=== PATIENT | female | born 1940 | race Caucasian/White ===

== ENCOUNTER → 2017-01-22 | Day surgery (SDC) | payer OTHER ==
[2017-01-19 08:35] VITALS: BMI 23.0
[~2017-01-22] VITALS: Ht 157.5 cm; Wt 57.3 kg
[~2017-01-22] MED LIST: ACT15 PO; AMR2 PO; ASPCH81 PO; ASPI81TA28 PO; ATROPINE SULFATE 0.1 MG/ML 5ML SYR IV PRN; CALC1CAP24 PO; CEFU1TAB33 PO; DEXAMETHASONE SOD INJ 4 MG/ML VIAL ONE; ERGO1CAP35 PO; ERGO500037 PO; EpHEDrine SULFATE INJ 50 MG/ML AMP IV PRN; FENTANYL CITRATE INJ 50 MCG/1 ML 2 ML VIAL IV PRN; FENTANYL CITRATE INJ 50 MCG/1 ML 2 ML VIAL ONE; FLUMAZENIL 0.1 MG/1 ML 10 ML VIAL IV ONE; FLUT0.15 NAE; FSM70 PO; GLIM4TAB2 PO; HYDROmorphone INJ 1 MG/ML SYR IV PRN; INDOMETHACIN 50 MG SUPP PR ONE; LABETALOL HCL IV 5 MG/ML 20ML IV ONE; LABETALOL HCL IV 5 MG/ML 20ML IV PRN; LACTATED RINGER'S 1000ML 1,000 ML IV SCH; LIDOCAINE HCL 2% 2 ML VIAL (20MG/ML) ONE; LOSA1TAB PO; LOSARTAN; MECL1TAB42 PO; MEPERIDINE HCL 25 MG/ML CARP IV PRN; MIDAZOLAM HCL 1 MG/ML 2ML VIAL ONE; MULT-190 PO; ONDA4TAB46 PO; ONDANSETRON INJ 2 MG/ML 2 ML VIAL IV PRN; ONDANSETRON INJ 2 MG/ML 2 ML VIAL ONE; POLY335019 PO; PROPOFOL IV EMULSION 10 MG/ML 20 ML VIAL IV ONE; RIZA10TA18 PO; ROCURONIUM BROMIDE 10 MG/ML 5 ML VIAL ONE; SCOP1.5D2 TD; SIMV10TA2 PO; VNTHFA/IN INH
[2017-01-22 09:16] VITALS: BP 198/86; PULSE 69; TEMP 36.8; O2SAT 97; Ht 157.5 cm; Wt 57.3 kg
[2017-01-22 09:18] LABS: HEMATOCRIT 34.4 % (37-47); MEAN CELL VOLUME 93.7 fL (80-100); MEAN CORPUSCULAR HEMOGLOBIN 32.2 pg (25-34); MEAN PLATELET VOLUME 10.4 fL (7.4-10.4); PLATELET COUNT 181 K/uL (130-400); RED BLOOD COUNT 3.67 M/uL (4.2-5.4); WHITE BLOOD COUNT 5.95 K/uL (4.8-10.8)
[2017-01-22 09:23] LABS: MEAN CORPUSCULAR HGB CONC 34.3 g/dl (32-36)
[2017-01-22 09:43] LABS: BUN/CREATININE RATIO 16.7 (10-20); CALCIUM 9.4 mg/dl (8.5-10.1)
--- NOTE | 2017-01-22 09:45 | Endo History and Physical ---
History & Physical Date of Service: Jan 22, 2017. Chief Complaint: Abnormal imaging study. Referring Physician: Dr. Steward History of Present Illness 76 year old female referred for evalaution of a dilated CBD. Normal LFT, history of abdominal pain that has resolved. No dysphagia. Past Surgical History Hx Abdominal Surgery: Yes (CHOLECYSTECTOMY, HYSTERECTOMY, APPY) Hx Post-Op Nausea and Vomiting: No Hx Cancer Surgery: No Hx Thoracic Surgery: No Hx Orthopedic: No Hx Urinary Tract Surgery: No Social History Smoking Status: Never Smoker Hx Substance Use: No Hx Alcohol Use: No Allergies Coded Allergies: No Known Allergies (Verified , 01/22/17) Current Medications Reported Home Medications Medications Dose Route/Sig Max Daily Dose Days Date Category Dose Instructions Alendronate Sodium 70 Mg Tab 70 Mg PO WK 11/01/16 Reported Ocuvite Preservision (Multivitamins/Minerals) 1 Tab Tab 1 Tab PO QAM 11/01/16 Reported Vitamin D Cap (Ergocalciferol) 50,000 Interunit Cap 1 Tab PO MONTHLY 02/28/11 Reported Aspirin Tab-Chewable * (Aspirin) 81 Mg Chew 81 Mg PO QAM 02/27/11 Reported HOLD 01/19/17 Amaryl * (Glimepiride) 4 Mg Tab 4 Mg PO QAM 02/27/11 Reported Zocor (Simvastatin) 10 Mg Tab 10 Mg PO QAM 02/27/11 Reported Actos * (Pioglitazone HCl) 15 Mg Tab 15 Mg PO QAM 02/27/11 Reported Vital Signs Weight (Kilograms): 57.27 Height (Feet): 5 Height (Inches): 2 Date Time Temp Pulse Resp B/P Pulse Ox O2 Delivery O2 Flow Rate FiO2 01/22/17 09:16 36.8 69 18 198/86 97 Room Air Physical Exam General Appearance: no apparent distress Respiratory/Chest: Auscultation: breath sounds normal Cardiovascular: Heart Auscultation: RRR Abdomen: Inspection & Palpation: soft Assessment and Plan EGD/EUS for evaluation of a dilated CBD on prior imaging. If found to have CBD stones will plan for ERCP today as well. We have discussed the risks to include bleeding, infection, perforation, pain, pancreatitis and failed cannulation in event ERCP is performed.
--- NOTE | 2017-01-22 10:38 | Discharge Instructions ---
Endoscopy Patient Instructions Date / Procedure(s) Performed Jan 22, 2017. EGD, Other (Endoscopic ultrasound) Allergy Information Coded Allergies: No Known Allergies (Verified , 01/22/17) Discharge Date / Findings Jan 22, 2017. 7 mm common bile duct (normal for prior cholecystectomy) Mild gastritis Medication Instructions Reported Home Medications Medications Dose Route/Sig Max Daily Dose Days Date Category Dose Instructions Alendronate Sodium 70 Mg Tab 70 Mg PO WK 11/01/16 Reported Ocuvite Preservision (Multivitamins/Minerals) 1 Tab Tab 1 Tab PO QAM 11/01/16 Reported Vitamin D Cap (Ergocalciferol) 50,000 Interunit Cap 1 Tab PO MONTHLY 02/28/11 Reported Aspirin Tab-Chewable * (Aspirin) 81 Mg Chew 81 Mg PO QAM 02/27/11 Reported HOLD 01/19/17 Amaryl * (Glimepiride) 4 Mg Tab 4 Mg PO QAM 02/27/11 Reported Zocor (Simvastatin) 10 Mg Tab 10 Mg PO QAM 02/27/11 Reported Actos * (Pioglitazone HCl) 15 Mg Tab 15 Mg PO QAM 02/27/11 Reported Provider Instructions Activity Restrictions - No exercising or heavy lifting for 24 hours. - Do not drink alcohol the day of the procedure. - Do not drive a car or operate machinery until the day after the procedure. - Do not make any important decisions or sign important papers in 24 hours after the procedure. Following Day: - Return to full activity which may include returning to work/school. Diet Start your diet with liquids and light foods (jello, soup, juice, toast). Then eat your usual diet if not nauseated. Treatment For Common After Affects For mild abdominal pain, bloating, or excessive gas: - Rest - Eat lightly - Lie on right side Follow-Up Information Follow-up with Dr. Steward as needed Anesthesia Information What You Should Know You have had a procedure that required some medicine to reduce anxiety and discomfort. This treatment is called moderate sedation. After receiving the treatment, you may be sleepy, but you will be able to breathe on your own. The effects of the treatment may last for several hours. Follow these instructions along with Activity/Diet recommendations noted above: * Do NOT do anything where dizziness or clumsiness would be dangerous. * Rest quietly at home today, then you can be up and about tomorrow. * Have a responsible person stay with you the rest of today. * You may have had an I.V. today. If so, you may take the dressing off later today. Recommendations Call your doctor if: * Trouble breathing * Continuous vomiting for more than 24 hours * Temperature above 101 degrees * Severe abdominal pain or bloating * Pain not relieved by pain medicine ordered * There is increased drainage or redness from any incision * A large amount of rectal bleeding greater than 2-3 tablespoons. (If you had a polyp/s removed or have hemorrhoids, a small amount of blood - from the rectum is to be expected.) * You have any unanswered questions or concerns. IN THE EVENT OF A SERIOUS EMERGENCY, GO TO THE NEAREST EMERGENCY ROOM Your discharge instructions were prepared by provider Roosevelt Peralta. Patient Instructions Signature Page Machelle King Patient (or Guardian) Signature/Date: I have read and understand the instructions given to me by my caregivers. Caregiver/RN/Doctor Signature/Date: The above-named patient and/or guardian has received patient instructions on this date. + Original Patient Signature Page (only) stays with chart. Please make copy for patient.
--- NOTE | 2017-01-22 10:39 | [facility] Post Operative Brief Note ---
Immediate Operative Summary Operative Date Jan 22, 2017. Pre-Operative Diagnosis Dilated common bile duct Post-Operative Diagnosis Same Procedure(s) Performed Esophagogastroduodenoscopy with gastric biopsy,Upper Endoscopic Ultrasonography Surgeon Dr Roosevelt Peralta Inlayer Surgeon(s) None Estimated Blood Loss 0ml Findings Mild dilation of the CBD Mild gastritis (likely related to Aledronate Specimens All specimens handled by endo staff Anesthesia General Complication(s) None Disposition Recovery Room / PACU
--- NOTE | 2017-01-22 10:47 | GI REPORT ---
Procedure Date: 01/22/2017 10:15 AM Procedure: Upper EUS Indications: Common bile duct dilation (acquired) seen on CT scan, Epigastric abdominal pain Medicines: General Anesthesia Complications: No immediate complications. Estimated blood loss: Minimal. Estimated Blood Loss: Estimated blood loss was minimal. Procedure: Pre-Anesthesia Assessment: - Prior to the procedure, a History and Physical was performed, and patient medications, allergies and sensitivities were reviewed. The patient's tolerance of previous anesthesia was reviewed. - The risks and benefits of the procedure and the sedation options and risks were discussed with the patient. All questions were answered and informed consent was obtained. - Patient identification and proposed procedure were verified prior to the procedure by the physician, the nurse and the mill hand plate mill. The procedure was verified in the procedure room. - Pre-procedure physical examination revealed no contraindications to sedation. - ASA Grade Assessment: III - A patient with severe systemic disease. - After reviewing the risks and benefits, the patient was deemed in satisfactory condition to undergo the procedure. - The anesthesia plan was to use general anesthesia. - Immediately prior to administration of medications, the patient was re-assessed for adequacy to receive sedatives. - The heart rate, respiratory rate, oxygen saturations, blood pressure, adequacy of pulmonary ventilation, and response to care were monitored throughout the procedure. - The physical status of the patient was re-assessed after the procedure. After obtaining informed consent, the endoscope was passed under direct vision. Throughout the procedure, the patient's blood pressure, pulse, and oxygen saturations were monitored continuously. The Endosonoscope was introduced through the mouth, and advanced to the second part of duodenum. The upper EUS was accomplished without difficulty. The patient tolerated the procedure well. Findings: Endoscopic Finding : The examined esophagus was normal. Diffuse moderate inflammation characterized by erythema and granularity was found in the entire examined stomach. Biopsies were taken with a cold forceps for histology. Estimated blood loss was minimal. The Z-line was regular and was found 39 cm from the incisors. The examined duodenum was normal. Endosonographic Finding : There was no sign of significant endosonographic abnormality in the ampulla. No masses were identified. Evidence of a previous cholecystectomy was identified endosonographically. There was dilation in the common bile duct which measured up to 7.6 mm. There was abnormal echogenicity in the liver. This area was hyperechoic. Pancreatic parenchymal abnormalities were noted in the entire pancreas. These consisted of diffuse echogenicity, the PD was 1 mm in the body and 3 mm in the head. There was no sign of significant endosonographic abnormality in the left adrenal gland. No adrenal gland enlargement was identified. No lymphadenopathy seen. Impression: - Normal esophagus. - Diffuse gastritis, likley related to Bisphosphonate use. Biopsied. - Z-line regular, 39 cm from the incisors. - Normal examined duodenum. - There was no sign of significant pathology in the ampulla. - Evidence of a cholecystectomy. - There was dilation in the common bile duct which measured up to 7.6 mm. This is consistent with a prior cholecystectomy. - There was abnormal echogenicity in the liver. This was hyperechoic. Tissue has not been obtained. However, the endosonographic appearance is consistent with fatty infiltration. - No pancreatic mass or PD dilation seen.. - Endosonographic images of the left adrenal gland were unremarkable. Recommendation: - Discharge patient to home (ambulatory). - Advance diet as tolerated today. - Await path results. Roosevelt Peralta D.O. Roosevelt Peralta, 01/22/2017 10:47:36 AM This report has been signed electronically. Note Initiated On: 01/22/2017 10:15 AM I attest to the content of the Intraoperative Record and orders documented therein, exceptions below
[2017-01-22 11:35] VITALS: BP 183/65; PULSE 54; TEMP 36.5; O2SAT 96
--- NOTE | 2017-01-22 11:53 | Anesthesiology Progress Note ---
Anesthesia Post Op Note Date & Time Jan 22, 2017 at 11:53 Vital Signs Pain Intensity: 0 Vital Signs Past 12 Hours Date Time Temp Pulse Resp B/P Pulse Ox O2 Delivery O2 Flow Rate FiO2 01/22/17 11:35 36.5 54 16 183/65 96 Room Air 01/22/17 11:25 36.5 51 16 141/55 96 Room Air 01/22/17 11:15 55 16 152/61 96 Room Air 01/22/17 11:05 56 16 152/61 100 Mask 10 01/22/17 10:55 54 16 148/58 100 Mask 10 01/22/17 10:45 37 67 16 181/62 99 Mask 10 01/22/17 09:16 36.8 69 18 198/86 97 Room Air Notes Mental Status: alert / awake / arousable, participated in evaluation Pt Amnestic to Procedure: Yes Nausea / Vomiting: adequately controlled Pain: adequately controlled Airway Patency, RR, SpO2: stable & adequate BP & HR: stable & adequate Hydration State: stable & adequate Anesthetic Complications: no major complications apparent
[2017-01-22 12:05] VITALS: BP 155/66; PULSE 54; O2SAT 96
[2017-01-22 12:34] VITALS: BP 143/65; PULSE 55; TEMP 36.5; O2SAT 96
== END | disposition home or self-care (01) ==
LOC: C.ACU 08:48
PROVIDERS: ATTEND Internal Medicine Gastroenterology
DX: K83.8 Other specified diseases of biliary tract (principal); K29.70 Gastritis, unspecified, without bleeding; R93.5 Abnormal findings on diagnostic imaging of other abdominal regions, including retroperitoneum; Z90.49 Acquired absence of other specified parts of digestive tract; Z90.89 Acquired absence of other organs; Z90.710 Acquired absence of both cervix and uterus; Z79.82 Long term (current) use of aspirin; E78.00 Pure hypercholesterolemia, unspecified; Z86.73 Personal history of transient ischemic attack (TIA), and cerebral infarction without residual deficits; I10 Essential (primary) hypertension; E78.5 Hyperlipidemia, unspecified; E11.9 Type 2 diabetes mellitus without complications; N18.3 Chronic kidney disease, stage 3 (moderate)

== ENCOUNTER 2017-07-21 20:12 | Inpatient (IN) | payer OTHER ==
[~2017-07-21] VITALS: Ht 157.5 cm; Wt 59.3 kg
[~2017-07-21 20:12] MED LIST changes: -ASPI81TA28 PO; -ATROPINE SULFATE 0.1 MG/ML 5ML SYR IV PRN; -CALC1CAP24 PO; -CEFU1TAB33 PO; -DEXAMETHASONE SOD INJ 4 MG/ML VIAL ONE; -ERGO500037 PO; -EpHEDrine SULFATE INJ 50 MG/ML AMP IV PRN; -FENTANYL CITRATE INJ 50 MCG/1 ML 2 ML VIAL IV PRN; -FENTANYL CITRATE INJ 50 MCG/1 ML 2 ML VIAL ONE; -FLUMAZENIL 0.1 MG/1 ML 10 ML VIAL IV ONE; -FLUT0.15 NAE; -GLIM4TAB2 PO; -HYDROmorphone INJ 1 MG/ML SYR IV PRN; -INDOMETHACIN 50 MG SUPP PR ONE; -LABETALOL HCL IV 5 MG/ML 20ML IV ONE; -LABETALOL HCL IV 5 MG/ML 20ML IV PRN; -LACTATED RINGER'S 1000ML 1,000 ML IV SCH; -LIDOCAINE HCL 2% 2 ML VIAL (20MG/ML) ONE; -LOSA1TAB PO; -LOSARTAN; -MECL1TAB42 PO; -MEPERIDINE HCL 25 MG/ML CARP IV PRN; -MIDAZOLAM HCL 1 MG/ML 2ML VIAL ONE; -ONDA4TAB46 PO; -ONDANSETRON INJ 2 MG/ML 2 ML VIAL IV PRN; -ONDANSETRON INJ 2 MG/ML 2 ML VIAL ONE; -POLY335019 PO; -PROPOFOL IV EMULSION 10 MG/ML 20 ML VIAL IV ONE; -RIZA10TA18 PO; -ROCURONIUM BROMIDE 10 MG/ML 5 ML VIAL ONE; -SCOP1.5D2 TD; -VNTHFA/IN INH
[2017-07-21] MEDS ORDERED: SODIUM CHLORIDE 0.9% 1000ML 1,000 ML IV STA (20:22)
[2017-07-21] MEDS ORDERED: ONDANSETRON 8 MG/54 ML D5W IV STA (20:22)
[2017-07-21] MEDS ORDERED: MoRPHine SULFATE 4 MG/ML 1 ML CARP\\VIAL IV STA ×2 (20:22→23:33)
[2017-07-21 20:46] LABS: BASO % 0.3 %; BASO ABS # 0.03 K/uL (0-0.2); COMPLETE YES; EOS % 1.9 %; HEMATOCRIT 33.9 % (37-47); IG% 0.4 %; LYMPH ABS # 1.53 K/uL (1.2-3.4); MEAN CELL VOLUME 94.2 fL (80-100); MEAN CORPUSCULAR HEMOGLOBIN 32.2 pg (25-34); MEAN CORPUSCULAR HGB CONC 34.2 g/dl (32-36); MEAN PLATELET VOLUME 10.5 fL (7.4-10.4); MONO % 6.7 %; NEUT % 75.7 %; PLATELET COUNT 185 K/uL (130-400); WHITE BLOOD COUNT 10.17 K/uL (4.8-10.8)
[2017-07-21] MEDS ORDERED: GLIM4TAB2 PO (20:58)
[2017-07-21] MEDS ORDERED: ACT15 PO (20:58)
[2017-07-21] MEDS ORDERED: ERGO500037 PO (20:58)
[2017-07-21] MEDS ORDERED: ONDA4TAB46 PO (21:02)
[2017-07-21] MEDS ORDERED: CALC1CAP24 PO (21:02)
[2017-07-21] MEDS ORDERED: FLUT0.15 NAE (21:02)
[2017-07-21] MEDS ORDERED: SCOP1DIS14 TD (21:02)
[2017-07-21] MEDS ORDERED: LOSA1TAB PO (21:02)
[2017-07-21] MEDS ORDERED: VNTHFA/IN INH (21:02)
[2017-07-21] MEDS ORDERED: ASPI81TA28 PO (21:02)
[2017-07-21] MEDS ORDERED: MECL1TAB42 PO (21:02)
[2017-07-21] MEDS ORDERED: POLY335019 PO (21:02)
[2017-07-21] MEDS ORDERED: RIZA10TA18 PO (21:02)
[2017-07-21] MEDS ORDERED: LOSARTAN (21:02)
--- NOTE | 2017-07-21 21:03 | DIAGNOSTIC IMAGING REPORT ---
CT SCAN OF THE ABDOMEN AND PELVIS WITHOUT CONTRAST CLINICAL HISTORY: Vomiting. Upper and lower abdominal pain. History of cholecystectomy, appendectomy, and hysterectomy. COMPARISON STUDY: 11/02/2016 TECHNIQUE: CT scan of the abdomen and pelvis was performed from the lung bases to the proximal femurs. Images are reviewed in the axial, sagittal, and coronal planes. IV contrast was not administered for this examination. A dose lowering technique was utilized adhering to the principles of ALARA. CT DOSE: 293.82 mGy.cm FINDINGS: Lower chest: There are mild dependent atelectatic changes. Liver: There is persistent intra and extrahepatic biliary ductal dilatation. There is trace perihepatic fluid. Gallbladder: Surgically absent Spleen: Normal in size and attenuation. Pancreas: Unremarkable. Adrenal glands: Unremarkable. Kidneys: No renal, ureteral, or bladder calculi are visualized. Bowel: There are borderline dilated small bowel loops containing multiple air-fluid levels. There is formed fecal material within distal small bowel loops. There is mild mesenteric edema and minimal interloop fluid. A discrete transition zone is not visualized. The findings may therefore be secondary to an enteritis. Peritoneum: There is trace peritoneal fluid. There is minimal mesenteric edema. Vasculature: The abdominal aorta is normal in course and caliber. Adenopathy: None. Pelvic viscera: The uterus is surgically absent. Skeletal structures: No destructive osseous lesions are seen. IMPRESSION: 1. Study limited due to lack of intravenous and oral contrast 2. Borderline dilated small bowel loops containing multiple air-fluid levels. There is mild mesenteric edema and minimal interloop fluid. A discrete transition zone is not visualized. The findings may therefore be secondary to a nonspecific enteritis. Close clinical follow-up is recommended. If symptoms do not improve, repeat imaging might be considered with intravenous and oral contrast 3. Colonic diverticulosis. No evidence of acute peridiverticular inflammatory change 4. Small amount of perihepatic fluid 5. Persistent biliary ductal dilatation Electronically signed by: Austyn Peterson M.D. 07/21/2017 9:01 PM Dictated Date/Time: 07/21/2017 8:53 PM
[2017-07-21 21:07] LABS: ALT/SGPT 21 U/L (12-78); BLOOD UREA NITROGEN 18 mg/dl (7-18); BUN/CREATININE RATIO 16.5 (10-20); CALCIUM 9.1 mg/dl (8.5-10.1); CARBON DIOXIDE 24 mmol/L (21-32); CHLORIDE 109 mmol/L (98-107); GLUCOSE 178 mg/dl (70-99); POTASSIUM 4.3 mmol/L (3.5-5.1); SODIUM 141 mmol/L (136-145)
[2017-07-21 21:12] LABS: ALKALINE PHOSPHATASE 57 U/L (45-117); AST/SGOT 20 U/L (15-37)
[2017-07-21] MEDS ORDERED: MoRPHine SULFATE 2 MG/ML CARP ONE (21:30)
[2017-07-21 22:58] LABS: MAGNESIUM 2.5 mg/dl (1.8-2.4)
--- NOTE | 2017-07-21 23:10 | EMERGENCY ROOM VISIT NOTE ---
History Report prepared by Trey: Darlene Horta Under the Supervision of: Dr. Francois Zhang M.D. First contact with patient: 20:17 Chief Complaint: NAUSEA Stated Complaint: NAUSEA,VOMITNG,ABD PAIN History of Present Illness The patient is a 77 year old female who presents to the Emergency Room with complaints of intermittent abdominal pain starting noon today. The pain is in her upper abdomen and comes every 5 minutes. She rates her discomfort as a 10/ 10 in severity at worst. Currently, she does not have any pain. Just prior to leaving for the ED, she started having nausea and vomiting. The vomiting seemed to relieve her pain. She has had a cholecystectomy, appendectomy, and hysterectomy. She still has her ovaries. She has a history of gastroparesis. She denies any history of bowel blockage or pancreas problems. Pt denies LOC, headache, fevers, chills, diaphoresis, visual changes, neck pain, chest pain, breathing difficulties, back pain, melena, hematochezia, urinary symptoms, numbness, weakness, lymphadenopathy, rash, or other complaints. Source of History: patient Onset: 1200 today Position: abdomen (upper) Symptom Intensity: 10/10 at worst Quality: other (pain) Timing: intermittent Modifying Factors (Relieving): other (vomiting) Associated Symptoms: + nausea, + vomiting Review of Systems See HPI for pertinent positives and negatives. A total of ten systems were reviewed and were otherwise negative. Past Medical & Surgical Medical Problems: (1) Diabetes mellitus, type II (2) Dyslipidemia (3) Kidney disease, chronic, stage III (GFR 30-59 ml/min) Surgical Problems: (1) History of appendectomy (2) History of tonsillectomy and adenoidectomy (3) S/P cholecystectomy (4) S/P hysterectomy Family History Noncontributory secondary to age. Social History Smoking Status: Never Smoker Marital Status: Housing Status: lives with family Occupation Status: retired Current/Historical Medications Scheduled Aspirin (Aspirin Ec), 81 MG PO DAILY Calcium (Calcium), 250 MG PO DAILY Ergocalciferol (Vitamin D 94445 Unit), 50,000 UNIT PO MONTHLY Fluticasone Propionate (Nasal) (Flonase Allergy Relief), 2 SPRAYS DANIA DAILY Glimepiride (Glimepiride), 4 MG PO QAM Losartan Potassium (Cozaar), 25 MG PO DAILY Ocuvite Preservision (Ocuvite Preservision), 1 TAB PO QAM Pioglitazone (Actos), 15 MG PO QAM Simvastatin (Zocor), 10 MG PO QAM Scheduled PRN Albuterol Hfa (Ventolin Hfa), 2 PUFFS INH QID PRN for Shortness of Breath Meclizine Hcl (Meclizine Hcl), 1 TAB PO TID PRN for Dizziness or Vertigo Ondansetron Hcl (Zofran), 4 MG PO Q6H PRN for Nausea Polyethylene Glycol 3350 (Miralax), 17 GM PO DAILY PRN for Constipation Rizatriptan Benzoate (Maxalt), 10 MG PO DIRECTED PRN for Migraine Scopolamine (Transderm-Scop), 1.5 MG TD Q72H PRN for PRIOR TO "EVENTS". Allergies Coded Allergies: No Known Allergies (Verified , 07/21/17) Physical Exam Vital Signs Date Time Temp Pulse Resp B/P (MAP) Pulse Ox O2 Delivery O2 Flow Rate FiO2 07/21/17 23:01 160/58 07/21/17 22:36 53 19 95 07/21/17 22:31 120/52 07/21/17 22:17 56 15 97 07/21/17 22:01 131/51 07/21/17 21:47 61 20 96 07/21/17 21:31 122/53 07/21/17 21:17 59 19 95 07/21/17 21:12 57 21 98 07/21/17 21:01 123/76 07/21/17 20:44 58 07/21/17 20:14 36.7 84 20 106/69 97 Room Air Physical Exam GENERAL: Awake, alert, uncomfortable-appearing, in no distress HENT: Normocephalic, atraumatic. Oropharynx unremarkable. EYES: Normal conjunctiva. Sclera non-icteric. NECK: Supple. No nuchal rigidity. FROM. No JVD. RESPIRATORY: Clear to auscultation. CARDIAC: Regular rate, normal rhythm. Extremities warm and well perfused. Pulses equal. ABDOMEN: Soft, non-distended. Mild bilateral lower tenderness to palpation. No rebound or guarding. No masses. RECTAL: Deferred. MUSCULOSKELETAL: Chest examination reveals no tenderness. The back is symmetrical on inspection without obvious abnormality. There is no CVA tenderness to palpation. No joint edema. LOWER EXTREMITIES: Calves are equal size bilaterally and non-tender. No edema. No discoloration. NEURO: Normal sensorium. No sensory or motor deficits noted. SKIN: No rash or jaundice noted. Medical Decision & Procedures ER Provider Diagnostic Interpretation: Radiology results as stated below per my review and radiologist interpretation: CT SCAN OF THE ABDOMEN AND PELVIS WITHOUT CONTRAST CLINICAL HISTORY: Vomiting. Upper and lower abdominal pain. History of cholecystectomy, appendectomy, and hysterectomy. COMPARISON STUDY: 11/02/2016 TECHNIQUE: CT scan of the abdomen and pelvis was performed from the lung bases to the proximal femurs. Images are reviewed in the axial, sagittal, and coronal planes. IV contrast was not administered for this examination. A dose lowering technique was utilized adhering to the principles of ALARA. CT DOSE: 293.82 mGy.cm FINDINGS: Lower chest: There are mild dependent atelectatic changes. Liver: There is persistent intra and extrahepatic biliary ductal dilatation. There is trace perihepatic fluid. Gallbladder: Surgically absent Spleen: Normal in size and attenuation. Pancreas: Unremarkable. Adrenal glands: Unremarkable. Kidneys: No renal, ureteral, or bladder calculi are visualized. Bowel: There are borderline dilated small bowel loops containing multiple air-fluid levels. There is formed fecal material within distal small bowel loops. There is mild mesenteric edema and minimal interloop fluid. A discrete transition zone is not visualized. The findings may therefore be secondary to an enteritis. Peritoneum: There is trace peritoneal fluid. There is minimal mesenteric edema. Vasculature: The abdominal aorta is normal in course and caliber. Adenopathy: None. Pelvic viscera: The uterus is surgically absent. Skeletal structures: No destructive osseous lesions are seen. IMPRESSION: 1. Study limited due to lack of intravenous and oral contrast 2. Borderline dilated small bowel loops containing multiple air-fluid levels. There is mild mesenteric edema and minimal interloop fluid. A discrete transition zone is not visualized. The findings may therefore be secondary to a nonspecific enteritis. Close clinical follow-up is recommended. If symptoms do not improve, repeat imaging might be considered with intravenous and oral contrast 3. Colonic diverticulosis. No evidence of acute peridiverticular inflammatory change 4. Small amount of perihepatic fluid 5. Persistent biliary ductal dilatation Electronically signed by: Austyn Peterson M.D. 07/21/2017 9:01 PM Dictated Date/Time: 07/21/2017 8:53 PM Laboratory Results 07/21/17 20:30 Red Blood Count 3.60, Mean Corpuscular Volume 94.2, Mean Corpuscular Hemoglobin 32.2, Mean Corpuscular Hemoglobin Concent 34.2, Mean Platelet Volume 10.5, Neutrophils (%) (Auto) 75.7, Lymphocytes (%) (Auto) 15.0, Monocytes (%) (Auto) 6.7, Eosinophils (%) (Auto) 1.9, Basophils (%) (Auto) 0.3, Neutrophils # (Auto) 7.70, Lymphocytes # (Auto) 1.53, Monocytes # (Auto) 0.68, Eosinophils # (Auto) 0.19, Basophils # (Auto) 0.03 07/21/17 20:30 Test 07/21/17 20:30 White Blood Count 10.17 K/uL (4.8-10.8) Red Blood Count 3.60 M/uL (4.2-5.4) Hemoglobin 11.6 g/dL (12.0-16.0) Hematocrit 33.9 % (37-47) Mean Corpuscular Volume 94.2 fL (80-100) Mean Corpuscular Hemoglobin 32.2 pg (25-34) Mean Corpuscular Hemoglobin Concent 34.2 g/dl (32-36) Platelet Count 185 K/uL (130-400) Mean Platelet Volume 10.5 fL (7.4-10.4) Neutrophils (%) (Auto) 75.7 % Lymphocytes (%) (Auto) 15.0 % Monocytes (%) (Auto) 6.7 % Eosinophils (%) (Auto) 1.9 % Basophils (%) (Auto) 0.3 % Neutrophils # (Auto) 7.70 K/uL (1.4-6.5) Lymphocytes # (Auto) 1.53 K/uL (1.2-3.4) Monocytes # (Auto) 0.68 K/uL (0.11-0.59) Eosinophils # (Auto) 0.19 K/uL (0-0.5) Basophils # (Auto) 0.03 K/uL (0-0.2) RDW Standard Deviation 44.1 fL (36.4-46.3) RDW Coefficient of Variation 12.7 % (11.5-14.5) Immature Granulocyte % (Auto) 0.4 % Immature Granulocyte # (Auto) 0.04 K/uL (0.00-0.02) Anion Gap 8.0 mmol/L (3-11) Est Creatinine Clear Calc Drug Dose 35.0 ml/min Estimated GFR () 56.9 Estimated GFR (Non- 49.1 BUN/Creatinine Ratio 16.5 (10-20) Calcium Level 9.1 mg/dl (8.5-10.1) Magnesium Level 2.5 mg/dl (1.8-2.4) Total Bilirubin 0.6 mg/dl (0.2-1) Direct Bilirubin 0.2 mg/dl (0-0.2) Aspartate Amino Transf (AST/SGOT) 20 U/L (15-37) Alanine Aminotransferase (ALT/SGPT) 21 U/L (12-78) Alkaline Phosphatase 57 U/L (45-117) Troponin I < 0.015 ng/ml (0-0.045) Total Protein 7.1 gm/dl (6.4-8.2) Albumin 3.6 gm/dl (3.4-5.0) Lipase 188 U/L (73-393) Thyroid Stimulating Hormone (TSH) 1.100 uIu/ml (0.300-4.500) Laboratory results reviewed by me Medications Administered Medications (Trade) Dose Ordered Sig/Rachel Route Start Time Stop Time Status Last Admin Dose Admin Sodium Chloride 1,000 ml @ 125 mls/hr Q8H STAT IV 07/21/17 20:22 07/22/17 04:21 07/21/17 20:57 125 MLS/HR Ondansetron HCl (Zofran 8mg Iv) 8 mg NOW STAT IV 07/21/17 20:22 07/21/17 20:23 DC 07/21/17 20:57 8 MG Morphine Sulfate (MoRPHine SULFATE INJ) 2 mg STK-MED ONCE .ROUTE 07/21/17 21:30 07/21/17 21:31 DC 07/21/17 21:32 2 MG ECG Indication: abdominal pain Rate (beats per minute): 61 Rhythm: normal sinus Findings: no acute ischemic change, no ectopy ED Course 2019: The patient was evaluated in room B2. A complete history and physical exam was performed. 2021: Zofran Inj 8 mg IV, NSS 1000 ml @ 125 mls/hr IV. 2118: Upon reexamination, the patient was doing well. I discussed the test results and treatment plan with her. The patient will be evaluated for further management. 2129: Morphine Sulfate 2 mg IV. 2130: I discussed the patient's case [facility] The patient will be evaluated for further treatment and disposition. 2214: I reevaluated the patient. She is feeling much better after medications. She rates her discomfort as a 3/10 in severity. Medical Decision Triage Nursing notes reviewed. The patient's presentation and history were concerning for abdominal pain. Etiologies such as obstruction, diverticulitis, inflammatory bowel disease, renal colic, PUD, biliary pathology, pancreatitis, mesenteric ischemia, aortic pathology, infections, genitourinary, UTI, perforated viscus, as well as others were entertained. The patient was evaluated. She was doing relatively well sources pain but was nauseated. She was given Zofran and hydrated. The patient was sent to CT for imaging. Blood work was obtained. Her CBC, chemistry panel, LFTs and lipase were unremarkable. Urinalysis pending. CT scan of the abdomen and pelvis reveals multiple air-fluid levels. There is some ascites noted as well. Given the severe level of pain and then vomiting this is concerning for a partial small bowel obstruction. She had increasing pain on reassessment and was given a small dose of morphine. The patient had improvement of her symptoms. Radiology questions a possible enteritis. The patient has not had any diarrhea. She had intense pain and with her numerous surgeries a PSBO is a concern. A consultation was made with internal medicine. The patient was evaluated in the Emergency Room for further management. Medication Reconcilliation Current Medication List: was personally reviewed by me Blood Pressure Screening Patient's blood pressure: Normal blood pressure Blood pressure disposition: Did not require urgent referral Consults Time Called: 2124 Consulting Phys[facility] Returned Call: 2130 Discussed the patient's case. The patient will be evaluated for further treatment and disposition. Impression Primary Impression: Partial small bowel obstruction Additional Impressions: Upper abdominal pain Vomiting Scribe Attestation The scribe's documentation has been prepared under my direction and personally reviewed by me in its entirety. I confirm that the note above accurately reflects all work, treatment, procedures, and medical decision making performed by me. Departure Information Dispostion Being Evaluated By Hospitalist Referrals Ediwge Pierre M.D. (PCP) Patient Instructions My [facility] Problem Qualifiers
[2017-07-22] MEDS ORDERED: GLUCOSE 10 TABS/TUBE PO PRN (00:45)
[2017-07-22] MEDS ORDERED: HYDROmorphone INJ 0.5 MG/0.5 ML SYR IV PRN (00:45)
[2017-07-22] MEDS ORDERED: DEXTROSE 50% 50 ML SYR IV PRN (00:45)
[2017-07-22] MEDS ORDERED: GLUCAGON FOR INJ 1 MG VIAL SQ PRN (00:45)
[2017-07-22] MEDS ORDERED: PROMETHAZINE HCL INJ 12.5 MG in SODIUM CHLORIDE 0.9% 50ML 50 ML IV PRN (00:45)
[2017-07-22] MEDS ORDERED: POLYETHYLENE (MIRALAX) 17 GM PACK PO PRN (00:45)
[2017-07-22] MEDS ORDERED: GLUCOSE 40% GEL 15 GM TUBE PO PRN (00:45)
[2017-07-22] MEDS ORDERED: ACETAMINOPHEN 325 MG TAB PO PRN (00:45)
[2017-07-22] MEDS ORDERED: KETOROLAC TROMETHAMINE 15 MG/ML VIAL IV. PRN (00:45)
[2017-07-22 00:52] VITALS: BP 133/70; PULSE 56; TEMP 36.9; Ht 157.5 cm; Wt 59.3 kg
[2017-07-22 00:53] VITALS: O2SAT 97
[2017-07-22 01:10] LABS: URINE APPEARANCE CLOUDY (CLEAR); URINE BILIRUBIN NEG (NEG); URINE COLOR YELLOW; URINE NITRITE NEG (NEG); URINE SPECIFIC GRAVITY 1.019 (1.000-1.030); UROBILINOGEN NEG (NEG); ZZUR CULT IF INDIC CLEAN CATCH NO
[2017-07-22 01:14] LABS: MANUAL MICROSCOPIC REQUIRED? NO; REVIEW REQ? NO
[2017-07-22] MEDS: SODIUM CHLORIDE 0.45% 1000ML 1,000 ML IV SCH ×2 (02:01→17:42)
[2017-07-22] MEDS ORDERED: INSULIN ASPART 100 UNITS/ML 3 ML PEN SC ONE (02:15)
[2017-07-22 06:00] LABS: ESTIMATED AVERAGE GLUCOSE 128 mg/dl; HA1C FLAG Normal (Normal)
[2017-07-22] MEDS: INSULIN ASPART 100 UNITS/ML 3 ML PEN SC SCH ×4 (06:00→20:06)
--- NOTE | 2017-07-22 06:31 | HISTORY & PHYSICAL EXAMINATION ---
DATE OF ADMISSION: 07/21/2017 PRIMARY CARE DOCTOR: Edwige Pierre MD CHIEF COMPLAINT: Abdominal pain. HISTORY OF PRESENT ILLNESS: History obtained from patient and records. Medical history significant for hypertension, hyperlipidemia, DM2, on oral meds; history of TIA, bowel obstruction status post surgery. Chronic anemia (baseline hemoglobin 11) One day history of upper abdominal pain, distention, vomiting, achy. Good bowel movement. No fever, no chills. MEDICAL HISTORY: As above. SURGICAL HISTORY: Adhesiolysis in the past, cholecystectomy, hysterectomy, tonsillectomy, appendectomy. HOME MEDICATIONS: Include simvastatin, losartan, Zofran, vitamin D, albuterol, meclizine, scopolamine p.r.n., Ocuvite, calcium, fluticasone, MiraLax, aspirin. Actos, glimepiride ALLERGIES: No known drug allergies. FAMILY HISTORY: Hypertension. PERSONAL AND SOCIAL HISTORY: Nonsmoker, no chronic intake of alcohol. Retired motion picture set worker. Lives with granddaughter. REVIEW OF SYSTEMS: As per HPI, all other ROS negative. PHYSICAL EXAMINATION: VITAL SIGNS: Blood pressure was noted to be 120/76, heart rate 58, RR 12, temperature 36.7, sats 98 on room air. GENERAL: Noted to be comfortable, in no respiratory distress. Looks younger for stated age. SKIN: Pallor. HEENT: Pale palpebral conjunctivae. Dry mucosa. NECK: No JVD. Supple. HEART: Bradycardic. ABDOMEN: Some distention, no overt tenderness. EXTREMITIES: No edema. No tenderness NEUROLOGIC: No gross focality. LABORATORY DATA: Hemoglobin was 11.6, hematocrit 30.9, white cells 10.17, platelets 195. Sodium 137, potassium 4.3, chloride 109, CO2 24, crea 1, glucose 178. Hemoglobin A1c from February [address] of the abdomen and pelvis showed small bowel loops containing multiple air fluid levels, mild mesenteric edema, minimal intraloop fluid, discrete transition was not visualized, possible enteritis, colonic diverticulosis. ASSESSMENT: 1. Abdominal pain recurrent small bowel obstruction vs ileus/enteritis. 2. Hypertension, stable. 3. DM2, well controlled as of recent A1c. 4. Chronic anemia, hemoglobin at baseline. PLAN: GMF bowel rest, IVF, analgesia, antiemetics, NG tube decompression if with further emesis Surgery consult RE poss bowel obstruction. ISS BG goal 140-180 , patient due for hemoglobin A1c recheck. DVT prophylaxis. Lovenox subcutaneous Full code. MTDD
[2017-07-22 06:55] VITALS: BP 96/53; PULSE 60; TEMP 36.6; O2SAT 98
[2017-07-22] MEDS: LOSARTAN POTASSIUM 25 MG TAB PO SCH (08:00)
[2017-07-22 08:15] LABS: BASO % 0.3 %; BASO ABS # 0.02 K/uL (0-0.2); COMPLETE YES; EOS % 2.1 %; HEMATOCRIT 30.2 % (37-47); IG% 0.3 %; LYMPH % 25.9 %; LYMPH ABS # 1.93 K/uL (1.2-3.4); MEAN CELL VOLUME 94.7 fL (80-100); MEAN CORPUSCULAR HEMOGLOBIN 32.3 pg (25-34); MEAN CORPUSCULAR HGB CONC 34.1 g/dl (32-36); MEAN PLATELET VOLUME 10.4 fL (7.4-10.4); MONO % 7.7 %; NEUT % 63.7 %; PLATELET COUNT 167 K/uL (130-400); RED BLOOD COUNT 3.19 M/uL (4.2-5.4); WHITE BLOOD COUNT 7.45 K/uL (4.8-10.8)
[2017-07-22] MEDS: ASPIRIN 81 MG ECTAB PO SCH (08:18)
[2017-07-22] MEDS: SIMVASTATIN 10 MG TAB PO SCH (08:18)
[2017-07-22] MEDS: CEROVITE ADV FORMULA TAB PO SCH (08:18)
[2017-07-22] MEDS: FLUTICASONE PROPIONATE NA SPR 16 GM BTL NAE SCH (08:18)
[2017-07-22 08:27] LABS: PROTHROMBIN TIME (PATIENT) 10.3 SECONDS (9.0-12.0)
[2017-07-22 08:48] LABS: BUN/CREATININE RATIO 18.8 (10-20); CALCIUM 8.6 mg/dl (8.5-10.1); CREATININE 0.98 mg/dl (0.60-1.20); POTASSIUM 4.2 mmol/L (3.5-5.1)
[2017-07-22] MEDS: ENOXAPARIN 30 MG/0.3 ML SYR SQ SCH (09:29)
--- NOTE | 2017-07-22 13:18 | Medical Consult ---
Consultation Date of Consultation: Jul 22, 2017. Attending Physician: Myles Millan MD History of Present Illness 77 year old female admitted with abdominal pain, concern for small bowel obstruction. Multiple prior abdominal surgeries, including ex-lap with enterolysis for SBO in past. Started having cramping, banding upper abdominal pain that came in waves yesterday afternoon. +nausea and emesis, denies flatus or bm. CT non specific, possible enteritis or psbo, study limited due to no iv or oral contrast. [place] to her like prior episodes of gastroparesis in past. Pain has resolved, no nausea, still denies flatus or bm. Past Medical/Surgical History Past medical history: DM, CKD stage III, HLP Past Surgical History: open cholecystectomy open appendectomy hysterectomy ex-lap with CHRISTINE for SBO Family History noncontributory Social History Smoking Status: Never Smoker Marital Status: Housing Status: lives with family Occupation Status: retired Allergies Coded Allergies: No Known Allergies (Verified , 07/21/17) Home Medications Active Reported Transderm-Scop (Scopolamine) 1 Mg/3 Days Dis 1.5 Mg TD Q72H PRN Aspirin Ec (Aspirin) 81 Mg Tab 81 Mg PO DAILY Miralax (Polyethylene Glycol 3350) 1 Pow Pow 17 Gm PO DAILY PRN Flonase Allergy Relief (Fluticasone Propionate (Nasal)) 50 Mcg/Act Spr 2 Sprays DANIA DAILY Calcium 250 Mg Cap 250 Mg PO DAILY Meclizine Hcl 25 Mg Tab 1 Tab PO TID PRN 10 Days Ventolin Hfa (Albuterol) 200 Puffs/35748 Mcg Aers 2 Puffs INH QID PRN Zofran (Ondansetron HCl) 4 Mg Tab 4 Mg PO Q6H PRN Cozaar (Losartan Potassium) 25 Mg Tab 25 Mg PO DAILY Maxalt (Rizatriptan Benzoate) 10 Mg Tab 10 Mg PO DIRECTED PRN Vitamin D 85707 Unit (Ergocalciferol) 50,000 Unit Cap 50,000 Unit PO MONTHLY Glimepiride 4 Mg Tab 4 Mg PO QAM 90 Days Actos (Pioglitazone) 15 Mg Tab 15 Mg PO QAM Ocuvite Preservision (Multivitamins/Minerals) 1 Tab Tab 1 Tab PO QAM Zocor (Simvastatin) 10 Mg Tab 10 Mg PO QAM Current Inpatient Medications Current Inpatient Medications Medications (Trade) Dose Ordered Sig/Rachel Route Start Time Stop Time Status Last Admin Dose Admin Enoxaparin Sodium (Lovenox Inj) 30 mg DAILY SQ 07/22/17 09:00 08/21/17 08:59 07/22/17 09:29 30 MG Acetaminophen (Tylenol Tab) 650 mg Q4H PRN PO 07/22/17 00:45 08/21/17 00:44 Insulin Aspart (novoLOG ASPART) SLIDING SCALE If C... Q6 SC 07/22/17 06:00 08/21/17 05:59 Glucose (Glucose 40% Gel) 15-30 GRAMS 15 GRAMS... UD PRN PO 07/22/17 00:45 08/21/17 00:44 Glucose (Glucose Chew Tab) 4-8 Tablets 4 Tabl... UD PRN PO 07/22/17 00:45 08/21/17 00:44 Dextrose (Dextrose 50% 50ML Syringe) 25-50ML OF 50% DW IV FOR... UD PRN IV 07/22/17 00:45 08/21/17 00:44 Glucagon (Glucagon Inj) 1 mg UD PRN SQ 07/22/17 00:45 08/21/17 00:44 Ketorolac Tromethamine (Toradol Inj) 15 mg Q6H PRN IV. 07/22/17 00:45 07/27/17 00:44 Promethazine HCl 12.5 mg/Sodium Chloride 50.5 ml @ 204 mls/hr Q6H PRN IV 07/22/17 00:45 08/21/17 00:44 Hydromorphone HCl (Dilaudid Inj) 0.5 mg Q3H PRN IV 07/22/17 00:45 08/05/17 00:44 Sodium Chloride 1,000 ml @ 60 mls/hr [id number] IV 07/22/17 00:45 08/21/17 00:44 07/22/17 02:01 60 MLS/HR Aspirin (Ecotrin Tab) 81 mg DAILY PO 07/22/17 08:00 08/21/17 07:59 07/22/17 08:18 81 MG Fluticasone Propionate (Flonase Nasal [place]) 2 sprays DAILY DANIA 07/22/17 08:00 08/21/17 07:59 07/22/17 08:18 2 SPRAYS Losartan Potassium (coZAAR TAB) 25 mg DAILY PO 07/22/17 08:00 08/21/17 07:59 Multivitamins/ Minerals (Multivitamin W/ Minerals Tab) 1 tab QAM PO 07/22/17 08:00 08/21/17 07:59 07/22/17 08:18 1 TAB Simvastatin (Zocor Tab) 10 mg QAM PO 07/22/17 08:00 08/21/17 07:59 07/22/17 08:18 10 MG Polyethylene (Miralax Powder Packet) 17 gm DAILY PRN PO 07/22/17 00:45 08/21/17 00:44 Review of Systems Constitutional: No fever, No chills, No sweats, No weight loss, No weakness, No fatigue, No problem reported Eyes: No worsening of vision, No eye pain, No redness, No discharge, No diplopia, No problem reported ENT: No hearing loss, No unusual epistaxis, No nasal symptoms, No sore throat, No tinnitus, No dental problems, No trouble swallowing, No problem reported Respiratory: No cough, No sputum, No wheezing, No shortness of breath, No dyspnea on exertion, No dyspnea at rest, No hemoptysis, No problem reported Cardiovascular: No chest pain, No orthopnea, No PND, No edema, No claudication , No palpitations, No problem reported Abdomen: + pain, + nausea, + vomiting Musculoskeletal: No joint pain, No muscle pain, No swelling, No calf pain, No problem reported Neurologic: No memory loss, No paralysis, No weakness, No numbness/tingling, No vertigo, No balance problems, No problem reported Psychiatric: No depression symptoms, No anhedonism, No anxiety, No insomnia, No substance abuse, No problem reported Endocrine: No fatigue, No excessive thirst, No excessive urination, No problem reported Hematologic / Lymphatic: No abnormal bleeding/bruising, No clotting problems, No swollen lymph nodes, No night sweats, No problem reported Integumentary: No rash, No itch, No new/changing skin lesions, No color change , No bleeding, No problem reported Allergic / Immunologic: No environmental allergies, No seasonal allergies, No pet sensitivities, No food allergies, No hives, No frequent infections, No poor healing, No prolonged convalescence, No problem reported Physical Exam Date Time Temp Pulse Resp B/P (MAP) Pulse Ox O2 Delivery O2 Flow Rate FiO2 07/22/17 08:00 Room Air 07/22/17 06:55 36.6 60 18 96/53 (67) 98 Room Air 07/22/17 00:53 97 Room Air 07/22/17 00:52 36.9 56 16 133/70 07/22/17 00:00 60 18 134/63 94 Room Air 07/21/17 23:30 62 16 137/57 97 Room Air 07/21/17 23:01 160/58 07/21/17 22:36 53 19 95 07/21/17 22:31 120/52 07/21/17 22:17 56 15 97 07/21/17 22:01 131/51 07/21/17 21:47 61 20 96 07/21/17 21:31 122/53 07/21/17 21:17 59 19 95 07/21/17 21:12 57 21 98 07/21/17 21:01 123/76 07/21/17 20:44 58 07/21/17 20:14 36.7 84 20 106/69 97 Room Air General Appearance: WD/WN, no apparent distress Head: normocephalic, atraumatic Eyes: normal inspection, PERRL, EOMI ENT: normal ENT inspection, TMs normal Neck: supple, no adenopathy, no JVD Respiratory/Chest: chest non-tender, lungs clear, normal breath sounds Cardiovascular: regular rate, rhythm, no edema, normal peripheral pulses Abdomen/GI: non tender, soft, + pertinent finding (multiple incisional scars, no hernia palpable. 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, no motor/sensory deficits, alert, normal mood/affect, oriented x 3 Skin: normal color, warm/dry, no rash Lymphatic: no adenopathy Laboratory Results Last 24 Hours Test 07/21/17 20:30 07/22/17 00:50 07/22/17 02:20 07/22/17 06:04 White Blood Count 10.17 K/uL Red Blood Count 3.60 M/uL Hemoglobin 11.6 g/dL Hematocrit 33.9 % Mean Corpuscular Volume 94.2 fL Mean Corpuscular Hemoglobin 32.2 pg Mean Corpuscular Hemoglobin Concent 34.2 g/dl Platelet Count 185 K/uL Mean Platelet Volume 10.5 fL Neutrophils (%) (Auto) 75.7 % Lymphocytes (%) (Auto) 15.0 % Monocytes (%) (Auto) 6.7 % Eosinophils (%) (Auto) 1.9 % Basophils (%) (Auto) 0.3 % Neutrophils # (Auto) 7.70 K/uL Lymphocytes # (Auto) 1.53 K/uL Monocytes # (Auto) 0.68 K/uL Eosinophils # (Auto) 0.19 K/uL Basophils # (Auto) 0.03 K/uL RDW Standard Deviation 44.1 fL RDW Coefficient of Variation 12.7 % Immature Granulocyte % (Auto) 0.4 % Immature Granulocyte # (Auto) 0.04 K/uL Sodium Level 141 mmol/L Potassium Level 4.3 mmol/L Chloride Level 109 mmol/L Carbon Dioxide Level 24 mmol/L Anion Gap 8.0 mmol/L Blood Urea Nitrogen 18 mg/dl Creatinine 1.10 mg/dl Est Creatinine Clear Calc Drug Dose 35.0 ml/min Estimated GFR () 56.9 Estimated GFR (Non- 49.1 BUN/Creatinine Ratio 16.5 Random Glucose 178 mg/dl Estimated Average Glucose 128 mg/dl Hemoglobin A1c 6.1 % Calcium Level 9.1 mg/dl Magnesium Level 2.5 mg/dl Total Bilirubin 0.6 mg/dl Direct Bilirubin 0.2 mg/dl Aspartate Amino Transf (AST/SGOT) 20 U/L Alanine Aminotransferase (ALT/SGPT) 21 U/L Alkaline Phosphatase 57 U/L Troponin I < 0.015 ng/ml Total Protein 7.1 gm/dl Albumin 3.6 gm/dl Lipase 188 U/L Thyroid Stimulating Hormone (TSH) 1.100 uIu/ml Urine Color YELLOW Urine Appearance CLOUDY Urine pH 5.0 Urine Specific [place] 1.019 Urine Protein NEG Urine Glucose (UA) NEG Urine Ketones TRACE Urine Occult Blood NEG Urine Nitrite NEG Urine Bilirubin NEG Urine Urobilinogen NEG Urine Leukocyte Esterase MODERATE Urine WBC (Auto) 5-10 /hpf Urine RBC (Auto) 0-4 /hpf Urine Hyaline Casts (Auto) 1-5 /lpf Urine Epithelial Cells (Auto) 10-20 /lpf Urine Bacteria (Auto) NEG Bedside Glucose 163 mg/dl 168 mg/dl Test 07/22/17 07:53 07/22/17 11:59 White Blood Count 7.45 K/uL Red Blood Count 3.19 M/uL Hemoglobin 10.3 g/dL Hematocrit 30.2 % Mean Corpuscular Volume 94.7 fL Mean Corpuscular Hemoglobin 32.3 pg Mean Corpuscular Hemoglobin Concent 34.1 g/dl Platelet Count 167 K/uL Mean Platelet Volume 10.4 fL Neutrophils (%) (Auto) 63.7 % Lymphocytes (%) (Auto) 25.9 % Monocytes (%) (Auto) 7.7 % Eosinophils (%) (Auto) 2.1 % Basophils (%) (Auto) 0.3 % Neutrophils # (Auto) 4.75 K/uL Lymphocytes # (Auto) 1.93 K/uL Monocytes # (Auto) 0.57 K/uL Eosinophils # (Auto) 0.16 K/uL Basophils # (Auto) 0.02 K/uL RDW Standard Deviation 44.4 fL RDW Coefficient of Variation 12.8 % Immature Granulocyte % (Auto) 0.3 % Immature Granulocyte # (Auto) 0.02 K/uL Prothrombin Time 10.3 SECONDS Prothromb Time International Ratio 1.0 Activated Partial Thromboplast Time 25.6 SECONDS Partial Thromboplastin Ratio 1.0 Sodium Level 142 mmol/L Potassium Level 4.2 mmol/L Chloride Level 110 mmol/L Carbon Dioxide Level 28 mmol/L Anion Gap 4.0 mmol/L Blood Urea Nitrogen 18 mg/dl Creatinine 0.98 mg/dl Est Creatinine Clear Calc Drug Dose 39.2 ml/min Estimated GFR () 65.4 Estimated GFR (Non- 56.4 BUN/Creatinine Ratio 18.8 Random Glucose 122 mg/dl Calcium Level 8.6 mg/dl Bedside Glucose 91 mg/dl CT SCAN OF THE ABDOMEN AND PELVIS WITHOUT CONTRAST CLINICAL HISTORY: Vomiting. Upper and lower abdominal pain. History of cholecystectomy, appendectomy, and hysterectomy. COMPARISON STUDY: 11/02/2016 TECHNIQUE: CT scan of the abdomen and pelvis was performed from the lung bases to the proximal femurs. Images are reviewed in the axial, sagittal, and coronal planes. IV contrast was not administered for this examination. A dose lowering technique was utilized adhering to the principles of ALARA. CT DOSE: 293.82 mGy.cm FINDINGS: Lower chest: There are mild dependent atelectatic changes. Liver: There is persistent intra and extrahepatic biliary ductal dilatation. There is trace perihepatic fluid. Gallbladder: Surgically absent Spleen: Normal in size and attenuation. Pancreas: Unremarkable. Adrenal glands: Unremarkable. Kidneys: No renal, ureteral, or bladder calculi are visualized. Bowel: There are borderline dilated small bowel loops containing multiple air-fluid levels. There is formed fecal material within distal small bowel loops. There is mild mesenteric edema and minimal interloop fluid. A discrete transition zone is not visualized. The findings may therefore be secondary to an enteritis. Peritoneum: There is trace peritoneal fluid. There is minimal mesenteric edema. Vasculature: The abdominal aorta is normal in course and caliber. Adenopathy: None. Pelvic viscera: The uterus is surgically absent. Skeletal structures: No destructive osseous lesions are seen. IMPRESSION: 1. Study limited due to lack of intravenous and oral contrast 2. Borderline dilated small bowel loops containing multiple air-fluid levels. There is mild mesenteric edema and minimal interloop fluid. A discrete transition zone is not visualized. The findings may therefore be secondary to a nonspecific enteritis. Close clinical follow-up is recommended. If symptoms do not improve, repeat imaging might be considered with intravenous and oral contrast 3. Colonic diverticulosis. No evidence of acute peridiverticular inflammatory change 4. Small amount of perihepatic fluid 5. Persistent biliary ductal dilatation Electronically signed by: Austyn Peterson M.D. 07/21/2017 9:01 PM Assessment & Plan 77 year old with multiple abdominal surgeries admitted with possible partial small bowel obstruction. Overall improved, still no flatus. She would like to go home, however we should advance diet slowly. Plan: clear liquids await return of flatus if no improvement, then recommend oral contrasted CT or small bowel follow through study surgery will follow Vanessa Coello,
[2017-07-22 14:44] VITALS: BP 109/63; PULSE 69; TEMP 36.7; O2SAT 96
--- NOTE | 2017-07-22 17:42 | Progress Note ---
Internal Med Progress Note Date of Service: Jul 22, 2017. Provider Documentation: SUBJECTIVE: resting comfortably abdominal pain and nausea improved passed flatus afebrile no sob tolerated clears OBJECTIVE: Vital Signs-as noted below Exam: General-alert and oriented. Not in distress ENT-normal hearing Neck-no neck masses Lungs-cta b/l no wheezing or crackles Heart-s1 and s2 heard regular rhythm, no murmurs Abdomen-soft bowel sounds sluggish non tender no distension Extremities no edema present no erythema Neuro-alert and oriented moves extremities Lab data as noted below. ASSESSMENT & PLAN: 1. Abdominal pain recurrent small bowel obstruction vs ileus/enteritis. hx of abdominal sx passing flatus tolerating clears improving surgery on board. will monitor. 2. Hypertension, stable on losartan. will monitor. 3. DM2, well controlled as of recent A1c. iss. will monitor 4. Chronic anemia, hemoglobin at baseline. DVT PROPHYLAXIS Lovenox DISPOSITION to be determined Vital Signs: Date Time Temp Pulse Resp B/P (MAP) Pulse Ox O2 Delivery O2 Flow Rate FiO2 07/22/17 15:55 Room Air 07/22/17 14:44 36.7 69 18 109/63 (78) 96 Room Air 07/22/17 08:00 Room Air 07/22/17 06:55 36.6 60 18 96/53 (67) 98 Room Air 07/22/17 00:53 97 Room Air 07/22/17 00:52 36.9 56 16 133/70 07/22/17 00:00 60 18 134/63 94 Room Air 07/21/17 23:30 62 16 137/57 97 Room Air 07/21/17 23:01 160/58 07/21/17 22:36 53 19 95 07/21/17 22:31 120/52 07/21/17 22:17 56 15 97 07/21/17 22:01 131/51 07/21/17 21:47 61 20 96 07/21/17 21:31 122/53 07/21/17 21:17 59 19 95 07/21/17 21:12 57 21 98 07/21/17 21:01 123/76 07/21/17 20:44 58 07/21/17 20:14 36.7 84 20 106/69 97 Room Air Lab Results: Results Past 24 Hours Test 07/21/17 20:30 07/22/17 00:50 07/22/17 02:20 07/22/17 06:04 Range/Units White Blood Count 10.17 4.8-10.8 K/uL Red Blood Count 3.60 4.2-5.4 M/uL Hemoglobin 11.6 12.0-16.0 g/dL Hematocrit 33.9 37-47 % Mean Corpuscular Volume 94.2 80-100 fL Mean Corpuscular Hemoglobin 32.2 25-34 pg Mean Corpuscular Hemoglobin Concent 34.2 32-36 g/dl Platelet Count 185 130-400 K/uL Mean Platelet Volume 10.5 7.4-10.4 fL Neutrophils (%) (Auto) 75.7 % Lymphocytes (%) (Auto) 15.0 % Monocytes (%) (Auto) 6.7 % Eosinophils (%) (Auto) 1.9 % Basophils (%) (Auto) 0.3 % Neutrophils # (Auto) 7.70 1.4-6.5 K/uL Lymphocytes # (Auto) 1.53 1.2-3.4 K/uL Monocytes # (Auto) 0.68 0.11-0.59 K/uL Eosinophils # (Auto) 0.19 0-0.5 K/uL Basophils # (Auto) 0.03 0-0.2 K/uL RDW Standard Deviation 44.1 36.4-46.3 fL RDW Coefficient of Variation 12.7 11.5-14.5 % Immature Granulocyte % (Auto) 0.4 % Immature Granulocyte # (Auto) 0.04 0.00-0.02 K/uL Sodium Level 141 136-145 mmol/L Potassium Level 4.3 3.5-5.1 mmol/L Chloride Level 109 98-107 mmol/L Carbon Dioxide Level 24 21-32 mmol/L Anion Gap 8.0 3-11 mmol/L Blood Urea Nitrogen 18 7-18 mg/dl Creatinine 1.10 0.60-1.20 mg/dl Est Creatinine Clear Calc Drug Dose 35.0 ml/min Estimated GFR () 56.9 Estimated GFR (Non- 49.1 BUN/Creatinine Ratio 16.5 10-20 Random Glucose 178 70-99 mg/dl Estimated Average Glucose 128 mg/dl Hemoglobin A1c 6.1 4.5-5.6 % Calcium Level 9.1 8.5-10.1 mg/dl Magnesium Level 2.5 1.8-2.4 mg/dl Total Bilirubin 0.6 0.2-1 mg/dl Direct Bilirubin 0.2 0-0.2 mg/dl Aspartate Amino Transf (AST/SGOT) 20 15-37 U/L Alanine Aminotransferase (ALT/SGPT) 21 12-78 U/L Alkaline Phosphatase 57 45-117 U/L Troponin I < 0.015 0-0.045 ng/ml Total Protein 7.1 6.4-8.2 gm/dl Albumin 3.6 3.4-5.0 gm/dl Lipase 188 73-393 U/L Thyroid Stimulating Hormone (TSH) 1.100 0.300-4.500 uIu/ml Urine Color YELLOW Urine Appearance CLOUDY CLEAR Urine pH 5.0 4.5-7.5 Urine Specific [place] 1.019 1.000-1.030 Urine Protein NEG NEG Urine Glucose (UA) NEG NEG Urine Ketones TRACE NEG Urine Occult Blood NEG NEG Urine Nitrite NEG NEG Urine Bilirubin NEG NEG Urine Urobilinogen NEG NEG Urine Leukocyte Esterase MODERATE NEG Urine WBC (Auto) 5-10 0-5 /hpf Urine RBC (Auto) 0-4 0-4 /hpf Urine Hyaline Casts (Auto) 1-5 0-5 /lpf Urine Epithelial Cells (Auto) 10-20 0-5 /lpf Urine Bacteria (Auto) NEG NEG Bedside Glucose 163 168 70-90 mg/dl Test 07/22/17 07:53 07/22/17 11:59 Range/Units White Blood Count 7.45 4.8-10.8 K/uL Red Blood Count 3.19 4.2-5.4 M/uL Hemoglobin 10.3 12.0-16.0 g/dL Hematocrit 30.2 37-47 % Mean Corpuscular Volume 94.7 80-100 fL Mean Corpuscular Hemoglobin 32.3 25-34 pg Mean Corpuscular Hemoglobin Concent 34.1 32-36 g/dl Platelet Count 167 130-400 K/uL Mean Platelet Volume 10.4 7.4-10.4 fL Neutrophils (%) (Auto) 63.7 % Lymphocytes (%) (Auto) 25.9 % Monocytes (%) (Auto) 7.7 % Eosinophils (%) (Auto) 2.1 % Basophils (%) (Auto) 0.3 % Neutrophils # (Auto) 4.75 1.4-6.5 K/uL Lymphocytes # (Auto) 1.93 1.2-3.4 K/uL Monocytes # (Auto) 0.57 0.11-0.59 K/uL Eosinophils # (Auto) 0.16 0-0.5 K/uL Basophils # (Auto) 0.02 0-0.2 K/uL RDW Standard Deviation 44.4 36.4-46.3 fL RDW Coefficient of Variation 12.8 11.5-14.5 % Immature Granulocyte % (Auto) 0.3 % Immature Granulocyte # (Auto) 0.02 0.00-0.02 K/uL Prothrombin Time 10.3 9.0-12.0 SECONDS Prothromb Time International Ratio 1.0 0.9-1.1 Activated Partial Thromboplast Time 25.6 21.0-31.0 SECONDS Partial Thromboplastin Ratio 1.0 Sodium Level 142 136-145 mmol/L Potassium Level 4.2 3.5-5.1 mmol/L Chloride Level 110 98-107 mmol/L Carbon Dioxide Level 28 21-32 mmol/L Anion Gap 4.0 3-11 mmol/L Blood Urea Nitrogen 18 7-18 mg/dl Creatinine 0.98 0.60-1.20 mg/dl Est Creatinine Clear Calc Drug Dose 39.2 ml/min Estimated GFR () 65.4 Estimated GFR (Non- 56.4 BUN/Creatinine Ratio 18.8 10-20 Random Glucose 122 70-99 mg/dl Calcium Level 8.6 8.5-10.1 mg/dl Bedside Glucose 91 70-90 mg/dl
[2017-07-22] MEDS ORDERED: NURSING VERBAL MED ORDER ONE (18:30)
[2017-07-23 00:03] VITALS: BP 115/65; PULSE 56; TEMP 36.6; O2SAT 97
[2017-07-23] MEDS: INSULIN ASPART 100 UNITS/ML 3 ML PEN SC SCH ×2 (06:30→11:00)
[2017-07-23 07:13] VITALS: BP 120/45; PULSE 58; TEMP 36.6; O2SAT 98
--- NOTE | 2017-07-23 07:34 | Surgery Progress Note ---
Surgery Progress Note Date of Service Jul 23, 2017. Subjective + feeling well, + bowel movement, + diet (clears), No complaints (denies pain), No nausea Objective Vital Signs: Date Time Temp Pulse Resp B/P (MAP) Pulse Ox O2 Delivery O2 Flow Rate FiO2 07/23/17 07:13 36.6 58 16 120/45 (70) 98 Room Air 07/23/17 00:03 36.6 56 18 115/65 (82) 97 Room Air 07/23/17 00:00 Room Air 07/22/17 20:00 Room Air 07/22/17 15:55 Room Air 07/22/17 14:44 36.7 69 18 109/63 (78) 96 Room Air 07/22/17 08:00 Room Air Abdomen: non tender, non distended, soft Laboratory Results: Results Past 24 Hours Test 07/22/17 07:53 07/22/17 11:59 07/22/17 16:36 07/22/17 19:56 Range/Units White Blood Count 7.45 4.8-10.8 K/uL Red Blood Count 3.19 4.2-5.4 M/uL Hemoglobin 10.3 12.0-16.0 g/dL Hematocrit 30.2 37-47 % Mean Corpuscular Volume 94.7 80-100 fL Mean Corpuscular Hemoglobin 32.3 25-34 pg Mean Corpuscular Hemoglobin Concent 34.1 32-36 g/dl Platelet Count 167 130-400 K/uL Mean Platelet Volume 10.4 7.4-10.4 fL Neutrophils (%) (Auto) 63.7 % Lymphocytes (%) (Auto) 25.9 % Monocytes (%) (Auto) 7.7 % Eosinophils (%) (Auto) 2.1 % Basophils (%) (Auto) 0.3 % Neutrophils # (Auto) 4.75 1.4-6.5 K/uL Lymphocytes # (Auto) 1.93 1.2-3.4 K/uL Monocytes # (Auto) 0.57 0.11-0.59 K/uL Eosinophils # (Auto) 0.16 0-0.5 K/uL Basophils # (Auto) 0.02 0-0.2 K/uL RDW Standard Deviation 44.4 36.4-46.3 fL RDW Coefficient of Variation 12.8 11.5-14.5 % Immature Granulocyte % (Auto) 0.3 % Immature Granulocyte # (Auto) 0.02 0.00-0.02 K/uL Prothrombin Time 10.3 9.0-12.0 SECONDS Prothromb Time International Ratio 1.0 0.9-1.1 Activated Partial Thromboplast Time 25.6 21.0-31.0 SECONDS Partial Thromboplastin Ratio 1.0 Sodium Level 142 136-145 mmol/L Potassium Level 4.2 3.5-5.1 mmol/L Chloride Level 110 98-107 mmol/L Carbon Dioxide Level 28 21-32 mmol/L Anion Gap 4.0 3-11 mmol/L Blood Urea Nitrogen 18 7-18 mg/dl Creatinine 0.98 0.60-1.20 mg/dl Est Creatinine Clear Calc Drug Dose 39.2 ml/min Estimated GFR () 65.4 Estimated GFR (Non- 56.4 BUN/Creatinine Ratio 18.8 10-20 Random Glucose 122 70-99 mg/dl Calcium Level 8.6 8.5-10.1 mg/dl Bedside Glucose 91 163 200 70-90 mg/dl Test 07/23/17 07:24 Range/Units Assessment & Plan PSBO vs enteritis improved wants to try regular food, anxious for discharge ordered soft breakfast, d/c per primary Patient seen and examined, agree with above. PSBO vs. enteritis seems to be improving, tolerated breakfast but small amount of discomfort, +small formed bm and flatus. Advance diet as tolerated, may d/c later today or tomorrow. Hoang. Derick Coello, DO
[2017-07-23] MEDS: CEROVITE ADV FORMULA TAB PO SCH (07:57)
[2017-07-23] MEDS: SIMVASTATIN 10 MG TAB PO SCH (07:57)
[2017-07-23] MEDS: FLUTICASONE PROPIONATE NA SPR 16 GM BTL NAE SCH (07:57)
[2017-07-23] MEDS: ASPIRIN 81 MG ECTAB PO SCH (07:57)
[2017-07-23] MEDS: LOSARTAN POTASSIUM 25 MG TAB PO SCH (07:57)
[2017-07-23] MEDS: ENOXAPARIN 30 MG/0.3 ML SYR SQ SCH (07:58)
[2017-07-23 08:00] VITALS: O2SAT 98
[2017-07-23 08:06] LABS: BASO % 0.9 %; BASO ABS # 0.04 K/uL (0-0.2); COMPLETE YES; EOS % 3.7 %; HEMATOCRIT 31.4 % (37-47); IG% 0.2 %; LYMPH % 35.2 %; LYMPH ABS # 1.63 K/uL (1.2-3.4); MEAN CELL VOLUME 94.9 fL (80-100); MEAN CORPUSCULAR HGB CONC 33.8 g/dl (32-36); MEAN PLATELET VOLUME 10.4 fL (7.4-10.4); MONO % 8.2 %; NEUT % 51.8 %; PLATELET COUNT 164 K/uL (130-400); RED BLOOD COUNT 3.31 M/uL (4.2-5.4); WHITE BLOOD COUNT 4.63 K/uL (4.8-10.8)
[2017-07-23 08:15] LABS: BUN/CREATININE RATIO 13.3 (10-20); CALCIUM 8.3 mg/dl (8.5-10.1); CREATININE 0.81 mg/dl (0.60-1.20); MAGNESIUM 2.4 mg/dl (1.8-2.4); POTASSIUM 4.3 mmol/L (3.5-5.1)
[2017-07-23] MEDS: SODIUM CHLORIDE 0.45% 1000ML 1,000 ML IV SCH (10:19)
[2017-07-23] MEDS ORDERED: CEFU1TAB33 PO (13:53)
--- NOTE | 2017-07-23 13:55 | Discharge Instructions ---
Discharge Instructions Date of Service Jul 23, 2017. Admission Reason for Admission: Partial Small Bowel Obstruction Discharge Discharge Diagnosis / Problem: partial sbo, uti? Discharge Goals Goal(s): Decrease discomfort, Improve function Activity Recommendations Activity Limitations: resume your previous activity . Instructions / Follow-Up Instructions / Follow-Up FOLLOWUP WITH FAMILY DOCTOR Edwige Vásquez ON Jul AT 12:45PM Current Hospital Diet Patient's current hospital diet: Regular Diet, Diabetes Type 2 Diet Discharge Diet Recommended Diet: Regular Diet, Diabetes Type 2 Diet, Low Fiber Diet (LOW FIBER DIET FOR COUPLE OF DAYS) Pending Studies Studies pending at discharge: no Laboratory Results Hemoglobin A1c Test 07/21/17 20:30 Range/Units Estimated Average Glucose 128 mg/dl Hemoglobin A1c 6.1 H 4.5-5.6 % Medical Emergencies . Who to Call and When: Medical Emergencies: If at any time you feel your situation is an emergency, please call 911 immediately. . Non-Emergent Contact Non-Emergency issues call your: Primary Care Provider . . "Provider Documentation" section prepared by Myles Millan. . VTE Core Measure Inpt VTE Proph given/why not?: Enoxaparin (Lovenox)SQ
[2017-07-23 14:17] VITALS: BP 120/45; PULSE 58; TEMP 36.6; O2SAT 98
--- NOTE | 2017-07-23 14:43 | Progress Note ---
Internal Med Progress Note Date of Service: Jul 23, 2017. Provider Documentation: SUBJECTIVE: sitting on the chair comfortably tolerated low fiber diet had small bowel movement no nausea or abdominal pain ambulating ok' want to go home OBJECTIVE: Vital Signs-as noted below Exam: General-alert and oriented. Not in distress ENT-normal hearing Neck-no neck masses Lungs-cta b/l no wheezing or crackles Heart-s1 and s2 heard regular rhythm, no murmurs Abdomen-soft bowel sounds present non tender no distension Extremities no edema present no erythema Neuro-alert and oriented moves extremities Lab data as noted below. ASSESSMENT & PLAN: 1. Abdominal pain recurrent small bowel obstruction vs ileus/enteritis. hx of abdominal sx passing flatus tolerating soft diet had a small bowel movement surgery on board. asymptomatic d/c home 2. Hypertension, stable on losartan. will monitor. 3. DM2, well controlled as of recent A1c. iss. will monitor. d/c on home meds 4. Chronic anemia, hemoglobin at baseline. discharge home Vital Signs: Date Time Temp Pulse Resp B/P (MAP) Pulse Ox O2 Delivery O2 Flow Rate FiO2 07/23/17 14:17 36.6 58 16 98 Room Air 07/23/17 08:00 98 Room Air 07/23/17 07:13 36.6 58 16 120/45 (70) 98 Room Air 07/23/17 00:03 36.6 56 18 115/65 (82) 97 Room Air 07/23/17 00:00 Room Air 07/22/17 20:00 Room Air 07/22/17 15:55 Room Air 07/22/17 14:44 36.7 69 18 109/63 (78) 96 Room Air Lab Results: Results Past 24 Hours Test 07/22/17 16:36 07/22/17 19:56 07/23/17 07:37 07/23/17 07:49 Range/Units Bedside Glucose 163 200 86 70-90 mg/dl White Blood Count 4.63 4.8-10.8 K/uL Red Blood Count 3.31 4.2-5.4 M/uL Hemoglobin 10.6 12.0-16.0 g/dL Hematocrit 31.4 37-47 % Mean Corpuscular Volume 94.9 80-100 fL Mean Corpuscular Hemoglobin 32.0 25-34 pg Mean Corpuscular Hemoglobin Concent 33.8 32-36 g/dl Platelet Count 164 130-400 K/uL Mean Platelet Volume 10.4 7.4-10.4 fL Neutrophils (%) (Auto) 51.8 % Lymphocytes (%) (Auto) 35.2 % Monocytes (%) (Auto) 8.2 % Eosinophils (%) (Auto) 3.7 % Basophils (%) (Auto) 0.9 % Neutrophils # (Auto) 2.40 1.4-6.5 K/uL Lymphocytes # (Auto) 1.63 1.2-3.4 K/uL Monocytes # (Auto) 0.38 0.11-0.59 K/uL Eosinophils # (Auto) 0.17 0-0.5 K/uL Basophils # (Auto) 0.04 0-0.2 K/uL RDW Standard Deviation 44.7 36.4-46.3 fL RDW Coefficient of Variation 12.9 11.5-14.5 % Immature Granulocyte % (Auto) 0.2 % Immature Granulocyte # (Auto) 0.01 0.00-0.02 K/uL Sodium Level 144 136-145 mmol/L Potassium Level 4.3 3.5-5.1 mmol/L Chloride Level 111 98-107 mmol/L Carbon Dioxide Level 29 21-32 mmol/L Anion Gap 4.0 3-11 mmol/L Blood Urea Nitrogen 11 7-18 mg/dl Creatinine 0.81 0.60-1.20 mg/dl Est Creatinine Clear Calc Drug Dose 47.5 ml/min Estimated GFR () 82.3 Estimated GFR (Non- 71.0 BUN/Creatinine Ratio 13.3 10-20 Random Glucose 89 70-99 mg/dl Calcium Level 8.3 8.5-10.1 mg/dl Magnesium Level 2.4 1.8-2.4 mg/dl Test 07/23/17 11:23 Range/Units Bedside Glucose 112 70-90 mg/dl
--- NOTE | 2017-07-23 15:12 | Discharge Summary ---
Discharge Summary Date of Service Jul 23, 2017. Discharge Summary Admission Date: Jul 21, 2017 at 23:46 Discharge Date: Jul 23, 2017 Discharge Disposition: Home Principal Diagnosis: PSBO UTI? Secondary Diagnoses/Problems: hypertension, hyperlipidemia, DM2, on oral meds; history of TIA, bowel obstruction status post surgery. Chronic anemia (baseline hemoglobin 11) Procedures: CT ABD/PELVIS: 1. Study limited due to lack of intravenous and oral contrast 2. Borderline dilated small bowel loops containing multiple air-fluid levels. There is mild mesenteric edema and minimal interloop fluid. A discrete transition zone is not visualized. The findings may therefore be secondary to a nonspecific enteritis. Close clinical follow-up is recommended. If symptoms do not improve, repeat imaging might be considered with intravenous and oral contrast 3. Colonic diverticulosis. No evidence of acute peridiverticular inflammatory change 4. Small amount of perihepatic fluid 5. Persistent biliary ductal dilatation Consultations: GENERAL SURGERY Medication Reconciliation New Medications: Cefuroxime Axetil (Cefuroxime Axetil) 250 Mg Tab 250 MG PO BID for 5 Days, #10 Continued Medications: Albuterol Hfa (Ventolin Hfa) 200 Puffs/95289 Mcg Aers 2 PUFFS INH QID PRN for Shortness of Breath, #1 INHALER Aspirin (Aspirin Ec) 81 Mg Tab 81 MG PO DAILY Calcium (Calcium) 250 Mg Cap 250 MG PO DAILY Ergocalciferol (Vitamin D 89056 Unit) 50,000 Unit Cap 09003 UNIT PO MONTHLY, CAP Fluticasone Propionate (Nasal) (Flonase Allergy Relief) 50 Mcg/Act Spr 2 SPRAYS DANIA DAILY Glimepiride (Glimepiride) 4 Mg Tab 4 MG PO QAM for 90 Days, #90 TAB 3 Refills Losartan Potassium (Cozaar) 25 Mg Tab 25 MG PO DAILY, TAB Meclizine Hcl (Meclizine Hcl) 25 Mg Tab 1 TAB PO TID PRN for Dizziness or Vertigo for 10 Days, #30 TAB Ocuvite Preservision (Ocuvite Preservision) 1 Tab Tab 1 TAB PO QAM, TAB Ondansetron Hcl (Zofran) 4 Mg Tab 4 MG PO Q6H PRN for Nausea, TAB Pioglitazone (Actos) 15 Mg Tab 15 MG PO QAM Polyethylene Glycol 3350 (Miralax) 1 Pow Pow 17 GM PO DAILY PRN for Constipation, #527 GM Rizatriptan Benzoate (Maxalt) 10 Mg Tab 10 MG PO DIRECTED PRN for Migraine, TAB Scopolamine (Transderm-Scop) 1 Mg/3 Days Dis 1.5 MG TD Q72H PRN for PRIOR TO "EVENTS"., PATCH Simvastatin (Zocor) 10 Mg Tab 10 MG PO QAM, 0 Refills Admission Information HPI (per Admitting provider): History obtained from patient and records. Medical history significant for hypertension, hyperlipidemia, DM2, on oral meds; history of TIA, bowel obstruction status post surgery. Chronic anemia (baseline hemoglobin 11) One day history of upper abdominal pain, distention, vomiting, achy. Good bowel movement. No fever, no chills Physical Exam (per Admitting): VITAL SIGNS: Blood pressure was noted to be 120/76, heart rate 58, RR 12, temperature 36.7, sats 98 on room air. GENERAL: Noted to be comfortable, in no respiratory distress. Looks younger for stated age. SKIN: Pallor. HEENT: Pale palpebral conjunctivae. Dry mucosa. NECK: No JVD. Supple. HEART: Bradycardic. ABDOMEN: Some distention, no overt tenderness. EXTREMITIES: No edema. No tenderness NEUROLOGIC: No gross focality. Hospital Course 1. Abdominal pain recurrent small bowel obstruction vs ileus/enteritis. hx of abdominal sx passing flatus tolerating soft diet had a small bowel movement surgery on board. asymptomatic d/c home 2. Hypertension, stable on losartan. will monitor. 3. DM2, well controlled as of recent A1c. iss. will monitor. d/c on home meds 4. Chronic anemia, hemoglobin at baseline. discharge home Total time spent on discharge = 35MINUTES This includes examination of the patient, discharge planning, medication reconciliation, and communication with other providers. Discharge Instructions Discharge Instructions Date of Service Jul 23, 2017. Admission Reason for Admission: Partial Small Bowel Obstruction Discharge Discharge Diagnosis / Problem: partial sbo, uti? Discharge Goals Goal(s): Decrease discomfort, Improve function Activity Recommendations Activity Limitations: resume your previous activity . Instructions / Follow-Up Instructions / Follow-Up FOLLOWUP WITH FAMILY DOCTOR Edwige Vásquez ON Jul AT 12:45PM Current Hospital Diet Patient's current hospital diet: Regular Diet, Diabetes Type 2 Diet Discharge Diet Recommended Diet: Regular Diet, Diabetes Type 2 Diet, Low Fiber Diet (LOW FIBER DIET FOR COUPLE OF DAYS) Pending Studies Studies pending at discharge: no Laboratory Results Hemoglobin A1c Test 07/21/17 20:30 Range/Units Estimated Average Glucose 128 mg/dl Hemoglobin A1c 6.1 H 4.5-5.6 % Medical Emergencies . Who to Call and When: Medical Emergencies: If at any time you feel your situation is an emergency, please call 911 immediately. . Non-Emergent Contact Non-Emergency issues call your: Primary Care Provider . . "Provider Documentation" section prepared by Myles Millan. . VTE Core Measure Inpt VTE Proph given/why not?: Enoxaparin (Lovenox)SQ
== END 2017-07-23 14:57 | disposition home or self-care (01) | DRG 390 ==
LOC: C.EDB 20:12 → C.MS4W 23:46 → CANRESERV 07-22 00:12 → ENRESERV 07-22 00:12
PROVIDERS: ADMIT Internal Medicine; ATTEND Internal Medicine
DX: K56.60 Unspecified intestinal obstruction (principal); E11.9 Type 2 diabetes mellitus without complications; E78.5 Hyperlipidemia, unspecified; N18.3 Chronic kidney disease, stage 3 (moderate); D64.9 Anemia, unspecified; Z86.73 Personal history of transient ischemic attack (TIA), and cerebral infarction without residual deficits

== ENCOUNTER 2022-08-02 11:36 | Observation (INO) ==
[2022-08-02 12:17] LABS: Basophils # (auto) 0.03 K/uL (0-0.2); Basophils % (auto) 0.4 %; Eosinophils # (auto) 0.16 K/uL (0-0.50); Eosinophils % (auto) 2.1 %; Hematocrit (blood only) 32.4 % (34.1-44.9); Hemoglobin 10.8 g/dl (12.0-16.0); Immature Granulocytes # (auto) 0.01 K/uL (0.00-0.02); Immature Granulocytes % (auto) 0.1 %; Lymphocytes # (auto) 2.32 K/uL (1.2-3.4); Lymphocytes % (auto) 30.6 %; Mean Corpuscular Hemoglobin 31.9 pg (25.0-34.0); Mean Corpuscular Hgb Conc 33.3 g/dL (32.0-36.0); Mean Corpuscular Volume 95.6 fL (80.0-100.0); Monocytes # (auto) 0.73 K/uL (0.24-0.82); Monocytes % (auto) 9.6 %; Neutrophils # (auto) 4.34 K/uL (1.4-6.5); Neutrophils % (auto) 57.2 %; Platelet Count 225 K/uL (130-400); RDW Standard Deviation 45.5 fL (36.4-46.3); Red Blood Count 3.39 M/uL (3.93-5.22); White Blood Count 7.59 K/ul (4.8-10.8)
[2022-08-02 12:28] LABS: Prothrombin Time 10.3 Seconds (9.0-12.0)
[2022-08-02 12:41] LABS: Albumin Globulin Ratio 1.2 (0.9-2); Albumin Level 4.5 gm/dl (3.4-5.0); Bilirubin,Total 0.8 mg/dl (0.2-1.0); Calcium 9.7 mg/dl (8.5-10.1); Creatinine Clr Calc Pharmacy 28.3 ml/min; Est GFR (African American) 42.1 ml/min; Est GFR (Non-African American) 36.3 ml/min; Globulin 3.9 gm/dl (2.5-4.0); Potassium 4.3 mmol/L (3.5-5.1); Total Protein 8.4 gm/dl (6.0-8.3)
[2022-08-02 12:44] LABS: Troponin I High Sensitivity 7.3 pg/ml (0-14)
--- NOTE | 2022-08-02 14:58 | XRay Report ---
XR chest 1V portable HISTORY: 82 years-old Female Chest Pain . Acute chest pain COMPARISON: Chest radiograph 11/01/2016 TECHNIQUE: Portable AP view of the chest FINDINGS: Cardiomediastinal and hilar silhouettes are within normal limits. There is no pneumothorax, pleural e ffusion, airspace consolidation or overt pulmonary edema. Bones of the chest appear grossly intact. IMPRESSION: No acute process. ACT 112: Negative or not required by law. The above report was generated using voice recognition software. It may contain grammatical, syntax o r spelling errors. Electronically signed by: Yoav Gonzales M.D. 08/02/2022 2:56 PM
--- NOTE | 2022-08-02 15:09 | Emergency Department Note ---
Impression & Plan Chest pain, Anemia, Diabetes mellitus, type II ED Provider Note NAME: LEXIE STREETER AGE: 82 SEX: F : 1940 ARRIVES VIA: Walk-In INFORMANT: Patient ED PROVIDER(S): Helio Sosa DO CHIEF COMPLAINT: chest pain HPI: Patient is an 82-year-old female who presents the ER for chest pain. Patient has a past medical history of CKD, CVA, diabetes, and hyperlipidemia that presents the ER for severe chest pressure/pain which started last night around 9 and lasted for an hour and 10 minutes. It was resolved with her 's nitro. Went up to bilateral shoulders. No headache or change in vision. No belly pain, nausea, vomiting, or diarrhea. No dysuria, urgency, or frequency. She normally walks about a mile a day and does not get any symptoms. No other exacerbating or remitting factors. ROS: See above HPI for pertinent positives & negatives. A total of 10 systems reviewed and were otherwise negative. PAST MEDICAL HISTORY:See Below PAST SURGICAL HISTORY:See Below FAMILY HISTORY:See Below SOCIAL HISTORY:See Below HOME MEDICATIONS:See Below ALLERGIES:See Below VITALS:See Below PHYSICAL EXAMINATION: GENERAL: Sitting up in bed, alert, well appearing, well nourished, no distress, non-toxic EYE EXAM: normal conjunctiva. OROPHARYNX: mucous membranes are moist NECK: supple, no nuchal rigidity, no adenopathy, non-tender LUNGS: Clear to auscultation. Normal chest wall mechanics HEART: no murmurs, S1 normal and S2 normal ABDOMEN: abdomen soft, non-tender, normo-active bowel sounds, no masses, no rebound or guarding. UPPER EXTREMITIES: upper extremities are grossly normal. Radial pulses are equal bilateral LOWER EXTREMITIES: No pitting edema. NEURO EXAM: Normal sensorium, cranial nerves II-XII grossly intact, normal speech, no gross weakness of arms, no gross weakness of legs. MEDICAL DECISION MAKING: Patient is an 82-year-old female who presents the ER with above-stated complaint. IV was established blood work was obtained. Labs show no significant leukocytosis. Mild anemia 10.8 consistent with previous. INR unremarkable. D-dimer was negative. BMP with creatinine 1.37. Glucose slightly elevated consistent with her diabetes. Bilirubin LFTs and troponin was unremarkable. COVID was negative. Chest x-ray was unremarkable. EKG was nondiagnostic. She was given aspirin. She was updated bedside. Discussed with the [employer] engineer in order to perform a stress test. They were unable to. Due to her risk factors discussed with hospitalist for observation. Triage Nursing notes reviewed. Limited review of prior medical records performed Vital Signs: reviewed and remarkable for no significant abnormalities Differential diagnosis: Cardiac ischemia, aortic dissection, pulmonary embolism, pneumothorax, pneumonia, pericarditis, myocarditis, esophageal rupture, GERD, cholecystitis, pancreatitis, musculoskeletal, as well as other pathologies. ER treatment provided: See below Diagnostics interpreted by me: ECG: Sinus rhythm rate 62 Normal axis No PVCs QTC 416 Cardiac Monitoring: An order was placed for continuous cardiac monitoring. The monitor shows a rate of 70 with sinus rhythm. Laboratory studies: As stated above and show below. Imaging studies: Portable AP upright 1 view the chest unremarkable Consultation(s): Discussed with Daniel Rivera for possible stress test and was unable to today. Discussed with hospitalist for further evaluation Procedures: none Critical Care: None Past Med/Surg History Medical History (Updated 08/02/22 @ 20:30 by Helio Sosa DO) Chronic anemia Diabetes mellitus, type II Dyslipidemia Hypertension Migraine Osteoporosis Surgical History (Updated 08/02/22 @ 16:22 by Teresa Payne PA-C) History of appendectomy History of tonsillectomy and adenoidectomy S/P cholecystectomy S/P hysterectomy Family History (Updated 08/02/22 @ 16:23 by Teresa Payne PA-C) Other Cancer Diabetes Social History (Updated 08/02/22 @ 17:11 by Teresa Payne PA-C) Smoking Status: Never smoker Hx Alcohol Use: Yes Hx Substance Use: No Preferred Language: Latvian Communication Ability: Effective Sustainability Consultant Required: No Beliefs That Will Affect Care: None Current Living Situation: Spouse Feels Safe at Home: Yes Assistive Devices: None Allergies Allergies Allergy/AdvReac Type Severity Reaction Status Date / Time No Known Allergies Allergy Verified 08/02/22 16:01 Home Meds Home Medications Medication Instructions Recorded Confirmed albuterol sulfate 90 mcg/actuation 2 puff inhalation QID 08/02/22 08/02/22 aerosol inhaler (ProAir HFA) amlodipine 10 mg tablet 10 mg PO DAILY 08/02/22 08/02/22 aspirin 81 mg chewable tablet 81 mg PO DAILY 08/02/22 08/02/22 (Aspirin Childrens) atorvastatin 20 mg tablet 20 mg PO QAM 08/02/22 08/02/22 benzonatate 200 mg capsule 200 mg PO TID PRN Cough 08/02/22 08/02/22 dulaglutide 0.75 mg/0.5 mL 0.75 mg subcut WK 08/02/22 08/02/22 subcutaneous pen injector (Trulicity) ergocalciferol (vitamin D2) 1,250 50,000 unit PO .EVERY OTHER WEEK 08/02/22 08/02/22 mcg (50,000 unit) capsule losartan 50 mg tablet 50 mg PO BID 08/02/22 08/02/22 meclizine 25 mg tablet 25 mg PO TID PRN Dizziness 08/02/22 08/02/22 ondansetron HCl 4 mg tablet 4 mg PO Q6 PRN Nausea 08/02/22 08/02/22 pioglitazone 15 mg tablet 15 mg PO QAM 08/02/22 08/02/22 rizatriptan 10 mg disintegrating 10 mg PO UD PRN Migraine Headache 08/02/22 08/02/22 tablet Results & Data (ED) Vital Signs Vital Signs - 24 hr 08/02/22 11:42 08/02/22 14:57 08/02/22 15:02 Temperature 36.6 C Temperature Source Oral Pulse Rate 71 69 Pulse Rate [Finger] Pulse Rate from SpO2 Sensor 69 Respiratory Rate 16 20 Blood Pressure 153/86 H Blood Pressure [Left Arm] Blood Pressure Mean 108 Blood Pressure Mean [Left Arm] Pulse Oximetry 98 97 99 Oxygen Delivery Method Room Air Room Air Oxygen Flow Rate 0 Sepsis Recent Fever Within 48 Hours No Sepsis New/Unexplained Change in Mental Status No Sepsis Action Taken by Nursing No Action Required 08/02/22 15:30 08/02/22 15:32 08/02/22 15:32 Temperature Temperature Source Pulse Rate 72 66 Pulse Rate [Finger] Pulse Rate from SpO2 Sensor 72 69 Respiratory Rate 19 15 Blood Pressure 153/103 H Blood Pressure [Left Arm] Blood Pressure Mean 119 Blood Pressure Mean [Left Arm] Pulse Oximetry 98 98 Oxygen Delivery Method Oxygen Flow Rate Sepsis Recent Fever Within 48 Hours Sepsis New/Unexplained Change in Mental Status Sepsis Action Taken by Nursing 08/02/22 16:00 08/02/22 16:00 08/02/22 17:25 Temperature Temperature Source Pulse Rate 65 Pulse Rate [Finger] 70 Pulse Rate from SpO2 Sensor 65 Respiratory Rate 16 24 Blood Pressure 146/58 H Blood Pressure [Left Arm] 134/57 L Blood Pressure Mean 87 Blood Pressure Mean [Left Arm] 82 Pulse Oximetry 99 100 Oxygen Delivery Method Room Air Oxygen Flow Rate Sepsis Recent Fever Within 48 Hours Sepsis New/Unexplained Change in Mental Status Sepsis Action Taken by Nursing Laboratory Data Result diagrams: 08/02/22 11:52 08/02/22 11:52 Lab Results 08/02/22 08/02/22 08/02/22 Range/Units 11:52 11:52 11:52 WBC 7.59 (4.8-10.8) K/ul RBC 3.39 L (3.93-5.22) M/uL Hgb 10.8 L (12.0-16.0) g/dl Hct 32.4 L (34.1-44.9) % MCV 95.6 (80.0-100.0) fL MCH 31.9 (25.0-34.0) pg MCHC 33.3 (32.0-36.0) g/dL RDW Std Deviation 45.5 (36.4-46.3) fL RDW Coeff of Victoriano 13.0 (11.5-14.5) % Plt Count 225 (130-400) K/uL MPV 11.0 (9.4-12.3) fL Immature Gran % (Auto) 0.1 % Neut % (Auto) 57.2 % Lymph % (Auto) 30.6 % Stevens % (Auto) 9.6 % Eos % (Auto) 2.1 % Baso % (Auto) 0.4 % Neut # (Auto) 4.34 (1.4-6.5) K/uL Lymph # (Auto) 2.32 (1.2-3.4) K/uL Stevens # (Auto) 0.73 (0.24-0.82) K/uL Eos # (Auto) 0.16 (0-0.50) K/uL Baso # (Auto) 0.03 (0-0.2) K/uL Immature Gran # (Auto) 0.01 (0.00-0.02) K/uL PT 10.3 (9.0-12.0) Seconds INR 1.0 (0.9-1.1) APTT 27.0 (21.0-31.0) Seconds PTT Ratio 1.0 D-Dimer (0-500) ug/L FEU Sodium 139 (136-145) mmol/L Potassium 4.3 (3.5-5.1) mmol/L Chloride 106 (98-107) mmol/L Carbon Dioxide 25 (21-32) mmol/L Anion Gap 8 (3-11) BUN 37 H (6-23) mg/dl Creatinine 1.37 H (0.6-1.2) mg/dl Est Cr Clr Drug Dosing 28.3 ml/min Est GFR ( Amer) 42.1 ml/min Est GFR (Non-Af Amer) 36.3 ml/min BUN/Creatinine Ratio 27.0 H (10-20) Glucose 82 (70-99(Fasting)) mg/dl POC Glucose (70-99) mg/dl Calcium 9.7 (8.5-10.1) mg/dl Total Bilirubin 0.8 (0.2-1.0) mg/dl AST 24 (13-39) U/L ALT 19 (7-52) U/L Alkaline Phosphatase 59 (34-104) U/L Troponin I High Sens 7.3 (0-14) pg/ml Total Protein 8.4 H (6.0-8.3) gm/dl Albumin 4.5 (3.4-5.0) gm/dl Globulin 3.9 (2.5-4.0) gm/dl Albumin/Globulin Ratio 1.2 (0.9-2) SARS-CoV-2, RNA, NAAT (NEGATIVE) 08/02/22 08/02/22 08/02/22 Range/Units 11:52 15:55 17:58 WBC (4.8-10.8) K/ul RBC (3.93-5.22) M/uL Hgb (12.0-16.0) g/dl Hct (34.1-44.9) % MCV (80.0-100.0) fL MCH (25.0-34.0) pg MCHC (32.0-36.0) g/dL RDW Std Deviation (36.4-46.3) fL RDW Coeff of Victoriano (11.5-14.5) % Plt Count (130-400) K/uL MPV (9.4-12.3) fL Immature Gran % (Auto) % Neut % (Auto) % Lymph % (Auto) % Stevens % (Auto) % Eos % (Auto) % Baso % (Auto) % Neut # (Auto) (1.4-6.5) K/uL Lymph # (Auto) (1.2-3.4) K/uL Stevens # (Auto) (0.24-0.82) K/uL Eos # (Auto) (0-0.50) K/uL Baso # (Auto) (0-0.2) K/uL Immature Gran # (Auto) (0.00-0.02) K/uL PT (9.0-12.0) Seconds INR (0.9-1.1) APTT (21.0-31.0) Seconds PTT Ratio D-Dimer 450 (0-500) ug/L FEU Sodium (136-145) mmol/L Potassium (3.5-5.1) mmol/L Chloride (98-107) mmol/L Carbon Dioxide (21-32) mmol/L Anion Gap (3-11) BUN (6-23) mg/dl Creatinine (0.6-1.2) mg/dl Est Cr Clr Drug Dosing ml/min Est GFR ( Amer) ml/min Est GFR (Non-Af Amer) ml/min BUN/Creatinine Ratio (10-20) Glucose (70-99(Fasting)) mg/dl POC Glucose 105 H (70-99) mg/dl Calcium (8.5-10.1) mg/dl Total Bilirubin (0.2-1.0) mg/dl AST (13-39) U/L ALT (7-52) U/L Alkaline Phosphatase (34-104) U/L Troponin I High Sens (0-14) pg/ml Total Protein (6.0-8.3) gm/dl Albumin (3.4-5.0) gm/dl Globulin (2.5-4.0) gm/dl Albumin/Globulin Ratio (0.9-2) SARS-CoV-2, RNA, NAAT NEGATIVE (NEGATIVE) Administered Medications Discontinued Medications Aspirin (Aspirin 81 Mg Chew) 324 mg PO NOW STA Stop: 08/02/22 16:54 Last Admin: 08/02/22 17:24 Dose: 324 mg Documented By: JONATHAN Imaging Data Radiologist's Impression: Chest X-Ray 08/02/22 11:45 XR chest 1V portable HISTORY: 82 years-old Female Chest Pain . Acute chest pain COMPARISON: Chest radiograph 11/01/2016 TECHNIQUE: Portable AP view of the chest FINDINGS: Cardiomediastinal and hilar silhouettes are within normal limits. There is no pneumothorax, pleural effusion, airspace consolidation or overt pulmonary edema. Bones of the chest appear grossly intact. IMPRESSION: No acute process. ACT 112: Negative or not required by law. The above report was generated using voice recognition software. It may contain grammatical, syntax or spelling errors. Electronically signed by: Yoav Gonzales M.D. 08/02/2022 2:56 PM Discharge Plan Visit Data Chief Complaint: Chest Pain Stated Complaint: CHEST PAIN ED Provider: Helio Sosa Discharge Problem: Chest pain, Anemia, Diabetes mellitus, type II Patient Disposition: Admitted As Inpatient Discharge Instructions Interventions: ED Discharge Assessment Last Done: 08/02/22 17:36
[2022-08-02 15:39] LABS: D Dimer 450 ug/L FEU (0-500)
--- NOTE | 2022-08-02 16:22 | History & Physical Report ---
Date of Service August 02, 2022 Assessment & Plan (1) Chest pain: Plan: Patient is 82 y/o F with PMH HTN, dyslipidemia, DM II, chronic anemia, CKD III presented to ER with c/o chest pain/pressure occurred last evening relieved after taking her husbands SL nitro Today in ER vitals stable. Initial troponin negative. EKG without acute ST changes R/O ACS. Risk factors: HTN, hyperlipidemia, DM Repeat EKG in am Will trend troponin Echo Lipid panel continue statin Given 324mg aspirin. Continue daily 81mg aspirin Nitro prn CP and repeat EKG for CP Cardiology consult (2) Diabetes mellitus, type II: Plan: A1c: 7.1 on 04/17/22 Hold home medications Novolog sliding scale per protocol (3) Hypertension: Plan: Continue amlodipine, losartan (4) Dyslipidemia: Plan: Continue atorvastatin (5) Chronic anemia: Plan: Hgb: 10.8. 10.8 is baseline Monitor H&H (6) Kidney disease, chronic, stage III (GFR 30-59 ml/min): Plan: Cr: 1.37. Baseline 1.2-1.3 Monitor renal functions, avoid nephrotoxic agents when possible DVT Prophylaxis Heparin SQ Full Code as per discussion with pt Follows with Dr Joyce for routine care Pt was seen and care coordinated with Dr Bolivar. See addendum History of Present Illness Chief Complaint: CP Primary Care Provider: Nikia Joyce, Patient is 82 y/o F with PMH HTN, dyslipidemia, DM II, chronic anemia, CKD III presented to ER with c/o chest pain x 1 day. Patient states [place] and sitting at a machine when she had onset of mid chest pressure that she reports was very severe. She went back to hotel room to lie down without relief. She took one of her husbands SL nitro with relief. She reports no further chest pain. Denies any associated SOB, diaphoresis, palpitations, dizziness, nausea or vomiting. Went to PCP office today and was referred to ER. Denies fever/chills, diaphoresis, N/V/D/C, TAVAREZ, dizziness, syncope, vision changes, neck pain, orthopnea, cough, sore throat, choking, otalgia, rhinorrhea, abdominal pain, paresthesias, weakness, extremity weakness, extremity edema, rashes, urinary symptoms. Allergies Allergy/AdvReac Type Severity Reaction Status Date / Time No Known Allergies Allergy Verified 08/02/22 16:01 Home Medications Medication Instructions Recorded Confirmed Type albuterol sulfate 90 mcg/actuation 2 puff inhalation QID 08/02/22 08/02/22 History aerosol inhaler (ProAir HFA) amlodipine 10 mg tablet 10 mg PO DAILY 08/02/22 08/02/22 History aspirin 81 mg chewable tablet 81 mg PO DAILY 08/02/22 08/02/22 History (Aspirin Childrens) atorvastatin 20 mg tablet 20 mg PO QAM 08/02/22 08/02/22 History benzonatate 200 mg capsule 200 mg PO TID PRN Cough 08/02/22 08/02/22 History dulaglutide 0.75 mg/0.5 mL 0.75 mg subcut WK 08/02/22 08/02/22 [facility] ergocalciferol (vitamin D2) 1,250 50,000 unit PO .EVERY OTHER WEEK 08/02/22 08/02/22 History mcg (50,000 unit) capsule losartan 50 mg tablet 50 mg PO BID 08/02/22 08/02/22 History meclizine 25 mg tablet 25 mg PO TID PRN Dizziness 08/02/22 08/02/22 History ondansetron HCl 4 mg tablet 4 mg PO Q6 PRN Nausea 08/02/22 08/02/22 History pioglitazone 15 mg tablet 15 mg PO QAM 08/02/22 08/02/22 History rizatriptan 10 mg disintegrating 10 mg PO UD PRN Migraine Headache 08/02/22 08/02/22 History tablet Past Med/Surg History Medical History (Updated 08/02/22 @ 20:30 by Helio Sosa DO) Chronic anemia Diabetes mellitus, type II Dyslipidemia Hypertension Migraine Osteoporosis Surgical History (Updated 08/02/22 @ 16:22 by Teresa Payne PA-C) History of appendectomy History of tonsillectomy and adenoidectomy S/P cholecystectomy S/P hysterectomy Family History (Updated 08/02/22 @ 16:23 by Teresa Payne PA-C) Other Cancer Diabetes Social History (Updated 08/02/22 @ 17:11 by Teresa Payne PA-C) Smoking Status: Never smoker Hx Alcohol Use: Yes Hx Substance Use: No Preferred Language: Italian Communication Ability: Effective Dialysis Equipment Technician Required: No Beliefs That Will Affect Care: None Current Living Situation: Spouse Feels Safe at Home: Yes Assistive Devices: None Review of Systems Review of Systems: All systems reviewed & are unremarkable except as noted in HPI & below Physical Exam Physical Exam: General: no distress, WDWN Head: normocephalic, atraumatic Eyes: conjunctiva non-injected, anicteric ENT: normal inspection external ears, nose, mucous membranes moist Neck: supple, trachea midline, non-tender Lungs: clear, no respiratory distress, no wheezing/rhonchi/rales CV: RRR, no murmur, no pretibial edema, no chest wall tenderness to palpation Abd: normal BS, soft, non-tender Ext: no cyanosis, no calf tenderness Neuro: A&O x 3, no focal deficits noted, normal affect Skin: warm, dry Results & Data Results & Data ([facility]) Vital Signs (Past 12 Hours) Vital Signs Temp Pulse Resp BP Pulse Ox O2 Del Method O2 Flow Rate 08/02/22 16:00 65 16 99 08/02/22 16:00 146/58 H 08/02/22 15:32 66 15 98 08/02/22 15:32 153/103 H 08/02/22 15:30 72 19 98 08/02/22 15:02 69 20 99 08/02/22 14:57 97 Room Air 0 08/02/22 11:42 36.6 C 71 16 153/86 H 98 Room Air Laboratory Results Short CBC 08/02/22 Range/Units 11:52 WBC 7.59 (4.8-10.8) K/ul Hgb 10.8 L (12.0-16.0) g/dl Hct 32.4 L (34.1-44.9) % Plt Count 225 (130-400) K/uL BMP 08/02/22 11:52 Sodium 139 Potassium 4.3 Chloride 106 Carbon Dioxide 25 BUN 37 H Creatinine 1.37 H Glucose 82 Calcium 9.7 Liver Function 08/02/22 Range/Units 11:52 Total Bilirubin 0.8 (0.2-1.0) mg/dl AST 24 (13-39) U/L ALT 19 (7-52) U/L Alkaline Phosphatase 59 (34-104) U/L Albumin 4.5 (3.4-5.0) gm/dl Diagnostic Findings Chest X-Ray 08/02/22 11:45 XR chest 1V portable HISTORY: 82 years-old Female Chest Pain . Acute chest pain COMPARISON: Chest radiograph 11/01/2016 TECHNIQUE: Portable AP view of the chest FINDINGS: Cardiomediastinal and hilar silhouettes are within normal limits. There is no pneumothorax, pleural effusion, airspace consolidation or overt pulmonary edema. Bones of the chest appear grossly intact. IMPRESSION: No acute process. ACT 112: Negative or not required by law. The above report was generated using voice recognition software. It may contain grammatical, syntax or spelling errors. Electronically signed by: Yoav Gonzales M.D. 08/02/2022 2:56 PM ECG Rate (beats per minute): 62 Rhythm: sinus rhythm Additional Comments: no ST elevation Code Status & VTE Plan VTE Prophylaxis Plan VTE Prophylaxis will be ordered: Yes Supervising Physician Co-Signing Physician Notes Pt seen and examined by me, care coordinated w/ Hakan Payne PA-C, pls refer to her note above for further detail. Pt is an 82 y/o F with HTN, dyslipidemia, DM II, chronic anemia, CKD III who presents due to chest pain. Patient reports that her pain felt like severe pressure, started about 9 PM last night. After she took her 's nitro pain completely resolved. They then drove home from [facility], about 2 hours away. She slept at home, without any issues and today she went to get checked with her healthcare provider. She was advised to present to ER for further evaluation. Denies any associated shortness of breath, diaphoresis, palpitations, dizziness, nausea or vomiting. Currently she is sitting up in bed, in no acute distress, she is alert oriented answering questions appropriately. Heart sounds regular, lung sounds clear to auscultation. Overall she reports feeling comfortable. Initial troponin negative. We will obtain echocardiogram, and discuss further with cardiology, as patient may need stress test. MD Katt
[2022-08-02] MEDS ORDERED: ASPIRIN 81 MG CHEW PO STA (16:53)
[2022-08-02] MEDS ORDERED: CARBOHYDRATES FOR HYPOGLYCEMIA PO PRN (18:00)
[2022-08-02] MEDS ORDERED: DEXTROSE 50% 50 ML SYRINGE IV PRN (18:00)
[2022-08-02] MEDS ORDERED: GLUCOSE 40% GEL 15 GM TUBE PO PRN (18:00)
[2022-08-02] MEDS ORDERED: POLYETHYLENE (MIRALAX) 17 GM PACK PO PRN (18:00)
[2022-08-02] MEDS ORDERED: ONDANSETRON INJ 2 MG/ML 2 ML VIAL IV PRN (18:00)
[2022-08-02] MEDS ORDERED: NITROGLYCERIN SL 0.4 MG/TAB TAB SL PRN (18:00)
[2022-08-02] MEDS ORDERED: ACETAMINOPHEN 325 MG TAB PO PRN (18:00)
[2022-08-02] MEDS ORDERED: GLUCOSE 10 TAB/TUBE PO PRN (18:00)
[2022-08-02] MEDS ORDERED: GLUCAGON FOR INJ 1 MG VIAL SQ PRN (18:00)
[2022-08-02] MEDS: HEPARIN SOD 5,000 UNIT/0.5 ML VIAL SQ SCH (23:17)
[2022-08-02] MEDS: LOSARTAN POTASSIUM 50 MG TAB PO SCH (23:17)
[2022-08-02] MEDS: INSULIN ASPART PER UNIT SC SCH (23:19)
[2022-08-03 05:56] LABS: Hematocrit (blood only) 28.8 % (34.1-44.9); Hemoglobin 9.7 g/dl (12.0-16.0); Mean Corpuscular Hgb Conc 33.7 g/dL (32.0-36.0); Mean Platelet Volume 11.5 fL (9.4-12.3); Platelet Count 193 K/uL (130-400); RDW Coefficient of Variation 12.9 % (11.5-14.5); RDW Standard Deviation 44.6 fL (36.4-46.3); Red Blood Count 3.03 M/uL (3.93-5.22); White Blood Count 6.49 K/ul (4.8-10.8)
--- NOTE | 2022-08-03 06:02 | Electrocardiogram Report ---
Test Reason : Blood Pressure : / mmHG Vent. Rate : 062 BPM Atrial Rate : 062 BPM P-R Int : 138 ms QRS Dur : 074 ms QT Int : 410 ms P-R-T Axes : 054 025 047 degrees QTc Int : 416 ms Normal sinus rhythm Cannot rule out Anterior infarct , age undetermined Abnormal ECG When compared with ECG of 21-JUL-2017 20:32, No significant change was found Confirmed by Yoandy Wise ([id number]) on 08/03/2022 6:02:08 AM Referred By: Confirmed By:Yoandy Wise
[2022-08-03 06:24] LABS: Troponin I High Sensitivity 7.9 pg/ml (0-14)
[2022-08-03 06:25] LABS: Calcium 8.8 mg/dl (8.5-10.1); Chol HDL Ratio 2.7 (0-5); Creatinine Clr Calc Pharmacy 29.4 ml/min; Est GFR (African American) 44.1 ml/min; Potassium 4.3 mmol/L (3.5-5.1)
[2022-08-03 06:53] LABS: Estimated Average Glucose 151 mg/dl; Hemoglobin A1C 6.9 % (4.5-5.6)
[2022-08-03] MEDS: LOSARTAN POTASSIUM 50 MG TAB PO SCH (08:04)
[2022-08-03] MEDS: HEPARIN SOD 5,000 UNIT/0.5 ML VIAL SQ SCH (08:04)
[2022-08-03] MEDS: INSULIN ASPART PER UNIT SC SCH ×2 (08:13→12:48)
[2022-08-03] MEDS ORDERED: ASPIRIN 81 MG CHEW PO SCH (09:00)
[2022-08-03] MEDS ORDERED: ATORVASTATIN 20 MG TAB PO SCH (09:00)
[2022-08-03] MEDS ORDERED: amLODIPine BESYLATE 5 MG TAB PO SCH (09:00)
--- NOTE | 2022-08-03 10:08 | Cardiology Consultation ---
Date of Consultation August 03, 2022 Assessment & Plan (1) Chest pain: (2) Hypertension: Plan Patient is an 82-year-old female with multiple cardiovascular risk factors who developed substernal and precordial chest discomfort lasting greater than 1 hour day prior to admission. Symptoms were relieved by sublingual nitroglycerin. Evaluation since admission includes normal EKGs x2, negative troponin and normal LV systolic function on echocardiogram. Patient referred for evaluation of chest pain and cardiac risk factors for stress echocardiography Stress echocardiogram: Patient exercised for 6 minutes and 30 seconds on a standard [place] protocol, estimate met level 7.5 METS without cardiac symptoms. There was an accelerated heart rate response with patient achieving target heart rate at less than 1 minute on exertion but continue to exercise for an additional 5-1/2 minutes and achieved greater than 100% age-predicted maximal heart rate with hypertensive blood pressure response Stress EKG response was normal, there were no arrhythmias other than rare ventricular ectopy Normal resting and stress echocardiogram were present Impression: Precordial chest pain without evidence of myocardial ischemia or inducible angina by enzyme EKG and stress echocardiogram There was an accelerated heart rate and blood pressure response to exercise. Would recommend adding low-dose beta-dionne to her regimen with metoprolol succinate 12.5 mg daily continue other antihypertensives Patient does carry history of gastroparesis and gastroes ophageal reflux that may have been exacerbated by recent addition of Trulicity. She should however report any recurrence of symptoms or complaints promptly History of Present Illness Reason for Consultation: Precordial chest pain Requesting Physician: Dr. Bolivar Attending Physician: Tyrese Alfredo MD History of Present Illness Patient is an 82-year-old female with cardiovascular risk factors of hypertension, diabetes mellitus, dyslipidemia possible cerebrovascular disease who evening prior to admission developed substernal chest discomfort initially beginning as a low-grade discomfort while sitting at a casino machine. Patient returned to her room where symptoms acutely worsened described as a heavy severe substernal discomfort radiating to her back. Symptoms were associated with mild breathlessness no diaphoresis no tachypalpitations. Symptoms lasted approximate 1 hour before being resolved with the use of one of her 's sublingual nitroglycerin. Patient had been in [facility] and returned home following morning and sought PCP and subsequent ER evaluation. She has had no further recurrence of symptoms. No prior history of chest pain. No history of angina, myocardial infarction or congestive heart failure. Physically active usually walks daily for exercise with good tolerance. No fevers chills or unexplained infections. No bleeding difficulties. Appetite and weight are generally stable. Patient was recently begun on Trulicity for diabetes Allergies Allergy/AdvReac Type Severity Reaction Status Date / Time No Known Allergies Allergy Verified 08/02/22 16:01 Home Medications Medication Instructions Recorded Confirmed Type albuterol sulfate 90 mcg/actuation 2 puff inhalation QID 08/02/22 08/02/22 History aerosol inhaler (ProAir HFA) amlodipine 10 mg tablet 10 mg PO DAILY 08/02/22 08/02/22 History aspirin 81 mg chewable tablet 81 mg PO DAILY 08/02/22 08/02/22 History (Aspirin Childrens) atorvastatin 20 mg tablet 20 mg PO QAM 08/02/22 08/02/22 History benzonatate 200 mg capsule 200 mg PO TID PRN Cough 08/02/22 08/02/22 History dulaglutide 0.75 mg/0.5 mL 0.75 mg subcut WK 08/02/22 08/02/22 History subcutaneous pen injector (Trulicity) ergocalciferol (vitamin D2) 1,250 50,000 unit PO .EVERY OTHER WEEK 08/02/22 08/02/22 History mcg (50,000 unit) capsule losartan 50 mg tablet 50 mg PO BID 08/02/22 08/02/22 History meclizine 25 mg tablet 25 mg PO TID PRN Dizziness 08/02/22 08/02/22 History ondansetron HCl 4 mg tablet 4 mg PO Q6 PRN Nausea 08/02/22 08/02/22 History pioglitazone 15 mg tablet 15 mg PO QAM 08/02/22 08/02/22 History rizatriptan 10 mg disintegrating 10 mg PO UD PRN Migraine Headache 08/02/22 08/02/22 History tablet Patient History Medical History (Updated 08/02/22 @ 20:30 by Helio Sosa DO) Chronic anemia Diabetes mellitus, type II Dyslipidemia Hypertension Migraine Osteoporosis Surgical History (Updated 08/02/22 @ 16:22 by Teresa Payne PA-C) History of appendectomy History of tonsillectomy and adenoidectomy S/P cholecystectomy S/P hysterectomy Family History (Updated 08/02/22 @ 16:23 by Teresa Payne PA-C) Other Cancer Diabetes Social History (Updated 08/02/22 @ 17:11 by Teresa Payne PA-C) Smoking Status: Never smoker Hx Alcohol Use: Yes Hx Substance Use: No Preferred Language: Lithuanian Communication Ability: Effective Clinical Operations Manager Required: No Beliefs That Will Affect Care: None Current Living Situation: Spouse Feels Safe at Home: Yes Assistive Devices: None Review of Systems Review of Systems: All systems reviewed & are unremarkable except as noted in HPI & below Physical Exam Constitutional: WD/WN, vitals as above Eyes: PERRL, conjunctivae normal, anicteric sclerae ENMT: external ear and nose normal, oropharynx normal Neck: trachea midline, no thyromegaly Respiratory: normal respiratory effort, lungs clear to auscultation Cardiovascular: Rate/Rhythm: regular rate and regular rhythm Heart Sounds: normal S1 and normal S2; no gallop and no murmur Palpation: normal PMI Vessels: normal carotid upstroke and radial pulses present; no JVD and no carotid bruit Extremities: no edema Gastrointestinal (Abdomen): normal bowel sounds, soft, nontender, no hepatosplenomegaly Musculoskeletal: no cyanosis or clubbing, extremities motor strength 5/5 Skin: no rashes, warm and dry Neurologic: PERRL, EOMI, accommodation nl, no face palsy, no dysarthria Psychiatric: A+Ox3, euthymic affect Results & Data ([facility]) Vital Signs (Past 12 Hours) Vital Signs Temp Pulse Pulse Resp BP Pulse Ox O2 Del Method 08/03/22 09:13 55 L 08/03/22 07:50 36.8 C 19 L 19 164/66 H 97 Room Air 08/03/22 04:02 36.8 C 58 L 17 110/62 96 Room Air 08/02/22 22:37 62 08/02/22 23:11 36.8 C 62 17 100/57 L 96 Room Air Laboratory Results Laboratory Results - last 24 hr 08/02/22 08/02/22 08/02/22 11:52 11:52 11:52 WBC 7.59 RBC 3.39 L Hgb 10.8 L Hct 32.4 L MCV 95.6 MCH 31.9 MCHC 33.3 RDW Std Deviation 45.5 RDW Coeff of Victoriano 13.0 Plt Count 225 MPV 11.0 Immature Gran % (Auto) 0.1 Neut % (Auto) 57.2 Lymph % (Auto) 30.6 [place] % (Auto) 9.6 Eos % (Auto) 2.1 Baso % (Auto) 0.4 Neut # (Auto) 4.34 Lymph # (Auto) 2.32 [place] # (Auto) 0.73 Eos # (Auto) 0.16 Baso # (Auto) 0.03 Immature Gran # (Auto) 0.01 PT 10.3 INR 1.0 APTT 27.0 PTT Ratio 1.0 D-Dimer Sodium 139 Potassium 4.3 Chloride 106 Carbon Dioxide 25 Anion Gap 8 BUN 37 H Creatinine 1.37 H Est Cr Clr Drug Dosing 28.3 Est GFR ( Amer) 42.1 Est GFR (Non-Af Amer) 36.3 BUN/Creatinine Ratio 27.0 H Glucose 82 POC Glucose Estimat Average Glucose Hemoglobin A1c Calcium 9.7 Total Bilirubin 0.8 AST 24 ALT 19 Alkaline Phosphatase 59 Troponin I High Sens 7.3 Total Protein 8.4 H Albumin 4.5 Globulin 3.9 Albumin/Globulin Ratio 1.2 Triglycerides Cholesterol LDL Cholesterol, Calc VLDL Cholesterol, Calc HDL Cholesterol Cholesterol/HDL Ratio SARS-CoV-2, RNA, NAAT 08/02/22 08/02/22 08/02/22 11:52 15:55 17:58 WBC RBC Hgb Hct MCV MCH MCHC RDW Std Deviation RDW Coeff of Victoriano Plt Count MPV Immature Gran % (Auto) Neut % (Auto) Lymph % (Auto) [place] % (Auto) Eos % (Auto) Baso % (Auto) Neut # (Auto) Lymph # (Auto) [place] # (Auto) Eos # (Auto) Baso # (Auto) Immature Gran # (Auto) PT INR APTT PTT Ratio D-Dimer 450 Sodium Potassium Chloride Carbon Dioxide Anion Gap BUN Creatinine Est Cr Clr Drug Dosing Est GFR ( Amer) Est GFR (Non-Af Amer) BUN/Creatinine Ratio Glucose POC Glucose 105 H Estimat Average Glucose Hemoglobin A1c Calcium Total Bilirubin AST ALT Alkaline Phosphatase Troponin I High Sens Total Protein Albumin Globulin Albumin/Globulin Ratio Triglycerides Cholesterol LDL Cholesterol, Calc VLDL Cholesterol, Calc HDL Cholesterol Cholesterol/HDL Ratio SARS-CoV-2, RNA, NAAT NEGATIVE 08/02/22 08/02/22 08/02/22 18:22 19:57 23:29 WBC RBC Hgb Hct MCV MCH MCHC RDW Std Deviation RDW Coeff of Victoriano Plt Count MPV Immature Gran % (Auto) Neut % (Auto) Lymph % (Auto) [place] % (Auto) Eos % (Auto) Baso % (Auto) Neut # (Auto) Lymph # (Auto) [place] # (Auto) Eos # (Auto) Baso # (Auto) Immature Gran # (Auto) PT INR APTT PTT Ratio D-Dimer Sodium Potassium Chloride Carbon Dioxide Anion Gap BUN Creatinine Est Cr Clr Drug Dosing Est GFR ( Amer) Est GFR (Non-Af Amer) BUN/Creatinine Ratio Glucose POC Glucose 162 H Estimat Average Glucose Hemoglobin A1c Calcium Total Bilirubin AST ALT Alkaline Phosphatase Troponin I High Sens 8.5 9.2 Total Protein Albumin Globulin Albumin/Globulin Ratio Triglycerides Cholesterol LDL Cholesterol, Calc VLDL Cholesterol, Calc HDL Cholesterol Cholesterol/HDL Ratio SARS-CoV-2, RNA, NAAT 08/03/22 08/03/22 08/03/22 05:23 05:23 05:23 WBC 6.49 RBC 3.03 L Hgb 9.7 L Hct 28.8 L MCV 95.0 MCH 32.0 MCHC 33.7 RDW Std Deviation 44.6 RDW Coeff of Victoriano 12.9 Plt Count 193 MPV 11.5 Immature Gran % (Auto) Neut % (Auto) Lymph % (Auto) [place] % (Auto) Eos % (Auto) Baso % (Auto) Neut # (Auto) Lymph # (Auto) [place] # (Auto) Eos # (Auto) Baso # (Auto) Immature Gran # (Auto) PT INR APTT PTT Ratio D-Dimer Sodium 139 Potassium 4.3 Chloride 106 Carbon Dioxide 27 Anion Gap 6 BUN 33 H Creatinine 1.32 H Est Cr Clr Drug Dosing 29.4 Est GFR ( Amer) 44.1 Est GFR (Non-Af Amer) 38.0 BUN/Creatinine Ratio 25.0 H Glucose 88 POC Glucose Estimat Average Glucose 151 Hemoglobin A1c 6.9 H Calcium 8.8 Total Bilirubin AST ALT Alkaline Phosphatase Troponin I High Sens 7.9 Total Protein Albumin Globulin Albumin/Globulin Ratio Triglycerides 94 Cholesterol 162 LDL Cholesterol, Calc 84 VLDL Cholesterol, Calc 19 HDL Cholesterol 59 Cholesterol/HDL Ratio 2.7 SARS-CoV-2, RNA, NAAT 08/03/22 08:10 WBC RBC Hgb Hct MCV MCH MCHC RDW Std Deviation RDW Coeff of Victoriano Plt Count MPV Immature Gran % (Auto) Neut % (Auto) Lymph % (Auto) [place] % (Auto) Eos % (Auto) Baso % (Auto) Neut # (Auto) Lymph # (Auto) [place] # (Auto) Eos # (Auto) Baso # (Auto) Immature Gran # (Auto) PT INR APTT PTT Ratio D-Dimer Sodium Potassium Chloride Carbon Dioxide Anion Gap BUN Creatinine Est Cr Clr Drug Dosing Est GFR ( Amer) Est GFR (Non-Af Amer) BUN/Creatinine Ratio Glucose POC Glucose 110 H Estimat Average Glucose Hemoglobin A1c Calcium Total Bilirubin AST ALT Alkaline Phosphatase Troponin I High Sens Total Protein Albumin Globulin Albumin/Globulin Ratio Triglycerides Cholesterol LDL Cholesterol, Calc VLDL Cholesterol, Calc HDL Cholesterol Cholesterol/HDL Ratio SARS-CoV-2, RNA, NAAT
--- NOTE | 2022-08-03 11:59 | Discharge Summary ---
Date of Service August 03, 2022 Admission HPI Per Admitting Provider Patient is 82 y/o F with PMH HTN, dyslipidemia, DM II, chronic anemia, CKD III presented to ER with c/o chest pain x 1 day. Patient states [place] and sitting at a machine when she had onset of mid chest pressure that she reports was very severe. She went back to hotel room to lie down without relief. She took one of her husbands SL nitro with relief. She reports no further chest pain. Denies any associated SOB, diaphoresis, palpitations, dizziness, nausea or vomiting. Went to PCP office today and was referred to ER. Denies fever/chills, diaphoresis, N/V/D/C, TAVAREZ, dizziness, syn cope, vision changes, neck pain, orthopnea, cough, sore throat, choking, otalgia, rhinorrhea, abdominal pain, paresthesias, weakness, extremity weakness, extremity edema, rashes, urinary symptoms. Admission Exam Per Admitting Provider General: no distress, WDWN Head: normocephalic, atraumatic Eyes: conjunctiva non-injected, anicteric ENT: normal inspection external ears, nose, mucous membranes moist Neck: supple, trachea midline, non-tender Lungs: clear, no respiratory distress, no wheezing/rhonchi/rales CV: RRR, no murmur, no pretibial edema, no chest wall tenderness to palpation Abd: normal BS, soft, non-tender Ext: no cyanosis, no calf tenderness Neuro: A&O x 3, no focal deficits noted, normal affect Skin: warm, dry Principal Diagnosis Chest pain, ACS ruled out Discharge Exam Constitutional: WD/WN, vitals as above, NAD, sitting up in bed, pleasant, conversing easily Respiratory: normal respiratory effort, lungs clear to auscultation, no wheeze, rales, rhonchi. Normal insp/exp effort, no accessory muscle use Cardiovascular: RRR, no murmur, no edema Vessels: no JVD or carotid bruit Chest: normal inspection of chest Abdomen: normal bowel sounds, soft, nontender, no hepatosplenomegaly Musculoskeletal: no cyanosis or clubbing, extremities motor strength 5/5 Skin: no rashes, warm and dry normal turgor Neurologic: PERRL, EOMI, accommodation nl, no face palsy, no dysarthria CN's II- XI intact bilaterally and moves all extremities Psychiatric: A+Ox3, euthymic affect Lymphatic: no cervical or axillary lymphadenopathy : deferred Discharge Data Allergies Allergy/AdvReac Type Severity Reaction Status Date / Time No Known Allergies Allergy Verified 08/02/22 16:01 Consultations 08/02/22 15:53 ED Decision to Admit Stat 08/03/22 08:00 Consult Cardiology Routine Hospital Course (1) Chest pain: (2) Diabetes mellitus, type II: (3) Hypertension: (4) Dyslipidemia: (5) Chronic anemia: (6) Kidney disease, chronic, stage III (GFR 30-59 ml/min): Plan Patient is 82-year-old female with past medical history of HTN, dyslipidemia, DM II, chronic anemia, CKD III presented to ER with c/o chest pain x 1 day. Patient had episode of chest pain lasting about 40 minutes a day prior to the presentation which was relieved with nitroglycerin. The chest pain was substernal and radiated across her chest; no diaphoresis, nausea or shortness of breath associated with chest pain. On presentation to the ED, patient was hemodynamically stable and saturating well in room air. EKG showed normal sinus rhythm with no significant ST or T wave changes. High-sensitivity troponin was negative x4. Patient underwent echo which showed normal LV systolic function with ejection fraction of 60 to 65%. Cardiology was consulted for comanagement. Patient underwent a stress echocardiogram. She had a accelerated heart rate response and achieved greater than 100% age-predicted maximal heart rate with hypertensive blood pressure response. Stress EKG was normal with no arrhythmia other than rare ventricular ectopy. Patient was recommended to be started on metoprolol 12.5 mg once a day due to the accelerated heart rate and blood pressure response to exercise. Prescription were sent to her pharmacy. She was instructed to follow-up with her PCP. Total Time Total Time Spent Total Time Spent (In Minutes): 35 Total Time Includes: Examination of the Patient, Discharge Planning, Medication Reconciliation, Communication With Other Providers and Other Discharge Plan Discharge Items Patient Disposition: Home - Self-Care Reason For Visit: CP Discharge Diagnosis: Chest pain, ACS ruled out Activity: Resume your previous activity Non-emergency contact: Primary Care Provider Call non-emergency contact if: you have any medication questions and your symptoms worsen Follow-up/Referrals: Nikia Joyce DO [Primary Care Provider] - (Date & Time 08/08/2022 10:00 AM Provider Nikia Joyce DO Department Family Practice [address], [place] ) Diet: Regular Addtl Attending Provider Instructions: You were admitted to the hospital for work-up for the chest pain. Echocardiogram showed ejection fraction of 60 to 65% which is within normal range. You also underwent stress echocardiogram with no inducible angina. You are prescribed metoprolol 25 mg tablet. Please take half tablet (12.5 mg) once daily. Please continue to take all your other medication as before. Please follow-up with your primary care doctor. Pending Studies at Discharge: No Stand-Alone Forms: [facility] Medications and DC Order Prescriptions: New metoprolol succinate 25 mg tablet extended release 24 hr 12.5 mg PO DAILY Qty: 30 0RF Continued losartan 50 mg tablet 50 mg PO BID pioglitazone 15 mg tablet 15 mg PO QAM atorvastatin 20 mg tablet 20 mg PO QAM benzonatate 200 mg capsule 200 mg PO TID PRN (Reason: Cough) Rx Instructions: morning,noon,evening meclizine 25 mg tablet 25 mg PO TID PRN (Reason: Dizziness) Rx Instructions: may give morning,noon and evening as needed rizatriptan 10 mg tablet,disintegrating 10 mg PO UD PRN (Reason: Migraine Headache) Rx Instructions: place on tongue as needed for migraine, may repeat in 2 hours if needed ergocalciferol (vitamin D2) 1,250 mcg (50,000 unit) capsule 50,000 unit PO .EVERY OTHER WEEK albuterol sulfate [ProAir HFA] 90 mcg/actuation HFA aerosol inhaler 2 puff INHALATION QID Trulicity 0.75 mg/0.5 mL pen injector 0.75 mg SUBCUT WK ondansetron HCl 4 mg tablet 4 mg PO Q6 PRN (Reason: Nausea) amlodipine 10 mg Tablet 10 mg PO DAILY aspirin [Aspirin Childrens] 81 mg Tablet,Chewable 81 mg PO DAILY Rx Instructions: take with food Discharge Orders: Discharge Order (Routine); Ordered 08/03/22 Ordered By: Tyrese Carr/Other Patient Handouts: Symptoms of a Heart Attack, Managing Type 2 Diabetes, ED Pain, Acute, Uncertain Cause Admission Data Admit Date/Time: 08/02/22 17:58 Attending Provider: Tyrese Alfredo Admit Provider: Tk Bolivar Primary Care Provider: Nikia Joyce Other Providers: kT Bolivar ; Daniel Rivera Other Interventions: Discharge Summary Assessment (RN) Last Done: 08/03/22 12:22
--- NOTE | 2022-08-03 21:24 | Electrocardiogram Report ---
Test Reason : Blood Pressure : / mmHG Vent. Rate : 060 BPM Atrial Rate : 060 BPM P-R Int : 144 ms QRS Dur : 076 ms QT Int : 438 ms P-R-T Axes : 047 026 042 degrees QTc Int : 438 ms Normal sinus rhythm Normal ECG When compared with ECG of 02-AUG-2022 11:46, No significant change was found Confirmed by Yoandy Wise ([id number]) on 08/03/2022 9:24:36 PM Referred By: Nikia Joyce Confirmed By:Yoandy Wise
== END 2022-08-03 13:30 | disposition home or self-care (01) ==
LOC: 2N 11:36 → ED 11:36 → 2N 17:36 → SUATTDRO 17:58 → 2N 23:41

== ENCOUNTER 2023-10-30 19:42 | Inpatient (IN) ==
--- NOTE | 2023-10-30 19:45 | Emergency Department Note ---
Impression & Plan Atypical chest pain ED Provider Note NAME: LEXIE STREETER AGE: 83 SEX: F : 1940 ARRIVES VIA: Ambulance INFORMANT: Patient, ED PROVIDER(S): Parker Gonzáles MD CHIEF COMPLAINT: Chest pain MEDICAL DECISION MAKING: Patient presented due to concern for chest pain. IV was established and blood work was obtained. EKG without obvious STEMI. Patient's blood work shows a white count of 14 with a normal H&H and platelet count. The patient denies any infectious symptoms. The patient's kidney function is unremarkable. Initial troponin negative. Given the patient's chest pain risk factors did offer the patient admission. The patient is comfortable with the plan of care. I did speak with the on-call hospitalist service Dr. Millan and the patient was admitted to the medicine service Discussion w/ other healthcare providers: None Prior /Outside records reviewed: I reviewed his stress echocardiogram from August 03, 2022. Patient had a negative stress test for inducible ischemia at that time. Stress EKG response was normal. No stress-induced segmental wall motion abnormalities at that time. Differential diagnosis: Cardiac ischemia, aortic dissection, pulmonary embolism, pneumothorax, pneumonia, pericarditis, myocarditis, GERD, cholecystitis, pancreatitis, musculoskeletal, as well as other pathologies were considered. Diagnostics, as interpreted by me: ECG: Normal sinus rhythm, rate of 77, normal intervals, normal axis no ST elevations. Cardiac monitoring: An order was placed for continuous cardiac monitoring. The monitor shows a rate of 85 with sinus rhythm. Patient was placed on pulse oximetry Medical decision rules: Heart score Imaging studies: I informally interpreted the patient's chest x-ray which does not show obvious pneumonia with formal report to follow. HPI: Patient presents due to concern for chest pain. Patient states that she has bouts of this word occurs in her mid chest moves toward her back. Patient states that last about 2030 minutes and then dissipates. Patient denies any falls or trauma. Patient states that she started to feel unwell around noon time and did have some nausea and 1 episode of emesis. Patient states that she believes she had a has had 6 episodes of this chest discomfort today. Patient does have a family member with whom she has had some close contact with that has been ill recently. Patient's patient denies any leg swelling or calf pain. No history of DVT or PE and does not take any blood thinning medications. Patient did not take anything for symptoms today. The patient has had similar episodes like this in the past. The patient did have a stress test completed by Dr. Rivera she reports about a year prior and did not show any significant findings at that time. PAST MEDICAL HISTORY: See Below PAST SURGICAL HISTORY: See Below SOCIAL HISTORY: See Below HOME MEDICATIONS: See Below ALLERGIES: See Below VITALS: See Below PHYSICAL EXAMINATION: GENERAL: NAD, non-toxic. EYE EXAM: Normal conjunctiva. PERRL, no anisocoria and EOM's grossly intact w/o pain. OROPHARYNX: Moist mucus membranes, grossly normal dentition. NECK: Supple, no nuchal rigidity, no adenopathy, non-tender. No signs of meningismus. FROM of the neck with good chin to chest and neck extension. No stridor. LUNGS: Clear to auscultation. Normal chest wall mechanics. HEART: NSR, no MRG. ABDOMEN: Abdomen soft, non-tender, no masses, no rebound or guarding. BACK: No CVA TTP. SKIN: No rashes and no bruising. UPPER EXTREMITIES: Upper extremities are grossly normal. LOWER EXTREMITIES: Grossly normal, no edema. Negative Homans' sign bilaterally NEURO EXAM: A&O x3, cranial nerves II-XII grossly intact, normal speech, moves all 4 extremities. Past Med/Surg History Medical History Chest pain Migraine Chronic anemia Osteoporosis Hypertension Dyslipidemia Diabetes mellitus, type II Surgical History History of tonsillectomy and adenoidectomy History of appendectomy S/P cholecystectomy S/P hysterectomy Family History Other Cancer Diabetes Social History Smoking Status: Never smoker Hx Alcohol Use: No Hx Substance Use: No Preferred Language: Citizen Of [place] Communication Ability: Effective Stoker Installer Required: No Beliefs That Will Affect Care: None Current Living Situation: Alone Feels Safe at Home: Yes Assistive Devices: None Allergies Allergies Allergy/AdvReac Type Severity Reaction Status Date / Time No Known Allergies Allergy Verified 08/02/22 16:01 Home Meds Home Medications Medication Instructions Recorded Confirmed albuterol sulfate 90 mcg/actuation 2 puff inhalation QID 08/02/22 10/30/23 aerosol inhaler (ProAir HFA) amlodipine 10 mg tablet 10 mg PO DAILY 08/02/22 10/30/23 aspirin 81 mg chewable tablet 81 mg PO DAILY 08/02/22 10/30/23 (Aspirin Childrens) atorvastatin 20 mg tablet 20 mg PO QAM 08/02/22 10/30/23 ergocalciferol (vitamin D2) 1,250 50,000 unit PO .EVERY OTHER WEEK 08/02/22 10/30/23 mcg (50,000 unit) capsule losartan 50 mg tablet 50 mg PO BID 08/02/22 10/30/23 pioglitazone 15 mg tablet 15 mg PO QAM 08/02/22 10/30/23 empagliflozin 25 mg tablet 25 mg PO DAILY 10/30/23 10/30/23 (Jardiance) glipizide 2.5 mg tablet, extended See Rx Instructions .Route .COMPLEX 10/30/23 10/30/23 release 24 hr (Glucotrol XL) Previous Rx's Medication Instructions Recorded metoprolol succinate 25 mg 12.5 mg (1/2 x 25 mg) PO DAILY #30 08/03/22 tablet,extended release 24 hr tabs nitroglycerin 0.4 mg sublingual 0.4 mg sublingual DAILY PRN chest 11/02/23 tablet (Nitrostat) pain #30 tabs pantoprazole 40 mg tablet,delayed 40 mg PO QAM #30 tabs 11/02/23 release Results & Data (ED) Vital Signs Vital Signs - 24 hr 10/30/23 19:51 10/30/23 20:02 Temperature 36.9 C Temperature Source Oral Pulse Rate 76 76 Respiratory Rate 19 Respiratory Effort / Characteristics Non-Labored Respiratory Depth Normal Blood Pressure 145/60 H Blood Pressure Mean 88 Pulse Oximetry 97 Oxygen Delivery Method Room Air Sepsis Recent Fever Within 48 Hours No Sepsis New/Unexplained Change in Mental Status N/A Sepsis Action Taken by Nursing No Action Required Home Medications Current Medication List: was personally reviewed by me Laboratory Data Attestation: I reviewed the patient's lab results. 11/02/23 06:08 11/02/23 06:08 Lab Results 10/30/23 10/31/23 10/31/23 Range/Units 20:00 04:40 06:07 WBC 14.99 H 10.56 (4.8-10.8) K/ul RBC 3.97 L 3.52 L (4.20-5.40) M/uL Hgb 12.5 10.9 L (12.0-16.0) g/dl Hct 37.3 33.1 L (37.0-47.0) % MCV 94.0 94.0 (80.0-100.0) fL MCH 31.5 31.0 (25.0-34.0) pg MCHC 33.5 32.9 (32.0-36.0) g/dL RDW Std Deviation 42.4 42.5 (36.4-46.3) fL RDW Coeff of Victoriano 12.2 12.4 (11.5-14.5) % Plt Count 204 192 (130-400) K/uL MPV 12.1 11.3 (9.4-12.4) fL Immature Gran % (Auto) 0.6 0.4 % Neut % (Auto) 92.0 84.0 % Lymph % (Auto) 3.9 7.7 % [place] % (Auto) 3.1 7.5 % Eos % (Auto) 0.1 0.1 % Baso % (Auto) 0.3 0.3 % Neut # (Auto) 13.79 H 8.88 H (1.40-6.50) K/uL Lymph # (Auto) 0.58 L 0.81 L (1.20-3.40) K/uL [place] # (Auto) 0.46 0.79 H (0.11-0.59) K/uL Eos # (Auto) 0.02 0.01 (0.00-0.50) K/uL Baso # (Auto) 0.05 0.03 (0.00-0.20) K/uL Immature Gran # (Auto) 0.09 0.04 (0.01-0.20) K/uL Polychromasia 1+ PT (9.0-12.0) Seconds INR (0.9-1.1) APTT (21-31) Seconds PTT Ratio Heparin Anti-Xa, Unfract (0.3-0.7) IU/ml Sodium 138 139 (136-145) mmol/L Potassium 4.9 4.4 (3.5-5.1) mmol/L Chloride 106 108 H (98-107) mmol/L Carbon Dioxide 22 20 L (21-32) mmol/L Anion Gap 10 11 (3-11) BUN 32 H 34 H (6-23) mg/dl Creatinine 1.05 1.13 (0.6-1.2) mg/dl Est Cr Clr Drug Dosing 34.5 32.1 ml/min Est GFR ( Amer) 57.7 52.8 ml/min Est GFR (Non-Af Amer) 49.8 45.5 ml/min BUN/Creatinine Ratio 30.5 H 30.1 H (10-20) Glucose 201 H 154 H (70-99(Fasting)) mg/dl POC Glucose 158 H (70-99) mg/dl Estimat Average Glucose 171 mg/dl Hemoglobin A1c 7.6 H (4.5-5.6) % Calcium 9.3 8.6 (8.6-10.3) mg/dl Magnesium 2.1 (1.7-2.4) mg/dl Total Bilirubin 1.2 H (0.2-1.0) mg/dl AST 33 (13-39) U/L ALT 26 (7-52) U/L Alkaline Phosphatase 75 (34-104) U/L Troponin I High Sens 5.4 8.3 (0-14) pg/ml Total Protein 8.0 (6.0-8.3) gm/dl Albumin 4.3 (3.4-5.0) gm/dl Globulin 3.7 (2.5-4.0) gm/dl Albumin/Globulin Ratio 1.2 (0.9-2) Triglycerides (0-150) mg/dl Cholesterol (0-200) mg/dl LDL Cholesterol, Calc mg/dl VLDL Cholesterol, Calc (0-30) mg/dl HDL Cholesterol mg/dl Cholesterol/HDL Ratio (0-5) Lipase 33 (11-82) U/L Stl C. cayetanensis PCR Stool Rotavirus A PCR Stl Adenov F 40/41 PCR Stool Astrovirus (PCR) Stool Campylobacter PCR Stl C. diff Tox B Gene (Neg) Stool Cryptosporidium PCR Stl E.coli Shiga Tox PCR Stool E coli O157 PCR Stl Enterotoxigenic E PCR Stool EPEC (PCR) Stool EAEC (PCR) Stl E. histolytica PCR Stool Giardia Lamblia PCR Stool Salmonella PCR Stool Sapovirus (PCR) Stl P. shigelloides PCR Stl Shigella/EIEC PCR St Y.enterocolitica PCR Stool Vibrio (PCR) Stl Vibrio cholerae PCR Stl Norovirus GI/GII PCR 10/31/23 10/31/23 10/31/23 Range/Units 11:29 13:05 16:33 WBC 9.08 (4.8-10.8) K/ul RBC 3.52 L (4.20-5.40) M/uL Hgb 10.9 L (12.0-16.0) g/dl Hct 33.2 L (37.0-47.0) % MCV 94.3 (80.0-100.0) fL MCH 31.0 (25.0-34.0) pg MCHC 32.8 (32.0-36.0) g/dL RDW Std Deviation 43.7 (36.4-46.3) fL RDW Coeff of Victoriano 12.6 (11.5-14.5) % Plt Count 189 (130-400) K/uL MPV 11.6 (9.4-12.4) fL Immature Gran % (Auto) 0.4 % Neut % (Auto) 76.8 % Lymph % (Auto) 10.7 % [place] % (Auto) 10.6 % Eos % (Auto) 0.9 % Baso % (Auto) 0.6 % Neut # (Auto) 6.98 H (1.40-6.50) K/uL Lymph # (Auto) 0.97 L (1.20-3.40) K/uL [place] # (Auto) 0.96 H (0.11-0.59) K/uL Eos # (Auto) 0.08 (0.00-0.50) K/uL Baso # (Auto) 0.05 (0.00-0.20) K/uL Immature Gran # (Auto) 0.04 (0.01-0.20) K/uL Polychromasia PT 10.8 (9.0-12.0) Seconds INR 1.0 (0.9-1.1) APTT 28 (21-31) Seconds PTT Ratio 1.0 Heparin Anti-Xa, Unfract (0.3-0.7) IU/ml Sodium (136-145) mmol/L Potassium (3.5-5.1) mmol/L Chloride (98-107) mmol/L Carbon Dioxide (21-32) mmol/L Anion Gap (3-11) BUN (6-23) mg/dl Creatinine (0.6-1.2) mg/dl Est Cr Clr Drug Dosing ml/min Est GFR ( Amer) ml/min Est GFR (Non-Af Amer) ml/min BUN/Creatinine Ratio (10-20) Glucose (70-99(Fasting)) mg/dl POC Glucose 110 H (70-99) mg/dl Estimat Average Glucose mg/dl Hemoglobin A1c (4.5-5.6) % Calcium (8.6-10.3) mg/dl Magnesium (1.7-2.4) mg/dl Total Bilirubin (0.2-1.0) mg/dl AST (13-39) U/L ALT (7-52) U/L Alkaline Phosphatase (34-104) U/L Troponin I High Sens 14.9 H D 15.3 H (0-14) pg/ml Total Protein (6.0-8.3) gm/dl Albumin (3.4-5.0) gm/dl Globulin (2.5-4.0) gm/dl Albumin/Globulin Ratio (0.9-2) Triglycerides (0-150) mg/dl Cholesterol (0-200) mg/dl LDL Cholesterol, Calc mg/dl VLDL Cholesterol, Calc (0-30) mg/dl HDL Cholesterol mg/dl Cholesterol/HDL Ratio (0-5) Lipase (11-82) U/L Stl C. cayetanensis PCR Stool Rotavirus A PCR Stl Adenov F 40/41 PCR Stool Astrovirus (PCR) Stool Campylobacter PCR Stl C. diff Tox B Gene (Neg) Stool Cryptosporidium PCR Stl E.coli Shiga Tox PCR Stool E coli O157 PCR Stl Enterotoxigenic E PCR Stool EPEC (PCR) Stool EAEC (PCR) Stl E. histolytica PCR Stool Giardia Lamblia PCR Stool Salmonella PCR Stool Sapovirus (PCR) Stl P. shigelloides PCR Stl Shigella/EIEC PCR St Y.enterocolitica PCR Stool Vibrio (PCR) Stl Vibrio cholerae PCR Stl Norovirus GI/GII PCR 10/31/23 10/31/23 10/31/23 Range/Units 17:56 23:42 Unknown WBC (4.8-10.8) K/ul RBC (4.20-5.40) M/uL Hgb (12.0-16.0) g/dl Hct (37.0-47.0) % MCV (80.0-100.0) fL MCH (25.0-34.0) pg MCHC (32.0-36.0) g/dL RDW Std Deviation (36.4-46.3) fL RDW Coeff of Victoriano (11.5-14.5) % Plt Count (130-400) K/uL MPV (9.4-12.4) fL Immature Gran % (Auto) % Neut % (Auto) % Lymph % (Auto) % [place] % (Auto) % Eos % (Auto) % Baso % (Auto) % Neut # (Auto) (1.40-6.50) K/uL Lymph # (Auto) (1.20-3.40) K/uL [place] # (Auto) (0.11-0.59) K/uL Eos # (Auto) (0.00-0.50) K/uL Baso # (Auto) (0.00-0.20) K/uL Immature Gran # (Auto) (0.01-0.20) K/uL Polychromasia PT (9.0-12.0) Seconds INR (0.9-1.1) APTT (21-31) Seconds PTT Ratio Heparin Anti-Xa, Unfract 0.89 H* (0.3-0.7) IU/ml Sodium (136-145) mmol/L Potassium (3.5-5.1) mmol/L Chloride (98-107) mmol/L Carbon Dioxide (21-32) mmol/L Anion Gap (3-11) BUN (6-23) mg/dl Creatinine (0.6-1.2) mg/dl Est Cr Clr Drug Dosing ml/min Est GFR ( Amer) ml/min Est GFR (Non-Af Amer) ml/min BUN/Creatinine Ratio (10-20) Glucose (70-99(Fasting)) mg/dl POC Glucose 127 H (70-99) mg/dl Estimat Average Glucose mg/dl Hemoglobin A1c (4.5-5.6) % Calcium (8.6-10.3) mg/dl Magnesium (1.7-2.4) mg/dl Total Bilirubin (0.2-1.0) mg/dl AST (13-39) U/L ALT (7-52) U/L Alkaline Phosphatase (34-104) U/L Troponin I High Sens (0-14) pg/ml Total Protein (6.0-8.3) gm/dl Albumin (3.4-5.0) gm/dl Globulin (2.5-4.0) gm/dl Albumin/Globulin Ratio (0.9-2) Triglycerides (0-150) mg/dl Cholesterol (0-200) mg/dl LDL Cholesterol, Calc mg/dl VLDL Cholesterol, Calc (0-30) mg/dl HDL Cholesterol mg/dl Cholesterol/HDL Ratio (0-5) Lipase (11-82) U/L Stl C. cayetanensis PCR Cancelled Stool Rotavirus A PCR Cancelled Stl Adenov F 40/41 PCR Cancelled Stool Astrovirus (PCR) Cancelled Stool Campylobacter PCR Cancelled Stl C. diff Tox B Gene Negative Cdiff Gene (Neg) Stool Cryptosporidium PCR Cancelled Stl E.coli Shiga Tox PCR Cancelled Stool E coli O157 PCR Cancelled Stl Enterotoxigenic E PCR Cancelled Stool EPEC (PCR) Cancelled Stool EAEC (PCR) Cancelled Stl E. histolytica PCR Cancelled Stool Giardia Lamblia PCR Cancelled Stool Salmonella PCR Cancelled Stool Sapovirus (PCR) Cancelled Stl P. shigelloides PCR Cancelled Stl Shigella/EIEC PCR Cancelled St Y.enterocolitica PCR Cancelled Stool Vibrio (PCR) Cancelled Stl Vibrio cholerae PCR Cancelled Stl Norovirus GI/GII PCR Cancelled 11/01/23 11/01/23 11/01/23 Range/Units 00:13 04:19 06:10 WBC 6.95 (4.8-10.8) K/ul RBC 3.24 L (4.20-5.40) M/uL Hgb 10.2 L (12.0-16.0) g/dl Hct 30.3 L (37.0-47.0) % MCV 93.5 (80.0-100.0) fL MCH 31.5 (25.0-34.0) pg MCHC 33.7 (32.0-36.0) g/dL RDW Std Deviation 43.8 (36.4-46.3) fL RDW Coeff of Victoriano 12.7 (11.5-14.5) % Plt Count 176 (130-400) K/uL MPV 12.4 (9.4-12.4) fL Immature Gran % (Auto) 0.3 % Neut % (Auto) 62.3 % Lymph % (Auto) 22.7 % [place] % (Auto) 12.7 % Eos % (Auto) 1.6 % Baso % (Auto) 0.4 % Neut # (Auto) 4.33 (1.40-6.50) K/uL Lymph # (Auto) 1.58 (1.20-3.40) K/uL [place] # (Auto) 0.88 H (0.11-0.59) K/uL Eos # (Auto) 0.11 (0.00-0.50) K/uL Baso # (Auto) 0.03 (0.00-0.20) K/uL Immature Gran # (Auto) 0.02 (0.01-0.20) K/uL Polychromasia PT (9.0-12.0) Seconds INR (0.9-1.1) APTT (21-31) Seconds PTT Ratio Heparin Anti-Xa, Unfract 0.74 H* (0.3-0.7) IU/ml Sodium 139 (136-145) mmol/L Potassium 3.7 (3.5-5.1) mmol/L Chloride 108 H (98-107) mmol/L Carbon Dioxide 23 (21-32) mmol/L Anion Gap 8 (3-11) BUN 32 H (6-23) mg/dl Creatinine 1.00 (0.6-1.2) mg/dl Est Cr Clr Drug Dosing 36.3 ml/min Est GFR ( Amer) 61.2 ml/min Est GFR (Non-Af Amer) 52.8 ml/min BUN/Creatinine Ratio 32.0 H (10-20) Glucose 91 (70-99(Fasting)) mg/dl POC Glucose 135 H 100 H (70-99) mg/dl Estimat Average Glucose mg/dl Hemoglobin A1c (4.5-5.6) % Calcium 7.9 L (8.6-10.3) mg/dl Magnesium 2.5 H (1.7-2.4) mg/dl Total Bilirubin (0.2-1.0) mg/dl AST (13-39) U/L ALT (7-52) U/L Alkaline Phosphatase (34-104) U/L Troponin I High Sens 17.4 H (0-14) pg/ml Total Protein (6.0-8.3) gm/dl Albumin (3.4-5.0) gm/dl Globulin (2.5-4.0) gm/dl Albumin/Globulin Ratio (0.9-2) Triglycerides 76 (0-150) mg/dl Cholesterol 98 (0-200) mg/dl LDL Cholesterol, Calc 31 mg/dl VLDL Cholesterol, Calc 15 (0-30) mg/dl HDL Cholesterol 52 mg/dl Cholesterol/HDL Ratio 1.9 (0-5) Lipase (11-82) U/L Stl C. cayetanensis PCR Stool Rotavirus A PCR Stl Adenov F PCR Stool Astrovirus (PCR) Stool Campylobacter PCR Stl C. diff Tox B Gene (Neg) Stool Cryptosporidium PCR Stl E.coli Shiga Tox PCR Stool E coli O157 PCR Stl Enterotoxigenic E PCR Stool EPEC (PCR) Stool EAEC (PCR) Stl E. histolytica PCR Stool Giardia Lamblia PCR Stool Salmonella PCR Stool Sapovirus (PCR) Stl P. shigelloides PCR Stl Shigella/EIEC PCR St Y.enterocolitica PCR Stool Vibrio (PCR) Stl Vibrio cholerae PCR Stl Norovirus GI/GII PCR 11/01/23 11/01/23 Range/Units 12:09 12:15 WBC (4.8-10.8) K/ul RBC (4.20-5.40) M/uL Hgb (12.0-16.0) g/dl Hct (37.0-47.0) % MCV (80.0-100.0) fL MCH (25.0-34.0) pg MCHC (32.0-36.0) g/dL RDW Std Deviation (36.4-46.3) fL RDW Coeff of Victoriano (11.5-14.5) % Plt Count (130-400) K/uL MPV (9.4-12.4) fL Immature Gran % (Auto) % Neut % (Auto) % Lymph % (Auto) % [place] % (Auto) % Eos % (Auto) % Baso % (Auto) % Neut # (Auto) (1.40-6.50) K/uL Lymph # (Auto) (1.20-3.40) K/uL [place] # (Auto) (0.11-0.59) K/uL Eos # (Auto) (0.00-0.50) K/uL Baso # (Auto) (0.00-0.20) K/uL Immature Gran # (Auto) (0.01-0.20) K/uL Polychromasia PT (9.0-12.0) Seconds INR (0.9-1.1) APTT (21-31) Seconds PTT Ratio Heparin Anti-Xa, Unfract 0.89 H* (0.3-0.7) IU/ml Sodium (136-145) mmol/L Potassium (3.5-5.1) mmol/L Chloride (98-107) mmol/L Carbon Dioxide (21-32) mmol/L Anion Gap (3-11) BUN (6-23) mg/dl Creatinine (0.6-1.2) mg/dl Est Cr Clr Drug Dosing ml/min Est GFR ( Amer) ml/min Est GFR (Non-Af Amer) ml/min BUN/Creatinine Ratio (10-20) Glucose (70-99(Fasting)) mg/dl POC Glucose 110 H (70-99) mg/dl Estimat Average Glucose mg/dl Hemoglobin A1c (4.5-5.6) % Calcium (8.6-10.3) mg/dl Magnesium (1.7-2.4) mg/dl Total Bilirubin (0.2-1.0) mg/dl AST (13-39) U/L ALT (7-52) U/L Alkaline Phosphatase (34-104) U/L Troponin I High Sens (0-14) pg/ml Total Protein (6.0-8.3) gm/dl Albumin (3.4-5.0) gm/dl Globulin (2.5-4.0) gm/dl Albumin/Globulin Ratio (0.9-2) Triglycerides (0-150) mg/dl Cholesterol (0-200) mg/dl LDL Cholesterol, Calc mg/dl VLDL Cholesterol, Calc (0-30) mg/dl HDL Cholesterol mg/dl Cholesterol/HDL Ratio (0-5) Lipase (11-82) U/L Stl C. cayetanensis PCR Stool Rotavirus A PCR Stl Adenov F 40/41 PCR Stool Astrovirus (PCR) Stool Campylobacter PCR Stl C. diff Tox B Gene (Neg) Stool Cryptosporidium PCR Stl E.coli Shiga Tox PCR Stool E coli O157 PCR Stl Enterotoxigenic E PCR Stool EPEC (PCR) Stool EAEC (PCR) Stl E. histolytica PCR Stool Giardia Lamblia PCR Stool Salmonella PCR Stool Sapovirus (PCR) Stl P. shigelloides PCR Stl Shigella/EIEC PCR St Y.enterocolitica PCR Stool Vibrio (PCR) Stl Vibrio cholerae PCR Stl Norovirus GI/GII PCR Administered Medications Discontinued Medications Albuterol (Albuterol Hfa 8 Gm Inhaler) 2 puffs INH QIDR [facility] Stop: 11/30/23 06:59 Last Admin: 10/31/23 06:12 Dose: Not Given Documented By: EDA Amlodipine Besylate (Amlodipine Besylate 5 Mg Tab) 10 mg PO DAILY [facility] Stop: 11/30/23 08:59 Last Admin: 11/02/23 09:52 Dose: 10 mg Documented By: Admin: 11/01/23 08:44 Dose: 10 mg Documented By: Admin: 10/31/23 08:40 Dose: 10 mg Documented By: ANGELIQUE Aspirin (Aspirin 81 Mg Chew) 81 mg PO DAILY [facility] Stop: 11/30/23 08:59 Last Admin: 11/02/23 09:54 Dose: 81 mg Documented By: Admin: 11/01/23 08:44 Dose: 81 mg Documented By: Admin: 10/31/23 08:40 Dose: 81 mg Documented By: ANGELIQUE Atorvastatin Calcium (Atorvastatin 20 Mg Tab) 20 mg PO QAM [facility] Stop: 11/30/23 08:59 Last Admin: 11/02/23 09:53 Dose: 20 mg Documented By: Admin: 11/01/23 08:45 Dose: 20 mg Documented By: Admin: 10/31/23 08:40 Dose: 20 mg Documented By: ANGELIQUE Fentanyl Citrate (Fentanyl Citrate Pf 100 Mcg/2 Ml Vial) Confirm Administered Dose 100 mcg .ROUTE .STK-MED ONE Stop: 11/01/23 15:29 Last Admin: 11/01/23 16:18 Dose: Not Given Documented By: FEMI Heparin Sodium (Porcine) (Heparin (Porcine) 1000 Unit/Ml 10 Ml (Adapted Physical Education Specialist Use Only)) Confirm Administered Dose 10,000 units .ROUTE .STK-MED ONE Stop: 11/01/23 15:29 Last Admin: 11/01/23 16:18 Dose: 5,000 units Documented By: FEMI Heparin Sodium (Porcine) (Heparin Sod 5,000 Unit/0.5 Ml Vial) 5,000 units SQ Q12 [place] Stop: 12/01/23 20:59 Last Admin: 11/02/23 08:39 Dose: 5,000 units Documented By: Admin: 11/01/23 20:10 Dose: 5,000 units Documented By: ANNA Heparin Sodium/Dextrose (Heparin Iv Adult Wt-Based Standard *No* Initial Bolus Protocol) 1 each IV ONE STA; Protocol Stop: 10/31/23 16:09 Last Admin: 10/31/23 16:59 Dose: Not Given Documented By: ANGELIQUE Heparin Sodium/Dextrose (Heparin 14842 Unit/500 Ml D5w) Confirm Administered Dose 25,000 units IV .STK-MED ONE Stop: 10/31/23 16:55 Last Admin: 10/31/23 16:59 Dose: Not Given Documented By: ANGELIQUE Heparin Sodium/Sodium Chloride (Heparin In Nss Infusion 1000 Unit/500 Ml (2 U/Ml) Bag) Confirm Administered Dose 3,000 units IV .STK-MED ONE Stop: 11/01/23 15:29 Last Admin: 11/01/23 16:18 Dose: 3,000 units Documented By: MALLIKA Sodium Chloride (Nss) 1,000 mls @ 75 mls/hr IV .[id number] [place] Stop: 10/31/23 14:55 Last Infusion: 10/31/23 16:35 Dose: Infused Documented By: Admin: 10/31/23 02:36 Dose: 75 mls/hr Documented By: EDA Heparin Sodium/Dextrose (Heparin Sodium/Dextrose) 25,000 units in 500 mls @ 0 mls/hr IV .Q0M [place]; Protocol Stop: 11/30/23 16:29 Last Titration: 11/01/23 18:02 Dose: Infused Documented By: DTT Co-signed By: ANGEL Titration: 11/01/23 12:44 Dose: 0 units/hr, 0 mls/hr Documented By: FLACO Co-signed By: DARLENE Titration: 11/01/23 06:58 Dose: 800 units/hr, 16 mls/hr Documented By: FLACO Co-signed By: ANNA(2) Titration: 11/01/23 06:08 Dose: 800 units/hr, 16 mls/hr Documented By: ANNA(2) Co-signed By: RACHAEL Titration: 11/01/23 01:29 Dose: 850 units/hr, 17 mls/hr Documented By: KANE Co-signed By: AERL Titration: 11/01/23 00:31 Dose: 0 units/hr, 0 mls/hr Documented By: KANE Co-signed By: editing internship: 10/31/23 16:57 Dose: 950 units/hr, 19 mls/hr Documented By: ANGELIQUE Co-signed By: YAA Insulin Aspart (Insulin Aspart Per Unit Charge) 0 units SC Q6H [place] Stop: 11/30/23 05:59 Last Admin: 11/01/23 12:56 Dose: Not Given Documented By: Admin: 11/01/23 06:11 Dose: Not Given Documented By: ANNA(2) Admin: 11/01/23 00:32 Dose: Not Given Documented By: KANE Co-signed By: editing internship: 10/31/23 18:01 Dose: Not Given Documented By: Admin: 10/31/23 13:12 Dose: Not Given Documented By: Admin: 10/31/23 06:11 Dose: 1 units Documented By: EDA Co-signed By: RODRIGUEZ Insulin Aspart (Insulin Aspart Per Unit Charge) 0 units SC ACHS [place] Stop: 11/30/23 05:59 Last Admin: 11/02/23 13:10 Dose: Not Given Documented By: Admin: 11/02/23 08:08 Dose: Not Given Documented By: Admin: 11/01/23 20:09 Dose: 2 units Documented By: ANNA Co-signed By: ROSALES Admin: 11/01/23 17:56 Dose: Not Given Documented By: AZAM Iodixanol (Iodixanol (Visipaque) 320 Mg/Ml 100ml) Confirm Administered Dose 1 ml IV .STK-MED ONE Stop: 11/01/23 16:01 Last Admin: 11/01/23 16:19 Dose: 1 ml Documented By: MALLIKA Ioversol (Optiray 320 125ml) 125 ml IV ONCE ONE Stop: 10/31/23 01:36 Last Admin: 10/31/23 01:35 Dose: 118 ml Documented By: YARI Loperamide HCl (Loperamide Hcl 2 Mg Cap) 2 mg PO Q6H PRN PRN Reason: Diarrhea Stop: 11/30/23 09:28 Last Admin: 10/31/23 13:12 Dose: 2 mg Documented By: ANGELIQUE Losartan Potassium (Losartan Potassium 50 Mg Tab) 50 mg PO BID [facility] Stop: 11/30/23 08:59 Last Admin: 11/02/23 09:53 Dose: 50 mg Documented By: Admin: 11/01/23 20:09 Dose: 50 mg Documented By: Admin: 11/01/23 08:44 Dose: 50 mg Documented By: Admin: 10/31/23 22:25 Dose: 50 mg Documented By: Admin: 10/31/23 08:40 Dose: 50 mg Documented By: ANGELIQUE Metoprolol Succinate (Metoprolol Succ 25mg Ext Rel Tab) 12.5 mg PO DAILY [facility] Stop: 11/30/23 08:59 Last Admin: 11/02/23 09:51 Dose: 12.5 mg Documented By: Admin: 11/01/23 08:45 Dose: 12.5 mg Documented By: Admin: 10/31/23 08:40 Dose: 12.5 mg Documented By: ANGELIQUE Midazolam HCl (Midazolam Hcl 1 Mg/Ml 2ml Vial) Confirm Administered Dose 2 mg .ROUTE .STK-MED ONE Stop: 11/01/23 15:29 Last Admin: 11/01/23 16:18 Dose: 1 mg Documented By: FEMI Nicardipine HCl (Nicardipine Hcl Inj 2.5 Mg/Ml 10 Ml Amp) Confirm Administered Dose 25 mg .ROUTE .STK-MED ONE Stop: 11/01/23 15:29 Last Admin: 11/01/23 16:18 Dose: 25 mg Documented By: MALLIKA Nitroglycerin (Nitroglycerin Sl 0.4 Mg/Tab Tab) 0.4 mg SL Q5M PRN PRN Reason: Chest Pain Stop: 11/30/23 01:35 Last Admin: 10/31/23 16:06 Dose: 0.4 mg Documented By: Admin: 10/31/23 15:09 Dose: 0.4 mg Documented By: ANGELIQUE Nitroglycerin (Nitroglycerin 2% Ointment 30gm Tube) 0.5 inch EXT Q6H [facility] Stop: 11/30/23 16:14 Last Admin: 11/01/23 17:55 Dose: Not Given Documented By: Admin: 11/01/23 12:53 Dose: 0.5 inch Documented By: Admin: 11/01/23 04:19 Dose: 0.5 inch Documented By: Admin: 10/31/23 22:12 Dose: 0.5 inch Documented By: Admin: 10/31/23 16:33 Dose: 0.5 inch Documented By: ANGELIQUE Nitroglycerin/Dextrose (Nitroglycerin/D5w 100mcg/Ml 20ml Syr) Confirm Administered Dose 2,000 mcg .ROUTE .STK-MED ONE Stop: 11/01/23 15:29 Last Admin: 11/01/23 17:55 Dose: Not Given Documented By: AZAM Pantoprazole Sodium (Pantoprazole 40 Mg Tab) 40 mg PO QAM [facility] Stop: 11/04/23 10:14 Last Admin: 11/02/23 09:52 Dose: 40 mg Documented By: Admin: 11/01/23 08:44 Dose: 40 mg Documented By: Admin: 10/31/23 11:38 Dose: 40 mg Documented By: ANGELIQUE Discharge Plan Visit Data Chief Complaint: Chest Pain ED Provider: Parker Gonzáles Discharge Problem: Atypical chest pain Patient Disposition: Admitted As Inpatient Discharge Instructions Interventions: ED Discharge Assessment Last Done: 11/01/23 04:47
--- OUTSIDE RECORDS SUMMARY | 2023-10-30 19:47 | External Medical Summary | Summary of Care ---
Author Name Unknown Organization [facility] Address [address] [place] [address] Phone [phone] Care Team Providers Care Drum Builder Name Role Phone Nikia Joyce DO Primary Care Provider Reason for Referral * Precert (Within 10 days (routine)) - Authorized Specialty Diagnoses / Procedures Referred By Contac t Referred To Contact Cardiac Studies Diagnoses Other chest pain Procedures ECHO, STRESS (EXERCISE) W/ PHYSICIAN Nikia Joyce DO [address] [place] [address] Referral ID Status Reason Start Date Expiration Date V isits Requested Visits Authorized [id number] Authorized Precert 09/24/2023 999 999 Reason for Visit * Reason Comments Follow Up Encounter Details Date Type Department Care Team (Late st Contact Info) Description 09/24/2023 8:40 AM EST Office Visit Family Practice [address] [facility], [place] [address] [place] [address] Nikia Joyce DO [address] [place] [address] Other chest pain*; Type 2 diabetes mellitus with hemoglobin A1c goal of less than 8.0% (HCC); Dyslipidemia, goal LDL below 100 Allergies No known active allergiesdocumented as of this encounter (statuses as of 09/24/2023) Medications Medication Sig Dispensed Refills Start Date End Date Status ASPIRIN 81 MG PO CHEW One pill by mouth once a day with food 100 5 08/11/2009 Active ProAir HFA 108 (90 Base) MCG/ACT Inhalation Aerosol Solution Inhale by mouth 2 Puffs 4 times a day . May substitute proventil or ventolin based on formulary 18 g 3 05/30/2022 Active Vitamin C 500 MG Oral Tablet (Ascorbic Acid) Take 1 Tablet by mouth in the morning. 0 08/08/2022 Active amLODIPine Besylate 10 MG Oral Tablet (Norvasc)Indication s:HTN, goal below 140/90 Take 1 Tablet by mouth in the morning. 90 Tablet 3 11/08/2022 Active Empagliflozin 25 MG Oral Tablet (Jardiance) Take 1 Tablet by mouth in the morning. 90 Tablet 3 11/30/2022 Active FreeStyle Lite Test In Vitro Strip (Glucose Blood)Indications:T ype 2 diabetes mellitus with hemoglobin A1c goal of less than 8.0% (HCC) Check blood sugar once daily. E11.9 100 Strip 3 12/14/2022 Active Vitamin D (Ergocalciferol) 1.25 MG (95111 UT) Oral Capsule (Drisdol)Indication s:Vitamin D deficiency 1 tab every other week 24 Capsule 0 01/22/2023 Active Losartan Potassium 50 MG Oral Tablet (Cozaar)Indications :Type 2 diabetes mellitus with hemoglobin A1c goal of less than 8.0% (HCC),HTN, goal below 140/90 Take 1 Tablet by mouth in the morning and 1 Tablet before bedtime. 180 Tablet 3 01/22/2023 Active Ondansetron HCl 4 MG Oral Tablet Take 1 Tablet by mouth every 6 hours as needed for Nausea. 90 Tablet 0 03/08/2023 Active glipiZIDE ER 2.5 MG Oral Tablet Extended Release 24 Hour (Glucotrol XL) Take 1 Tablet by mouth 2 times a day. Before lunch and before dinner 180 Tablet 0 05/28/2023 Active Atorvastatin Calcium 20 MG Oral Tablet (Lipitor)Indication s:Dyslipidemia, goal LDL below 100 Take 1 Tablet by mouth in the morning. 90 Tablet 1 07/31/2023 Active Metoprolol Succinate ER 25 MG Oral Tablet Extended Release 24 Hour (toPROL XL)Indications:HTN, goal below 140/90 Take 0.5 Tablets by mouth in the morning. 45 Tablet 3 09/19/2023 Active documented as of this encounter (statuses as of 09/24/2023) Active Problems Problem Noted Date Diagnosed Date Grieving 05/14/2023 Type 2 diabetes mellitus wit h stage 3b chronic kidney disease, without long-term current use of insulin 10/24/2022 Diabetes mellitus 08/08/2022 Chronic kidney disease, stage 3b 04/19/2021 Overview: Per CKD protocol Type 2 diabetes mellitus wit h hemoglobin A1c goal of less than 8.0% 03/15/2021 Overview: Per CKD protocol Tinnitus of both ears 05/24/2020 Sensorineural hearing loss (SNHL) of both ears 0 05/24/2020 Diabetic peripheral neuropathy 05/19/2020 Diabetic gastroparesis 05/19/2020 Intractable migraine with aura without status mi grainosus 01/30/2019 Senile osteoporosis 05/14/2018 DYSLIPIDEMIA, GOAL LDL BELOW 100 10/25/2009 Overview: Per Lipid Taxonomy. ADVANCE DIRECTIVE INFORMATION 04/10/2006 Overview: Yes-advised to bring copy in to be scanned into EMR Diabetic polyneuropathy 11/12/2003 Incontinence of feces 08/06/2003 Overview: ICD-10 update of inactive term Dyspnea and respiratory abnormality 2000 Overview: ICD-10 update of inactive term Gastroparesis documented as of this encounter (statuses as of 09/24/2023) Resolved Problems Problem Noted Date Diagnosed Date Resolved Date DM type 2 causing renal disease 01/30/2019 01/30/2019 Diabetes mellitus with stage 3 chronic kidney disease 01/30/2019 03/17/2021 Overview: Per CKD protocol HTN, goal below 140/90 06/22/201406/22 Other seborrheic keratosis 04/03/2013 0 07/27/2017 HTN, goal below 130/80 12/02/200906/22 Overview: Per HTN Taxonomy. Type 2 diabetes mellitus wit h hemoglobin A1c goal of less than 7.0% 09/02/2009 04/06/2010 Overview: Per Diabetes Taxonomy. ICD-10 update of inactive term Kidney disease, chronic, sta ge III (GFR 30-59 ml/min) 11/28/2007 02/12/2019 Overview: Based on GFR of 59.1 on 11/27/07. Encounter for long-term (cur rent) use of medications 01/16/2005 03/19/2007 Overview: ICD-10 update of inactive term DIARRHEA 01/05/2003 03/19/2007 Menopause 01/14/2002 03/19/2007 HTN, goal below 140/90 01/14/200212/02 Overview: Per HTN Taxonomy. HYPERLIPIDEMIA NEC-NOS 06/11/200010/25 Overview: Per Lipid Taxonomy. Type 2 diabetes mellitus wit h hemoglobin A1c goal of less than 7.0% 06/11/2000 09/02/2009 Overview: Per Diabetes Taxonomy. ICD-10 update of inactive term Allergic rhinitis 2000 09/19/2006 ACUTE LARYNGITIS- resolved 2000 1 11/19/2005 documented as of this encounter (statuses as of 09/24/2023) Immunizations Name Administration Dates Next Due COVID-19 mRNA, LNP-s, No Pre serve, 2-Dose Series (Moderna) 08/15/2021,01/01/2021,11/29/2020 COVID-19, MRNA-LNP, 23-24, P F, 30 MCG/0.3 mL, 12 YRS AND ABOVE, IM (PFIZER-Comirnaty) 08/22/2023 Covid-19, Mrna, Lnp-s, Pf, B ivalent, 30 Mcg, IM, 12 yrs and above (Pfizer) 09/05/2022 Pneumococcal Conjugate Vacc, 13 Valent (Prevnar) 01/18/2015 Pneumococcal Polysaccharide PPV23 (Pneumovax) 12/03/2007 SEASONAL INFLUENZA, PF, 6 M & Above, IM , (FLULAVAL or FLUZONE) 07/08/2020,08/01/2018,07/27/2017 Season Influenza, Quad, PF, Adjuvanted, 65+ Yrs, IM (FLUAD) 07/08/2020 Seasonal Influenza, Quadriva lent Hd (Fluzone Hd) 07/30/2023,07/27/2022 Seasonal Influenza, Quadriva lent, No Preserve, IM 08/09/2015 Seasonal Influenza, Split, I IV3, With Preserve, Inj 07/28/2014,07/17/2013,07/16/2012,08/14,08/08/2010,08/11/2009,08/03/2008 ,09/04/2007,08/28/2006 Seasonal Influenza, Trivalen t, Adjuvanted, 65+ yrs 07/11/2021,08/22/2019 TDAP (age 10 and older)(Boostrix) 02/20/2017 TDAP (age 11 and older)(Adacel) 04/10/2006 Varicella Zoster Vaccine (Adult) 08/09/2015 Zoster Vaccine Recombinant (Shingrix) 04/21/2020 ,12/23/2019 documented as of this encounter Social History Tobacco Use Types Packs/Day Years Used Date Smoking Tobacco: Never Passive Smoke Exposure: Never Smokeless Tobacco: Never Tobacco Cessation:Counseling Given: Yes Alcohol Use Standard Drinks/Week Comments No 0 (1 standard drink = 0.6 oz pur e alcohol) PHQ-2 Answer Date Recorded PHQ Adult Total Score 0 08/17/2023 Hunger Vital Sign Answer Date Recorded Within the past 12 months, y ou worried that your food would run out before you got the money to buy more. Never true 08/17/20 23 Within the past 12 months, t he food you bought just didn't last and you didn't have money to get more. Never true 08/17/2023 Sex and Gender Information Value Date Recorded Sex Assigned at Female 01/22/2023 8:09 AM EDT Gender Identity Female 01/22/2023 8:09 AM EDT Sexual Orientation Straight 01/22/2023 8: 09 AM EDT Job Start Date Occupation Industry Not on file Not on file Not on file documented as of this encounter Last Filed Vital Signs Vital Sign Reading Time Taken Comments Blood Pressure 112/58 09/24/2023 8:50 AM EST Pulse 64 09/24/2023 8:50 AM EST Temperature 35.3 C (95.5 F) 09/24/2023 8:50 AM ES T Respiratory Rate 14 09/24/2023 8:50 AM EST Oxygen Saturation 97% 09/24/2023 8:50 AM EST Inhaled Oxygen Concentration - - Weight 55.2 kg (121 lb 9.6 oz) 09/24/2023 8:50 A M EST Height 156.8 cm (5' 1.73") 09/24/2023 8:50 AM ES T Body Mass Index 22.44 09/24/2023 8:50 AM EST documented in this encounter Progress Notes * Edwige Alberto RN - 09/24/2023 9:31 AM EST ekg done as per 's order * Soco Nuñez LPN - 09/24/2023 8:53 AM EST Patient here for follow up exam. No new concerns voiced. * Nikia Joyce DO - 09/24/2023 8:53 AM EST SUBJECTIVE: Chief Complaint Patient presents with Follow Up HPI: Machelle King is a 83 year old female who presents today for regular return. Pt notes that sheis doing well. Pt states that she had an episode of chest pain at [place]. She notes that it woke her up. It lasted 1.5 hours. She did not seek care. This was just over 2 weeks ago. She notes no shortness of breath or dizziness. She notes that it was pretty uncomfortable. It wasn't into her shoulders too much. She had an episode a year ago in which she did not seek care. The pain radiated to her back. No other symptoms consistent with reflux. She has not had any episodes at home. She had previous episode over a year ago that was relieved by her 's nitro. Nothing until this episode. PHM: Patient Active Problem List Diagnosis Code Dyspnea and respiratory abnormality R06.00, R06.89 Incontinence of feces R15.9 Diabetic polyneuropathy ([facility]) E11.42 ADVANCE DIRECTIVE INFORMATION Gastroparesis K31.84 DYSLIPIDEMIA, GOAL LDL BELOW 100 E78.5 Senile osteoporosis M81.0 Intractable migraine with aura without status migrainosus G43.119 Diabetic peripheral neuropathy ([facility]) E11.42 Diabetic gastroparesis E11.43, K31.84 Tinnitus of both ears H93.13 Sensorineural hearing loss (SNHL) of both ears H90.3 Type 2 diabetes mellitus with hemoglobin A1c goal of less than 8.0% ([facility]) E11.9 Chronic kidney disease, stage 3b ([facility]) N18.32 Diabetes mellitus ([facility]) E11.9 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 chronic kidney disease, without long-term current use of insulin ([facility]) E11.22, N18.32 Grieving F43.21 Current Outpatient Medications Medication Sig Dispense Refill ASPIRIN 81 MG PO CHEW One pill by mouth once a day with food 100 5 Vitamin C 500 MG Oral Tablet (Ascorbic Acid) Take 1 Tablet by mouth in the morning. amLODIPine Besylate 10 MG Oral Tablet (Norvasc) Take 1 Tablet by mouth in the morning. 90 Tablet 3 Empagliflozin 25 MG Oral Tablet (Jardiance) Take 1 Tablet by mouth in the morning. 90 Tablet 3 Vitamin D (Ergocalciferol) 1.25 MG (36921 UT) Oral Capsule (Drisdol) 1 tab every other week 24 Capsule 0 Losartan Potassium 50 MG Oral Tablet (Cozaar) Take 1 Tablet by mouth in the morning and 1 Tablet before bedtime. 180 Tablet 3 glipiZIDE ER 2.5 MG Oral Tablet Extended Release 24 Hour (Glucotrol XL) Take 1 Tablet by mouth 2 times a day. Before lunch and before dinner 180 Tablet 0 Atorvastatin Calcium 20 MG Oral Tablet (Lipitor) Take 1 Tablet by mouth in the morning. 90 Tablet 1 Metoprolol Succinate ER 25 MG Oral Tablet Extended Release 24 Hour (toPROL XL) Take 0.5 Tablets by mouth in the morning. 45 Tablet 3 ProAir HFA 108 (90 Base) MCG/ACT Inhalation Aerosol Solution Inhale by mouth 2 Puffs 4 times a day . May substitute proventil or ventolin based on formulary 18 g 3 FreeStyle Lite Test In Vitro Strip (Glucose Blood) Check blood sugar once daily. E11.9 100 Strip 3 Ondansetron HCl 4 MG Oral Tablet Take 1 Tablet by mouth every 6 hours as needed for Nausea. 90 Tablet 0 No current facility-administered medications for this visit. Past Medical History: Diagnosis Date CHRONIC SOB 2000 Depression Diabetic polyneuropathy (HCC) 11/12/2003 DM type 2 causing renal disease (HCC) Dyslipidemia, goal LDL below 100 10/25/2009 Per Lipid Taxonomy. Dyslipidemia, goal to be determined Gastroparesis Headache(784.0) HTN, goal below 130/80 12/02/2009 Per HTN Taxonomy. Incontinence of feces 08/06/2003 KIDNEY DZ,CHRONIC (GFR>30-59) STAGE III 11/28/2007 Based on GFR of 59.1 on 11/27/07. Macular degeneration (senile) of retina, unspecified Migraine with aura, intractable 01/30/2019 Other seborrheic keratosis 04/03/2013 Polyneuropathy in diabetes(357.2) Red blood cell abnormality Senile nuclear sclerosis Vitamin D deficiency Past Surgical History: Procedure Laterality Date OTHER (INFORMATION) ACT 112 SIGNED, Dr. Nuñez (09-05-2021) OTHER (INFORMATION) 03/26/2023 ACT 112 SIGNED, Dr. Nuñez REMOVAL OF APPENDIX age 14 Appendectomy REMOVE CATARACT, INSERT LENS PROSTH Bilateral Dr. Cavazos REMOVE GALLBLADDER Cholecystectomy, Open REMOVE TONSILS & ADENOIDS, UNDER 12 Tonsillectomy/Adenoids,<12 Y/O TOTAL ABD HYSTERECTOMY W/WO REMOVAL OF TUBE(S) ROBBY w/ Bilateral Salpingo-Oophorectomy US ENDOSCOPIC 01/22/2017 normal bx, CBD dilation/[facility] Review of patient's allergies indicates: No Known Allergies Family History Problem Relation Age of Onset Cancer Mother Diabetes Mother Diabetes Daughter Diabetes Grandfather (Maternal) Diabetes Grandmother (Maternal) Diabetes Grandfather (Paternal) Diabetes Grandmother (Paternal) Hypertension None Heart Disorder None Stroke None Thyroid Disorder None Eye Problems Father AMD and Blindness Eye Problems Grandmother (Paternal) blindness from Diabetes Eye Problems Grandfather (Maternal) blindness from Diabetes Family Status Relation Status Mo (Not Specified) Olu (Not Specified) MGFA (Not Specified) MGMA (Not Specified) PGFA (Not Specified) PGMA (Not Specified) NONE (Not Specified) NONE (Not Specified) NONE (Not Specified) NONE (Not Specified) Fa (Not Specified) Social History Tobacco Use Smoking status: Never Passive exposure: Never Smokeless tobacco: Never Substance Use Topics Alcohol use: No Vaping/E-Cigarette Use Vaping/E-Cigarette Use Never User Vaping/E-Cigarette Substances Nicotine No Other No Flavoring No THC No Cannabidiol (CBD) No Vaping/E-Cigarette Devices Disposable No Pre-filled or Refillable Cartridge No Refillable Tank No Pre-filled Pod No REVIEW OF SYSTEMS: Review of Systems Constitutional: Negative for chills, fatigue, fever and unexpected weight change. Respiratory: Negative for cough, chest tightness, shortness of breath and wheezing. Cardiovascular: Positive for chest pain. Negative for palpitations and leg swelling. Gastrointestinal: Negative for abdominal pain, constipation, diarrhea, nausea and vomiting. Musculoskeletal: Negative for arthralgias, gait problem and joint swelling. Skin: Negative for color change, pallor and rash. OBJECTIVE: BP 112/58 (BP Site: Left Arm, BP Cuff Size: Regular) | Pulse 64 | Temp 35.3 C (95.5 F) (Tympanic) | Resp 14 | Ht 1.568 m (5' 1.73") | Wt 55.2 kg (121 lb 9.6 oz) | SpO2 97% | BMI 22.44 kg/m | BSA 1.55 m PHYSICAL EXAM: Physical Exam Constitutional: General: She is not in acute distress. Appearance: She is well-developed. Cardiovascular: Rate and Rhythm: Normal rate and regular rhythm. Heart sounds: Normal heart sounds. No murmur heard. No friction rub. No gallop. Pulmonary: Effort: Pulmonary effort is normal. No respiratory distress. Breath sounds: Normal breath sounds. No wheezing or rales. Abdominal: General: Bowel sounds are normal. There is no distension. Palpations: Abdomen is soft. Tenderness: There is no abdominal tenderness. There is no guarding. Musculoskeletal: General: No tenderness or deformity. Normal range of motion. Skin: General: Skin is warm and dry. Coloration: Skin is not pale. Findings: No erythema or rash. Neurological: Mental Status: She is alert and oriented to person, place, and time. ASSESSMENT/PLAN: (R07.89) Other chest pain (primary encounter diagnosis) Plan: EKG, ECHO, STRESS (EXERCISE) W/ PHYSICIAN EKG with no acute issue. She will complete stress test. Consider cardiology f/u pending. Advised EDwith another episode. (E11.9) Type 2 diabetes mellitus with hemoglobin A1c goal of less than 8.0% (HCC) Plan: HEMOGLOBIN A1C, COMPREHENSIVE METABOLIC PANEL Pt will complete lab studies. Remain on current regimen. 1 episode of yeast infection so will monitor with Jardiance. (E78.5) Dyslipidemia, goal LDL below 100 Plan: LIPID PANEL WITH DIRECT LDL IF TG IS HIGH Pt will complete lipid panel. Follow-up: 3 months Total time today including reviewing chart before the visit, pertinent labs, imaging reports, face to face time, and documentation time was 46 minutes. Nikia Joyce DO documented in this encounter Plan of Treatment Upcoming Encounters Date Type Department Care Team (Late st Contact Info) Description 10/30/2023 11:00 AM EST Nurse Only Ancillary [address] [facility] [address] [place] [address] College, Nurse Annual Wellness Visit [address] [place] [address] 11/20/2023 8:00 AM EST Office Visit Family Practice 65 [facility] [address] [place] [id number] Nikia Joyce DO [address] [place] [address] 12/12/2023 8:30 AM EST Imaging Cardiac Studies, [facility] [address] [facility] [place] [address] 01/16/2024 10:30 AM EDT Office Visit Rheumatology [facility] [address] [place] [address] L[place] CRNP [address] [facility] [place] [address] 03/04/2024 8:00 AM EDT Office Visit Nephrology, [facility] [place] [place] [address] Oma Hernandez MD [address] [place] [address] Scheduled Orders Name Type Priority Associated Diagnoses Orde r Schedule EKG EKG Routine Other chest pain Expected: 09/24/2023 (Approximate), Expires: 10/24/2024 HEMOGLOBIN A1C Lab Routine Type 2 diabetes mellitus with hemoglobin A1c goal of less than 8.0% (HCC) Expected: 09/24/2023 (Approximate), Expires: 09/23/2024 COMPREHENSIVE METABOLIC PANEL Lab Routine Type 2 diabetes mellitus with hemoglobin A1c goal of less than 8.0% (HCC) Expected: 09/24/2023 (Approximate), Expires: 09/23/2024 LIPID PANEL WITH DIRECT LDL IF TG IS HIGH Lab Routine Dyslipidemia, goal LDL below 100 Expected: 09/24/2023, Expires: 09/24/2024 ECHO, STRESS (EXERCISE) W/ PHYSICIAN Echocardiology Routine Other chest pain Expected: 09/24/2023, Expires: 10/24/2024 Health Maintenance Due Date Last Done Comments Hepatitis B (1 of 3 - Risk 3-dose series) 2002 FOBT ANNUALLY,AGES 18-90 07/04/2023 022, 12/05/2019, 08/19/2018, Additional history exists GFR 10/24/2023 04/24/2023, 10/05, 04/17/2022, Additional history exists HbA1c 10/24/2023 04/24/2023, 10/05, 04/17/2022, Additional history exists Diabetic Eye Exam 03/15/2024 03/15/2023, , 11/16/2022, Additional history exists CKD HGB USE SMARTSET 42643 04/24/202404/24, 10/18/2022, 04/17/2022, Additional history exists CKD PHOS USE SMARTSET 14192 04/24/202404/06, 04/17/2022, 10/10/2021, Additional history exists Diabetic Foot Exam 04/24/2024 04/24/2023, 0 07/04/2022, 05/13/2021, Additional history exists DXA Scan 06/28/2024 06/28/2022, 05/06, 05/14/2018, Additional history exists Albumin/Creatinine Ratio 08/17/2024 023, 10/18/2022, 04/17/2022, Additional history exists Depression Screening 09/24/2024 09/24/2023 DTaP,Tdap,and Td Vaccines (3 - Td or Tdap) 02/20/2027 02/20/2017, 04/10/2006 Pneumococcal Vaccine: 65+ Years Completed 01/18/2015, 12/03/2007, 01/14/2002 Zoster Vaccines Completed 04/21/2020, 12/06, 08/09/2015 VITAMIN D LEVEL ONCE IN A LIFETIME-USE SMARTSET# [id number] Completed 10/18/2022, 04/17/2022, 10/10/2021, Additional history exists Influenza Vaccine (FLU shot) Completed , 07/27/2022, 07/11/2021, Additional history exists COVID-19 Vaccine Completed 08/22/2023, 11/2021, 08/15/2021, Additional history exists GARDASIL-HPV IMMUNIZATION SERIES Aged Out No longer eligible based on patient's age to complete this topic MENINGOCOCCAL (MENACTRA/MENVEO) Aged Out No longer eligible based on patient's age to complete this topic documented as of this encounter Medical Devices Not on filedocumented as of this encounter Visit Diagnoses Diagnosis Other chest pain- Primary Type 2 diabetes mellitus with hemoglobin A1c goal of less than 8.0% (HCC) Dyslipidemia, goal LDL below 100 Other and unspecified hyperlipidemia documented in this encounter Care Teams Drum Builder Relationship Specialty Start Date End Date Nikia Joyce DO [address] [place] [address] PCP - General Family Medicine 07/04/22 documented as of this encounter
--- OUTSIDE RECORDS SUMMARY | 2023-10-30 19:47 | External Medical Summary | Summary of Care ---
Author Name Unknown Organization [facility] Address [address] [place] [address] Phone [phone] Care Team Providers Care Stained Glass Glazier Name Role Phone MeganNikia allison Primary Care Provider [phone] Encounter Details Date Type Department Care Team Description 08/22/2023 Immunization Ancillary [address] [place] [address] [employer], Covid19 Vaccine [address] [place] [address] Arrived Allergies No known active allergiesdocumented as of this encounter (statuses as of 08/22/2023) Medications Medication Sig Dispensed Refills Start Date [...] mouth in the morning. 0 08/08/2022 Active Metoprolol Succinate ER 25 MG Oral Tablet Extended Release 24 Hour (toPROL XL)Indications:HTN, goal below 140/90 Take 0.5 Tablets (12.5 mg) by mouth in the morning. 45 Tablet 3 09/13/2022 Active amLODIPine Besylate 10 MG Oral Tablet [...] hemoglobin A1c goal of less than 8.0% ([facility]) Check blood sugar once daily. E11.9 100 Strip 3 12/14/2022 Active Vitamin D (Ergocalciferol) 1.25 MG ([address] [place]) Oral Capsule (Drisdol)Indication s:Vitamin D deficiency 1 tab every other week 24 Capsule 0 01/22/2023 Active Losartan Potassium 50 MG Oral Tablet (Cozaar)Indications :Type 2 diabetes mellitus with hemoglobin A1c goal of less than 8.0% ([facility]),HTN, goal below 140/90 Take 1 Tablet by [...] the morning. 90 Tablet 1 07/31/2023 Active documented as of this encounter (statuses as of 08/22/2023) Active Problems Problem Noted Date Grieving 05/14/2023 Type 2 diabetes mellitus wit h stage 3b chronic kidney disease, without long-term current use of insulin 10/24/2022 Diabetes mellitus 08/08/2022 Chronic kidney disease, stage 3b 021 Overview: Per CKD protocol Type 2 diabetes mellitus with hemoglobin A1c goal of less than 8.0% 03/15/2021 Overview: Per CKD protocol Tinnitus of both ears 05/24/2020 Sensorineural hearing loss (SNHL) of bot h ears 05/24/2020 Diabetic peripheral neuropathy 0 Diabetic gastroparesis 05/19/2020 Intractable migraine with aura without s tatus migrainosus 01/30/2019 Senile osteoporosis 05/14/2018 DYSLIPIDEMIA, GOAL LDL BELOW 100 009 Overview: Per Lipid Taxonomy. ADVANCE DIRECTIVE INFORMATION 04/10/2006 Overview: Yes-advised to bring copy in to be scanned into EMR Diabetic polyneuropathy 11/12/2003 Incontinence of feces 08/06/2003 Overview: ICD-10 update of inactive term Dyspnea and respiratory abnormality 02/03 Overview: ICD-10 update of inactive term Gastroparesis documented as of this encounter (statuses as of 08/22/2023) Resolved Problems Problem Noted Date Resolved Date DM type 2 causing renal disease 01/30/2019 01/30/2019 Diabetes mellitus with stage 3 chronic kidney di sease 01/30/2019 03/17/2021 Overview: Per CKD protocol HTN, goal below 140/90 06/22/2014 4 Other seborrheic keratosis 04/03/201307/27 HTN, goal below 130/80 12/02/2009 4 Overview: Per HTN Taxonomy. Type 2 diabetes mellitus wit h hemoglobin A1c goal of less than 7.0% 09/02/2009 04/06/2010 Overview: Per Diabetes Taxonomy. ICD-10 update of inactive term Kidney disease, chronic, stage III (GFR 30-59 ml /min) 11/28/2007 02/12/2019 Overview: Based on GFR of 59.1 on 11/27/07. Encounter for long-term (current) use of medicat ions 01/16/2005 03/19/2007 Overview: ICD-10 update of inactive term DIARRHEA 01/05/2003 03/19/2007 Menopause 01/14/2002 03/19/2007 HTN, goal below 140/90 01/14/2002 01/28/201 0 Overview: Per HTN Taxonomy. HYPERLIPIDEMIA NEC-NOS 06/11/2000 9 Overview: Per Lipid Taxonomy. Type 2 diabetes mellitus wit h hemoglobin A1c goal of less than 7.0% 06/11/2000 09/02/2009 Overview: Per Diabetes Taxonomy. ICD-10 update of inactive term Allergic rhinitis 2000 09/19/2006 ACUTE LARYNGITIS- resolved 02/22/200009/19 documented as of this encounter (statuses as of 08/22/2023) Immunizations Name Administration Dates Next Due COVID-19 mRNA, LNP-s, No Pre serve, 2-Dose Series (Moderna) 08/15/2021,01/01/2021,11/29/2020 COVID-19, MRNA-LNP, 23-24, P F, 30 MCG/0.3 mL, 12 YRS AND ABOVE, IM [facility] 08/22/2023 Covid-19, Mrna, Lnp-s, Pf, B ivalent, [...] Passive Smoke Exposure: Never Smokeless Tobacco: Never Alcohol Use Standard Drinks/Week Comments No 0 (1 standard drink = 0.6 oz pur e alcohol) Food Insecurity Answer Date Recorded Within the past 12 months, y ou worried that your food would run out before you got money to buy more. Never true 08/17/2023 Within the past 12 months, t he food you bought just didn't last and you didn't have money to get more. Never true 08/17/2023 Sex Assigned at Date Recorded Female 01/22/2023 8:09 AM E DT Job Start Date Occupation Industry Not on file Not on file Not on file documented as of this encounter Plan of Treatment Upcoming Encounters Date Type Specialty Care Team Description 09/24/2023 Office Visit Family Medicine Nikia Joyce, DO [address] [place] [address] 10/30/2023 Nurse Only [facility], Nurse Annual Wellness Visit [address] [place] [address] 01/16/2024 Office Visit Rheumatology Lore [place] CRNP [address] [place] [address] 03/04/2024 Office Visit Nephrology Oma Hernandez MD [address] [facility], [place] [address] Health Maintenance Due Date Last Done Comments FOBT ANNUALLY,AGES 18-90 07/04/2023 022, 12/05/2019, 08/19/2018, Additional history exists COVID-19 Vaccine ( season) 2023 08/22/2023, 09/05/2022, 08/15/2021, Additional history exists GFR 10/24/2023 04/24/2023, 10/05, 04/17/2022, Additional history exists HbA1c 10/24/2023 04/24/2023, 10/05, 04/17/2022, Additional history exists DIABETES-EYE EXAM 03/15/2024 03/15/2023, , 09/05/2021, Additional history exists CKD HGB USE SMARTSET 94993 04/24/202404/24, 10/18/2022, 04/17/2022, Additional history exists CKD PHOS USE SMARTSET 20643 04/24/202404/06, 04/17/2022, 10/10/2021, Additional history exists Diabetic Foot Exam 04/24/2024 04/24/2023, 0 07/04/2022, 05/13/2021, Additional history exists DXA Scan 06/28/2024 06/28/2022, 05/06, 05/14/2018, Additional history exists Albumin/Creatinine Ratio 08/17/2024 023, 10/18/2022, 04/17/2022, Additional history exists Depression Screening 08/17/2024 08/17/2023 DTaP,Tdap,and Td Vaccines (3 - Td or Tdap) 02/20/2027 02/20/2017, 04/10/2006 Pneumococcal Vaccine: 65+ Years Completed 01/18/2015, 12/03/2007, 01/14/2002 Zoster Vaccines Completed 04/21/2020, 12/06, 08/09/2015 VITAMIN D LEVEL ONCE IN A LIFETIME-USE SMARTSET# [id number] Completed 10/18/2022, 04/17/2022, 10/10/2021, Additional history exists Influenza Vaccine (FLU shot) Completed , 07/27/2022, 07/11/2021, Additional history exists GARDASIL-HPV IMMUNIZATION SERIES Aged Out No longer eligible based on patient's age to complete this topic Hepatitis B Aged Out No longer eligi ble based on patient's age to complete this topic MENINGOCOCCAL (MENACTRA/MENVEO) Aged Out No longer eligible based on patient's age to complete this topic documented as of this encounter Medical Devices Not on filedocumented as of this encounter Care Teams Stained Glass Glazier Relationship Specialty Start Date End Date Nikia Joyce, [address] [place] [address] PCP - General Family Medicine 07/04/22 documented as of this encounter
--- OUTSIDE RECORDS SUMMARY | 2023-10-30 19:47 | External Medical Summary | Summary of Care ---
Author Name Unknown Organization [facility] Address [address] [place] [address] Phone [phone] Care Team Providers Care Marketing Analytics Lead Name Role Phone Nikia Joyce DO Primary Care Provider [phone] Reason for Referral * Ancillary Services (Within 10 days (routine)) - Authorized Specialty Diagnoses / Procedures Referred By Robinson martinez Referred To Contact Audiology Diagnoses Hearing loss, bilateral Nikia Joyce DO [address] [place] [address] Referral ID Status Reason Start Date Expiration Date Visits Requested Visits Authorized [id number] Authorized Ancillary Services Required 3 999 999 Question Answer Referral Priority Within 10 days (routine) Where should this appointment be scheduled? [facility] Reason for Referral: Hearing Loss Is this sudden hearing loss? No Reason for Visit * Reason Comments Adult Annual Wellness Visit, Subsequent Visit Encounter Details Date Type Department Care Team (Late st Contact Info) Description 10/25/2023 11:00 AM EST Nurse Only Ancillary 65 [facility] [address] [place] [address] College, Nurse Annual Wellness Visit [address] [address] Adult Annual Wellness Visit, Subsequent Visit Allergies No known active allergiesdocumented as of this encounter (statuses as of 10/25/2023) Medications Medication Sig Dispensed Refills Start Date [...] 12/14/2022 Active Vitamin D (Ergocalciferol) 1.25 MG (17686 UT) Oral Capsule (Drisdol)Indication s:Vitamin D deficiency [...] as of this encounter (statuses as of 10/25/2023) Active Problems Problem Noted Date Diagnosed Date [...] as of this encounter (statuses as of 10/25/2023) Resolved Problems Problem Noted Date Diagnosed Date [...] as of this encounter (statuses as of 10/25/2023) Immunizations Name Administration Dates Next Due COVID-19 mRNA, LNP-s, No Pre serve, 2-Dose Series (Moderna) 08/15/2021,01/01/2021,11/29/2020 COVID-19, MRNA-LNP, 23-24, P F, 30 MCG/0.3 mL, 12 YRS AND ABOVE, IM (PFIZER-Comirnaty) 08/22/2023 Covid-19, Mrna, Lnp-s, Pf, B ivalent, 30 Mcg, IM, 12 yrs and above (Pfizer) 09/05/2022 Pneumococcal Conjugate Vacc, 13 Valent (Prevnar) 01/18/2015 Pneumococcal Polysaccharide PPV23 (Pneumovax) 12/03/2007 Season Influenza, Quad, PF, Adjuvanted, 65+ Yrs, IM (FLUAD) 07/08/2020 Seasonal Influenza, PF, 6 M & above, IM , (FluLaval or Fluzone) 07/08/2020,08/01/2018,07/27/2017 Seasonal Influenza, Quadriva lent Hd (Fluzone Hd) [...] drink = 0.6 oz pur e alcohol) on rare occasion PHQ-2 Answer Date Recorded PHQ Adult Total Score 1 09/24/2023 Hunger Vital Sign Answer Date Recorded Within the past 12 months, y ou worried that your food would run out before you got the money to buy more. Never true 09/24/20 23 Within the past 12 months, t he food you bought just didn't last and you didn't have money to get more. Never true 09/24/2023 Sex and Gender Information Value Date Recorded Sex Assigned at Female 01/22/2023 8:09 AM EDT Gender Identity Female 01/22/2023 8:09 AM EDT Sexual Orientation Straight 01/22/2023 8: 09 AM EDT Job Start Date Occupation Industry Not on file Not on file Not on file documented as of this encounter Last Filed Vital Signs Vital Sign Reading Time Taken Comments Blood Pressure 116/68 10/25/2023 11:36 AM EST Pulse 73 10/25/2023 11:36 AM EST Temperature 35.6 C (96 F) 10/25/2023 11: 36 AM EST Respiratory Rate - - Oxygen Saturation 98% 10/25/2023 11: 36 AM EST Inhaled Oxygen Concentration - - Weight 56.2 kg (123 lb 14.4 oz) 023 11:36 AM EST Height 156.2 cm (5' 1.5") 10/25/2023 11 :36 AM EST Body Mass Index 23.03 10/25/2023 11:36 AM EST documented in this encounter Progress Notes * Edwige Alberto RN - 10/25/2023 11:38 AM EST AD8 Dementia Screening Interview Person answering questions: patient Remember, "Yes, a change" indicates that there has been a change in the last several years caused by cognitive (thinking and memory) problems 1. Problems with judgement (eg: problems making decisions, bad financial decisions, problems with thinking). No (0) 2. Less interest in hobbies/activities. No (0) 3. Repeats the same things over and over (questions, stories, or statements). No (0) 4. Trouble learning how to use a tool, appliance, or gadget (eg: VCR, computer, microwave, remote control). No (0) 5. Forgets correct month or year. No (0) 6. Trouble handling complicated financial affairs (eg: balancing checkbook, income taxes, paying bills). No (0) 7. Trouble remembering appointments. No (0) 8. Daily problems with thinking and/or memory. No (0) TOTAL AD8: 0 - AD8 Dementia Screening Score The final score is a sum of the number items marked "Yes, A Change". 0 - 1: Normal cognition; 2 or greater: Cognitive impairments is likely to be present - further testing required Adult Annual Wellness Visit: Machelle King is a 83 year old female who presents for an Adult Annual Wellness Visit. Depression Screening: Did the patient complete the screening questionnaire for Depression? Yes Is the patient's total score for Depression 15 or greater? No, no further intervention needed, unless requested by patient. Did the patient answer positively to the suicide question? No, no further intervention needed, unless requested by patient. In general, compared to other people your age, what would you say that your health is? Very Good Ht Readings from Last 1 Encounters: 10/25/23 1.562 m (5' 1.5") Wt Readings from Last 1 Encounters: 10/25/23 56.2 kg (123 lb 14.4 oz) Body Mass Index: BMI Less than 30 Body mass index is 23.03 kg/m. BP Readings from Last 1 Encounters: 10/25/23 116/68 Medical/Surgical/Family History Reviewed: Yes Past Medical History: Diagnosis Date CHRONIC SOB [...] Salpingo-Oophorectomy US ENDOSCOPIC 01/22/2017 normal bx, CBD dilation/[facility] Family History Problem Relation Age of Onset Cancer Mother Diabetes Mother Eye Problems Father AMD and Blindness Diabetes Grandmother (Maternal) Diabetes Grandfather (Maternal) Eye Problems Grandfather (Maternal) blindness from Diabetes Diabetes Grandmother (Paternal) Eye Problems Grandmother (Paternal) blindness from Diabetes Diabetes Grandfather (Paternal) Diabetes Daughter Diabetes Daughter Hypertension None Heart Disorder None Stroke None Thyroid Disorder None Has patient ever had cancer? No Social History Tobacco Use Smoking status: Never Passive exposure: Never Smokeless tobacco: Never Substance Use Topics Alcohol use: No Comment: on rare occasion Vaping/E-Cigarette Use Vaping/E-Cigarette Use Never User Vaping/E-Cigarette Substances Nicotine No Other No Flavoring No THC No Cannabidiol (CBD) No Vaping/E-Cigarette Devices Disposable No Pre-filled or Refillable Cartridge No Refillable Tank No Pre-filled Pod No Tobacco/Alcohol screening completed today? Yes Hospital Care: Admissions (within the last year): Not Applicable ER within 30 days: No Does the patient have an Advance Directives/Living Will? Yes Last Physical Exam: Last physical exam: 09/24/2023 Does patient see primary provider regularly? Yes Does patient see other providers? Yes, Specialist Patient Care Team updated? Yes Review of patient's allergies indicates: No Known Allergies Immunization History Administered Date(s) Administered COVID-19 mRNA, LNP-s, No Preserve, 2-Dose Series (Moderna) 11/29/2020, 01/01/2021, 08/15/2021 COVID-19, MRNA-LNP, 23-24, PF, 30 MCG/0.3 mL, 12 YRS AND ABOVE, IM (Justworks- Comirnat) 08/22/2023 Covid-19, Mrna, Lnp-s, Pf, Bivalent, 30 Mcg, IM, 12 yrs and above (Pfizer) 09/05/2022 Pneumococcal Conjugate Vacc, 13 Valent (Prevnar) 01/18/2015 Pneumococcal Polysaccharide PPV23 (Pneumovax) 01/14/2002, 12/03/2007 Season Influenza, Quad, PF, Adjuvanted, 65+ Yrs, IM (FLUAD) 07/08/2020 Seasonal Influenza Virus Vaccine, Unspecified Formulation 08/24/1998 Seasonal Influenza, PF, 6 M & above, IM , (FluLaval or Fluzone) 07/27/2017, 08/01/2018, 07/08/2020 Seasonal Influenza, Quadrivalent Hd (Fluzone Hd) 07/27/2022, 07/30/2023 Seasonal Influenza, Quadrivalent, No Preserve, IM 08/09/2015 Seasonal Influenza, Split, IIV3, With Preserve, Inj 08/18/1999, 09/07/2000, 08/19/2002, 09/01/2003,09/08/2005, 08/28/2006, 09/04/2007, 08/03/2008, 08/11/2009, 08/08/2010, 08/14/2011, 07/16/2012, 07/17/2013, 07/28/2014 Seasonal Influenza, Trivalent, Adjuvanted, 65+ yrs 08/22/2019, 07/11/2021 TDAP (age 10 and older)(Boostrix) 02/20/2017 TDAP (age 11 and older)(Adacel) 04/10/2006 Varicella Zoster Vaccine (Adult) 08/09/2015 Zoster Vaccine Recombinant (Shingrix) 12/23/2019, 04/21/2020 Current Outpatient Medications Medication Sig Dispense Refill [...] Tablet 3 Vitamin D (Ergocalciferol) 1.25 MG (62095 UT) Oral Capsule (Drisdol) 1 tab every [...] No current facility-administered medications for this visit. Patient Active Problem List Diagnosis Code Dyspnea and respiratory abnormality R06.00, R06.89 Incontinence of feces R15.9 Diabetic polyneuropathy ([facility]) E11.42 ADVANCE DIRECTIVE INFORMATION Gastroparesis K31.84 DYSLIPIDEMIA, GOAL LDL BELOW 100 E78.5 Senile osteoporosis M81.0 Intractable migraine with aura without status migrainosus G43.119 Diabetic peripheral neuropathy ([facility]) E11.42 Diabetic gastroparesis E11.43, K31.84 Tinnitus of both ears H93.13 Sensorineural hearing loss (SNHL) of both ears H90.3 Type 2 diabetes mellitus with hemoglobin A1c goal of less than 8.0% ([facility]) E11.9 Chronic kidney disease, stage 3b ([facility]) N18.32 Diabetes mellitus ([facility]) E11.9 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 chronic kidney disease, without long-term current use of insulin ([facility]) E11.22, N18.32 Grieving F43.21 Medication Compliance: Patient is able to obtain all of her medications? Yes Patient takes medications as prescribed? Yes Patient manages own medications: Yes Patient uses a pill box? Yes, refill(s) completed by self Dental Exam: Yes: Every 6 Months Eye Screening: Yes: Every 6 months Are you having trouble with hearing? Yes has noticed a little decreased hearing Do you use an assistive device to help your hearing? No Exercise Screening: only the exercise associated with activities at work Nutrition Assessment: Eats a balanced diet and Eats three meals a day Pain Screening: Are you having any pain? No Sleep Screening Tool 'STOP': Do you snore? No Do you feel fatigued during the day? No Do you wake up feeling like you haven't slept? No Have you been told you stop breathing at night? No Do you gasp for air or choke while sleeping? No Have you been told you have Sleep Apnea? No Do you have high blood pressure or are on medication(s) to control high blood pressure? No SCORE: If you check YES to two or more questions, make a referral for Obstructive Sleep Apnea Patient and Caregiver Support System: Patient lives alone Means of Transportation: Drives. Not a concern. Doesn't do a lot of night driving Patient lives in One Story apartment Community Resources: Not Applicable Functional Status and ADL Skills: Has patient ever had an amputation? No Functional Assessment: 100- Normal, no complaints, no evidence of disease Ambulation: Patient ambulates without assistive device. Independent Dressing: Gets clothes and dresses without any assistance: Independent Able to move freely in chair or bed including turning over: Independent Repositioning (bed or chair): Not applicable Transfers: Independent Toileting: Goes to bathroom, uses toilet, arranges clothes and returns without any assistance: Independent Toileting: continent of bladder and continent of bowel Feeding: Self Bathing: Self; walk in shower, grab bars, seat in shower, textured floor in shower, steps out onto a mat Requires none assistance with ADLs. Instrumental ADL's: Shopping: Independent Housekeeping: Independent Handling Finances: Independent DME Vendor Name: Not Applicable Fall Risk Assessment: Can the patient demonstrate that she can stand from a sitting position? Yes Has the patient had a fall within the last 6 months? Yes Does the patient have a problem with her gait or balance? No Does the patient take 4 or more prescription medicines? Yes Does the patient use sedatives or narcotics? No Fall Risk Factors Present: History of falls within the past 6 months Yes Cause of fall: tripped over ethe ramp on a moving truck Uses more than 4 medications Older than age 70 Ecr-Dw-ahx-Go Test: Time began at 11:00. Patient stood from sitting position and walked approximately 10 feet, returnedand sat down. Total time for xoz-uf-gpk-go test was 10.30 seconds. Rts-Ys-iza-Go Test completed? Yes Gender Specific Preventative Plan: Health Maintenance Topic Date Due Hepatitis B (1 of 3 - Risk 3-dose series) Never done FOBT ANNUALLY,AGES 18-90 07/04/2023 HbA1c 10/24/2023 GFR 10/24/2023 Diabetic Eye Exam 03/15/2024 Diabetic Foot Exam 04/24/2024 CKD HGB USE SMARTSET 98720 04/24/2024 CKD PHOS USE SMARTSET 65060 04/24/2024 DXA Scan 06/28/2024 Albumin/Creatinine Ratio 08/17/2024 Depression Screening 09/24/2024 DTaP,Tdap,and Td Vaccines (3 - Td or Tdap) 02/20/2027 VITAMIN D LEVEL ONCE IN A LIFETIME-USE SMARTSET# [id number] Completed Influenza Vaccine (FLU shot) Completed Zoster Vaccines Completed Pneumococcal Vaccine: 65+ Years Completed COVID-19 Vaccine Completed MENINGOCOCCAL (MENACTRA/MENVEO) Aged Out GARDASIL-HPV IMMUNIZATION SERIES Aged Out Follow Up/ Referrals/Handouts: No further action needed Routine general medical examination at a health care facility (Primary) Hearing loss, bilateral Sensorineural hearing loss (SNHL) of both ears Tinnitus of both ears - AUDIOLOGY REFERRAL OP-placed today Chronic kidney disease, stage 3b (HCC) Continue to monitor and with current medication Diabetes mellitus (HCC) Diabetic peripheral neuropathy (HCC) Diabetic polyneuropathy associated with type 2 diabetes mellitus (HCC) Type 2 diabetes mellitus with hemoglobin A1c goal of less than 8.0% (HCC) 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 chronic kidney disease, without long-term current use of insulin (HCC) Hemoglobin AIC Results: Lab Results Component Value Date/Time HEMOGLOBIN A1C 6.4 (H) 12/25/1996 04:16 PM HEMOGLOBIN A1C 6.6 (H) 10/08/1996 10:10 AM HEMOGLOBIN A1C 8.3 (H) 08/04/1996 02:30 PM HEMOGLOBIN A1C - [facility] 7.5 (H) 04/24/2023 10:04 AM HEMOGLOBIN A1C - [facility] 7.7 (H) 10/18/2022 07:52 AM HEMOGLOBIN A1C - [facility] 7.1 (H) 04/17/2022 07:42 AM HEMOGLOBIN A1C - [facility] 6.3 (H) 04/16/2020 11:55 AM HEMOGLOBIN A1C - [facility] 6.5 (H) 08/20/2019 08:39 AM HEMOGLOBIN A1C - [facility] 6.3 (H) 01/22/2019 08:51 AM Continue to monitor diet/exercise and with current medication Diabetic gastroparesis Gastroparesis Continue to monitor DYSLIPIDEMIA, GOAL LDL BELOW 100 Lab Results Component Value Date/Time LDL (CALCULATED) 144. (H) 10/08/1996 10:10 AM LDL CHOLESTEROL (CALCULATED) - [facility] 41 10/18/2022 07:52 AM LDL CHOLESTEROL (CALCULATED) - [facility] 74 04/16/2020 11:55 AM LDL CHOLESTEROL (DIRECT MEASURE) - [facility] 85 01/22/2019 08:51 AM Continue to monitor diet/exercise and with current medication Grieving Pt states the holidays make her sad at times and recent court hearing for the driver engineer that killed her . States over all she feels she is doing good with this and is keeping busy with activities and getting out of the house. Pt scored 2 on depression screening-no depression Continue to monitor Senile osteoporosis Pt's last dexa was 06/28/22-repeat in 2 years Continue to monitor and with current medication Pt is up to date with her immunizations. Pt has an order to do a FOBT-ordered 07/16/23. Pt agreeable but does not have the test kit. Kit given. Pt will obtain specimen and will drop off at lab. Pt had a fallin May-was moving and tripped over the ramp of the moving truck- fell onto ramp-injuryto left george-was seen by Dr Joyce and had xray-negative. Pt has lab work to be drawn but it is fasting-so she will come in at her convenience when able to fast. She has eaten already today. Discussed bringing in a copy of her living will to have scanned into her chart. Discussed getting back to her walking and doing exercise classes at [facility]. Check-out note: Please assist pt in schedule an audiology appt. Would patient like to schedule next AWV visit? Yes Edwige Alberto RN documented in this encounter Miscellaneous Notes * Pt Handout (on AVS) - Edwige Alberto RN - 10/25/2023 11:59 AM EST Images from the original note were not included. 15504 Preventing Falls: Making Changes in Your Living Space Is your living space filled with hazards that could cause you to fall? Changes can make you safer. They could even save your life. Take a careful look around your home. Change what you can on your own. Hire someone or ask friends or family to help with harder tasks. Be sure to add a nonslip mat to the inside of your shower or bathtub. Always keep a nightlight on. Keep a clear path from your bed to the bathroom. Move items from higher shelves to lower ones. Remove hazards Remove things that can trip you, like throw rugs, boxes, piles of paper, or cords. Nail down rugs or carpeting if you don't want to remove them. Use slip- resistant backing. Don't store items on stairs. Keep walkways clear. Clean up spills right away. Replace glass tables with wooden ones. They're safer if you fall. Add safety devices Add handrails to both sides of stairs. Buy a raised toilet seat. Add grab bars near the toilet and in the shower. Get grabbers to help you reach things and avoid climbing. Improve lighting Add nightlights to halls, bedrooms, and bathrooms. Put light switches at the top and bottom of stairs. Be sure each room and flight of stairs has proper lighting. Use shades or curtains to cut glare from windows. Put flashlights in each room. Replace burned-out bulbs. Get glowing light switches for room entrances. Take other precautions Use nonskid floor wax. Buy a nonslip mat and a liquid soap dispenser for the shower. Put most-used items within easy reach. Add bright paint or tape on the top front edge of steps. Save big jobs, such as moving furniture or other heavy objects, for family or friends. Get professional help installing grab bars. They can be unsafe if not installed the right way. Fix riskier rooms first Don't tackle everything at once. Focus on one room at a time. The bathroom is a common spot for falls, so you may want to start there. Or start with a room you spend lots of time in, such as your bedroom. Make only a few changes at once. This will give you time to adjust to them. Outside safety You might arrange for these changes yourself, or you might need to talk to your catering sales manager or[employer]' association about them. Have loose boards on porches or damaged stairs repaired. Have rough edges, holes, or large cracks in sidewalks or driveways repaired. Remove hazards that could trip you, such as hoses or davide. Use high-wattage light bulbs (100 conroy or greater) near outside doors and stairs. Add handrails to outside stairs. Have them extend beyond the bottom step. Get help in winter weather with ice or snow removal. Last Reviewed Date: 10/05/202219995913-0906 The [employer]. All rights reserved. This information is not intended as a substitute for professional medical care. Always follow your healthcare professional's instructions. * Pt Handout (on AVS) - Edwige Alberto RN - 10/25/2023 11:59 AM EST [id number] Fall Prevention Falls often take place due to slipping, tripping, or losing your balance. Millions of people fall every year and injure themselves. Among older adults in the [place] falls are the most common cause of traumatic brain injuries. Every 20 minutes, an older adult dies from a fall. Here are ways to reduceyour risk of falling again: Think about your fall. Was there anything that caused your fall that can be fixed, removed, or replaced? Make your home safe by keeping walkways clear of objects you may trip over, such as electrical cords. Use nonslip pads under rugs. Don't use area rugs or small throw rugs. Use nonslip mats in bathtubs and showers. Hang grab rails by the toilet and inside and outside the shower. Install handrails and lights on staircases. The handrails should be on both sides of the stairs. Use night lights. Don't walk in poorly lit areas. Don't stand on chairs or wobbly ladders. Use care when reaching overhead or looking up. This position can cause a loss of balance. Be sure your shoes fit well, are in good condition, and have nonslip bottoms. Wear shoes both inside and outside of your home. Don't go barefoot or wear slippers. Be cautious when going up and down stairs, curbs, and when walking on uneven sidewalks. If your balance is poor, consider using a cane or walker. Talk with your healthcare provider about having a balance assessment. If your fall was related to alcohol use, stop or limit alcohol intake. Ask your provider for help if you think you may overuse alcohol and can't stop. If your fall was related to use of sleeping medicines, talk with your provider about this. You may need to reduce your dosage at bedtime if you wake up during the night to go to the bathroom. To reduce the need for nighttime bathroom trips: o Don't drink fluids for several hours before going to bed o Empty your bladder before going to bed o Men can keep a urinal at the bedside Stay as active as you can. Balance, flexibility, strength, and endurance all come from exercise.They all play a role in preventing falls. Ask your provider which types of activity are right for you. Try to do some type of exercise every day. Get your eyes checked once a year or more often if your vision changes If you have pets, know where they are before you stand up or walk so you don't trip over them. Go over all your medicines with a pharmacist or other provider. This is to see if any of them could make you more likely to fall. Have this type of medicine review at least once every year. If your provider advises a new medicine, ask if the side effects will affect your balance. Don't move quickly from one position to another. For instance, don't stand up fast from sitting.This can cause dizziness and may lead to a fall. Sit down when putting on pants, socks, and shoes. This will make you less likely to lose your balance and fall. Always let your provider know if you have fallen since your last visit. Contact your provider right away if you're having balance problems or falling more often. Last Reviewed Date: 11/05/202119990523-3187 The [employer]. All rights reserved. This information is not intended as a substitute for professional medical care. Always follow your healthcare professional's instructions. documented in this encounter Plan of Treatment Upcoming Encounters Date Type Department Care Team (Late st Contact Info) Description 11/20/2023 8:00 AM EST Office Visit Family Practice [address] [facility] [place] [address] [place] [address] Nikia Joyce DO [address] [facility] [place] [address] 12/12/2023 8:30 AM EST [facility] [address] [facility] [place] [address] 01/16/2024 10:30 AM EDT Office Visit Rheumatology [facility] [address] [place], [place] [address] [place] CRNP [address] [place], [place] [address] 03/04/2024 8:00 AM EDT Office Visit Nephrology, Kenisha Talbot [address] [facility] [place] [address] Oma Hernandez MD [address] [facility] [place] [address] Scheduled Referrals Name Type Priority Associated Diagnoses Orde r Schedule AUDIOLOGY REFERRAL OP Referral Within 10 days (routine) Hearing loss, bilateral Ordered: 10/25/2023 Health Maintenance Due Date Last Done Comments Hepatitis B (1 of 3 - Risk 3-dose series) 2002 FOBT ANNUALLY,AGES 18-90 07/04/2023 022, 12/05/2019, 08/19/2018, Additional history exists GFR 10/24/2023 04/24/2023, 10/05, 04/17/2022, Additional history exists HbA1c 10/24/2023 04/24/2023, 10/05, 04/17/2022, Additional history exists Diabetic Eye Exam 03/15/2024 03/15/2023, , 11/16/2022, Additional history exists CKD HGB USE SMARTSET 63110 04/24/202404/24, 10/18/2022, 04/17/2022, Additional history exists CKD PHOS USE SMARTSET 33405 04/24/202404/06, 04/17/2022, 10/10/2021, Additional history exists Diabetic Foot Exam 04/24/2024 04/24/2023, 0 07/04/2022, 05/13/2021, Additional history exists DXA Scan 06/28/2024 06/28/2022, 05/06, 05/14/2018, Additional history exists Albumin/Creatinine Ratio 08/17/2024 023, 10/18/2022, 04/17/2022, Additional history exists Depression Screening 09/24/2024 10/25/2023 DTaP,Tdap,and Td Vaccines (3 - Td or Tdap) 02/20/2027 02/20/2017, 04/10/2006 Pneumococcal Vaccine: 65+ Years Completed 01/18/2015, 12/03/2007, 01/14/2002 Zoster Vaccines Completed 04/21/2020, 12/06, 08/09/2015 VITAMIN D LEVEL ONCE IN A LIFETIME-USE SMARTSET# [id number] Completed 10/18/2022, 04/17/2022, 10/10/2021, Additional history exists [...] as of this encounter Visit Diagnoses Diagnosis Routine general medical examination at a health care facility- Primary Hearing loss, bilateral Unspecified hearing loss Chronic kidney disease, stage 3b (HCC) Diabetes mellitus (HCC) Type II or unspecified type diabetes mellitus without mention of complication, not stated as uncontrolled Diabetic gastroparesis Type II or unspecified type diabetes mellitus with neurological manifestations, not stated as uncontrolled Diabetic peripheral neuropathy (HCC) Type II or unspecified type diabetes mellitus with neurological manifestations, not stated as uncontrolled Diabetic polyneuropathy associated with type 2 diabetes mellitus (HCC) DYSLIPIDEMIA, GOAL LDL BELOW 100 Other and unspecified hyperlipidemia Gastroparesis Grieving Adjustment disorder with depressed mood Senile osteoporosis Sensorineural hearing loss (SNHL) of both ears Tinnitus of both ears Unspecified tinnitus Type 2 diabetes mellitus with hemoglobin A1c goal of less than 8.0% (HCC) 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 chronic kidney disease, without long-term current use of insulin (HCC) documented in this encounter Care Teams Marketing Analytics Lead Relationship Specialty Start Date End Date Nikia Joyce DO [address] [place] [address] PCP - General Family Medicine 07/04/22 documented as of this encounter
--- OUTSIDE RECORDS SUMMARY | 2023-10-30 19:47 | External Medical Summary | Summary of Care ---
Author Name Unknown Organization [facility] Address [address] [place] [address] Phone [phone] Care Team Providers Care Jewel Supervisor Name Role Phone Nikia Joyce DO Primary Care Provider Reason for Visit * Reason Onset Date Comments Appointment 09/24/2023 Echo Encounter Details Date Type Department Care Team (Late st Contact Info) Description 09/24/2023 Telephone Family Practice [address] [place] [address] [place] [address] Nikia Joyce DO [address] [place], [place] [phone] Appointment (Echo) Allergies No known active allergiesdocumented as of [...] hemoglobin A1c goal of less than 8.0% ([facility]) Check blood sugar once daily. E11.9 100 Strip 3 12/14/2022 Active Vitamin D (Ergocalciferol) 1.25 MG (79057 UT) Oral Capsule (Drisdol)Indication s:Vitamin D deficiency 1 tab every other week 24 Capsule 0 01/22/2023 Active Losartan Potassium 50 MG Oral Tablet (Cozaar)Indications :Type 2 diabetes mellitus with hemoglobin A1c goal of less than 8.0% ([facility]),HTN, goal below 140/90 Take 1 [...] MCG/0.3 mL, 12 YRS AND ABOVE, IM (edo-Comirnat) 08/22/2023 Covid-19, Mrna, Lnp-s, Pf, B ivalent, [...] on file documented as of this encounter Miscellaneous Notes * Telephone Encounter - Negin Correa OSA - 09/24/2023 9:48 AM EST Added to wait list. * Telephone Encounter - Mis Kasper OSA - 09/24/2023 9:45 AM EST Scheduled for December 12 for echo Would like sooner Please call with date and time documented in this encounter Plan of Treatment Upcoming Encounters Date Type Department Care Team (Late st Contact Info) Description 10/30/2023 11:00 AM EST Nurse Only Ancillary [address] [place] [address] [place] [address] College, Nurse Annual Wellness Visit [address] [facility] [address] [facility], [place] [address] 11/20/2023 8:00 AM EST Office Visit Family Practice [address] [facility], [place] [address] [facility], [place] [address] Nikia Joyce DO [address] [facility], [place] [address] 12/12/2023 8:30 AM EST Imaging Cardiac Studies, [facility] [address] [facility] [place] [address] 01/16/2024 10:30 AM EDT Office Visit Rheumatology [facility] [address] [place] [address] [place] CRNP [address] [place] [address] 03/04/2024 8:00 AM EDT Office Visit Neph[facility], [facility] [place] [address] Oma Hernandez MD 200 [facility] [place] [address] Health Maintenance Due Date Last Done Comments Hepatitis B (1 of 3 - Risk 3-dose series) 2002 FOBT ANNUALLY,AGES 18-90 07/04/202307/04/2 022, 12/05/2019, 08/19/2018, Additional history exists GFR 10/24/2023 04/24/2023, 10/05, 04/17/2022, Additional history exists HbA1c 10/24/2023 04/24/2023, 10/05, 04/17/2022, Additional history exists Diabetic Eye Exam 03/15/2024 03/15/2023, , 11/16/2022, Additional history exists CKD HGB USE SMARTSET 47559 04/24/202404/24, 10/18/2022, 04/17/2022, Additional history exists CKD PHOS USE SMARTSET 50124 04/24/202404/06, 04/17/2022, 10/10/2021, Additional history exists Diabetic [...] D LEVEL ONCE IN A LIFETIME-USE SMARTSET# [id number] Completed 10/18/2022, 04/17/2022, 10/10/2021, Additional history exists [...] filedocumented as of this encounter Care Teams Jewel Supervisor Relationship Specialty Start Date End Date Nikia Joyce DO [address] [facility] [place] [address] PCP - General Family Medicine 07/04/22 documented as of this encounter
--- OUTSIDE RECORDS SUMMARY | 2023-10-30 19:47 | External Medical Summary | Summary of Care ---
Author Name Unknown Organization [facility] Address [address] [place] [address] Phone [phone] Care Team Providers Care Bag Repairer Name Role Phone Nikia Chu DO Primary Care Provider Reason for Visit * Reason Onset Date Comments Medication Refill 09/19/2023 Encounter Details Date Type Department Care Team (Late st Contact Info) Description 09/19/2023 Refill Family Practice [address] [place] [address] [place] [address] Nikia Chu DO [address] [place], [place] [phone] HTN, goal below 140/90 Allergies No known active allergiesdocumented as of this encounter (statuses as of 09/19/2023) Medications Medication Sig Dispensed Refills Start Date [...] Active amLODIPine Besylate 10 MG Oral Tablet (Norvasc)Indicat ions:HTN, goal below 140/90 Take 1 Tablet by mouth in the morning. 90 Tablet 3 11/08/2022 Active Empagliflozin 25 MG Oral Tablet (Jardiance) Take 1 Tablet by mouth in the morning. 90 Tablet 3 11/30/2022 Active FreeStyle Lite Test In Vitro Strip (Glucose Blood)Indication s:Type 2 diabetes mellitus with hemoglobin A1c goal of less than 8.0% ([facility]) Check blood sugar once daily. E11.9 100 Strip 3 12/14/2022 Active Vitamin D (Ergocalciferol) 1.25 MG (10503 UT) Oral Capsule (Drisdol)Indicat ions:Vitamin D deficiency 1 tab every other week 24 Capsule 0 01/22/2023 Active Losartan Potassium 50 MG Oral Tablet (Cozaar)Indicati ons:Type 2 diabetes mellitus with hemoglobin A1c goal of less than 8.0% ([facility]),HTN, goal below 140/90 Take 1 Tablet by [...] Active Atorvastatin Calcium 20 MG Oral Tablet (Lipitor)Indicat ions:Dyslipidemi a, goal LDL below 100 Take 1 Tablet by mouth in the morning. 90 Tablet 1 07/31/2023 Active Metoprolol Succinate ER 25 MG Oral Tablet Extended Release 24 Hour (toPROL XL)Indications:H TN, goal below 140/90 Take 0.5 Tablets by mouth in the morning. 45 Tablet 3 09/19/2023 Active Metoprolol Succinate ER 25 MG Oral Tablet Extended Release 24 Hour (toPROL XL)Indications:H TN, goal below 140/90 Take 0.5 Tablets (12.5 mg) by mouth in the morning. 45 Tablet 3 09/13/2022 09/19/2023 Discontinue d(Refill) documented as of this encounter (statuses as of 09/19/2023) Active Problems Problem Noted Date Diagnosed Date [...] as of this encounter (statuses as of 09/19/2023) Resolved Problems Problem Noted Date Diagnosed Date [...] as of this encounter (statuses as of 09/19/2023) Immunizations Name Administration Dates Next Due COVID-19 mRNA, LNP-s, No Pre serve, 2-Dose Series (Moderna) 08/15/2021,01/01/2021,11/29/2020 COVID-19, MRNA-LNP, 23-24, P F, 30 MCG/0.3 mL, 12 YRS AND ABOVE, IM [facility] 08/22/2023 Covid-19, Mrna, Lnp-s, Pf, B ivalent, [...] encounter Miscellaneous Notes * Telephone Encounter - Miesha Bates, [facility] - 09/19/2023 4:12 PM ESTSigned Prescriptions: Disp Refills Metoprolol Succinate ER 25 MG Oral Tablet *45 Tab*3 Sig: Take 0.5 Tablets by mouth in the morning. Authorizing Provider: NIKIA CHU Ordering User: MIESHA BATES * Telephone Encounter - Mis Kasper, [place] - 09/19/2023 1:08 PM EST REQUEST FROM [facility] Pending Prescriptions: Disp Refills Metoprolol Succinate ER 25 MG Oral Tablet*45 Tab*3 Sig: Take 0.5 Tablets by mouth in the morning. Last Visit: 08/17/2023 (in office), 06/05/2023 (telemedicine) Next Visit: 09/24/2023 Last date the medication was ordered: Patient Active Problem List Diagnosis Code Dyspnea and respiratory abnormality R06.00, R06.89 Incontinence of feces R15.9 Diabetic polyneuropathy ([facility]) E11.42 ADVANCE DIRECTIVE INFORMATION Gastroparesis K31.84 DYSLIPIDEMIA, GOAL LDL BELOW 100 E78.5 Senile osteoporosis M81.0 Intractable migraine with aura without status migrainosus G43.119 Diabetic peripheral neuropathy ([facility]) E11.42 Diabetic gastroparesis E11.43, K31.84 Tinnitus of both ears H93.13 Sensorineural hearing loss (SNHL) of both ears H90.3 Type 2 diabetes mellitus with hemoglobin A1c goal of less than 8.0% ([facility]) E11.9 Chronic kidney disease, stage 3b ([facility]) N18.32 Diabetes mellitus ([facility]) E11.9 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 chronic kidney disease, without long-term current use of insulin ([facility]) E11.22, N18.32 Grieving F43.21 Labs: Lab Results Component Value Date/Time CREATININE - [facility] 1.1 (H) 04/24/2023 10:04 AM CREATININE - [facility] 1.4 (H) 10/19/2020 09:29 AM CREATININE CLEARANCE - [facility] 80 03/16/1999 09:00 AM CREATININE, 24 HOUR URINE - [facility] 0.988 03/16/1999 09:00 AM CREATININE, RANDOM URINE - [facility] 73 08/17/2023 04:05 PM CREATININE, RANDOM URINE - [facility] 234 10/19/2020 10:03 AM CREATININE-OUTSIDE LAB 1.00 01/22/2017 12:00 AM Lab Results Component Value Date/Time POTASSIUM 4.4 12/25/1996 04:16 PM POTASSIUM - [facility] 5.1 04/24/2023 10:04 AM POTASSIUM - [facility] 4.7 10/19/2020 09:29 AM POTASSIUM-OUTSIDE LAB 4.0 01/22/2017 12:00 AM Lab Results Component Value Date/Time TSH - [facility] 1.42 01/11/2015 09:10 AM Lab Results Component Value Date/Time LDL (CALCULATED) 144. (H) 10/08/1996 10:10 AM LDL CHOLESTEROL (CALCULATED) - [facility] 41 10/18/2022 07:52 AM LDL CHOLESTEROL (CALCULATED) - [facility] 86 04/17/2022 07:41 AM LDL CHOLESTEROL (CALCULATED) - [facility] 74 04/16/2020 11:55 AM LDL CHOLESTEROL (CALCULATED) - [facility] 93 07/24/2018 08:27 AM LDL CHOLESTEROL (DIRECT MEASURE) - [facility] 85 01/22/2019 08:51 AM LDL CHOLESTEROL (DIRECT MEASURE) - [facility] 65 07/27/2017 01:36 PM Lab Results Component Value Date/Time ALT - [facility] 23 10/18/2022 07:52 AM ALT - [facility] 12 04/16/2020 11:55 AM ALT-OUTSIDE LAB 22 12/30/2015 12:00 AM Hemoglobin AIC Results: Lab Results Component Value [...] - [facility] 6.3 (H) 01/22/2019 08:51 AM documented in this encounter Plan of Treatment Upcoming Encounters Date Type Department Care Team (Late st Contact Info) Description 09/24/2023 8:40 AM EST Office Visit Family Practice [address] [facility] [address] [place] [address] Nikia Chu DO 293 [place] [address] 10/30/2023 11:00 AM EST Nurse Only Ancillary [address] [facility] [address] [place] [address] College, Nurse Annual Wellness Visit [address] [place] [address], [place] [address] 01/16/2024 10:30 AM EDT Office Visit Rheumatology [place] [address] [place] [address] [place] CRNP [address] [place] [address] 03/04/2024 8:00 AM EDT Office Visit Nephrology, Kenisha Talbot 200 [facility] [place] [address] Oma Hernandez MD 200 [facility] [place] [address] Health Maintenance Due Date Last Done Comments Hepatitis B (1 of 3 - Risk 3-dose series) 2002 FOBT ANNUALLY,AGES 18-90 07/04/202307/04/2 022, 12/05/2019, 08/19/2018, Additional history exists GFR 10/24/2023 04/24/2023, 10/05, 04/17/2022, Additional history exists HbA1c 10/24/2023 04/24/2023, 10/05, 04/17/2022, Additional history exists Diabetic Eye Exam 03/15/2024 03/15/2023, , 11/16/2022, Additional history exists CKD HGB USE SMARTSET 48057 04/24/202404/24, 10/18/2022, 04/17/2022, Additional history exists CKD PHOS USE SMARTSET 27766 04/24/202404/06, 04/17/2022, 10/10/2021, Additional history exists Diabetic [...] D LEVEL ONCE IN A LIFETIME-USE SMARTSET# [id number] Completed 10/18/2022, 04/17/2022, 10/10/2021, Additional history exists [...] as of this encounter Visit Diagnoses Diagnosis HTN, goal below 140/90 Unspecified essential hypertension documented in this encounter Care Teams Bag Repairer Relationship Specialty Start Date End Date [facility] Chu DO [address] [facility] [address] PCP - General Family Medicine 07/04/22 documented as of this encounter
--- OUTSIDE RECORDS SUMMARY | 2023-10-30 19:48 | External Medical Summary | Summary of Care ---
Author Name Unknown Organization [facility] Address [address] [place] [address] Phone [phone] Care Team Providers Care Night Shift Supervisor Name Role Phone Isiah Nikiacrystal Knox DO Primary Care Provider [phone] Reason for Visit * Reason Comments Chronic Kidney Disease (CKD) Encounter Details Date Type Department Care Team Description 07/05/2023 Office Visit Nephrology, Kenisha Talbot [address] [facility] [place] [address] StrongOsiris ledezma MD [address] [facility] [place] [address] Stage 3b chronic kidney disease (HCC)*; HTN, goal below 130/80 Allergies No known active allergiesdocumented as of this encounter (statuses as of 07/15/2023) Medications Medication Sig Dispensed Refills Start Date End Date Status ASPIRIN 81 MG PO CHEW One pill by mouth once a day with food 100 5 08/11/2009 Active ProAir HFA 108 (90 Base) MCG/ACT Inhalation Aerosol Solution Inhale by mouth 2 Puffs 4 times a day . May substitute proventil or ventolin based on formulary 18 g 3 05/30/2022 Active Atorvastatin Calcium 20 MG Oral Tablet (Lipitor)Indication s:Dyslipidemia, goal LDL below 100 Take by mouth 1 Tablet in the morning. 90 Tablet 3 07/04/2022 Active Vitamin C 500 MG Oral Tablet [...] goal of less than 8.0% ([facility]) Check blood sugar once daily. E11.9 100 Strip 3 12/14/2022 Active Vitamin D (Ergocalciferol) 1.25 MG (10359 UT) Oral Capsule (Drisdol)Indication s:Vitamin D deficiency 1 tab every other week 24 Capsule 0 01/22/2023 Active Losartan Potassium 50 MG Oral Tablet (Cozaar)Indications :Type 2 diabetes mellitus with hemoglobin A1c goal of less than 8.0% ([facility]),HTN, goal below 140/90 Take 1 Tablet [...] before dinner 180 Tablet 0 05/28/2023 Active documented as of this encounter (statuses as of 07/15/2023) Active Problems Problem Noted Date Grieving 05/14/2023 [...] as of this encounter (statuses as of 07/15/2023) Resolved Problems Problem Noted Date Resolved Date [...] 01/14/2002 03/19/2007 HTN, goal below 140/90 01/14/2002 0 Overview: Per HTN Taxonomy. HYPERLIPIDEMIA NEC-NOS 06/11/2000 9 Overview: Per Lipid Taxonomy. Type 2 diabetes mellitus wit h hemoglobin A1c goal of less than 7.0% 06/11/2000 09/02/2009 Overview: Per Diabetes Taxonomy. ICD-10 update of inactive term Allergic rhinitis 2000 09/19/2006 ACUTE LARYNGITIS- resolved 02/22/200009/19 documented as of this encounter (statuses as of 07/15/2023) Immunizations Name Administration Dates Next Due COVID-19 mRNA, LNP-s, No Pre serve, 2-Dose Series (Moderna) 08/15/2021,01/01/2021,11/29/2020 Covid-19, Mrna, Lnp-s, Pf, B ivalent, 30 Mcg, IM, 12 yrs and above (Pfizer) 09/05/2022 Pneumococcal Conjugate Vacc, 13 Valent (Prevnar) 01/18/2015 Pneumococcal Polysaccharide PPV23 (Pneumovax) 12/03/2007 Season Influenza, Quad, PF, Adjuvanted, 65+ Yrs, IM (FLUAD) 07/08/2020 Seasonal Influenza, PF, 6 mo ns & Above, IM , (Flulaval) 07/08/2020,08/01/2018,07/27/2017 Seasonal Influenza, Quadriva lent Hd (Fluzone Hd) 07/27/2022 Seasonal Influenza, Quadriva lent, No Preserve, IM [...] got money to buy more. Never true 04/24/2023 Within the past 12 months, t he food you bought just didn't last and you didn't have money to get more. Never true 04/24/2023 Sex Assigned at Date Recorded Female 01/22/2023 8:09 AM E DT Job Start Date Occupation Industry Not on file Not on file Not on file documented as of this encounter Last Filed Vital Signs Vital Sign Reading Time Taken Comments Blood Pressure 119/51 07/05/2023 11:12 AM EDT Pulse 54 07/05/2023 11:12 AM EDT Temperature 35.4 C (95.7 F) 07/05/2023 1 1:12 AM EDT Respiratory Rate - - Oxygen Saturation - - Inhaled Oxygen Concentration - - Weight 53.4 kg (117 lb 12.8 oz) 023 11:12 AM EDT Height - - Body Mass Index 21.73 05/14/2023 2:48 PM EDT documented in this encounter Patient Instructions * Patient Instructions* Osiris Strong MD - 07/05/2023 11:49 AM EDT -next kidney labs in October (can get as early as mid September) blood and urine -no medication changes -avoid medicines like aleve, advil, ibuprofen, aspirin more than 81 mg daily and other NSAIDS whichare not good for kidney patients. Take only tylenol (acetaminophen) up to 2000 mg daily as needed for pain or as directed by your primary care provider. -stay active as best you can documented in this encounter Progress Notes * Osiris Strong MD - 07/05/2023 11:33 AM EDT NEPHROLOGY CLINIC NOTE [place], [facility] [address] Ken[address] [facility] [address] 07/05/2023, 11:33 AM Patient Name: Machelle King BACKGROUND: 83 year old female presents for f/u of CKD 3b with no protienuria from diabetes . Past Medical history includes diabetes since at least the mid with no retinopathy as of 11/2018. Diagnosed since 2017 with hypertension and currently on 2 agents. Also w/ osteoporosis on prolia. Pt with right kidney of 9.2cm and left kidney 10.2cm with past minimal left hydro; resolved on follow-up imaging. Did have hx of microscopic hematuria in the past but repeat ua has been negative. Urology wanted todo a cysto in the past and pt declined. 2019 [facility] from 11/02 to 11/04 with gastroenteritis. Covid Summer of 2021 treated with plaxoid Walks in [place] every other day. Also likes to do cruises, at least once a year. Home blood pressure checks: upper arm - validated November 2021 NSAID use: No Herbals/supplements: Vit d monthly History of stones: No Family history of CKD or ESRD: No Today 12/19/2022 Denies any procedures or infections.+ [place] Nitro tab helped but unsure the cause Did follow up with cardio given symptoms Reports some changes to DM medications but has not been able to control it well. Currently on Jardiance x 2 months now and reports no issues but sugars remain high. Prev of Trulicity but caused her to have no appetite and loss 20lbs in 3 months Reports drinking more water since starting shot Still cruising 1 planned for May 07/05/2023: no acute interval clinical events except that her has in interval been killed in auto accident. Pt sold her house and moved to [place]. Pt lost 20 lb w/ these events. No longer following w/ cards after negative CP w/u early 2022 > remains on BB though REVIEW OF SYSTEMS General: No fatigue; wt as above Head: No significant headache Respiratory: No cough,No wheezing, No shortness of breath Cardiovascular:No chest pain, No palpitations, and No syncope Gastrointestinal: No nausea, vomiting, diarrhea No blood in stools No abdominal pain Urinary: No dysuira, No hematuria. No flank pain ; does note some urge incontinence though not bad Musculoskeletal: No muscle/joint pains , No edema Skin: No itching Current Outpatient Medications Medication Sig Dispense Refill ASPIRIN 81 MG PO CHEW One pill by mouth once a day with food 100 5 ProAir HFA 108 (90 Base) MCG/ACT Inhalation Aerosol Solution Inhale by mouth 2 Puffs 4 times a day . May substitute proventil or ventolin based on formulary 18 g 3 Atorvastatin Calcium 20 MG Oral Tablet (Lipitor) Take by mouth 1 Tablet in the morning. 90 Tablet 3 Vitamin C 500 MG Oral Tablet (Ascorbic Acid) Take 1 Tablet by mouth in the morning. Metoprolol Succinate ER 25 MG Oral Tablet Extended Release 24 Hour (toPROL XL) Take 0.5 Tablets (12.5 mg) by mouth in the morning. 45 Tablet 3 amLODIPine Besylate 10 MG Oral Tablet (Norvasc) Take 1 Tablet by mouth in the morning. 90 Tablet 3 Empagliflozin 25 MG Oral Tablet (Jardiance) Take 1 Tablet by mouth in the morning. 90 Tablet 3 FreeStyle Lite Test In Vitro Strip (Glucose Blood) Check blood sugar once daily. E11.9 100 Strip 3 Vitamin D (Ergocalciferol) 1.25 MG (94196 UT) Oral Capsule (Drisdol) 1 tab every other week 24 Capsule 0 Losartan Potassium 50 MG Oral Tablet (Cozaar) Take 1 Tablet by mouth in the morning and 1 Tablet before bedtime. 180 Tablet 3 Ondansetron HCl 4 MG Oral Tablet Take 1 Tablet by mouth every 6 hours as needed for Nausea. 90 Tablet 0 glipiZIDE ER 2.5 MG Oral Tablet Extended Release 24 Hour (Glucotrol XL) Take 1 Tablet by mouth 2 times a day. Before lunch and before dinner 180 Tablet 0 No current facility-administered medications for this visit. Review of patient's allergies indicates: No Known Allergies PHYSICAL EXAMINATION: BP Readings from Last 6 Encounters: 07/05/23 119/51 05/14/23 112/60 04/24/23 116/60 01/22/23 134/64 12/19/22 110/48 10/24/22 120/60 Wt Readings from Last 6 Encounters: 07/05/23 53.4 kg (117 lb 12.8 oz) 05/14/23 54.4 kg (119 lb 14.4 oz) 04/24/23 53.6 kg (118 lb 1.6 oz) 01/22/23 56.2 kg (124 lb) 12/19/22 55.8 kg (123 lb) 10/24/22 56.9 kg (125 lb 8 oz) Pulse Readings from Last 6 Encounters: 07/05/23 54 05/14/23 62 04/24/23 89 01/22/23 64 12/19/22 59 10/24/22 82 NAD, oriented x 3, ambulatory w/o asst, small framed Normocephalic, atraumatic, eomi nonicteric sclerae MMM Supple neck RRR w/o m/g/r; no edema CTAB w/ reasonable air mvt NT abd, +BS, soft No cyanosis or clubbing No rash No tremor, focal or global weakness; fluent speech, good histoiran LABS: Recent Labs Units 04/24/23 1004 10/18/22 0752 04/17/22 0741 11/24/21 1556 SODIUM - [facility] mmol/L 140 138 141 140 POTASSIUM - [facility] mmol/L 5.1 4.8 4.4 4.2 CHLORIDE - [facility] mmol/L 106 101 105 104 CO2 - [facility] mmol/L 23 28 26 24 BUN - [facility] mg/dL 22* 23* 27* 26* CREATININE - [facility] mg/dL 1.1* 1.3* 1.3* 1.2* ESTIMATED GLOMERULAR FILTRATION RATE - [facility] mL/min 48* 44* 42* 45* Recent Labs Units 04/24/23 1004 10/18/22 0752 04/17/22 0741 10/10/21 0759 HGB - [facility] g/dL 12.1 10.9* 10.8* 11.0* FERRITIN - [facility] ng/mL 88 -- -- -- TRANSFERRIN SATURATION PERCENT - [facility] % -- -- Recent Labs Units 04/24/23 1004 10/18/22 0752 04/17/22 0741 11/24/21 1556 10/10/21 0759 CALCIUM - [facility] mg/dL 9.3 9.2 9.5 8.8 9.2 PHOSPHORUS - [facility] mg/dL 3.5 -- 3.9 -- 3.9 25-HYDROXY VITAMIN D - [facility] ng/mL -- 34 23 -- 26 PTH - [facility] pg/mL -- -- 39 -- 37 Recent Labs Units 04/24/23 1004 10/18/22 0752 04/17/22 0742 10/10/21 0759 HEMOGLOBIN A1C - [facility] % 7.5* 7.7* 7.1* 7.0* Recent Labs Units 10/18/22 0752 04/17/22 0749 10/10/21 0758 ALBUMIN / CREATININE RATIO, URINE - [facility] mg/g Creat 25 <16 15 Recent Labs Units 10/10/21 0758 CLARITY, URINE - [facility] Clear GLUCOSE, URINE - [facility] mg/dL Negative BILIRUBIN, URINE - [facility] Negative KETONE, URINE - [facility] mg/dL Negative SPECIFIC GRAVITY, URINE - [facility] 1.019 BLOOD, URINE - [facility] Negative PH, URINE - [facility] Units 6.0 PROTEIN, URINE - [facility] mg/dL Trace* UROBILINOGEN, URINE - [facility] mg/dL Normal NITRITE, URINE - [facility] Negative ESTERASE, URINE - [facility] Large* BACTERIA, URINE - [facility] /HPF 0-25 WBC, URINE - [facility] /HPF 6-9* RBC, URINE - [facility] /HPF 0-2 ASSESSMENT AND PLAN: Stage 3b chronic kidney disease (HCC) (Primary) HTN, goal below 130/80 Follow Up: Return in about 8 months (around 03/04/2024) for clinic visit w/ , clinic visit w/ RENUKA. | For: clinic visit w/ , clinic visit w/ RENUKA Last labs on April show renal function better than baseline though I suspect this relates more to wt loss than to actual improvement in renal funciotn. ACR Oct 2022 reviewed> no protienuria. -cont losartan, dose ok -rechekc labs in Oct BP controlled on amlodipine , losartan, metoprolol > cont current doses Lifestyle measures encouraged Patient Instructions -next kidney labs in October (can get as early as mid September) blood and urine -no medication changes -avoid medicines like aleve, advil, ibuprofen, aspirin more than 81 mg daily and other NSAIDS whichare not good for kidney patients. Take only tylenol (acetaminophen) up to 2000 mg daily as needed for pain or as directed by your primary care provider. -stay active as best you can Osiris Strong MD Nephrology, [facility] [address] [facility] [address] CC: Ref: OSIRIS STRONG[[id number]] [address] [place] [address] (office) [phone] (fax) PCP: [place] [address] [phone] This chart was completed in part utilizing [employer] Speech Voice Recognition Software. Randomword insertions, pronoun errors, and incomplete sentences are an occasional consequence of this system due to software limitations, and ambient noise. Any questions or concerns about the content, text, or information contained within the body of this dictation should be directly addressed to the provider for clarification. documented in this encounter Nursing Notes * Jesi Bruner LPN - 07/05/2023 11:10 AM EDT Return patient- no recent illness or hospitalizations. Pt stated no swelling in legs. No concerns at this time. documented in this encounter Plan of Treatment Upcoming Encounters Date Type Specialty Care Team Description 07/16/2023 Office Visit Family Medicine Nikia Chu DO [address] [place] [address] 07/16/2023 Office Visit [facility], Pharmacist [address] [place] [address] 08/20/2023 Nurse Only [employer], Nurse Annual Wellness Visit [address] [place] [address] 01/08/2024 Office Visit Rheumatology [place] CRNP [address] [place] [address] 03/04/2024 Office Visit Nephrology Osiris Strong MD [address] [facility] [place] [address] Health Maintenance Due Date Last Done Comments FOBT ANNUALLY,AGES 18-90 07/04/2023 022, 12/05/2019, 08/19/2018, Additional history exists Influenza Vaccine (FLU shot) (#1) 2023 07/27/2022, 07/11/2021, 07/08/2020, Additional history exists Albumin/Creatinine Ratio 10/18/2023 022, 04/17/2022, 10/10/2021, Additional history exists GFR 10/24/2023 04/24/2023, 10/05, 04/17/2022, Additional history exists HbA1c 10/24/2023 04/24/2023, 10/05, 04/17/2022, Additional history exists DIABETES-EYE EXAM 03/15/2024 03/15/2023, , 09/05/2021, Additional history exists CKD HGB USE SMARTSET 42392 04/24/202404/24, 10/18/2022, 04/17/2022, Additional history exists CKD PHOS USE SMARTSET 76746 04/24/202404/06, 04/17/2022, 10/10/2021, Additional history exists Diabetic Foot Exam 04/24/2024 04/24/2023, 0 07/04/2022, 05/13/2021, Additional history exists Depression Screening 05/14/2024 05/14/2023 DXA Scan 06/28/2024 06/28/2022, 05/06, 05/14/2018, Additional history exists DTaP,Tdap,and Td Vaccines (3 - Td or Tdap) 02/20/2027 02/20/2017, 04/10/2006 Pneumococcal Vaccine: 65+ Years Completed 01/18/2015, 12/03/2007, 01/14/2002 Zoster Vaccines Completed 04/21/2020, 12/06, 08/09/2015 COVID-19 Vaccine Completed 09/05/2022, 09/2021, 01/01/2021, Additional history exists VITAMIN D LEVEL ONCE IN A LIFETIME-USE SMARTSET# [id number] Completed 10/18/2022, 04/17/2022, 10/10/2021, Additional history exists GARDASIL-HPV IMMUNIZATION SERIES Aged [...] as of this encounter Visit Diagnoses Diagnosis Stage 3b chronic kidney disease (HCC)- Primary HTN, goal below 130/80 Unspecified essential hypertension documented in this encounter Care Teams Night Shift Supervisor Relationship Specialty Start Date End Date Nikia Chu, [address] [address] PCP - General Family Medicine 07/04/22 documented as of this encounter"
--- OUTSIDE RECORDS SUMMARY | 2023-10-30 19:48 | External Medical Summary | Summary of Care ---
Author Name Unknown Organization [facility] Address [address] [place] [address] Phone [phone] Care Team Providers Care Oil Change Technician Name Role Phone Nikia Chu DO Primary Care Provider Reason for Visit * Reason Onset Date Comments Medication Refill 05/24/2023 Encounter Details Date Type Department Care Team Description 05/24/2023 Refill Family Practice [address] [place] [phone] Nikia Chu DO [address] [place] [address] Allergies No known active allergiesdocumented as of this encounter (statuses as of 05/24/2023) Medications Medication Sig Dispensed Refills Start Date [...] ions:Dyslipidemi a, goal LDL below 100 Take by mouth [...] hemoglobin A1c goal of less than 8.0% ([facility]) Check blood sugar once daily. E11.9 100 Strip 3 12/14/2022 Active Vitamin D (Ergocalciferol) 1.25 MG (45916 UT) Oral Capsule (Drisdol)Indicat ions:Vitamin D deficiency 1 tab every other week 24 Capsule 0 01/22/2023 Active Losartan Potassium 50 MG Oral Tablet (Cozaar)Indicati ons:Type 2 diabetes mellitus with hemoglobin A1c goal of less than 8.0% ([facility]),HTN, goal below 140/90 Take 1 [...] Before lunch and before dinner 180 Tablet 3 05/24/2023 Active glipiZIDE ER 2.5 MG Oral Tablet Extended Release 24 Hour (Glucotrol XL) Take 1 Tablet by mouth 2 times a day. Before lunch and before dinner 180 Tablet 1 12/26/2022 05/24/2023 Discontinue d(Refill) documented as of this encounter (statuses as of 05/24/2023) Active Problems Problem Noted Date Grieving 05/14/2023 [...] as of this encounter (statuses as of 05/24/2023) Resolved Problems Problem Noted Date Resolved Date [...] Overview: Based on GFR of 59.1 on 1/23/08. Encounter for long-term (current) use of medicat [...] as of this encounter (statuses as of 05/24/2023) Immunizations Name Administration Dates Next Due COVID-19 mRNA, LNP-s, No Pre serve, 2-Dose Series (Moderna) 08/15/2021,01/01/2021,11/29/2020 Covid-19, Mrna, Lnp-s, Pf, B ivalent, 30 Mcg, IM, 12 yrs and above (Pfizer) 09/05/2022 Pneumococcal Conjugate Vacc, 13 Valent (Prevnar) 01/18/2015 Pneumococcal Polysaccharide PPV23 (Pneumovax) 12/03/2007 Seasonal Influenza, Quadriva lent Hd (Fluzone Hd) 07/27/2022 Seasonal Influenza, Quadriva lent, No Preserve, 6 Mons & Above, IM 07/08/2020,08/01/2018,07/27/2017 Seasonal Influenza, Quadriva lent, No Preserve, Adjuvanted, 65+ Yrs, IM 07/08/2020 Seasonal Influenza, Quadriva lent, No Preserve, IM [...] encounter Miscellaneous Notes * Telephone Encounter - Nikia Chu DO - 05/24/2023 1:29 PM EDTSigned Prescriptions: Disp Refills glipiZIDE ER 2.5 MG Oral Tablet Extended R*180 Ta*3 Sig: Take 1 Tablet by mouth 2 times a day. Before lunch and before dinner Authorizing Provider: NIKIA CHU * Telephone Encounter - Edwige Subramanian LPN - 05/24/2023 1:24 PM EDTPending Prescriptions: Disp Refills glipiZIDE ER 2.5 MG Oral Tablet Extended R*180 Ta*3 Sig: Take 1 Tablet by mouth 2 times a day. Before lunch and before dinner * Telephone Encounter - TORY [place] - 05/24/2023 10:15 AM EDT Pharmacy requesting supply Pending Prescriptions: Disp Refills glipiZIDE ER 2.5 MG Oral Tablet Extended *180 Ta*1 Sig: Take 1 Tablet by mouth 2 times a day. Before lunch and before dinner Last Visit: 05/14/2023 (in office), 12/26/2022 (telemedicine) Next Visit: 06/05/2023 Last date the medication was ordered: Patient Active Problem List Diagnosis Code Dyspnea and respiratory abnormality R06.00, R06.89 Incontinence of feces R15.9 Diabetic polyneuropathy ([facility]) E11.42 ADVANCE DIRECTIVE INFORMATION Gastroparesis K31.84 DYSLIPIDEMIA, GOAL LDL BELOW 100 E78.5 Senile osteoporosis M81.0 Intractable migraine with aura without status migrainosus G43.119 Diabetic peripheral neuropathy ([facility]) E11.42 Diabetic gastroparesis ([facility]) E11.43, K31.84 Tinnitus of both ears H93.13 Sensorineural hearing loss (SNHL) of both ears H90.3 Type 2 diabetes mellitus with hemoglobin A1c goal of less than 8.0% ([facility]) E11.9 Chronic kidney disease, stage 3b ([facility]) N18.32 Diabetes mellitus ([facility]) E11.9 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 chronic kidney disease, without long- term current use ofinsulin ([facility]) E11.22, N18.32 Grieving F43.21 Labs: Lab Results Component Value Date/Time CREATININE - [facility] 1.1 (H) 04/24/2023 10:04 AM CREATININE - [facility] 1.4 (H) 10/19/2020 09:29 AM CREATININE CLEARANCE - [facility] 80 03/16/1999 09:00 AM CREATININE, 24 HOUR URINE - [facility] 0.988 03/16/1999 09:00 AM CREATININE, RANDOM URINE - [facility] 192 10/18/2022 07:52 AM CREATININE, RANDOM URINE - [facility] 234 10/19/2020 [...] Encounters Date Type Specialty Care Team Description 06/05/2023 Telemedicine [facility], Pharmacist [address] [address] 07/05/2023 Office Visit Nephrology Oma Hernandez MD [address] [place] [address] 07/16/2023 Office Visit [facility] Nikia Messina DO [address] [place] [address] 08/20/2023 Nurse Only [facility], Nurse Annual Wellness Visit [address] [address] 08/24/2023 Office Visit [facility] Nikia Messina DO [address] [place] [address] Health Maintenance Due Date Last Done Comments FOBT ANNUALLY,AGES 18-90 07/04/20232 022, 12/05/2019, 08/19/2018, Additional history exists Influenza Vaccine (FLU shot) (#1) 2023 07/27/2022, 07/11/2021, 07/08/2020, Additional history exists Albumin/Creatinine Ratio 10/18/20232 022, 04/17/2022, 10/10/2021, Additional history exists GFR 10/24/2023 04/24/2023, 10/05, 04/17/2022, Additional history exists HbA1c 10/24/2023 04/24/2023, 10/05, 04/17/2022, Additional history exists DIABETES-EYE EXAM 03/15/2024 03/15/2023, , 09/05/2021, Additional history exists CKD HGB USE SMARTSET [id number] 04/24/202404/24, 10/18/2022, 04/17/2022, Additional history exists CKD PHOS USE SMARTSET 31376 04/24/202404/06, 04/17/2022, 10/10/2021, Additional history exists DIABETES-FOOT EXAM 04/24/2024 04/24/2023, 0 07/04/2022, 05/13/2021, Additional history exists Depression Screening, Annual for Pts 12 and Over 05/14/2024 05/14/2023 DXA Scan 06/28/2024 06/28/2022, 05/06, 05/14/2018, Additional history exists DTaP,Tdap,and Td Vaccines (3 - Td or Tdap) 02/20/2027 02/20/2017, 04/10/2006 Pneumococcal Vaccine: 65+ Years Completed 01/18/2015, 12/03/2007, 01/14/2002 Zoster Vaccines Completed 04/21/2020, 12/06, 08/09/2015 COVID-19 Vaccine Completed 09/05/2022, 09/2021, 01/01/2021, Additional history exists VITAMIN D LEVEL ONCE IN A LIFETIME-USE SMARTSET# [id number] Completed 10/18/2022, 04/17/2022, 10/10/2021, Additional history exists [...] filedocumented as of this encounter Care Teams Oil Change Technician Relationship Specialty Start Date End Date Nikia Chu, DO [address] [place] [address] PCP - General Family Medicine 07/04/22 documented as of this encounter
--- OUTSIDE RECORDS SUMMARY | 2023-10-30 19:48 | External Medical Summary | Summary of Care ---
Author Name Unknown Organization [facility] Address [address] [place] [address] Phone [phone] Care Team Providers Care Ergonomics Engineer Name Role Phone Nikia Joyce DO Primary Care Provider [phone] Reason for Visit * Reason Comments Follow Up Encounter Details Date Type Department Care Team Description 05/14/2023 Office Visit Family Practice [address] [place] [address] [place] [address] Nikia Joyce DO [address] [place] [address] Grieving*; Hypertensive kidney disease with stage 3b chronic kidney disease (HCC) Allergies No known active allergiesdocumented as of this encounter (statuses as of 05/14/2023) Medications Medication Sig Dispensed Refills Start Date [...] Active Atorvastatin Calcium 20 MG Oral Tablet (Lipitor)Indicati ons:Dyslipidemia, goal LDL below 100 Take by mouth 1 Tablet in the morning. 90 Tablet 3 07/04/2022 Active Vitamin C 500 MG Oral Tablet (Ascorbic Acid) Take 1 Tablet by mouth in the morning. 0 08/08/2022 Active Metoprolol Succinate ER 25 MG Oral Tablet Extended Release 24 Hour (toPROL XL)Indications:HT N, goal below 140/90 Take 0.5 Tablets (12.5 mg) by mouth in the morning. 45 Tablet 3 09/13/2022 Active amLODIPine Besylate 10 MG Oral Tablet (Norvasc)Indicati ons:HTN, goal below 140/90 Take 1 Tablet by mouth in the morning. 90 Tablet 3 11/08/2022 Active Empagliflozin 25 MG Oral Tablet (Jardiance) Take 1 Tablet by mouth in the morning. 90 Tablet 3 11/30/2022 Active FreeStyle Lite Test In Vitro Strip (Glucose Blood)Indications :Type 2 diabetes mellitus with hemoglobin A1c goal of less than 8.0% ([facility]) Check blood sugar once daily. E11.9 100 Strip 3 12/14/2022 Active glipiZIDE ER 2.5 MG Oral Tablet Extended Release 24 Hour (Glucotrol XL) Take 1 Tablet by mouth 2 times a day. Before lunch and before dinner 180 Tablet 1 12/26/2022 Active Vitamin D (Ergocalciferol) 1.25 MG (93687 UT) Oral Capsule (Drisdol)Indicati ons:Vitamin D deficiency 1 tab every other week 24 Capsule 0 01/22/2023 Active Losartan Potassium 50 MG Oral Tablet (Cozaar)Indicatio ns:Type 2 diabetes mellitus with hemoglobin A1c goal of less than 8.0% (HCC),HTN, goal below 140/90 Take 1 Tablet by mouth in the morning and 1 Tablet before bedtime. 180 Tablet 3 01/22/2023 Active Ondansetron HCl 4 MG Oral Tablet Take 1 Tablet by mouth every 6 hours as needed for Nausea. 90 Tablet 0 03/08/2023 Active Rizatriptan Benzoate 10 MG Oral Tablet DisintegratingInd ications:Migraine with aura, intractable PLACE 1 TABLET ON TONGUE NEEDED FOR MIGRAINE, MAY REPEAT IN 2 HOURS IF NEEDED 30 Tablet 4 06/28/2022 3 Discontinued documented as of this encounter (statuses as of 05/14/2023) Active Problems Problem Noted Date Grieving 05/14/2023 [...] as of this encounter (statuses as of 05/14/2023) Resolved Problems Problem Noted Date Resolved Date [...] as of this encounter (statuses as of 05/14/2023) Immunizations Name Administration Dates Next Due COVID-19 [...] Sign Reading Time Taken Comments Blood Pressure 112/60 05/14/2023 2:48 PM EDT Pulse 62 05/14/2023 2:48 PM EDT Temperature 36.6 C (97.8 F) 05/14/2023 2:48 PM ED T Respiratory Rate - - Oxygen Saturation 98% 05/14/2023 2:48 PM EDT Inhaled Oxygen Concentration - - Weight 54.4 kg (119 lb 14.4 oz) 05/14/2023 2:48 PM EDT Height 156.8 cm (5' 1.73") 05/14/2023 2:48 PM ED T Body Mass Index 22.12 05/14/2023 2:48 PM EDT documented in this encounter Patient Instructions * Patient Instructions* Nikia Joyce DO - 05/14/2023 3:34 PM EDT -TIDES- Grief Support [phone] documented in this encounter Progress Notes * Nikia Joyce DO - 05/14/2023 2:49 PM EDT SUBJECTIVE: Chief Complaint Patient presents with Follow Up HPI: Machelle King is a 83 year old female who presents today for an acute visit. Daughter called in stating she felt she needed medication in dealing with her 's . Pt states that she feels she is doing ok. She states that she has her moments and will cry at times. She states that she is mostly just angry at the impaired starting gate driver that killed her . She states that she is working to clean out her home for her yard sale. She is on a wait list for [employer] and will be living with her daughter in the meantime. Pt is accompanied by a friend today who feels she is appropriately grieving. She is generally not crying. She remains active and enjoys doing things. She is sleeping and eating ok. PHM: Patient Active Problem List Diagnosis Code Dyspnea and respiratory abnormality R06.00, R06.89 Incontinence of feces R15.9 Diabetic polyneuropathy ([facility]) E11.42 ADVANCE DIRECTIVE INFORMATION Gastroparesis K31.84 DYSLIPIDEMIA, GOAL LDL BELOW 100 E78.5 Senile osteoporosis M81.0 Intractable migraine with aura without status migrainosus G43.119 Diabetic peripheral neuropathy ([facility]) E11.42 Diabetic gastroparesis ([facility]) E11.43, K31.84 Tinnitus of both ears H93.13 Sensorineural hearing loss (SNHL) of both ears H90.3 Type 2 diabetes mellitus with hemoglobin A1c goal of less than 8.0% ([facility]) E11.9 Chronic kidney disease, stage 3b ([facility]) N18.32 Diabetes mellitus ([facility]) E11.9 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 chronic kidney disease, without long- term current use ofinsulin ([facility]) E11.22, N18.32 Grieving F43.21 Current Outpatient Medications [...] Release 24 Hour (toPROL XL) Take 0.5 Tablets(12.5 mg) by mouth in the morning. 45 Tablet 3 amLODIPine Besylate 10 MG Oral Tablet (Norvasc) Take 1 Tablet by mouth in the morning. 90 Tablet 3 Empagliflozin 25 MG Oral Tablet (Jardiance) Take 1 Tablet by mouth in the morning. 90 Tablet 3 glipiZIDE ER 2.5 MG Oral Tablet Extended Release 24 Hour (Glucotrol XL) Take 1 Tablet by mouth 2 times a day. Before lunch and before dinner 180 Tablet 1 Vitamin D (Ergocalciferol) 1.25 MG (09409 UT) Oral Capsule (Drisdol) 1 tab every other week 24 Capsule 0 Losartan Potassium 50 MG Oral Tablet (Cozaar) Take 1 Tablet by mouth in the morning and 1 Tablet before bedtime. 180 Tablet 3 Ondansetron HCl 4 MG Oral Tablet Take 1 Tablet by mouth every 6 hours as needed for Nausea. 90 Tablet 0 FreeStyle Lite Test In Vitro Strip (Glucose Blood) Check blood sugar once daily. E11.9 100 Strip 3 No current facility-administered medications for this visit. [...] Salpingo-Oophorectomy US ENDOSCOPIC 01/22/2017 normal bx, CBD dilation/[facility] [place] Review of patient's allergies indicates: No Known [...] tightness, shortness of breath and wheezing. Cardiovascular: Negative for chest pain, palpitations and leg swelling. Gastrointestinal: Negative for abdominal pain, constipation, diarrhea, nausea and vomiting. Musculoskeletal: Negative for arthralgias, gait problem and joint swelling. Skin: Negative for color change, pallor and rash. Psychiatric/Behavioral: As per HPI OBJECTIVE: BP 112/60 | Pulse 62 | Temp 36.6 C (97.8 F) | Ht 1.568 m (5' 1.73") | Wt 54.4 kg (119 lb 14.4 oz) | SpO2 98% | BMI 22.12 kg/m | BSA 1.54 m PHYSICAL EXAM: Physical Exam Constitutional: General: [...] oriented to person, place, and time. ASSESSMENT/PLAN: (F43.21) Grieving (primary encounter diagnosis) Plan: Pt appropriately grieving at this point. She does not feel that she needs medication and I doagree. She is not limited in her day to day by her grief. She is preparing her home to sell. She iseating and sleeping well. She did meet with the asset protection detective and notes she is on top of that information and deciding if she will go to court. She will call with any changes in how she is doing. (I12.9, N18.32) Hypertensive kidney disease with stage 3b chronic kidney disease (HCC) Plan: No current issues. Lab studies up to date. Continue to follow with nephrology. Follow-up: 2 months Total time today including reviewing chart before the visit, pertinent labs, imaging reports, face to face time, and documentation time was 36 minutes. Nikia Joyce DO documented in this encounter Plan of Treatment Upcoming Encounters Date Type Specialty Care Team Description 06/05/2023 Telemedicine [facility], Pharmacist [address] [place] [address] 07/03/2023 Office Visit Rheumatology Riya Mcdonald PA-C 07/05/2023 Office Visit Nephrology Oma Hernandez MD [address] [address] 07/16/2023 Office Visit Family Medicine Nikia Joyce, DO [address] [facility] [place] [address] 08/20/2023 Nurse Only Ancillary [place], Nurse Annual Wellness Visit [address] [place] [address] 08/24/2023 Office Visit Family [facility] Nikia Joyce, DO [address] [facility] [address] Health Maintenance Due Date Last Done Comments [...] Additional history exists CKD HGB USE SMARTSET 01028 04/24/202404/24, 10/18/2022, 04/17/2022, Additional history exists CKD PHOS USE SMARTSET 86074 04/24/202404/06, 04/17/2022, 10/10/2021, Additional history exists DIABETES-FOOT EXAM 04/24/2024 04/24/2023, 0 07/04/2022, 05/13/2021, Additional history exists Depression Screening, Annual for Pts 12 and Over 04/24/2024 04/24/2023 DXA Scan 06/28/2024 06/28/2022, 05/06, 05/14/2018, Additional history exists DTaP,Tdap,and Td Vaccines (3 - Td or Tdap) 02/20/2027 02/20/2017, 04/10/2006 Pneumococcal Vaccine: 65+ Years Completed 01/18/2015, 12/03/2007, 01/14/2002 Zoster Vaccines Completed 04/21/2020, 12/06, 08/09/2015 COVID-19 Vaccine Completed 09/05/2022, 09/2021, 01/01/2021, Additional history exists VITAMIN D LEVEL ONCE IN A LIFETIME-USE SMARTSET# 20159 Completed 10/18/2022, 04/17/2022, 10/10/2021, Additional history exists [...] as of this encounter Visit Diagnoses Diagnosis Grieving- Primary Adjustment disorder with depressed mood Hypertensive kidney disease with stage 3b chronic kidney disease (HCC) documented in this encounter Care Teams Ergonomics Engineer Relationship Specialty Start Date End Date Nikia Joyce, DO [address] [place] [address] PCP - General Family Medicine 07/04/22 documented as of this encounter
--- OUTSIDE RECORDS SUMMARY | 2023-10-30 19:48 | External Medical Summary | Summary of Care ---
Author Name Unknown Organization [facility] Address [address] [place] [address] Phone [phone] Care Team Providers Care Bunch Breaker Machine Operator Name Role Phone Nikia Joyce DO Primary Care Provider Reason for Visit * Reason Comments Dosage Adjustment Via Phone (anticoag Cl inic) Diabetes Follow-Up Encounter Details Date Type Department Care Team Description 06/05/2023 Telemedicine Family Practice 65 [facility] [address] [place] [id number] College, Pharmacist [address] [address] Type 2 diabetes mellitus with hemoglobin A1c goal of less than 8.0% ([facility])* Allergies No known active allergiesdocumented as of this encounter (statuses as of 06/05/2023) Medications Medication Sig Dispensed Refills Start Date [...] A1c goal of less than 8.0% ([facility]) Check blood sugar once daily. E11.9 100 Strip 3 12/14/2022 Active Vitamin D (Ergocalciferol) 1.25 MG (60975 UT) Oral Capsule (Drisdol)Indication s:Vitamin D deficiency 1 tab every other week 24 Capsule 0 01/22/2023 Active Losartan Potassium 50 MG Oral Tablet (Cozaar)Indications :Type 2 diabetes mellitus with hemoglobin A1c goal of less than 8.0% ([facility]),HTN, goal below 140/90 Take 1 Tablet by [...] as of this encounter (statuses as of 06/05/2023) Active Problems Problem Noted Date Grieving 05/14/2023 [...] as of this encounter (statuses as of 06/05/2023) Resolved Problems Problem Noted Date Resolved Date [...] as of this encounter (statuses as of 06/05/2023) Immunizations Name Administration Dates Next Due COVID-19 [...] on file documented as of this encounter Progress Notes * Yoko Guerrier RPh - 06/05/2023 11:56 AM EDT Diabetes telephone follow - up 06/05/2023 Patient Phone Numbers - Reason for contacting patient: Following up with patient on recent sugars. She reports that she'sout of state, and feeling less depressed lately. She reports sugars are better now with less stress- averaging 150. - Current diabetic medications: HOLD Ozempic 0.25 mg every week Jardiance 25 mg1 tabletdaily Glipizide 2.5 mg -1tabbefore lunch and 1 tab before supper eGFR 48on 04/24/23 - Glucose review/ SMBG: Reports that readings are averaging 150. Denies any low blood sugars. Therapy Management Assessment/Plan: 1) Diabetes: Patient's sugars appear to be well controlled. Will continue current regimen at this time. Jardiance 25 mg1 tabletdaily Glipizide 2.5 mg -1tabbefore lunch and 1 tab before supper eGFR 48on 04/24/23 Follow up in 6 weeks or sooner as needed. Yoko Berg RPh, Pharm D Clinical Pharmacist [facility]ication [facility] 06/05/2023, 11:56 AM documented in this encounter Plan of Treatment Upcoming Encounters Date Type Specialty Care Team Description 07/05/2023 Nurse Only Rheumatology [facility], Nurse Rheum [address] [place] [address] 07/05/2023 Office Visit Nephrology Oma Hernandez MD [address] [place] [address] 07/16/2023 Office Visit [facility] Nikia Joyce, DO [address] [place] [address] 07/16/2023 Office Visit [facility], Pharmacist [address] [address] 08/20/2023 Nurse Only Ancillary [employer], Nurse Annual Wellness Visit [address] [address] 08/24/2023 Office Visit [facility] Nikia Joyce, DO [address] [place] [address] Health Maintenance Due Date Last Done Comments [...] Additional history exists CKD HGB USE SMARTSET 73514 04/24/202404/24, 10/18/2022, 04/17/2022, Additional history exists CKD PHOS USE SMARTSET 96236 04/24/202404/06, 04/17/2022, 10/10/2021, Additional history exists DIABETES-FOOT [...] D LEVEL ONCE IN A LIFETIME-USE SMARTSET# 17983 Completed 10/18/2022, 04/17/2022, 10/10/2021, Additional history exists [...] as of this encounter Visit Diagnoses Diagnosis Type 2 diabetes mellitus with hemoglobin A1c goal of less than 8.0% (HCC)- Primary documented in this encounter Care Teams Bunch Breaker Machine Operator Relationship Specialty Start Date End Date Nikia Joyce, [address] [place] [address] PCP - General Family Medicine 07/04/22 documented as of this encounter
--- OUTSIDE RECORDS SUMMARY | 2023-10-30 19:48 | External Medical Summary | Summary of Care ---
Author Name Unknown Organization [facility] Address [address] [place] [address] Phone [phone] Care Team Providers Care Worm Raiser Name Role Phone Nikia Joyce DO Primary Care Provider [phone] Reason for Visit * Reason Comments Dosage Adjustment In Person (Anticoag Cl inic) Diabetes Follow-Up Encounter Details Date Type Department Care Team Description 07/16/2023 Office Visit Family Practice 65 [facility] [address] [place] [address] [place], Pharmacist [address] [address] Type 2 diabetes mellitus with hemoglobin A1c goal of less than 8.0% ([facility])* Allergies No known active allergiesdocumented as of this encounter (statuses as of 07/16/2023) Medications Medication Sig Dispensed Refills Start Date [...] hemoglobin A1c goal of less than 8.0% ([facility]) Check blood sugar once daily. E11.9 100 Strip 3 12/14/2022 Active Vitamin D (Ergocalciferol) 1.25 MG (73150 UT) Oral Capsule (Drisdol)Indication s:Vitamin D deficiency 1 tab every other week 24 Capsule 0 01/22/2023 Active Losartan Potassium 50 MG Oral Tablet (Cozaar)Indications :Type 2 diabetes mellitus with hemoglobin A1c goal of less than 8.0% ([facility]),HTN, goal below 140/90 Take 1 [...] as of this encounter (statuses as of 07/16/2023) Active Problems Problem Noted Date Grieving 05/14/2023 [...] as of this encounter (statuses as of 07/16/2023) Resolved Problems Problem Noted Date Resolved Date [...] as of this encounter (statuses as of 07/16/2023) Immunizations Name Administration Dates Next Due COVID-19 [...] got money to buy more. Never true 07/16/2023 Within the past 12 months, t he food you bought just didn't last and you didn't have money to get more. Never true 07/16/2023 Sex Assigned at Date Recorded Female 01/22/2023 8:09 AM E DT Job Start Date Occupation Industry Not on file Not on file Not on file documented as of this encounter Progress Notes * Yoko Guerrier, [facility] - 07/16/2023 2:50 PM EDT Medication Therapy Disease [facility] - Diabetes Management Progress Note Machelle King, identified by name and date of , is a 83 year old female being seen for diabetes management/education. Patient presents for return diabetic visit. DIABETES: Current diabetic medications: Jardiance 25 mg 1 tablet daily Glipizide 2.5 mg - 1 tab before lunch and 1 tab before supper eGFR 48 on 04/24/23 Medication Injection Site: N/A Lifestyle: Diet: unchanged Glucose Review/SMBG: Readings per patient memory/recall: Patient is currently testing 1 times a dayin the morning. Reports usually in 120s Hypoglycemia: Does your blood sugar go below 70 mg/dL? No Hyperglycemia symptoms present: none Recent Labs Units 04/24/23 1004 10/18/22 0752 04/17/22 0742 HEMOGLOBIN A1C - [facility] % 7.5* 7.7* 7.1* Recent Labs Units 04/24/23 1004 10/18/22 0752 04/17/22 0741 ESTIMATED GLOMERULAR FILTRATION RATE - [facility] mL/min 48* 44* 42* CREATININE - [facility] mg/dL 1.1* 1.3* 1.3* HYPERTENSION: Patient on ACEi/ARB: yes BP Readings from Last 3 Encounters: 07/16/23 110/52 07/05/23 119/51 05/14/23 112/60 Blood pressure at goal: yes HYPERLIPIDEMIA: Patient is taking moderate or high intensity statin: yes HEALTH MAINTENANCE REVIEW: Health Maintenance Due Topic Date Due FOBT ANNUALLY,AGES 18-90 07/04/2023 Influenza Vaccine (FLU shot) (1) 07/06/2023 ASSESSMENT & PLAN: ICD-10-CM 1. Type 2 diabetes mellitus with hemoglobin A1c goal of less than 8.0% ([facility]) E11.9 BG Readings - Blood sugars controlled. Medications - Reviewed current regimen, patient is adherent to regimen. Diet, Exercise, Lifestyle - No significant lifestyle changes since last visit. Discussed with patient making sure she's getting enough protein. Patient is agreeable to SMBG 1 time(s) daily rotating. Patient aware to contact clinic if any hypoglycemia before next visit. MEDICATION CHANGES: no change Diabetic Medications: Jardiance 25 mg 1 tablet daily Glipizide 2.5 mg - 1 tab before lunch and 1 tab before supper eGFR 48 on 04/24/23 HEALTH MAINTENANCE INTERVENTIONS: Labs: Up to Date Immunizations: needs flu - doesn't want today Foot Exam: Up to Date Eye Exam: Up to Date Annual Wellness Visit: Up to Date FOLLOW UP: Follow up with PCP as A1c at goal and no changes being made. 09/24/2023 Yoko Berg [facility] Clinical Pharmacist - [place] Medication Therapy Management [facility] 07/16/2023, 2:51 PM documented in this encounter Plan of Treatment Upcoming Encounters Date Type Specialty Care Team Description 09/24/2023 [facility] [address] 10/30/2023 Nurse Only Ancillary [employer], Nurse Annual Well[facility] [address] [facility] [address] 01/08/2024 Office Visit Rheumatology [place] CRNP [address] [place] [address] [place], [place] [address] 03/04/2024 Office Visit Nephrology HernandezOma ledezma MD [address] [facility] [place], [place] [address] Health Maintenance Due Date Last Done Comments FOBT ANNUALLY,AGES 18-90 07/04/2023 , 12/05/2019, 08/19/2018, Additional history exists Influenza Vaccine (FLU shot) (#1) 2023 07/27/2022, 07/11/2021, 07/08/2020, Additional history exists Albumin/Creatinine Ratio 10/18/2023 022, 04/17/2022, 10/10/2021, Additional history exists GFR 10/24/2023 04/24/2023, 10/05, 04/17/2022, Additional history exists HbA1c 10/24/2023 04/24/2023, 10/05, 04/17/2022, Additional history exists DIABETES-EYE EXAM 03/15/2024 03/15/2023, , 09/05/2021, Additional history exists CKD HGB USE SMARTSET 99146 04/24/202404/24, 10/18/2022, 04/17/2022, Additional history exists CKD PHOS USE SMARTSET 60045 04/24/202404/06, 04/17/2022, 10/10/2021, Additional history exists Diabetic [...] D LEVEL ONCE IN A LIFETIME-USE SMARTSET# 21707 Completed 10/18/2022, 04/17/2022, 10/10/2021, Additional history exists [...] Primary documented in this encounter Care Teams Worm Raiser Relationship Specialty Start Date End Date Nikia Joyce, DO [address] [facility] [place] [address] PCP - General Family Medicine 07/04/22 documented as of this encounter
--- OUTSIDE RECORDS SUMMARY | 2023-10-30 19:48 | External Medical Summary | Summary of Care ---
Author Name Unknown Organization [facility] Address [address] [place] [address] Phone [phone] Care Team Providers Care Land Leases And Rentals Manager Name Role Phone Nikia Joyce DO Primary Care Provider [phone] Reason for Visit * Reason Onset Date Comments Appointment 05/26/2023 Encounter Details Date Type Department Care Team Description 05/26/2023 Telephone Family Practice [address] [place] [address] [place] [address] Nikia Joyce DO [address] [place] [address] Appointment Allergies No known active allergiesdocumented as of this encounter (statuses as of 06/01/2023) Medications Medication Sig Dispensed Refills Start Date [...] hemoglobin A1c goal of less than 8.0% ([facility]) Check blood sugar once daily. E11.9 100 Strip 3 12/14/2022 Active Vitamin D (Ergocalciferol) 1.25 MG (75960 UT) Oral Capsule (Drisdol)Indication s:Vitamin D deficiency 1 tab every other week 24 Capsule 0 01/22/2023 Active Losartan Potassium 50 MG Oral Tablet (Cozaar)Indications :Type 2 diabetes mellitus with hemoglobin A1c goal of less than 8.0% ([facility]),HTN, goal below 140/90 Take 1 Tablet by mouth in the morning and 1 Tablet before bedtime. 180 Tablet 3 01/22/2023 Active Ondansetron HCl 4 MG Oral Tablet Take 1 Tablet by mouth every 6 hours as needed for Nausea. 90 Tablet 0 03/08/2023 Active documented as of this encounter (statuses as of 06/01/2023) Active Problems Problem Noted Date Grieving 05/14/2023 [...] as of this encounter (statuses as of 06/01/2023) Resolved Problems Problem Noted Date Resolved Date [...] as of this encounter (statuses as of 06/01/2023) Immunizations Name Administration Dates Next Due COVID-19 [...] encounter Miscellaneous Notes * Telephone Encounter - TORY Elizabeth - 06/01/2023 8:32 AM EDT Spoke to pt and scheduled * Telephone Encounter - Sridhar Montoya MD - 06/01/2023 7:44 AM EDT Yes she can be placed on nurses schedule for prolia 07/03 or later then scheduled with Daphnie TOTH for inperson visit after that * Telephone Encounter - Zandra Zapien LPN - 05/29/2023 9:09 AM EDT She is on the recall list for appt and Prolia, can we just put her on for a nurse visit? * Telephone Encounter - TORY Altamirano - 05/29/2023 8:53 AM EDT Pt called back checking on prolia appointment at the end of June. On recall. Thank you * Telephone Encounter - TORY Romeo - 05/26/2023 3:48 PM EDT Pt calling in to make rheum appt documented in this encounter Plan of Treatment Upcoming Encounters Date Type Specialty Care Team Description 06/05/2023 Telemedicine [facility], Pharmacist [address] [facility] [address] [place] [address] 07/05/2023 Nurse Only Rheumatology Pf, Nurse Rheum [address] [place] [address] 07/05/2023 Office Visit Nephrology HernandezOma ledezma MD [address] [place] [address] 07/16/2023 Office Visit [facility] Medicine Nikia Joyce, DO [address] [place] [address] 08/20/2023 Nurse Only [employer], Nurse Annual Wellness Visit [address] [facility] [address] [place] [address] 08/24/2023 Office Visit [facility] Medicine Nikia Joyce, DO [address] [place] [address] Health Maintenance Due Date Last Done Comments [...] Additional history exists CKD HGB USE SMARTSET 10432 04/24/202404/24, 10/18/2022, 04/17/2022, Additional history exists CKD PHOS USE SMARTSET 76769 04/24/202404/06, 04/17/2022, 10/10/2021, Additional history exists DIABETES-FOOT [...] D LEVEL ONCE IN A LIFETIME-USE SMARTSET# [id number] Completed 10/18/2022, 04/17/2022, 10/10/2021, Additional history exists [...] filedocumented as of this encounter Care Teams Land Leases And Rentals Manager Relationship Specialty Start Date End Date Nikia Joyce, [address] [place] [address] PCP - General Family Medicine 07/04/22 documented as of this encounter
--- OUTSIDE RECORDS SUMMARY | 2023-10-30 19:48 | External Medical Summary | Summary of Care ---
Author Name Unknown Organization [facility] Address [address] [place] [address] Phone [phone] Care Team Providers Care Assembler Engine Name Role Phone Nikia Joyce DO Primary Care Provider Reason for Visit * Reason Onset Date Comments Advice 05/10/2023 Encounter Details Date Type Department Care Team Description 05/10/2023 Telephone Family Practice [address] [place] [address] [place] [address] Nikia Joyce DO [address] [place] [address] Advice Allergies No known active allergiesdocumented as of this encounter (statuses as of 07/03/2023) Medications Medication Sig Dispensed Refills Start Date End Date Status ASPIRIN 81 MG PO CHEW One pill by mouth once a day with food 100 5 9 Active ProAir HFA 108 (90 Base) MCG/ACT Inhalation Aerosol Solution Inhale by mouth 2 Puffs 4 times a day . May substitute proventil or ventolin based on formulary 18 g 3 2 Active Atorvastatin Calcium 20 MG Oral Tablet (Lipitor)Indicat ions:Dyslipidemi a, goal LDL below 100 Take by mouth 1 Tablet in the morning. 90 Tablet 3 2 Active Vitamin C 500 MG Oral Tablet (Ascorbic Acid) Take 1 Tablet by mouth in the morning. 0 2 Active Metoprolol Succinate ER 25 MG Oral Tablet Extended Release 24 Hour (toPROL XL)Indications:H TN, goal below 140/90 Take 0.5 Tablets (12.5 mg) by mouth in the morning. 45 Tablet 3 2 Active amLODIPine Besylate 10 MG Oral Tablet (Norvasc)Indicat ions:HTN, goal below 140/90 Take 1 Tablet by mouth in the morning. 90 Tablet 3 3 Active Empagliflozin 25 MG Oral Tablet (Jardiance) Take 1 Tablet by mouth in the morning. 90 Tablet 3 3 Active FreeStyle Lite Test In Vitro Strip (Glucose Blood)Indication s:Type 2 diabetes mellitus with hemoglobin A1c goal of less than 8.0% ([facility]) Check blood sugar once daily. E11.9 100 Strip 3 3 Active Vitamin D (Ergocalciferol) 1.25 MG (49648 UT) Oral Capsule (Drisdol)Indicat ions:Vitamin D deficiency 1 tab every other week 24 Capsule 0 3 Active Losartan Potassium 50 MG Oral Tablet (Cozaar)Indicati ons:Type 2 diabetes mellitus with hemoglobin A1c goal of less than 8.0% (HCC),HTN, goal below 140/90 Take 1 Tablet by mouth in the morning and 1 Tablet before bedtime. 180 Tablet 3 3 Active Ondansetron HCl 4 MG Oral Tablet Take 1 Tablet by mouth every 6 hours as needed for Nausea. 90 Tablet 0 3 Active Scopolamine 1 MG/3DAYS Transdermal Patch 72 Hour (Transderm-Scop (1.5 MG))Indications: Sea sickness, initial encounter Place 1 Patch topically on the skin every 3 days. 4 hours before event. May replace every 3 days. . 10 Patch 1 1 05/10/20 23 Discontinued(Pat ient preference/disco ntinuation) Rizatriptan Benzoate 10 MG Oral Tablet DisintegratingIn dications:Migrai ne with aura, intractable PLACE 1 TABLET ON TONGUE NEEDED FOR MIGRAINE, MAY REPEAT IN 2 HOURS IF NEEDED 30 Tablet 4 2 05/14/20 23 Discontinued glipiZIDE ER 2.5 MG Oral Tablet Extended Release 24 Hour (Glucotrol XL) Take 1 Tablet by mouth 2 times a day. Before lunch and before dinner 180 Tablet 1 3 05/24/20 23 Discontinued(Ref ill) Ozempic (0.25 or 0.5 MG/DOSE) 2 MG/3ML Solution Pen-injector (Semaglutide(0.2 5 or 0.5MG/DOS)) Inject 0.25 mg under the skin once a week. 3 mL 1 3 05/10/20 23 Discontinued(Pat ient preference/disco ntinuation) documented as of this encounter (statuses as of 07/03/2023) Active Problems Problem Noted Date Grieving 05/14/2023 [...] as of this encounter (statuses as of 07/03/2023) Resolved Problems Problem Noted Date Resolved Date [...] as of this encounter (statuses as of 07/03/2023) Immunizations Name Administration Dates Next Due COVID-19 mRNA, LNP-s, No Pre serve, 2-Dose Series (Moderna) 08/15/2021,01/01/2021,11/29/2020 Covid-19, Mrna, Lnp-s, Pf, B ivalent, 30 Mcg, IM, 12 yrs and above ([employer]) 09/05/2022 Pneumococcal Conjugate Vacc, 13 Valent (Prevnar) [...] encounter Miscellaneous Notes * Telephone Encounter - Yoko Guerrier, [facility] - 05/10/2023 12:24 PM EDT Diabetes telephone follow - up 05/10/2023 Patient Phone Numbers - Reason for contacting patient: Patient reports that she heard from [employer] [facility] that the ozempic needs a prior auth. Pharmacist needs to call [phone] - ozempic. Called [facility] and had clinical questions faxed to the office. Ozempic 0.25 mg weekly. Casenumber [phone]. - Current diabetic medications: START Ozempic 0.25 mg every week - hasn't started needs prior auth. Jardiance 25 mg1 tabletdaily Glipizide 2.5 mg -1tabbefore lunch and 1 tab before supper eGFR 44on 10/18/22 Hemoglobin AIC Results: Lab Results Component Value Date/Time HEMOGLOBIN A1C - [facility] 7.5 (H) 04/24/2023 10:04 AM HEMOGLOBIN A1C - [facility] 7.7 (H) 10/18/2022 07:52 AM HEMOGLOBIN A1C - [facility] 7.1 (H) 04/17/2022 07:42 AM Therapy Management Assessment/Plan: 1) Diabetes: Upon further review, patient is currently having issues with significant constipation.Ozempic can make this even worse. Will hold off on starting ozempic due to this as well as BMI is WNL and A1c improved. HOLD Ozempic 0.25 mg every week Jardiance 25 mg1 tabletdaily Glipizide 2.5 mg -1tabbefore lunch and 1 tab before supper eGFR 48on 04/24/23 Follow up in 1 month as planned Yoko Berg RPh, Pharm D Clinical Pharmacist [facility] 05/10/2023, 12:25 PM * Telephone Encounter - Edwige Subramanian LPN - 05/10/2023 10:53 AM EDT Georgie daughter states that patient has not had a bm, just got back from vacation for 8 days did nothave a bm for at least a week prior. Med rec done, denies N/V, denies pain in stomach. Also having problems with depression, Machelle's spouse end of February and Machelle is struggling. Miralax twice daily and stool softener twice daily. Increase fruits and veggies. Encourage water. Encourage some walking. Will send to DR Joyce, patient would like appt. Thank you * Telephone Encounter - TORY Washington - 05/10/2023 10:29 AM EDT Called and left a message on machine that she needs to speak with the pharmacist Please call documented in this encounter Plan of Treatment Upcoming Encounters Date Type Specialty Care Team Description 07/05/2023 Nurse Only Rheumatology Pf, Nurse Rheum [address] [place] [address] 07/05/2023 Office Visit Nephrology Oma Hernandez MD [address] [place] [address] 07/16/2023 Office Visit Family Nikia Messina DO [address] [place] [address] 07/16/2023 Office Visit [facility], Pharmacist [address] [address] 08/20/2023 Nurse Only [facility], Nurse Annual Wellness Visit [address] [facility] [address] [place] [address] 08/24/2023 Office Visit Family Nikia Messina DO [address] [place] [address] Health Maintenance Due Date Last Done Comments [...] Additional history exists CKD HGB USE SMARTSET 08123 04/24/202404/24, 10/18/2022, 04/17/2022, Additional history exists CKD PHOS USE SMARTSET 37407 04/24/202404/06, 04/17/2022, 10/10/2021, Additional history exists DIABETES-FOOT [...] D LEVEL ONCE IN A LIFETIME-USE SMARTSET# [id number] Completed 10/18/2022, 04/17/2022, 10/10/2021, Additional history exists [...] Primary documented in this encounter Care Teams Assembler Engine Relationship Specialty Start Date End Date Nikia Joyce, [address] [place] [address] PCP - General Family Medicine 07/04/22 documented as of this encounter
--- OUTSIDE RECORDS SUMMARY | 2023-10-30 19:48 | External Medical Summary | Summary of Care ---
Author Name Unknown Organization [facility] Address [address] [place] [address] Phone [phone] Care Team Providers Care Sweeper Cleaner Industrial Name Role Phone Nikia Joyce DO Primary Care Provider [phone] Reason for Visit * Reason Comments Follow Up Encounter Details Date Type Department Care Team Description 07/16/2023 Office Visit Family Practice [address] [place] [address] [place] [address] Nikia Joyce DO [address] [place] [address] Acute pain of left knee*; Type 2 diabetes mellitus with hemoglobin A1c goal of less than 8.0% (HCC); 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 chronic kidney disease, without long-term current use of insulin (HCC); Special screening for malignant neoplasms, colon Allergies No known active allergiesdocumented as of [...] 12/14/2022 Active Vitamin D (Ergocalciferol) 1.25 MG (26738 UT) Oral Capsule (Drisdol)Indication s:Vitamin D deficiency [...] Sign Reading Time Taken Comments Blood Pressure 110/52 07/16/2023 2:28 PM EDT Pulse 56 07/16/2023 2:28 PM EDT Temperature 36.2 C (97.2 F) 07/16/2023 2:28 PM ED T Respiratory Rate - - Oxygen Saturation 98% 07/16/2023 2:28 PM EDT Inhaled Oxygen Concentration - - Weight 53.2 kg (117 lb 4.8 oz) 07/16/2023 2:28 P M EDT Height - - Body Mass Index 21.64 05/14/2023 2:48 PM EDT documented in this encounter Patient Instructions * Patient Instructions* Matilda Marino LPN - 07/16/2023 2:28 PM EDT Colorectal Cancer Screening Colorectal cancer (cancer in the colon or rectum) is a leading cause of cancer deaths in the [facility] [facility]. But it doesnt have to be. When this cancer is found and removed early, the chances of a full recovery are very good. Because colorectal cancer rarely causes symptoms in its early stages, screening for the disease is important. Its even more crucial if you have risk factors for the disease. Learn more about colorectal cancer and its risk factors. Then talk to your doctor about being screened. You could be saving your own life. Risk Factors for Colorectal Cancer Your risk of having colorectal cancer increases if you: Are 50 years of age or older. Have a family history or personal history of colorectal cancer or adenomatous polyps. Have a personal history of colorectal polyps, Crohns disease, or ulcerative colitis. Have a family history of multiple concurrent solid-tumor cancers. The Colon and Rectum A RICHA can detect a growth in the rectum or anus. Waste from food you eat enters the colon from the small intestine. As it travels through the colon,the waste (stool) loses water and becomes more solid. Intestinal muscles push it toward the sigmoid--the last section of the colon. Stool then moves into the rectum, where its stored until its ready to leave the body during a bowel movement. How Cancer Develops Polyps are growths that form on the lining of the colon or rectum. Most are benign, which means they arent cancerous. But over time, polyps can become malignant (cancerous). This occurs when cellsin these polyps begin growing abnormally. In time, malignant cells invade more and more of the colon and rectum. The cancer may also spread to nearby organs or lymph nodes or to other parts of the body. Finding and removing polyps can help prevent cancer from ever forming. Your Screening Screening means looking for a medical problem before you have symptoms. During screening for colorectal cancer, your doctor will ask about your medical history, examine you, and do one or more tests. History and Exam Medical History: Your doctor will ask about your medical history. Mention if a family member has had colon cancer or polyps. Also mention any health problems you have had in the past. Digital Rectal Exam (RICHA): During a RICHA, the doctor inserts a lubricated gloved finger into the rectum. The test is painless and takes less than a minute. Possible Tests Fecal Occult Blood Test: This test checks for occult blood in stool (blood you cant see). Hiddenblood may be a sign of colon polyps or cancer. A small sample of stool is tested for blood in a laboratory. Most often, you collect this sample at home using a kit your doctor gives you. Follow the instructions carefully for using this kit. Avoid certain foods and medications before the test, as directed. Barium Enema with Contrast: This test uses x-rays to provide images of the entire colon and rectum.Bowel prep is also needed the day before this test. You will be awake for the test, but you may be given medication to help you relax. At the start of the text, a radiologist (a doctor who specializes in imaging tests) inserts a soft tube into the rectum. The tube is used to fill the colon with a contrast liquid (barium). The liquid helps the colon show up clearly on the x-rays. Scope Exams Colonoscopy: This is the best test doctors have for finding and removing colorectal polyps. The daybefore the test, you will do a bowel prep to cleanse your colon. You will be given instructions forthis. Just before the test, you are given a medication to make you sleepy. Then, a long, flexible, lighted tube called a colonoscope is gently inserted into the rectum and guided through the entire colon. Images of the colon are viewed on a video screen. Any polyps that are found are removed and sent to a lab for testing. If a polyp cant be removed, a sample of tissue is taken and the polyp isremoved later during surgery. A variation of this test, called virtual colonoscopy, may be an option. Your doctor can tell you more. Sigmoidoscopy: This test is similar to colonoscopy, but focuses only on the sigmoid colon and rectum. As with colonoscopy, bowel prep must be done the day before this test. You are awake during the procedure, but you may be given medication to help you relax. During the test, the doctor guides a thin, flexible, lighted tube called a sigmoidoscope through your rectum and lower colon. The images are displayed on a video screen. Polyps are removed, if possible, and sent to a lab for testing. Risk and Complications of Scope Exams Bleeding A puncture or tear in the colon Risks of anesthesia Failure to detect a polyp When to Call Your Doctor After a Test Call your doctor if you have any of the following after any screening test: Bleeding Fever over 101F Abdominal pain 1207-8908 [employer], [address] [place] [address], [place] [address]. All rights reserved. This information is not intended as a substitute for professional medical care. Always follow your healthcare professional's instructions. documented in this encounter Progress Notes * Nikia Joyce, DO - 07/16/2023 2:37 PM EDT SUBJECTIVE: Chief Complaint Patient presents with Follow Up HPI: Machelle King is a 83 year old female who presents today for regular return. [facility] She is going on a cruise next week. She feels that she is overall doing well since the passing of her . Pt notes that she had a fall. She fell on the ramp of the truck. She notes that she was not paying attention where the ramp was. It was very uncomfortable. It is getting better. It was nearly 2 weeksago. She has been able to bear weight. She notes her left knee is what hit the ramp. The swelling has gone down. PHM: Patient Active Problem List Diagnosis Code Dyspnea and respiratory abnormality R06.00, R06.89 Incontinence of feces R15.9 Diabetic polyneuropathy ([facility]) E11.42 ADVANCE DIRECTIVE INFORMATION Gastroparesis K31.84 DYSLIPIDEMIA, GOAL LDL BELOW 100 E78.5 Senile osteoporosis M81.0 Intractable migraine with aura without status migrainosus G43.119 Diabetic peripheral neuropathy ([facility]) E11.42 Diabetic gastroparesis ([facility]) E11.43, K31.84 Tinnitus of both ears H93.13 Sensorineural hearing loss (SNHL) of both ears H90.3 Type 2 diabetes mellitus with hemoglobin A1c goal of less than 8.0% ([facility]) E11.9 Chronic kidney disease, stage 3b ([facility]) N18.32 Diabetes mellitus ([facility]) E11.9 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 chronic kidney disease, without long-term current use of insulin ([facility]) E11.22, N18.32 Grieving F43.21 Current Outpatient Medications [...] Tablet 3 Vitamin D (Ergocalciferol) 1.25 MG (95716 UT) Oral Capsule (Drisdol) 1 tab every [...] lunch and before dinner 180 Tablet 0 FreeStyle Lite Test In Vitro [...] US ENDOSCOPIC 01/22/2017 normal bx, CBD dilation/[facility] Review of patient's allergies indicates: No Known [...] pain, constipation, diarrhea, nausea and vomiting. Musculoskeletal: Positive for arthralgias and joint swelling. Negative for gait problem. Skin: Negative for color change, pallor and rash. OBJECTIVE: BP 110/52 | Pulse 56 | Temp 36.2 C (97.2 F) | Wt 53.2 kg (117 lb 4.8 oz) | SpO2 98% | BMI 21.64kg/m | BSA 1.52 m PHYSICAL EXAM: Physical Exam Constitutional: General: [...] tenderness. There is no guarding. Musculoskeletal: General: Tenderness (anterior left knee, just below patella) and deformity (lump just below left patella) present. Normal range of motion. Skin: General: Skin is warm and dry. Coloration: Skin is not pale. Findings: No erythema or rash. Neurological: Mental Status: She is alert and oriented to person, place, and time. ASSESSMENT/PLAN: (M25.562) Acute pain of left knee (primary encounter diagnosis) Plan: XR KNEE 1-2 VIEWS No fracture per my read. Will await radiology reading. Ice to area. Can use tylenol if needed. To monitor. (E11.9) Type 2 diabetes mellitus with hemoglobin A1c goal of less than 8.0% (HCC) (E11.22, N18.32) 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 chronic kidney disease, without long-term current use of insulin (HCC) Plan: Pt will remain on current regimen. She is tolerating it well. No issues. Lab studies at next visit. Will see MTM today. (Z12.11) Special screening for malignant neoplasms, colon Plan: FECAL OCCULT BLOOD, EIA Pt would like to complete FOBT. Order in. Follow-up: 3 months Total time today including reviewing chart before the visit, pertinent labs, imaging reports, face to face time, and documentation time was 36 minutes. Nikia Joyce DO documented in this encounter Nursing Notes * Matilda Marino LPN - 07/16/2023 2:20 PM EDT Fall on 07/05 - tripped over a ramp. Has a lump below her knee on her L leg. documented in this encounter Plan of Treatment Upcoming Encounters Date Type Specialty Care Team Description 09/24/2023 Office Visit Family Medicine Nikia Joyce DO [address] [facility] [place] [address] 10/30/2023 Nurse Only [employer], Nurse Annual Wellness Visit [address] [facility] [address] [facility], [place] [address] 01/08/2024 Office Visit Rheumatology [place] CRNP [address] [facility] [place], [place] [address] 03/04/2024 Office Visit Nephrology Oma Hernandez MD [address] [place], [place] [address] Pending Results Name Type Priority Associated Diagnoses Date /Time XR KNEE 1-2 VIEWS Medical Imaging Routine Acute pain of left knee 07/16/2023 3:10 PM EDT Scheduled Orders Name Type Priority Associated Diagnoses Orde r Schedule FECAL OCCULT BLOOD, EIA Lab Routine Special screening for malignant neoplasms, colon Expected: 07/16/2023 (Approximate), Expires: 07/15/2024 Health Maintenance Due Date Last Done Comments [...] Additional history exists CKD HGB USE SMARTSET 89142 04/24/202404/24, 10/18/2022, 04/17/2022, Additional history exists CKD PHOS USE SMARTSET 44519 04/24/202404/06, 04/17/2022, 10/10/2021, Additional history exists Diabetic [...] D LEVEL ONCE IN A LIFETIME-USE SMARTSET# [id number] Completed 10/18/2022, 04/17/2022, 10/10/2021, Additional history exists [...] as of this encounter Visit Diagnoses Diagnosis Acute pain of left knee- Primary Type 2 diabetes mellitus with hemoglobin A1c goal of less than 8.0% (HCC) 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 chronic kidney disease, without long-term current use of insulin (HCC) Special screening for malignant neoplasms, colon documented in this encounter Care Teams Sweeper Cleaner Industrial Relationship Specialty Start Date End Date Nikia Joyce DO [address] [facility] [place] [address] PCP - General Family Medicine 07/04/22 documented as of this encounter"
--- OUTSIDE RECORDS SUMMARY | 2023-10-30 19:48 | External Medical Summary | Summary of Care ---
Author Name Unknown Organization [facility] Address [address] [place] [address] Phone [phone] Care Team Providers Care Change Management Specialist Name Role Phone Nikia Joyce DO Primary Care Provider Reason for Visit * Reason Onset Date Comments Medication Question 08/17/202308/17 Encounter Details Date Type Department Care Team Description 08/17/2023 [facility]phone [facility] [address] [place] [address] Nikia Joyce DO [address] [place] [address] Medication Question (08/17) Allergies No known active allergiesdocumented as of this encounter (statuses as of 08/17/2023) Medications Medication Sig Dispensed Refills Start Date [...] A1c goal of less than 8.0% ([facility]) Check blood sugar once daily. E11.9 100 Strip 3 12/14/2022 Active Vitamin D (Ergocalciferol) 1.25 MG (44221 UT) Oral Capsule (Drisdol)Indication s:Vitamin D deficiency 1 tab every other week 24 Capsule 0 01/22/2023 Active Losartan Potassium 50 MG Oral Tablet (Cozaar)Indications :Type 2 diabetes mellitus with hemoglobin A1c goal of less than 8.0% ([facility]),HTN, goal below 140/90 Take 1 Tablet by [...] as of this encounter (statuses as of 08/17/2023) Active Problems Problem Noted Date Grieving 05/14/2023 [...] as of this encounter (statuses as of 08/17/2023) Resolved Problems Problem Noted Date Resolved Date [...] as of this encounter (statuses as of 08/17/2023) Immunizations Name Administration Dates Next Due COVID-19 [...] encounter Miscellaneous Notes * Telephone Encounter - Edwige Subramanian LPN - 08/17/2023 3:08 PM EDT Patient states that she is very itchy on the outside of her vagina. No drainage. Does have some burning with urination. Scheduled ov today. Thank you * Telephone Encounter - Edwige Subramanian LPN - 08/17/2023 3:05 PM EDT Called, left message for patient to return call. Thank you * Telephone Encounter - TORY Washington - 08/17/2023 2:46 PM EDT Thinks she has a yeast infection Started two days ago Would like something called in documented in this encounter Plan of Treatment Upcoming Encounters Date Type Specialty Care Team Description 08/17/2023 Office Visit Family Medicine Nikia Joyce, DO [address] [place] [address] 09/24/2023 Office Visit Family Medicine Nikia Joyce, DO [address] [place] [address] 10/30/2023 Nurse Only [employer] [employer], Nurse Annual Wellness Visit [address] [facility] [address] [place] [address] 01/16/2024 Office Visit Rheumatology Lore Lake CRNP [address] [address] 03/04/2024 Office Visit Nephrology Oma Hernandez MD [address] [place] [address] Health Maintenance Due Date Last Done Comments FOBT ANNUALLY,AGES 18-90 07/04/2023 022, 12/05/2019, 08/19/2018, Additional history exists COVID-19 Vaccine ( season) 2023 09/05/2022, 08/15/2021, 01/01/2021, Additional history exists Albumin/Creatinine Ratio 10/18/2023 022, 04/17/2022, 10/10/2021, Additional history exists GFR 10/24/2023 04/24/2023, 10/05, 04/17/2022, Additional history exists HbA1c 10/24/2023 04/24/2023, 10/05, 04/17/2022, Additional history exists DIABETES-EYE EXAM 03/15/2024 03/15/2023, , 09/05/2021, Additional history exists CKD HGB USE SMARTSET 51433 04/24/202404/24, 10/18/2022, 04/17/2022, Additional history exists CKD PHOS USE SMARTSET 64477 04/24/202404/06, 04/17/2022, 10/10/2021, Additional history exists Diabetic Foot Exam 04/24/2024 04/24/2023, 0 07/04/2022, 05/13/2021, Additional history exists DXA Scan 06/28/2024 06/28/2022, 05/06, 05/14/2018, Additional history exists Depression Screening 07/16/2024 07/16/2023 DTaP,Tdap,and Td Vaccines (3 - Td or Tdap) 02/20/2027 02/20/2017, 04/10/2006 Pneumococcal Vaccine: 65+ Years Completed 01/18/2015, 12/03/2007, 01/14/2002 Zoster Vaccines Completed 04/21/2020, 12/06, 08/09/2015 VITAMIN D LEVEL ONCE IN A LIFETIME-USE SMARTSET# 77880 Completed 10/18/2022, 04/17/2022, 10/10/2021, Additional history exists [...] filedocumented as of this encounter Care Teams Change Management Specialist Relationship Specialty Start Date End Date Nikia Joyce, DO [address] [place] [address] PCP - General Family Medicine 07/04/22 documented as of this encounter
--- OUTSIDE RECORDS SUMMARY | 2023-10-30 19:48 | External Medical Summary | Summary of Care ---
Author Name Unknown Organization [facility] Address [address] [place] [address] Phone [phone] Care Team Providers Care Straight Knife Cutter Machine Name Role Phone Nikia Joyce DO Primary Care Provider [phone] Encounter Details Date Type Department Care Team Description 07/30/2023 Immunization Ancillary [address] [facility] [address] [place] [address] College, [facility] [address] [place] [address] Arrived Allergies No known active allergiesdocumented as of this encounter (statuses as of 07/30/2023) Medications Medication Sig Dispensed Refills Start Date [...] hemoglobin A1c goal of less than 8.0% ([facility]) Check blood sugar once daily. E11.9 100 Strip 3 12/14/2022 Active Vitamin D (Ergocalciferol) 1.25 MG (73724 UT) Oral Capsule (Drisdol)Indication s:Vitamin D deficiency 1 tab every other week 24 Capsule 0 01/22/2023 Active Losartan Potassium 50 MG Oral Tablet (Cozaar)Indications :Type 2 diabetes mellitus with hemoglobin A1c goal of less than 8.0% ([facility]),HTN, goal below 140/90 Take 1 Tablet [...] as of this encounter (statuses as of 07/30/2023) Active Problems Problem Noted Date Grieving 05/14/2023 [...] as of this encounter (statuses as of 07/30/2023) Resolved Problems Problem Noted Date Resolved Date [...] as of this encounter (statuses as of 07/30/2023) Immunizations Name Administration Dates Next Due COVID-19 [...] Visit Family Medicine Nikia Joyce, DO [address] [place] [address] 10/30/2023 Nurse Only [facility], Nurse Annual Wellness Visit [address] [place] [address] 01/08/2024 Office Visit Rheumatology Lore Lake CRNP [address] [place] [address] 03/04/2024 Office Visit Nephrology Oma Hernandez MD [address] [place] [address] Health Maintenance Due Date Last Done Comments FOBT ANNUALLY,AGES 18-90 07/04/2023 022, 12/05/2019, 08/19/2018, Additional history exists Influenza Vaccine (FLU shot) (#1) 2023 07/30/2023, 07/27/2022, 07/11/2021, Additional history exists Albumin/Creatinine Ratio 10/18/2023 022, 04/17/2022, 10/10/2021, Additional history exists GFR 10/24/2023 04/24/2023, 10/05, 04/17/2022, Additional history exists HbA1c 10/24/2023 04/24/2023, 10/05, 04/17/2022, Additional history exists DIABETES-EYE EXAM 03/15/2024 03/15/2023, , 09/05/2021, Additional history exists CKD HGB USE SMARTSET 84150 04/24/202404/24, 10/18/2022, 04/17/2022, Additional history exists CKD PHOS USE SMARTSET 41229 04/24/202404/06, 04/17/2022, 10/10/2021, Additional history exists Diabetic [...] D LEVEL ONCE IN A LIFETIME-USE SMARTSET# 68468 Completed 10/18/2022, 04/17/2022, 10/10/2021, Additional history exists [...] filedocumented as of this encounter Care Teams Straight Knife Cutter Machine Relationship Specialty Start Date End Date Nikia Joyce, DO [address] [place] [address] PCP - General Family Medicine 07/04/22 documented as of this encounter
--- OUTSIDE RECORDS SUMMARY | 2023-10-30 19:48 | External Medical Summary | Summary of Care ---
Author Name Unknown Organization [facility] Address [address] [place] [address] Phone [phone] Care Team Providers Care Divinity Teacher Name Role Phone MeganNikia allison Primary Care Provider [phone] Reason for Visit * Reason Onset Date Comments Medication Administration Prolia Medication Administration 07/05/2023 Prolia * Precert (Within 10 days (routine)) - Authorized Specialty Diagnoses / Procedures Referred By Contac t Referred To Contact Rheumatology Diagnoses Age-related osteoporosis without current pathological fracture Procedures NM DENOSUMAB INJECTION Sridhar Montoya MD [facility] [place] [address] Referral ID Status Reason Start Date Expiration Date V isits Requested Visits Authorized [id number] Authorized Precert 01/05/2023 11/04/[phone] Encounter Details Date Type Department Care Team Description 07/05/2023 Nurse Only Rheumatology [address] [place] [address] Pf, Nurse Rheum [address] [place] [address] [place] [id number] Medication Administration (Prolia); Medica... Allergies No known active allergiesdocumented as of this encounter (statuses as of 07/05/2023) Medications Medication Sig Dispensed Refills Start Date [...] hemoglobin A1c goal of less than 8.0% ([facility]) Check blood sugar once daily. E11.9 100 Strip 3 12/14/2022 Active Vitamin D (Ergocalciferol) 1.25 MG (31174 UT) Oral Capsule (Drisdol)Indication s:Vitamin D deficiency [...] before dinner 180 Tablet 0 05/28/2023 Active Hospital, Clinic, or Other Facility Administered Medication Ordered Dose Route Frequency Start Date End Date Status Denosumab (Prolia) subcut inj 60 mgIndications:Senile osteoporosis 60 mg SC ONCE 07/05/2023 07/05/2023 Ended documented as of this encounter (statuses as of 07/05/2023) Active Problems Problem Noted Date Grieving 05/14/2023 [...] as of this encounter (statuses as of 07/05/2023) Resolved Problems Problem Noted Date Resolved Date [...] as of this encounter (statuses as of 07/05/2023) Immunizations Name Administration Dates Next Due COVID-19 [...] Never Smokeless Tobacco: Never Tobacco Cessation:Counseling Given: Not Answered Alcohol Use Standard Drinks/Week Comments No 0 [...] Sign Reading Time Taken Comments Blood Pressure - - Pulse - - Temperature 36.3 C (97.4 F) 07/05/2023 8:46 AM ED T Respiratory Rate - - Oxygen Saturation - - Inhaled Oxygen Concentration - - Weight - - Height - - Body Mass Index - - documented in this encounter Patient Instructions * Patient Instructions* Darrion Ardon LPN - 07/05/2023 8:47 AM EDT MEDICATION GUIDE Prolia (NM-rachele-a) (denosumab) Injection Read the Medication Guide that comes with Prolia before you start taking it and each time you get arefill. There may be new information. This Medication Guide does not take the place of talking withyour doctor about your medical condition or treatment. Talk to your doctor if you have any questions about Prolia. What is the most important information I should know about Prolia? Prolia can cause serious side effects includin. Low calcium levels in your blood (hypocalcemia). Prolia may lower the calcium levels in your blood. If you have low blood calcium before you start receiving Prolia, it may get worse during treatment. Your low blood calcium must be treated before you receive Prolia. Most people with low blood calcium levels do not have symptoms, but some people may have symptoms. Call your doctor right away if you have symptoms of low blood calcium such as: Spasms, twitches, or cramps in your muscles Numbness or tingling in your fingers, toes, or around your mouth Your doctor may prescribe calcium and vitamin D to help prevent low calcium levels in your blood while you take Prolia. Take calcium and vitamin D as your doctor tells you to. 2. Serious infections. Serious infections in your skin, lower stomach area (abdomen), bladder, or ear may happen if you take Prolia. Inflammation of the inner lining of the heart (endocarditis) due to an infection also mayhappen more often in people who take Prolia. You may need to go to the hospital for treatment if you develop an infection. Prolia is a medicine that may affect your immune system. People who have weakened immune system or take medicines that affect the immune system may have an increased risk for developing serious infections. Call your doctor right away if you have any of the following symptoms of infection: Fever or chills Skin that looks red or swollen and is hot or tender to touch Severe abdominal pain Frequent or urgent need to urinate or burning feeling when you urinate 3. Skin problems. Skin problems such as inflammation of your skin (dermatitis), rash, and eczema may happen if you take Prolia. Call your doctor if you have any of the following symptoms of skin problems that do not go away or get worse: Redness Itching Small bumps or patches (rash) Your skin is dry or feels like leather Blisters that ooze or become crusty Skin peeling 4. Severe jaw bone problems (osteonecrosis). Severe jaw bone problems may happen when you take Prolia. Your doctor should examine your mouth before you start Prolia. Your doctor may tell you to see your dentist before you start Prolia. It is important for you to practice good mouth care during treatment with Prolia. Call your doctor right away if you have any of these side effects. What is Prolia? Prolia is a prescription medicine used to treat osteoporosis (thinning and weakening of bone) in women after menopause (change of life) who Have an increased risk for fractures (broken bones). Cannot use another osteoporosis medicine or other osteoporosis medicines did not work well. Who should not receive Prolia? Do not take Prolia if you have been told by your doctor that your blood calcium level is too low. What should I tell my doctor before receiving Prolia? Before taking Prolia, tell your doctor if you: Have low blood calcium. Cannot take daily calcium and vitamin D. Had parathyroid or thyroid surgery (glands located in your neck). Have been told you have trouble absorbing minerals in your stomach or intestines (malabsorptionsyndrome). Have kidney problems or are on kidney dialysis. Plan to have dental surgery or teeth removed. Are or plan to become . Prolia may harm your unborn baby. Tell your doctor right away if you become while taking Prolia. Surveillance Program: Prolia is not intended for use in women. If you become while taking Prolia, talk to your doctor about enrolling with [employer] or call (i-145-73[facility]). The purpose of this program is to collect information about women who have become while taking Prolia. Are breast-feeding or plan to breast-feed. It is not known if Prolia passes into your breast milk. You and your doctor should decide if you will take Prolia or breast-feed. You should not do both. Tell your doctor about all the medicines you take, including prescription and nonprescription drugs, vitamins, and herbal supplements. Know the medicines you take. Keep a list of medicines with you to show to your doctor or pharmacistwhen you get a new medicine. How will I receive Prolia? Prolia is an injection that will be given to you by a healthcare professional. Prolia is injected under your skin (subcutaneous). You will receive Prolia 1 time every 6 months. You should take calcium and vitamin D as your doctor tells you to while you receive Prolia. If you miss a dose of Prolia, you should receive your injection as soon as you can. Take good care of your teeth and gums while you receive Prolia. [place] and floss your teeth regularly. Tell your dentist that you are receiving Prolia before you have dental work. What are the possible side effects of Prolia? Prolia may cause serious side effects. See What is the most important information I should know about Prolia? Long-term effects on bone: It is not known if the use of Prolia over a long period of time may cause slow healing of broken bones or unusual fractures. The most common side effects of Prolia are: Back pain Pain in your arms and legs High cholesterol Muscle pain Bladder infection These are not all the possible side effects of Prolia. For more information, ask your doctor or pharmacist. Call your doctor for medical advice about side effects. You may report side effects to FDA at 9-128-OPO-4209. How should I handle Prolia if I need to pick it up from a pharmacy? Keep Prolia in a refrigerator at 36F to 46F (2C to 8C) in the original carton. Do not freeze Prolia. When you remove Prolia from the refrigerator, Prolia must be kept at room temperature [up to 77F (25C)] in the original carton and must be used within 14 days. Do not keep Prolia at temperatures above 77F (25C). Warm temperatures will affect how Prolia works. Do not shake Prolia. Keep Prolia in the original carton to protect from light. Keep Prolia and all medicines out of reach of children. General information about Prolia Do not give Prolia to other people even if they have the same symptoms that you have. It may harm them. This Medication Guide summarizes the most important information about Prolia. If you would like more information, talk with your doctor. You can ask your doctor or pharmacist for information about Prolia that is written for health professionals. For more information, go to www.[employer].Checkr or call [employer] ([employer]) at . What are the ingredients in Prolia? Active ingredient: denosumab Inactive ingredients: sorbitol, acetate, polysorbate 20 (prefilled syringe only), Water for Injection (LONGTERM), and sodium hydroxide What is osteoporosis? Osteoporosis is a disease in which the bones become thin and weak, increasing the chance of having a broken bone. Osteoporosis usually causes no symptoms until a fracture happens. The most common fractures are in the spine (backbone). They can shorten height, even without causing pain. Over time, the spine can become curved or deformed and the body bent over. Fractures from osteoporosis can also happen in almost any bone in the body, for example: the wrist, rib, or hip. Once you have had a fracture, the chance for more fractures greatly increases. The following risk factors increase your chance of getting fractures from osteoporosis: Past broken bones from osteoporosis Very low bone mineral density (BMD) Frequent falls Limited movement, such as using a wheelchair Medical conditions likely to cause bone loss, such as some kinds of arthritis Taking steroid medicines called glucocorticoids, such as prednisone Other medicines that may cause bone loss, for example: seizure medicines (such as phenytoin), blood thinners (such as heparin), high doses of vitamin A What can I do to treat osteoporosis? There are many steps you can take to treat osteoporosis. Taking Prolia, along with calcium and vitamin D, may be one option for you. [employer], a subsidiary of [employer] One [employer] Start, [place] [address] This Medication Guide has been approved by the US Food and Drug Administration. 1xxxxxx - v1 Issued: 04/2010 documented in this encounter Progress Notes * Darrion Ardon LPN - 07/05/2023 8:47 AM EDT Machelle Campbell Christine presents today for administration of Prolia. She understands the benefits and risks of this treatment. An educational pamphlet was given to the patient. Prolia 60 mg was administered subcutaneously. The patient tolerated the procedure without problems. She will return in 6 months for the next injection and evaluation. Darrion Ardon LPN documented in this encounter Nursing Notes * Darrion Ardon LPN - 07/05/2023 8:41 AM EDT Chief Complaint Patient presents with Medication Administration Prolia documented in this encounter Plan of Treatment Upcoming Encounters Date Type Specialty Care Team Description 07/16/2023 Office Visit [facility] Medicine Nikia Joyce, DO [address] [place] [address] 07/16/2023 Office Visit [facility], Pharmacist [address] [place] [address] 08/20/2023 Nurse Only [facility], Nurse Annual Wellness Visit [address] [place] [address] 08/24/2023 Office Visit Family Medicine Nikia Joyce, DO [address] [place] [address] 01/08/2024 Office Visit Rheumatology Lore Lake CRNP [address] [place] [address] 03/04/2024 Office Visit Nephrology Oma Hernandez MD [address] [facility] [place] [address] Health Maintenance Due Date Last Done Comments [...] Additional history exists CKD HGB USE SMARTSET 64164 04/24/202404/24, 10/18/2022, 04/17/2022, Additional history exists CKD PHOS USE SMARTSET 28741 04/24/202404/06, 04/17/2022, 10/10/2021, Additional history exists DIABETES-FOOT [...] D LEVEL ONCE IN A LIFETIME-USE SMARTSET# 40040 Completed 10/18/2022, 04/17/2022, 10/10/2021, Additional history exists [...] as of this encounter Visit Diagnoses Diagnosis Senile osteoporosis- Primary documented in this encounter Administered Medications Inactive Administered Medications - up to 3 most recent administrations Medication Order MAR Action Action Date Dose Rate Site Denosumab (Prolia) subcut inj 60 mg 60 mg, Subcutaneous, ONCE, On Lizeth 07/05/23 at 1300, For 1 dose Given 07/05/2023 8:50 AM EDT 60 mg Arm L eft Upper documented in this encounter Care Teams Divinity Teacher Relationship Specialty Start Date End Date Nikia Joyce, DO [address] [place] [address] PCP - General Family Medicine 07/04/22 documented as of this encounter
--- OUTSIDE RECORDS SUMMARY | 2023-10-30 19:48 | External Medical Summary | Summary of Care ---
Author Name Unknown Organization [facility] Address [address] [place] [address] Phone [phone] Care Team Providers Care Mate First Name Role Phone Nikia Joyce DO Primary Care Provider Reason for Visit * Reason Comments Acute Encounter Details Date Type Department Care Team Description 08/17/2023 Office Visit Family Practice [address], [place] [address] [place] [phone] Nikia Joyce DO [address] [place] [address] UTI symptoms*; Yeast vaginitis; Type 2 diabetes mellitus with hemoglobin A1c goal of less than 8.0% ([facility]); 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 chronic kidney disease, without long-term current use of insulin ([facility]) Allergies No known active allergiesdocumented as of [...] Oral Tablet Extended Release 24 Hour (toPROL XL)Indications:HTN , goal below 140/90 Take 0.5 Tablets (12.5 mg) by mouth in the morning. 45 Tablet 3 09/13/2022 Active amLODIPine Besylate 10 MG Oral Tablet (Norvasc)Indicatio ns:HTN, goal below 140/90 Take 1 Tablet by mouth in the morning. 90 Tablet 3 11/08/2022 Active Empagliflozin 25 MG Oral Tablet (Jardiance) Take 1 Tablet by mouth in the morning. 90 Tablet 3 11/30/2022 Active FreeStyle Lite Test In Vitro Strip (Glucose Blood)Indications: Type 2 diabetes mellitus with hemoglobin A1c goal of less than 8.0% ([facility]) Check blood sugar once daily. E11.9 100 Strip 3 12/14/2022 Active Vitamin D (Ergocalciferol) 1.25 MG (39974 UT) Oral Capsule (Drisdol)Indicatio ns:Vitamin D deficiency 1 tab every other week 24 Capsule 0 01/22/2023 Active Losartan Potassium 50 MG Oral Tablet (Cozaar)Indication s:Type 2 diabetes mellitus with hemoglobin A1c goal of less than 8.0% ([facility]),HTN, goal below 140/90 Take 1 Tablet [...] Active Atorvastatin Calcium 20 MG Oral Tablet (Lipitor)Indicatio ns:Dyslipidemia, goal LDL below 100 Take 1 Tablet by mouth in the morning. 90 Tablet 1 07/31/2023 Active Fluconazole 150 MG Oral Tablet (Diflucan)Indicati ons:Yeast vaginitis Take 1 Tablet by mouth once for 1 dose. 1 Tablet 1 08/17/2023 08/17/2023 Active documented as of this encounter (statuses [...] Sign Reading Time Taken Comments Blood Pressure 106/62 08/17/2023 3:48 PM EDT Pulse 78 08/17/2023 3:48 PM EDT Temperature 36.6 C (97.9 F) 08/17/2023 3:48 PM ED T Respiratory Rate - - Oxygen Saturation 98% 08/17/2023 3:48 PM EDT Inhaled Oxygen Concentration - - Weight 54.9 kg (121 lb) 08/17/2023 3:48 PM EDT Height - - Body Mass Index 22.32 05/14/2023 2:48 PM EDT documented in this encounter Progress Notes * Nikia Joyce, DO - 08/17/2023 3:52 PM EDT SUBJECTIVE: Chief Complaint Patient presents with Acute HPI: Machelle King is a 83 year old female who presents today with vaginal itching and burning. Shenotes that she has it for 2 days. She did try monistat yesterday with no relief. She notes no discharge. She notes no urinary frequency. She notes that she has been eating and drinking ok. No bleeding. She is going out of town for the weekend and was concerned. PHM: Patient Active Problem List Diagnosis Code Dyspnea and respiratory abnormality R06.00, R06.89 Incontinence of feces R15.9 Diabetic polyneuropathy ([facility]) E11.42 ADVANCE DIRECTIVE INFORMATION Gastroparesis K31.84 DYSLIPIDEMIA, GOAL LDL BELOW 100 E78.5 Senile osteoporosis M81.0 Intractable migraine with aura without status migrainosus G43.119 Diabetic peripheral neuropathy ([facility]) E11.42 Diabetic gastroparesis E11.43, K31.84 Tinnitus of both ears H93.13 Sensorineural hearing loss (SNHL) of both ears H90.3 Type 2 diabetes mellitus with hemoglobin A1c goal of less than 8.0% ([facility]) E11.9 Chronic kidney disease, stage 3b ([facility]) N18.32 Diabetes mellitus ([facility]) E11.9 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 chronic kidney disease, without long-term current use of insulin ([facility]) E11.22, N18.32 Grieving F43.21 Current Outpatient Medications Medication Sig Dispense Refill ASPIRIN 81 MG PO CHEW One pill by mouth once a day with food 100 5 Metoprolol Succinate ER 25 MG Oral Tablet [...] Tablet 3 Vitamin D (Ergocalciferol) 1.25 MG (48386 UT) Oral Capsule (Drisdol) 1 tab every [...] mouth in the morning. 90 Tablet 1 ProAir HFA 108 (90 Base) MCG/ACT Inhalation Aerosol Solution Inhale by mouth 2 Puffs 4 times a day . May substitute proventil or ventolin based on formulary 18 g 3 Vitamin C 500 MG Oral Tablet (Ascorbic Acid) Take 1 Tablet by mouth in the morning. FreeStyle Lite Test In Vitro Strip (Glucose [...] Salpingo-Oophorectomy US ENDOSCOPIC 01/22/2017 normal bx, CBD dilation/[facility] Review of patient's allergies [...] abdominal pain, constipation, diarrhea, nausea and vomiting. Genitourinary: As per HPI Musculoskeletal: Negative for arthralgias, gait problem and joint swelling. Skin: Negative for color change, pallor and rash. OBJECTIVE: BP 106/62 (BP Site: Left Arm, BP Position: Sitting, BP Cuff Size: Regular) | Pulse 78 | Temp 36.6 C (97.9 F) | Wt 54.9 kg (121 lb) | SpO2 98% | BMI 22.32 kg/m | BSA 1.55 m PHYSICAL EXAM: [...] oriented to person, place, and time. ASSESSMENT/PLAN: (R39.9) UTI symptoms (primary encounter diagnosis) Plan: URINALYSIS, POINT OF CARE (ENTER/EDIT) UA negative. (B37.31) Yeast vaginitis Plan: Fluconazole 150 MG Oral Tablet (Diflucan) Pt with yeast vaginitis. Start diflucan. Repeat in 1 week if symptoms do not resolve. Monitor and consider change in DM therapy if persistent issues given she is on jardiance. (E11.9) Type 2 diabetes mellitus with hemoglobin A1c goal of less than 8.0% ([facility]) Plan: Pt will remain on current regimen. (E11.22, N18.32) 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 chronic kidney disease, without long-term current use of insulin ([facility]) Plan: ALBUMIN / CREATININE RATIO, URINE, ALBUMIN / CREATININE RATIO, URINE Urine collected today. Follow-up: as scheduled Total time today including reviewing chart before the visit, pertinent labs, imaging reports, face to face time, and documentation time was 30 minutes. Nikia Joyce DO documented in this encounter Nursing Notes * Edwige Alberto RN - 08/17/2023 3:45 PM EDT Acute Has had vaginal burning/itching x 3 days-tried monistat yesterday and today-not really helping. No discharge or odor. No urinary s/s. documented in this encounter Plan of Treatment Upcoming Encounters Date Type Specialty Care Team Description 08/22/2023 Immunization Ancillary [place], Covid19 Vaccine [address] [facility] [address] [place] [address] 09/24/2023 Office Visit [facility] [address] 10/30/2023 Nurse Only [facility], Nurse Annual Wellness Visit [address] [place] [address] 01/16/2024 Office Visit Rheumatology Lore Lkae CRNP [address] [facility] [place], [place] [address] 03/04/2024 Office Visit Nephrology Oma Hernandez MD [address] [facility] [place] [address] Pending Results Name Type Priority Associated Diagnoses Date /Time ALBUMIN / CREATININE RATIO, URINE Lab Routine 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 chronic kidney disease, without long-term current use of insulin ([facility]) 08/17/2023 4:05 PM EDT Scheduled Orders Name Type Priority Associated Diagnoses Orde r Schedule URINALYSIS, POINT OF CARE (ENTER/EDIT) Point of Care Testing Routine UTI symptoms Ordered: 08/17/2023 ALBUMIN / CREATININE RATIO, URINE Lab Routine 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 chronic kidney disease, without long-term current use of insulin ([facility]) Expected: 08/17/2023 (Approximate), Expires: 08/17/2024 Health Maintenance Due Date Last Done Comments FOBT ANNUALLY,AGES 18-90 07/04/2023 , 12/05/2019, 08/19/2018, Additional history exists COVID-19 Vaccine ( season) 2023 09/05/2022, 08/15/2021, 01/01/2021, Additional history exists Albumin/Creatinine Ratio 10/18/2023 022, 04/17/2022, 10/10/2021, Additional history exists GFR 10/24/2023 04/24/2023, 10/05, 04/17/2022, Additional history exists HbA1c 10/24/2023 04/24/2023, 10/05, 04/17/2022, Additional history exists DIABETES-EYE EXAM 03/15/2024 03/15/2023, , 09/05/2021, Additional history exists CKD HGB USE SMARTSET 42487 04/24/202404/24, 10/18/2022, 04/17/2022, Additional history exists CKD PHOS USE SMARTSET 92036 04/24/202404/06, 04/17/2022, 10/10/2021, Additional history exists Diabetic Foot Exam 04/24/2024 04/24/2023, 0 07/04/2022, 05/13/2021, Additional history exists DXA Scan 06/28/2024 06/28/2022, 05/06, 05/14/2018, Additional history exists Depression Screening 07/16/2024 07/16/2023 DTaP,Tdap,and Td Vaccines (3 - Td or Tdap) 02/20/2027 02/20/2017, 04/10/2006 Pneumococcal Vaccine: 65+ Years Completed 01/18/2015, 12/03/2007, 01/14/2002 Zoster Vaccines Completed 04/21/2020, 12/06, 08/09/2015 VITAMIN D LEVEL ONCE IN A LIFETIME-USE SMARTSET# [id number] Completed 10/18/2022, 04/17/2022, 10/10/2021, Additional history exists [...] Not on filedocumented as of this encounter Procedures Procedure Name Priority Date/Time Associated Diagnosis Comments URINALYSIS, POINT OF CARE YUMIKO 08/17/2023 3:59 PM EDT documented in this encounter Results * URINALYSIS, POINT OF CARE (08/17/2023 3:59 PM EDT) Color, Urine Yellow Light Yellow, Yellow 08/17/2023 4:01 PM EDT LABORATORY [facility] 56-21 Clarity, Urine Clear Clear 08/17/2023 4:01 PM EDT [place] [address] Glucose, Urine Negative Negative mg/dL 08/17/2023 4:01 PM EDT [place] [address] Bilirubin, Urine Negative Negative 08/17/2023 4:01 PM EDT [place] [address] Ketone, Urine Negative Negative mg/dL 08/17/2023 4:01 PM EDT [place] [address] Specific Joffre, Urine 1.025 1.003 - 1.030 08/17/2023 4:01 PM EDT [place] [address] Blood, Urine Negative Negative 08/17/2023 4:01 PM EDT [place] [address] pH, Urine 5.0 5.0, 5.5, 6.0, 6.5, 7.0, 7.5 units 08/17/2023 4:01 PM EDT [place] [address] Protein, Urine Negative Negative mg/dL 08/17/2023 4:01 PM EDT [place] [address] Urobilinogen, Urine 0.2 0.2, 1.0 mg/dL 08/17/2023 4:01 PM EDT [place] [address] Nitrite, Urine Negative Negative 08/17/2023 4:01 PM EDT [place] [address] Esterase, Urine Negative Negative 08/17/2023 4:01 PM EDT [place] [address] Urine 08/17/2023 3:59 PM EDT 08/17/2023 4:01 PM EDT Nikia Joyce DO LAB POINT OF CARE TE ST DOCKED DEVICE UNSOLICITED RESULTS [place] [address] [address] [place] [address] documented in this encounter Visit Diagnoses Diagnosis UTI symptoms- Primary Other symptoms involving urinary system Yeast vaginitis Candidiasis of vulva and vagina Type 2 diabetes mellitus with hemoglobin A1c goal of less than 8.0% (HCC) 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 chronic kidney disease, without long-term current use of insulin ([facility]) documented in this encounter Care Teams Mate First Relationship Specialty Start Date End Date Nikia Joyce DO [address] [facility] [id number] PCP - General Family Medicine 07/04/22 documented as of this encounter"
--- OUTSIDE RECORDS SUMMARY | 2023-10-30 19:48 | External Medical Summary ---
Author Name Unknown Address Unknown Organization : Laboratory Report Ordering Provider Test Date Status VLAD REDDING 08/17/2023 15:59:00 Final Observation Date Value Abnormality Reference (Units ) Status Color of Urine by Auto 08/17/2023 15:59:00 Yellow Light Yellow, Yellow Final Clarity, Urine 08/17/2023 15:59:00 Clear Clear Final Glucose [Mass/volume] in Urine by Automated test strip 08/17/2023 15:59:00 Negative Negative (mg/dL) Final Bilirubin.total [Presence] in Urine by Automated test strip 08/17/2023 15:59:00 Negative Negative Final Ketones [Mass/volume] in Urine by Automated test strip 08/17/2023 15:59:00 Negative Negative (mg/dL) Final Specific gravity, Urine 08/17/2023 15:59:00 1.025 1.003-1.030 Final Hemoglobin [Presence] in Urine by Automated test strip 08/17/2023 15:59:00 Negative Negative Final pH, Urine 08/17/2023 15:59:00 5.0 5.0, 5.5, 6.0, 6.5, 7.0, 7.5 (units) Final Protein [Mass/volume] in Urine by Automated test strip 08/17/2023 15:59:00 Negative Negative (mg/dL) Final Urobilinogen, Urine 08/17/2023 15:59:00 0.2 0.2, 1.0 (mg/dL) Final Nitrite [Presence] in Urine by Automated test strip 08/17/2023 15:59:00 Negative Negative Final Leukocyte esterase [Presence] in Urine by Automated test strip 08/17/2023 15:59:00 Negative Negative Final Performing Location
--- OUTSIDE RECORDS SUMMARY | 2023-10-30 19:48 | External Medical Summary | Summary of Care ---
Author Name Unknown Organization [facility] Address [address] [place] [address] Phone [phone] Care Team Providers Care Beamster Name Role Phone Nikia Chu DO Primary Care Provider [phone] Reason for Visit * Reason Onset Date Comments Medication Refill 05/28/2023 Encounter Details Date Type Department Care Team Description 05/28/2023 Refill Family Practice [address], [place] [address] [place] [address] Nikia Chu DO [address] [place] [address] Allergies No known active allergiesdocumented as of this encounter (statuses as of 05/28/2023) Medications Medication Sig Dispensed Refills Start Date [...] hemoglobin A1c goal of less than 8.0% ([facility]) Check blood sugar once daily. E11.9 100 Strip 3 12/14/2022 Active Vitamin D (Ergocalciferol) 1.25 MG (53949 UT) Oral Capsule (Drisdol)Indicat ions:Vitamin D deficiency 1 tab every other week 24 Capsule 0 01/22/2023 Active Losartan Potassium 50 MG Oral Tablet (Cozaar)Indicati ons:Type 2 diabetes mellitus with hemoglobin A1c goal of less than 8.0% ([facility]),HTN, goal below 140/90 Take 1 [...] before dinner 180 Tablet 0 05/28/2023 Active glipiZIDE ER 2.5 MG Oral Tablet Extended Release 24 Hour (Glucotrol XL) Take 1 Tablet by mouth 2 times a day. Before lunch and before dinner 180 Tablet 3 05/24/2023 05/28/2023 Discontinue d(Refill) documented as of this encounter (statuses as of 05/28/2023) Active Problems Problem Noted Date Grieving 05/14/2023 [...] as of this encounter (statuses as of 05/28/2023) Resolved Problems Problem Noted Date Resolved Date [...] as of this encounter (statuses as of 05/28/2023) Immunizations Name Administration Dates Next Due COVID-19 [...] Telephone Encounter - Nikia Chu DO - 05/28/2023 9:46 PM EDTSigned Prescriptions: Disp Refills glipiZIDE ER 2.5 MG Oral Tablet Extended R*180 Ta*0 Sig: Take 1 Tablet by mouth 2 times a day. Before lunch and before dinner Authorizing Provider: NIKIA CHU * Telephone Encounter - Edwige Alberto RN - 05/28/2023 6:21 PM EDTPending Prescriptions: Disp Refills glipiZIDE ER 2.5 MG Oral Tablet Extended R*180 Ta*0 Sig: Take 1 Tablet by mouth 2 times a day. Before lunch and before dinner * Telephone Encounter - Edwige Alberto RN - 05/28/2023 6:19 PM EDT Call to pt to verify rx. Rx for glipizide was sent on 05/24/23 to [facility]. Pt states that they are out of it. She is requesting a 3 month supply be sent to [facility]. She will call back when needs next rx and we can try [facility]. rx pended for [facility]. * Telephone Encounter - TORY [place] - 05/28/2023 10:44 AM EDT Pending Prescriptions: Disp Refills glipiZIDE ER 2.5 MG Oral Tablet Extended *180 Ta*3 Sig: Take 1 Tablet by mouth 2 times a day. Before lunch and before dinner Last Visit: 05/14/2023 (in office), 12/26/2022 (telemedicine) Next Visit: 06/05/2023 Last date the medication was ordered: Patient Active Problem List Diagnosis Code Dyspnea and respiratory abnormality R06.00, R06.89 Incontinence of feces R15.9 Diabetic polyneuropathy ([facility]) E11.42 ADVANCE DIRECTIVE INFORMATION Gastroparesis K31.84 DYSLIPIDEMIA, GOAL LDL BELOW 100 E78.5 Senile osteoporosis M81.0 Intractable migraine with aura without status migrainosus G43.119 Diabetic peripheral neuropathy ([facility]) E11.42 Diabetic gastroparesis ([facility]) E11.43, K31.84 Tinnitus of both ears H93.13 Sensorineural hearing loss (SNHL) of both ears H90.3 Type 2 diabetes mellitus with hemoglobin A1c goal of less than 8.0% ([facility]) E11.9 Chronic kidney disease, stage 3b ([facility]) N18.32 Diabetes mellitus ([facility]) E11.9 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 chronic kidney disease, without long- term current use ofinsulin ([facility]) E11.22, N18.32 Grieving F43.21 Labs: [...] Type Specialty Care Team Description 06/05/2023 Telemedicine [facility], Pharmacist [address] [address] 07/05/2023 Office Visit Nephrology HernandezOma ledezma MD [address] [place] [address] 07/16/2023 Office Visit [facility] Nikia Messina DO [address] [place] [address] 08/20/2023 Nurse Only [facility], Nurse Annual Wellness Visit [address] [address] 08/24/2023 Office Visit Family Nikia Messina DO [address] [place] [address] Health Maintenance Due Date Last Done Comments [...] Additional history exists CKD HGB USE SMARTSET 61137 04/24/202404/24, 10/18/2022, 04/17/2022, Additional history exists CKD PHOS USE SMARTSET 73303 04/24/202404/06, 04/17/2022, 10/10/2021, Additional history exists DIABETES-FOOT [...] D LEVEL ONCE IN A LIFETIME-USE SMARTSET# [id number] Completed 10/18/2022, 04/17/2022, 10/10/2021, Additional history exists [...] filedocumented as of this encounter Care Teams Beamster Relationship Specialty Start Date End Date Nikia Chu, DO [address] [place] [address] PCP - General Family Medicine 07/04/22 documented as of this encounter
--- OUTSIDE RECORDS SUMMARY | 2023-10-30 19:48 | External Medical Summary | Summary of Care ---
Author Name Unknown Organization [facility] Address [address] [place] [address] Phone [phone] Care Team Providers Care Assembler Molded Frames Name Role Phone Nikia Chu DO Primary Care Provider Reason for Visit * Reason Onset Date Comments Medication Refill 07/30/2023 Encounter Details Date Type Department Care Team Description 07/30/2023 Refill Family Practice [address], [place] [address] [place] [phone] Nikia Chu DO [address] [place] [address] Dyslipidemia, goal LDL below 100 Allergies No known active allergiesdocumented as of this encounter (statuses as of 07/31/2023) Medications Medication Sig Dispensed Refills Start Date [...] hemoglobin A1c goal of less than 8.0% ([facility]) Check blood sugar once daily. E11.9 100 Strip 3 12/14/2022 Active Vitamin D (Ergocalciferol) 1.25 MG (86486 UT) Oral Capsule (Drisdol)Indicat ions:Vitamin D deficiency [...] the morning. 90 Tablet 1 07/31/2023 Active Atorvastatin Calcium 20 MG Oral Tablet (Lipitor)Indicat ions:Dyslipidemi a, goal LDL below 100 Take by mouth 1 Tablet in the morning. 90 Tablet 3 07/04/2022 07/30/2023 Discontinue d(Refill) documented as of this encounter (statuses as of 07/31/2023) Active Problems Problem Noted Date Grieving 05/14/2023 [...] as of this encounter (statuses as of 07/31/2023) Resolved Problems Problem Noted Date Resolved Date [...] as of this encounter (statuses as of 07/31/2023) Immunizations Name Administration Dates Next Due COVID-19 [...] encounter Miscellaneous Notes * Telephone Encounter - Annika Gonzalez RPh - 07/31/2023 7:18 AM EDTSigned Prescriptions: Disp Refills Atorvastatin Calcium 20 MG Oral Tablet (Li*90 Tab*1 Sig: Take 1 Tablet by mouth in the morning.Authorizing Provider: NIKIA CHU User: ANNIKA GONZALEZ * Telephone Encounter - TORY Barillas - 07/30/2023 8:38 AM EDT Pt calling in to [facility] a [facility]ill [facility] Did you pend patient's preferred pharmacy and medication before forwarding?yes Pharmacy: [facility] [place] Pending Prescriptions: Disp Refills Atorvastatin Calcium 20 MG Oral Tablet (L*90 Tab*3 Sig: Take 1 Tablet by mouth in the morning. Last Visit: 07/16/2023 (in office), 06/05/2023 (telemedicine) Next Visit: 09/24/2023 If no future appointments scheduled, and last appointment is greater than a year ago, please schedule patient for a follow-up appointment Last date the medication was ordered - 07/04/22 Is this request for a controlled substance?No Urine Drug Screen:No results found. However, due to the size of the patient record, not all encounters were searched. Please check Results Review for a complete set of results. Patient Phone Numbers Labs: Lab Results Component Value Date/Time CREAT 1.1 (H) 04/24/2023 10:04 AM CREAT 1.4 (H) 10/19/2020 09:29 AM POTASSIUM 5.1 04/24/2023 10:04 AM POTASSIUM 4.7 10/19/2020 09:29 AM POTASSIUM 4.4 12/25/1996 04:16 PM TSH 1.42 01/11/2015 09:10 AM LDLCALC 41 10/18/2022 07:52 AM LDLCALC 74 04/16/2020 11:55 AM LDLCALC 144. (H) 10/08/1996 10:10 AM LDLDIRECT 85 01/22/2019 08:51 AM ALT 23 10/18/2022 07:52 AM ALT 12 04/16/2020 11:55 AM HGBA1C 7.5 (H) 04/24/2023 10:04 AM HGBA1C 6.3 (H) 04/16/2020 11:55 AM HGBA1C 6.4 (H) 12/25/1996 04:16 PM documented in this encounter Plan of Treatment Upcoming Encounters Date Type Specialty Care Team Description 09/24/2023 Office Visit Family Medicine Nikia Chu, DO [address] [place] [address] 10/30/2023 Nurse Only [facility] [employer], Nurse Annual Wellness Visit [address] [place] [address] 01/08/2024 Office Visit Rheumatology Lore Lake CRNP [address] [place] [address] 03/04/2024 Office Visit Nephrology Oma Hernandez MD [address] [place] [address] Health Maintenance Due Date Last Done Comments FOBT ANNUALLY,AGES 18-90 07/04/2023 022, 12/05/2019, 08/19/2018, Additional history exists Albumin/Creatinine Ratio 10/18/2023 022, 04/17/2022, 10/10/2021, Additional history exists GFR 10/24/2023 04/24/2023, 10/05, 04/17/2022, Additional history exists HbA1c 10/24/2023 04/24/2023, 10/05, 04/17/2022, Additional history exists DIABETES-EYE EXAM 03/15/2024 03/15/2023, , 09/05/2021, Additional history exists CKD HGB USE SMARTSET 30189 04/24/202404/24, 10/18/2022, 04/17/2022, Additional history exists CKD PHOS USE SMARTSET 31655 04/24/202404/06, 04/17/2022, 10/10/2021, Additional history exists Diabetic [...] D LEVEL ONCE IN A LIFETIME-USE SMARTSET# 50764 Completed 10/18/2022, 04/17/2022, 10/10/2021, Additional history exists [...] as of this encounter Visit Diagnoses Diagnosis Dyslipidemia, goal LDL below 100 Other and unspecified hyperlipidemia documented in this encounter Care Teams Assembler Molded Frames Relationship Specialty Start Date End Date Nikia Chu, [address] [place] [address] PCP - General Family Medicine 07/04/22 documented as of this encounter
--- OUTSIDE RECORDS SUMMARY | 2023-10-30 19:49 | External Medical Summary | Summary of Care ---
Author Name Unknown Organization [facility] Address [address] [place] [address] Phone [phone] Care Team Providers Care Proof Technician Name Role Phone Nikia Joyce DO Primary Care Provider [phone] Reason for Visit * Reason Onset Date Comments Advice 05/11/2023 Encounter Details Date Type Department Care Team Description 05/11/2023 Telephone Family Practice [address] [place] [address] [place] [address] Nikia Joyce DO [address] [place] [address] Advice Allergies No known active allergiesdocumented as of this encounter (statuses as of 05/11/2023) Medications Medication Sig Dispensed Refills Start Date End Date Status ASPIRIN 81 MG PO CHEW One pill by mouth once a day with food 100 5 08/11/2009 Active ProAir HFA 108 (90 Base) MCG/ACT Inhalation Aerosol Solution Inhale by mouth 2 Puffs 4 times a day . May substitute proventil or ventolin based on formulary 18 g 3 05/30/2022 Active Rizatriptan Benzoate 10 MG Oral Tablet DisintegratingIndic ations:Migraine with aura, intractable PLACE 1 TABLET ON TONGUE NEEDED FOR MIGRAINE, MAY REPEAT IN 2 HOURS IF NEEDED 30 Tablet 4 06/28/2022 Active Atorvastatin Calcium 20 MG Oral Tablet [...] hemoglobin A1c goal of less than 8.0% ([facility]) Check blood sugar once daily. E11.9 100 Strip 3 12/14/2022 Active glipiZIDE ER 2.5 MG Oral Tablet Extended Release 24 Hour (Glucotrol XL) Take 1 Tablet by mouth 2 times a day. Before lunch and before dinner 180 Tablet 1 12/26/2022 Active Vitamin D (Ergocalciferol) 1.25 MG (11937 UT) Oral Capsule (Drisdol)Indication s:Vitamin D deficiency [...] as of this encounter (statuses as of 05/11/2023) Active Problems Problem Noted Date Type 2 diabetes mellitus wit h stage [...] as of this encounter (statuses as of 05/11/2023) Resolved Problems Problem Noted Date Resolved Date [...] as of this encounter (statuses as of 05/11/2023) Immunizations Name Administration Dates Next Due COVID-19 mRNA, LNP-s, No Pre serve, 2-Dose Series (Moderna) 08/15/2021,01/01/2021,11/29/2020 Covid-19, Mrna, Lnp-s, Pf, B ivalent, 30 Mcg, IM, 12 yrs and above (Pfizer) 09/05/2022 Pneumococcal Conjugate Vacc, 13 Valent (Prevnar) 01/18/2015 Pneumococcal Polysaccharide PPV23 (Pneumovax) 12/03/2007,01/14/2002 Seasonal Influenza Virus Vac cine, Unspecified Formulation 08/24/1998 Seasonal Influenza, Quadriva lent Hd (Fluzone Hd) 07/27/2022 Seasonal Influenza, Quadriva lent, No Preserve, 6 Mons & Above, IM 07/08/2020,08/01/2018,07/27/2017 Seasonal Influenza, Quadriva lent, No Preserve, Adjuvanted, 65+ Yrs, IM 07/08/2020 Seasonal Influenza, Quadriva lent, No Preserve, IM 08/09/2015 Seasonal Influenza, Split, I IV3, With Preserve, Inj 07/28/2014,07/17/2013,07/16/2012,08/14,08/08/2010,08/11/2009,08/03/2008 ,09/04/2007,08/28/2006,09/08/2005,08/06,08/19/2002,09/07/2000, 9 Seasonal Influenza, Trivalen t, Adjuvanted, 65+ yrs [...] Miscellaneous Notes * Telephone Encounter - Nikia Joyce DO - 05/11/2023 2:50 PM EDT Noted. * Telephone Encounter - Edwige Alberto RN - 05/11/2023 12:29 PM EDT Spoke with Dr Joyce-she would prefer pt come to be seen first before starting on any medication.She can come today-but no openings-would have to work her in but would definitely see or she can come on Sunday at 2:40 PM Call to daughter, Jaimee-she also had her mom on the other line, chose to come on Sunday at 2:40 PM-appt scheduled. Told to call over weekend if worsening problems-always have ip litigation associate provider available. * Telephone Encounter - Edwige Alberto RN - 05/11/2023 12:09 PM EDT Call to daughter-states her mother is having problems with depression. Lost her end of February. Was doing Ok but feels really depressed now-drying a lot. Pt is eating and taking care of herselfbut just tearful. No thoughts of hurting herself. She doesn't understand since was doing better. Just got back from cruise. Daughter was wondering if maybe a medication would help with this short term. Pt was also having difficulty with having a BM-see other encounter-did what was recommended and hada BM-doing much better there. Told would discuss with Dr Joyce for her recommendations. * Telephone Encounter - TORY Barillas - 05/11/2023 11:51 AM EDT Pts daughter, Jaimee Dawn, calling to ask for advise as the family is concerned for depression States pt left her recently and is really having a tough time. "she had her WORST day yesterday" They are asking for someone to call back Jaimee at [phone]. documented in this encounter Plan of Treatment Upcoming Encounters Date Type Specialty Care Team Description 05/14/2023 Office Visit Family Medicine Nikia Joyce DO [address] [facility], [place] [address] 05/17/2023 Office Visit Family Nikia Messina DO [address] [facility], [place] [address] 06/05/2023 Telemedicine [facility] [place], [facility] [address] [place] [address] 07/03/2023 Office Visit Rheumatology Riya Mcdonald PA-C 07/05/2023 Office Visit Nephrology Oma Hernandez MD [address] [place] [address] 08/20/2023 Nurse Only [facility] [place], Nurse Annual Wellness Visit [address] [place] [address] 08/24/2023 Office Visit Family Medicine Nikia Joyce DO [address] [place] [address] Health Maintenance Due Date Last Done Comments [...] Additional history exists CKD HGB USE SMARTSET 97930 04/24/202404/24, 10/18/2022, 04/17/2022, Additional history exists CKD PHOS USE SMARTSET 88262 04/24/202404/06, 04/17/2022, 10/10/2021, Additional history exists DIABETES-FOOT [...] D LEVEL ONCE IN A LIFETIME-USE SMARTSET# [id number] Completed 10/18/2022, 04/17/2022, 10/10/2021, Additional history exists [...] filedocumented as of this encounter Care Teams Proof Technician Relationship Specialty Start Date End Date Nikia Joyce, DO [address] [place] [address] PCP - General Family Medicine 07/04/22 documented as of this encounter
--- OUTSIDE RECORDS SUMMARY | 2023-10-30 19:49 | External Medical Summary | Summary of Care ---
Author Name Unknown Organization [facility] Address [address] [place] [address] Phone [phone] Care Team Providers Care Deburr Operator Name Role Phone Nikia Joyce DO Primary Care Provider Reason for Visit * Reason Onset Date Comments Advice 05/11/2023 Encounter Details Date Type Department Care Team Description 05/11/2023 Telephone Family Practice [address], [place] [address] [place] [address] Nikia Joyce DO [address] [place] [address] Advice Allergies No known active [...] A1c goal of less than 8.0% ([facility]) Check blood sugar once daily. E11.9 100 Strip 3 12/14/2022 Active glipiZIDE ER 2.5 MG Oral Tablet Extended Release 24 Hour (Glucotrol XL) Take 1 Tablet by mouth 2 times a day. Before lunch and before dinner 180 Tablet 1 12/26/2022 Active Vitamin D (Ergocalciferol) 1.25 MG (56933 UT) Oral Capsule (Drisdol)Indication s:Vitamin D deficiency [...] Miscellaneous Notes * Telephone Encounter - Edwige Alberto RN - 05/11/2023 12:29 PM EDT Spoke with Dr Joyce-she would prefer pt come to be seen first before starting on any medication.She can come today-but no openings-would have to work her in but would definitely see or she can come on Sunday at 2:40 PM Call to daughterJaimee-she also had her mom on the other line, chose to come on Sunday at 2:40 PM-appt scheduled. Told to call over weekend if worsening problems-always have fire prevention engineer provider available. * Telephone Encounter - Edwige [...] for someone to call back Jaimee at [phone]. documented in this encounter Plan of Treatment Upcoming Encounters Date Type Specialty Care Team Description 05/14/2023 Office Visit Family Medicine Nikia Joyce, [address] [place] [address] 05/17/2023 Office Visit Family Medicine Nikia Joyce DO [address] [place] [address] 06/05/2023 Telemedicine [facility], Pharmacist [address] [address] 07/03/2023 Office Visit Rheumatology Riya Mcdonald PA-C 07/05/2023 Office Visit Nephrology Oma Hernandez MD [address] [place] [address] [place] [address] 08/20/2023 Nurse Only [facility], Nurse Annual Wellness Visit [address] [place] [address] 08/24/2023 Office Visit Family Medicine Nikia Joyce, [address] [place] [address] Health Maintenance Due Date Last Done Comments [...] Additional history exists CKD HGB USE SMARTSET 01172 04/24/202404/24, 10/18/2022, 04/17/2022, Additional history exists CKD PHOS USE SMARTSET 64760 04/24/202404/06, 04/17/2022, 10/10/2021, Additional history exists DIABETES-FOOT [...] D LEVEL ONCE IN A LIFETIME-USE SMARTSET# [id number] Completed 10/18/2022, 04/17/2022, 10/10/2021, Additional history exists [...] filedocumented as of this encounter Care Teams Deburr Operator Relationship Specialty Start Date End Date Nikia Joyce, DO [address] [place] [address] PCP - General Family Medicine 07/04/22 documented as of this encounter
[2023-10-30 20:39] LABS: Albumin Globulin Ratio 1.2 (0.9-2); Albumin Level 4.3 gm/dl (3.4-5.0); BUN Creatinine Ratio 30.5 (10-20); Bilirubin,Total 1.2 mg/dl (0.2-1.0); Calcium 9.3 mg/dl (8.6-10.3); Creatinine Clr Calc Pharmacy 34.5 ml/min; Est GFR (African American) 57.7 ml/min; Est GFR (Non-African American) 49.8 ml/min; Globulin 3.7 gm/dl (2.5-4.0); Potassium 4.9 mmol/L (3.5-5.1)
[2023-10-30 20:44] LABS: Hematocrit (blood only) 37.3 % (37.0-47.0); Hemoglobin 12.5 g/dl (12.0-16.0); Mean Corpuscular Hemoglobin 31.5 pg (25.0-34.0); Mean Corpuscular Hgb Conc 33.5 g/dL (32.0-36.0); Mean Platelet Volume 12.1 fL (9.4-12.4); Platelet Count 204 K/uL (130-400); RDW Coefficient of Variation 12.2 % (11.5-14.5); RDW Standard Deviation 42.4 fL (36.4-46.3); Red Blood Count 3.97 M/uL (4.20-5.40); White Blood Count 14.99 K/ul (4.8-10.8)
[2023-10-30 20:46] LABS: Troponin I High Sensitivity 5.4 pg/ml (0-14)
[2023-10-30 21:02] LABS: Basophils # (auto) 0.05 K/uL (0.00-0.20); Basophils % (auto) 0.3 %; Eosinophils # (auto) 0.02 K/uL (0.00-0.50); Eosinophils % (auto) 0.1 %; Immature Granulocytes # (auto) 0.09 K/uL (0.01-0.20); Immature Granulocytes % (auto) 0.6 %; Lymphocytes # (auto) 0.58 K/uL (1.20-3.40); Lymphocytes % (auto) 3.9 %; Monocytes # (auto) 0.46 K/uL (0.11-0.59); Monocytes % (auto) 3.1 %; Neutrophils # (auto) 13.79 K/uL (1.40-6.50); Polychromasia 1+
--- NOTE | 2023-10-31 01:33 | History & Physical Report ---
Date of Service October 31, 2023 Assessment & Plan (1) Chest pain: Plan: 83-year-old female with past med history significant for type 2 diabetes, diabetic polyneuropathy, hyperlipidemia, diabetic gastroparesis, CKD stage III, history of dyspnea, history of migraine, comes in because of chest pain. Today afternoon she felt nauseous and had couple of episodes of diarrhea then she developed chest pain middle of the chest radiating to the back severe in nature lasted for 20 minutes. This happened few times which prompted her come to the ER. Last time she had chest pain was when she was entering the ambulance. Since then she has no chest pain. Chest pain got relieved by themselves. No nausea no dizziness or headache. No sweating. She had similar kind of chest pain in the past and she has stress test done on July 2022 which was unremarkable. Before today's episode last time she had was in September. She states one time when her was alive she took his nitro and that helped the chest pain. Currently resting comfortably and hemodynamically stable. Afebrile. No runny nose or sore throat or cough. No abdominal pain. Normal bowel and bladder movements. States she ambulated about couple of miles yesterday and she was asymptomatic at that time.. Chest pain Initial workup unremarkable Having these episodes on and off Will do CT chest Follow serial cardiac enzymes and echo N.p.o. for now Consult cardiology in a.m. Diabetes Hold p.o. medications Sliding scale Will follow the blood sugars CKD stage III Presented with creatinine 1.05 Will follow labs Hypertension Amlodipine Losartan and metoprolol Will monitor Hyperlipidemia On statin DVT prophylaxis SCDs Disposition Observation med/tele Full code History of Present Illness Chief Complaint: Chest pain Primary Care Provider: Nikia Joyce DO 83-year-old female with past med history significant for type 2 diabetes, diabetic polyneuropathy, hyperlipidemia, diabetic gastroparesis, CKD stage III, history of dyspnea, history of migraine, comes in because of chest pain. Today afternoon she felt nauseous and had couple of episodes of diarrhea then she developed chest pain middle of the chest radiating to the back severe in nature lasted for 20 minutes. This happened few times which prompted her come to the ER. Last time she had chest pain was when she was entering the ambulance. Since then she has no chest pain. Chest pain got relieved by themselves. No nausea no dizziness or headache. No sweating. She had similar kind of chest pain in the past and she has stress test done on July 2022 which was unremarkable. Before today's episode last time she had was in September. She st ates one time when her was alive she took his nitro and that helped the chest pain. Currently resting comfortably and hemodynamically stable. Afebrile. No runny nose or sore throat or cough. No abdominal pain. Normal bowel and bladder movements. States she ambulated about couple of miles yesterday and she was asymptomatic at that time.. Past medical history. As mentioned above Past surgical history. Appendectomy. Cataract surgery. Open cholecystectomy. Tonsillectomy/ adenectomy. Total abdominal hysterectomy with removal of tubes. Social history. . No smoking. Alcohol rare. No drug use. Family history. Mother had cancer. Diabetes. Father has AMD and blindness .Daughter has diabetes. Allergies Allergy/AdvReac Type Severity Reaction Status Date / Time No Known Allergies Allergy Verified 08/02/22 16:01 Home Medications Medication Instructions Recorded Confirmed Type albuterol sulfate 90 mcg/actuation 2 puff inhalation QID 08/02/22 10/30/23 History aerosol inhaler (ProAir HFA) amlodipine 10 mg tablet 10 mg PO DAILY 08/02/22 10/30/23 History aspirin 81 mg chewable tablet 81 mg PO DAILY 08/02/22 10/30/23 History (Aspirin Childrens) atorvastatin 20 mg tablet 20 mg PO QAM 08/02/22 10/30/23 History ergocalciferol (vitamin D2) 1,250 50,000 unit PO .EVERY OTHER WEEK 08/02/22 10/30/23 History mcg (50,000 unit) capsule losartan 50 mg tablet 50 mg PO BID 08/02/22 10/30/23 History pioglitazone 15 mg tablet 15 mg PO QAM 08/02/22 10/30/23 History metoprolol succinate 25 mg 12.5 mg (1/2 x 25 mg) PO DAILY #30 08/03/22 10/30/23 Rx tablet,extended release 24 hr tabs empagliflozin 25 mg tablet 25 mg PO DAILY 10/30/23 10/30/23 History (Jardiance) glipizide 2.5 mg tablet, extended See Rx Instructions .Route .COMPLEX 10/30/23 10/30/23 History release 24 hr (Glucotrol XL) Past Med/Surg History Medical History (Updated 10/31/23 @ 01:31 by Myles Millan MD) Chest pain Migraine Chronic anemia Osteoporosis Hypertension Dyslipidemia Diabetes mellitus, type II Surgical History (Updated 08/02/22 @ 16:22 by Teresa Payne PA-C) History of tonsillectomy and adenoidectomy History of appendectomy S/P cholecystectomy S/P hysterectomy Family History (Updated 08/02/22 @ 16:23 by Teresa Payne PA-C) Other Cancer Diabetes Social History (Updated 08/02/22 @ 17:11 by Teresa Payne PA-C) Smoking Status: Never smoker Hx Alcohol Use: No Hx Substance Use: No Preferred Language: Senegalese Communication Ability: Effective Encoding Clerk Required: No Beliefs That Will Affect Care: None Current Living Situation: Alone Feels Safe at Home: Yes Assistive Devices: Denture - Upper, Denture - Lower and Glasses Review of Systems Review of Systems: All systems reviewed & are unremarkable except as noted in HPI & below Physical Exam Physical Exam: General- Not in distress Head- atraumatic Eyes- PERRL, EOMI. ENT- oropharynx clear Neck- supple, no JVD. Lungs- clear to auscultation , no wheezing or crackles. Heart- regular rhythm; no murmur, no gallop. Abdomen- normal bowel sounds, soft, nontender, no distension. Extremities- no pretibial edema, no erythema Neuro- alert, oriented x 3; PERRL,no facial palsy; no dysarthria; moves extremities. Skin- warm & dry Results & Data Results & Data Vital Signs (Past 12 Hours) Vital Signs Temp Pulse Pulse Resp BP BP Pulse Ox 10/31/23 00:48 80 10/31/23 00:40 79 18 127/54 L 94 10/30/23 21:30 71 19 131/62 97 10/30/23 21:00 78 16 147/67 H 97 10/30/23 20:30 79 18 151/78 H 97 10/30/23 20:02 36.9 C 76 19 145/60 H 97 10/30/23 20:00 81 21 154/65 H 98 10/30/23 19:51 76 O2 Del Method 10/31/23 00:48 10/31/23 00:40 Room Air 10/30/23 21:30 Room Air 10/30/23 21:00 Room Air 10/30/23 20:30 Room Air 10/30/23 20:02 Room Air 10/30/23 20:00 Room Air 10/30/23 19:51 Diagnostic Findings Laboratory Results WBC 14.99 K/ul (4.8-10.8) H 10/30/23 20:00 RBC 3.97 M/uL (4.20-5.40) L 10/30/23 20:00 Hgb 12.5 g/dl (12.0-16.0) 10/30/23 20:00 Hct 37.3 % (37.0-47.0) 10/30/23 20:00 MCV 94.0 fL (80.0-100.0) 10/30/23 20:00 MCH 31.5 pg (25.0-34.0) 10/30/23 20:00 MCHC 33.5 g/dL (32.0-36.0) 10/30/23 20:00 RDW Std Deviation 42.4 fL (36.4-46.3) 10/30/23 20:00 RDW Coeff of Victoriano 12.2 % (11.5-14.5) 10/30/23 20:00 Plt Count 204 K/uL (130-400) 10/30/23 20:00 MPV 12.1 fL (9.4-12.4) 10/30/23 20:00 Immature Gran % (Auto) 0.6 % 10/30/23 20:00 Neut % (Auto) 92.0 % 10/30/23 20:00 Lymph % (Auto) 3.9 % 10/30/23 20:00 [place] % (Auto) 3.1 % 10/30/23 20:00 Eos % (Auto) 0.1 % 10/30/23 20:00 Baso % (Auto) 0.3 % 10/30/23 20:00 Neut # (Auto) 13.79 K/uL (1.40-6.50) H 10/30/23 20:00 Lymph # (Auto) 0.58 K/uL (1.20-3.40) L 10/30/23 20:00 [place] # (Auto) 0.46 K/uL (0.11-0.59) 10/30/23 20:00 Eos # (Auto) 0.02 K/uL (0.00-0.50) 10/30/23 20:00 Baso # (Auto) 0.05 K/uL (0.00-0.20) 10/30/23 20:00 Immature Gran # (Auto) 0.09 K/uL (0.01-0.20) 10/30/23 20:00 Polychromasia 1+ 10/30/23 20:00 Sodium 138 mmol/L (136-145) 10/30/23 20:00 Potassium 4.9 mmol/L (3.5-5.1) 10/30/23 20:00 Chloride 106 mmol/L (98-107) 10/30/23 20:00 Carbon Dioxide 22 mmol/L (21-32) 10/30/23 20:00 Anion Gap 10 (3-11) 10/30/23 20:00 BUN 32 mg/dl (6-23) H 10/30/23 20:00 Creatinine 1.05 mg/dl (0.6-1.2) 10/30/23 20:00 Est Cr Clr Drug Dosing 34.5 ml/min 10/30/23 20:00 Est GFR ( Amer) 57.7 ml/min 10/30/23 20:00 Est GFR (Non-Af Amer) 49.8 ml/min 10/30/23 20:00 BUN/Creatinine Ratio 30.5 (10-20) H 10/30/23 20:00 Glucose 201 mg/dl (70-99(Fasting)) H 10/30/23 20:00 Calcium 9.3 mg/dl (8.6-10.3) 10/30/23 20:00 Total Bilirubin 1.2 mg/dl (0.2-1.0) H 10/30/23 20:00 AST 33 U/L (13-39) 10/30/23 20:00 ALT 26 U/L (7-52) 10/30/23 20:00 Alkaline Phosphatase 75 U/L (34-104) 10/30/23 20:00 Troponin I High Sens 5.4 pg/ml (0-14) 10/30/23 20:00 Total Protein 8.0 gm/dl (6.0-8.3) 10/30/23 20:00 Albumin 4.3 gm/dl (3.4-5.0) 10/30/23 20:00 Globulin 3.7 gm/dl (2.5-4.0) 10/30/23 20:00 Albumin/Globulin Ratio 1.2 (0.9-2) 10/30/23 20:00 Lipase 33 U/L (11-82) 10/30/23 20:00 ECG Additional Comments: ECG. Normal sinus rhythm rate of 77. No significant change was found. Code Status & VTE Plan VTE Prophylaxis Plan VTE Prophylaxis will be ordered: Yes
[2023-10-31] MEDS ORDERED: OPTIRAY 320 125ml IV ONE (01:35)
[2023-10-31] MEDS ORDERED: SODIUM CHLORIDE 0.9% 1,000 ML IV SCH (01:36)
[2023-10-31] MEDS ORDERED: GLUCOSE 10 TAB/TUBE PO PRN (01:36)
[2023-10-31] MEDS ORDERED: DEXTROSE 50% 50 ML SYRINGE IV PRN (01:36)
[2023-10-31] MEDS ORDERED: ACETAMINOPHEN 325 MG TAB PO PRN (01:36)
[2023-10-31] MEDS ORDERED: GLUCAGON FOR INJ 1 MG VIAL SQ PRN (01:36)
[2023-10-31] MEDS ORDERED: GLUCOSE 40% GEL 15 GM TUBE PO PRN (01:36)
[2023-10-31] MEDS ORDERED: CARBOHYDRATES FOR HYPOGLYCEMIA PO PRN (01:36)
--- NOTE | 2023-10-31 02:29 | CT Scan Report ---
Exam(s): CTA CHEST IV Amt: 118 ML OPTIRAY 320 EXAM: CT Angiography Chest With Intravenous Contrast CLINICAL HISTORY: Reason for exam: PE. TECHNIQUE: Axial computed tomographic angiography images of the chest with intravenous contrast. CTDI is 14.25 mGy and DLP is 301.72 mGy-cm. Automated exposure control was utilized for the study. A dose lowering technique was utilized adhering to the principles of ALARA. MIP reconstructed images were created and reviewed. COMPARISON: No relevant prior studies available. FINDINGS: Pulmonary arteries: Unremarkable. No acute pulmonary embolism. Aorta: Atherosclerotic changes of the aorta. No thoracic aortic aneurysm. Lungs: Unremarkable. No mass. No consolidation. Pleural space: Unremarkable. No focal infiltrate, pleural effusion, or pneumothorax. Heart: Cardiomegaly. No significant pericardial effusion. No evidence of RV dysfunction. Mediastinum: Small hiatal hernia. Bones/joints: Degenerative changes of the spine. No acute fracture. No dislocation. Soft tissues: Unremarkable. Lymph nodes: Unremarkable. No enlarged lymph nodes. IMPRESSION: 1. No acute pulmonary embolism. 2. No focal infiltrate, pleural effusion, or pneumothorax. 3. Small hiatal hernia. Electronically signed by: Reagan Houser MD 10/31/23 02:28 AM
[2023-10-31 04:59] LABS: Basophils # (auto) 0.03 K/uL (0.00-0.20); Basophils % (auto) 0.3 %; Eosinophils # (auto) 0.01 K/uL (0.00-0.50); Eosinophils % (auto) 0.1 %; Hematocrit (blood only) 33.1 % (37.0-47.0); Hemoglobin 10.9 g/dl (12.0-16.0); Immature Granulocytes # (auto) 0.04 K/uL (0.01-0.20); Immature Granulocytes % (auto) 0.4 %; Lymphocytes # (auto) 0.81 K/uL (1.20-3.40); Lymphocytes % (auto) 7.7 %; Mean Corpuscular Hgb Conc 32.9 g/dL (32.0-36.0); Mean Platelet Volume 11.3 fL (9.4-12.4); Monocytes # (auto) 0.79 K/uL (0.11-0.59); Monocytes % (auto) 7.5 %; Neutrophils # (auto) 8.88 K/uL (1.40-6.50); Platelet Count 192 K/uL (130-400); RDW Coefficient of Variation 12.4 % (11.5-14.5); RDW Standard Deviation 42.5 fL (36.4-46.3); Red Blood Count 3.52 M/uL (4.20-5.40); White Blood Count 10.56 K/ul (4.8-10.8)
[2023-10-31 05:15] LABS: BUN Creatinine Ratio 30.1 (10-20); Calcium 8.6 mg/dl (8.6-10.3); Creatinine Clr Calc Pharmacy 32.1 ml/min; Est GFR (African American) 52.8 ml/min; Est GFR (Non-African American) 45.5 ml/min; Magnesium 2.1 mg/dl (1.7-2.4); Potassium 4.4 mmol/L (3.5-5.1)
[2023-10-31 05:21] LABS: Troponin I High Sensitivity 8.3 pg/ml (0-14)
[2023-10-31] MEDS: INSULIN ASPART PER UNIT CHARGE SC SCH ×3 (06:11→18:01)
--- NOTE | 2023-10-31 06:55 | XRay Report ---
XR chest 1V portable HISTORY: 83 years-old Female Chest pain, nonspecific acute chest pain COMPARISON: CTA chest 10/31/2023 TECHNIQUE: AP view of the chest FINDINGS: Neck the cardiac silhouette is enlarged. There is no pneumothorax, pleural effusion, airspace consoli dation or overt pulmonary edema. Minimal subsegmental bibasilar atelectasis. Bones appear grossly int act. Cholecystectomy. IMPRESSION: No acute process. ACT 112: Negative or not required by law. The above report was generated using voice recognition software. It may contain grammatical, syntax o r spelling errors. Electronically signed by: Yoav Gonzales M.D. 10/31/2023 6:54 AM
[2023-10-31] MEDS ORDERED: ALBUTEROL HFA 8 GM INHALER INH SCH (07:00)
[2023-10-31 07:37] LABS: Estimated Average Glucose 171 mg/dl; Hemoglobin A1C 7.6 % (4.5-5.6)
[2023-10-31] MEDS ORDERED: ALBUTEROL HFA 8 GM INHALER INH PRN (07:42)
[2023-10-31] MEDS: ATORVASTATIN 20 MG TAB PO SCH (08:40)
[2023-10-31] MEDS: LOSARTAN POTASSIUM 50 MG TAB PO SCH ×2 (08:40→22:25)
[2023-10-31] MEDS: METOPROLOL SUCC 25MG EXT REL TAB PO SCH (08:40)
[2023-10-31] MEDS: amLODIPine BESYLATE 5 MG TAB PO SCH (08:40)
[2023-10-31] MEDS: ASPIRIN 81 MG CHEW PO SCH (08:40)
--- NOTE | 2023-10-31 08:48 | Electrocardiogram Report ---
Test Reason : Blood Pressure : / mmHG Vent. Rate : 071 BPM Atrial Rate : 071 BPM P-R Int : 140 ms QRS Dur : 072 ms QT Int : 404 ms P-R-T Axes : 035 056 059 degrees QTc Int : 439 ms Normal sinus rhythm Normal ECG When compared with ECG of 30-OCT-2023 19:48, (unconfirmed) No significant change was found Confirmed by Mp Chandler ([id number]) on 10/31/2023 8:47:35 AM Referred By: Nikia Joyce Confirmed By:Pierce Chandler
--- NOTE | 2023-10-31 08:49 | Electrocardiogram Report ---
Test Reason : Blood Pressure : / mmHG Vent. Rate : 077 BPM Atrial Rate : 077 BPM P-R Int : 138 ms QRS Dur : 084 ms QT Int : 398 ms P-R-T Axes : 033 044 063 degrees QTc Int : 450 ms Normal sinus rhythm When compared with ECG of 03-AUG-2022 05:33, No significant change was found Confirmed by Mp Chandler ([id number]) on 10/31/2023 8:49:20 AM Referred By: Nikia Joyce Confirmed By:Pierce Chandler
[2023-10-31] MEDS ORDERED: LOPERAMIDE HCL 2 MG CAP PO PRN (09:29)
--- NOTE | 2023-10-31 09:38 | Cardiology Consultation ---
Date of Consultation October 31, 2023 Assessment & Plan (1) Chest pain at rest: (2) Left carotid bruit: (3) Dyslipidemia, goal LDL below 70: (4) Diabetes mellitus, type II: Plan 83-year-old female admitted with recurrent atypical resting chest discomfort that has been present intermittently since July 2022 as detailed below. EKGs without acute ST segment change. High-sensitivity troponin negative x 2. Resting echocardiography pending interpretation. Serial Troponin x 3 Await resting echocardiography interpretation Maintain n.p.o. status for now, pending the above. Continue beta-dionne, aspirin, statin, ARB, risk factor, and lifestyle modification. Add proton pump inhibitor therapy, pantoprazole 40 mg/day Refer for a bilateral carotid duplex, RE: Harsh left carotid bruit Patient does not feel she could ambulate adequately due to the viral illness and would prefer outpatient evaluation if deemed necessary. Further recommendations pending the above as well as evaluation by Dr. Cruz. Supervising Physician Co-Signing Physician Notes Supervising Physician Attestation: I have personally performed a history and physical examination on the patient. I agree with the physician physical therapy assistant's findings and plan as documented with the following additions. Subjective: Patient seen by the undersigned from 3:50 PM until 4:15 PM in the emergency department where she remains as a telemetry hold awaiting a bed. At 3 PM she had a recurrent episode of midline chest discomfort that radiated to her back. EKG revealed sinus rhythm without ischemic EKG changes per my interpretation as performed at 1500. The patient received a dose of sublingual nitroglycerin at 1500 which resolved symptoms. At the time my assessment another dose of sublingual nitroglycerin was administered and her symptoms subsequently resolved completely. Exam: Cardiovascular: Regular rhythm, no murmurs, no edema Data: Most recent EKG at [address] segment changes Echocardiogram reviewed independently reveals normal to hyperdynamic left ventricular systolic function, LVEF in the range of 6065%, mild aortic valve sclerosis without stenosis Assessment and Plan: Chest discomfort, reminiscent of her symptoms in July,. Patient states that her most recent significant episode prior to today had been in September, At baseline she walks 2 miles per day and states that she walked 2 miles yesterday without any chest symptoms. Subsequently she developed upset stomach and diarrhea which sounds like a viral illness that her extended family has all had recently. Her initial 2 troponin levels were within normal limits and the third level was drawn at 11:29 AM has trended up to 14.9. A fourth level is due to be performed at 1700. -- At present, recommend adding unfractioned heparin infusion and 0.5 inches of topical nitroglycerin. Patient to be n.p.o. after midnight and will have another troponin level and EKG in the morning for possible cardiac catheterization depending upon how she progresses. No indication for emergent cardiac catheterization now. Her discomfort was completely resolved when I left the bedside. DVT prophylaxis: Unfractioned heparin infusion I spent a total of 35 minutes on the date of service in preparation, delivery, and documentation of the care provided to this patient, excluding any time spent in the performance of separately billed services. Shanw Cruz, History of Present Illness Reason for Consultation: Chest pain Requesting Physician: Dr. Millan Attending Physician: Dr. Khanna History of Present Illness Mrs. Machelle King is a very pleasant 83-year-old female who is being seen at the request of Dr. Millan, evaluation of chest pain. Patient describes initially experiencing chest discomfort back around July 2022. The first time she experienced chest discomfort she was with her in [place]. At that time she took one of his sublingual nitroglycerin with prompt relief and decided to return home in case she needed to be hospitalized. The next morning she was evaluated by her PCP and was admitted to [facility], undergoing stress testing with Dr. Rivera. Patient exercised for 6 minutes and 30 seconds on a standard [place] protocol with no symptoms or evidence of exercise-induced myocardial ischemia at greater than 85% age predicted maximum heart rate. An accelerated heart rate response activity was noted leading to the addition of metoprolol succinate 12.5 mg/day. In September 2023 patient experienced another episode of resting chest discomfort that lasted for approximately 1.5 hours and resolved spontaneously. Yesterday she awoke feeling relatively well and, as per her normal routine, walked at the mall x 2 miles without difficulty. Around lunchtime she began to feel unwell. She describes experiencing the same virus type symptoms that her family just experienced, nausea, vomiting liquid, diarrhea, and some weakness. While lying in bed she experienced chest discomfort three times. She describes experiencing severe pain across the chest and into the shoulders and back. She notes contacting EMS as previously advised by PCP. She notes that the pain resolved by the time she got into the ambulance. EKG on presentation revealed normal sinus rhythm at 77 bpm. Second EKG also revealed normal sinus rhythm at [address] segment change. High-sensitivity troponin negative x 2 at 5.4 then 8.3 pg/mL. Chest x-ray showed no acute process. CTA of the chest was negative for PE or aortic catastrophe, also negative for infiltrate, pleural effusion, or pneumothorax. Chest CT did reveal a small hiatal hernia. Resting echocardiography performed just prior to my evaluation, pending interpretation. With a recent viral illness the patient feels somewhat weak. She is typically very active. She describes being more active than her children. She typically walks at the mall 2 miles most days of the week. She notes being able to walk "good and fast" and always feels better during and after activity. She notes never having had any chest discomfort with activity. No new or worsening shortness of breath. No orthopnea or PND. No peripheral edema. Nausea and diarrhea seem to have resolved overnight the patient does not have much of an appetite this morning. Family History: Mother was diabetic and with an MO at 80. Father's cardiac history is unknown. Daughter with CAD status post PCI. Social History: Never smoker. No alcohol. No illegal drug use. last year ([place]ume). Lives at [facility] on the [facility]. 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 Allergies Allergy/AdvReac Type Severity Reaction Status Date / Time No Known Allergies Allergy Verified 08/02/22 16:01 Home Medications Medication Instructions Recorded Confirmed Type albuterol sulfate 90 mcg/actuation 2 puff inhalation QID 08/02/22 10/30/23 History aerosol inhaler (ProAir HFA) amlodipine 10 mg tablet 10 mg PO DAILY 08/02/22 10/30/23 History aspirin 81 mg chewable tablet 81 mg PO DAILY 08/02/22 10/30/23 History (Aspirin Childrens) atorvastatin 20 mg tablet 20 mg PO QAM 08/02/22 10/30/23 History ergocalciferol (vitamin D2) 1,250 50,000 unit PO .EVERY OTHER WEEK 08/02/22 10/30/23 History mcg (50,000 unit) capsule losartan 50 mg tablet 50 mg PO BID 08/02/22 10/30/23 History pioglitazone 15 mg tablet 15 mg PO QAM 08/02/22 10/30/23 History metoprolol succinate 25 mg 12.5 mg (1/2 x 25 mg) PO DAILY #30 08/03/22 10/30/23 Rx tablet,extended release 24 hr tabs empagliflozin 25 mg tablet 25 mg PO DAILY 10/30/23 10/30/23 History (Jardiance) glipizide 2.5 mg tablet, extended See Rx Instructions .Route .COMPLEX 10/30/23 10/30/23 History release 24 hr (Glucotrol XL) Patient History Medical History Chest pain Migraine Chronic anemia Osteoporosis Hypertension Dyslipidemia Diabetes mellitus, type II Surgical History History of tonsillectomy and adenoidectomy History of appendectomy S/P cholecystectomy S/P hysterectomy Family History Other Cancer Diabetes Social History Smoking Status: Never smoker Hx Alcohol Use: No Hx Substance Use: No Preferred Language: Welsh Communication Ability: Effective Parking Assistant Required: No Beliefs That Will Affect Care: None Current Living Situation: Alone Feels Safe at Home: Yes Assistive Devices: Denture - Upper, Denture - Lower and Glasses Review of Systems Review of Systems: Complete review of systems is otherwise as stated above, negative, noncontributory Physical Exam Physical Exam: General: A&Ox3. NAD. HENT: Normocephalic. Atraumatic. Eyes: PER. Conjunctiva pink, sclera clear. Neck: Harsh left carotid bruit. No JVD. No HJR. Heart: RRR. Grade II/ systolic ejection murmur. No rub. No gallop. PMI is nondisplaced. Lungs: Clear to auscultation. Abdomen: +BS. Soft. Nontender. No masses or organomegaly. Extremities: No clubbing, cyanosis, or edema. Limited neurological examination is without focal deficits. Pulses: radial=2/4, posterior tibial=2/4. Results & Data Vital Signs (Past 12 Hours) Vital Signs Temp Pulse Pulse Resp BP Pulse Ox Pulse Ox 10/31/23 08:00 36.8 C 66 18 138/66 97 10/31/23 07:34 67 10/31/23 05:00 74 17 125/84 97 10/31/23 02:27 77 18 134/58 L 10/31/23 02:27 97 10/31/23 00:48 80 10/31/23 00:40 79 18 127/54 L 94 O2 Del Method O2 Del Method 10/31/23 08:00 Room Air 10/31/23 07:34 10/31/23 05:00 Room Air 10/31/23 02:27 10/31/23 02:27 Room Air 10/31/23 00:48 10/31/23 00:40 Room Air Laboratory Results Cardiac Enzymes 10/30/23 10/31/23 Range/Units 20:00 04:40 AST 33 (13-39) U/L Troponin I High Sens 5.4 8.3 (0-14) pg/ml CBC 10/30/23 10/31/23 Range/Units 20:00 04:40 WBC 14.99 H 10.56 (4.8-10.8) K/ul RBC 3.97 L 3.52 L (4.20-5.40) M/uL Hgb 12.5 10.9 L (12.0-16.0) g/dl Hct 37.3 33.1 L (37.0-47.0) % Plt Count 204 192 (130-400) K/uL Neut # (Auto) 13.79 H 8.88 H (1.40-6.50) K/uL Lymph # (Auto) 0.58 L 0.81 L (1.20-3.40) K/uL [place] # (Auto) 0.46 0.79 H (0.11-0.59) K/uL Eos # (Auto) 0.02 0.01 (0.00-0.50) K/uL Baso # (Auto) 0.05 0.03 (0.00-0.20) K/uL Comprehensive Metabolic Panel 10/30/23 10/31/23 Range/Units 20:00 04:40 Sodium 138 139 (136-145) mmol/L Potassium 4.9 4.4 (3.5-5.1) mmol/L Chloride 106 108 H (98-107) mmol/L Carbon Dioxide 22 20 L (21-32) mmol/L BUN 32 H 34 H (6-23) mg/dl Creatinine 1.05 1.13 (0.6-1.2) mg/dl Glucose 201 H 154 H (70-99(Fasting)) mg/dl Calcium 9.3 8.6 (8.6-10.3) mg/dl AST 33 (13-39) U/L ALT 26 (7-52) U/L Alkaline Phosphatase 75 (34-104) U/L Total Protein 8.0 (6.0-8.3) gm/dl Albumin 4.3 (3.4-5.0) gm/dl Intake and Output 10/30/23 10/31/23 10/31/23 22:59 06:59 14:59 Other: # Unmeasured Voids 3 Weight 58.5 kg 58.5 kg Weight Measurement Method Built in [facility] Built in [facility] Diagnostic Findings Telemetry: Sinus rhythm throughout with heart rates predominantly in the 60s and 70s
[2023-10-31] MEDS: PANTOprazole 40 MG TAB PO SCH (11:38)
--- NOTE | 2023-10-31 12:13 | Ultrasound Report ---
CAROTID ARTERY ULTRASOUND CLINICAL HISTORY: Left carotid bruit. COMPARISON STUDY: None. TECHNIQUE: Real-time, grayscale, and color Doppler sonography of the carotid and vertebral arteries w as performed. Images were viewed in the transverse and longitudinal planes. FINDINGS: There is mild atherosclerotic plaque. Velocity measurements are listed below. COMMON CAROTID PEAK SYSTOLIC VELOCITY (CM/S): RIGHT 83 LEFT 93 ICA PEAK SYSTOLIC VELOCITY (CM/S): RIGHT 214 LEFT 114 Systolic ratio between the right internal to common carotid artery is elevated at 2.6. However, only mild plaque is noted and the end-diastolic velocity is normal. Antegrade flow is seen in the vertebral arteries. The external carotid arteries are patent. IMPRESSION: 1. Elevated peak systolic velocity within the mid right cervical internal carotid artery. However, on ly mild plaque on bonner scale imaging. Therefore, this elevated velocity could be due to vessel tortuo sity. However, a 50-69% stenosis of the right internal carotid artery could appear similar. No eviden ce for severe stenosis. 2. No evidence for a hemodynamically significant stenosis within the cervical left internal carotid a rtery. ACT 112: Negative or not required by law. Electronically signed by: Raymundo Pitt M.D. 10/31/2023 12:12 PM
[2023-10-31] MEDS ORDERED: ALUMINUM/MAGNESIUM/SIMETH (MAALOX MAX) 30 ML UDC PO PRN (15:08)
[2023-10-31] MEDS: NITROGLYCERIN SL 0.4 MG/TAB TAB SL PRN ×2 (15:09→16:06)
[2023-10-31] MEDS ORDERED: Heparin IV Adult Wt-Based Standard *NO* INITIAL Bolus Protocol IV STA (16:08)
[2023-10-31] MEDS ORDERED: HEPARIN SODIUM/DEXTROSE 25,000 UNITS/500 ML BAG IV SCH (16:30)
[2023-10-31] MEDS: NITROGLYCERIN 2% OINTMENT 30GM TUBE EXT SCH ×2 (16:33→22:12)
[2023-10-31] MEDS ORDERED: HEPARIN 25000 UNIT/500 ML D5W IV ONE (16:54)
[2023-10-31 16:57] LABS: Basophils # (auto) 0.05 K/uL (0.00-0.20); Basophils % (auto) 0.6 %; Eosinophils # (auto) 0.08 K/uL (0.00-0.50); Eosinophils % (auto) 0.9 %; Hematocrit (blood only) 33.2 % (37.0-47.0); Hemoglobin 10.9 g/dl (12.0-16.0); Immature Granulocytes # (auto) 0.04 K/uL (0.01-0.20); Immature Granulocytes % (auto) 0.4 %; Lymphocytes # (auto) 0.97 K/uL (1.20-3.40); Lymphocytes % (auto) 10.7 %; Mean Corpuscular Hgb Conc 32.8 g/dL (32.0-36.0); Mean Corpuscular Volume 94.3 fL (80.0-100.0); Mean Platelet Volume 11.6 fL (9.4-12.4); Monocytes # (auto) 0.96 K/uL (0.11-0.59); Monocytes % (auto) 10.6 %; Neutrophils # (auto) 6.98 K/uL (1.40-6.50); Neutrophils % (auto) 76.8 %; Platelet Count 189 K/uL (130-400); RDW Coefficient of Variation 12.6 % (11.5-14.5); RDW Standard Deviation 43.7 fL (36.4-46.3); Red Blood Count 3.52 M/uL (4.20-5.40); White Blood Count 9.08 K/ul (4.8-10.8)
[2023-10-31 17:34] LABS: Partial Thromboplastin Time 28 Seconds (21-31); Prothrombin Time 10.8 Seconds (9.0-12.0)
--- NOTE | 2023-10-31 18:00 | Hospitalist Progress Note ---
Date of Service October 31, 2023 Assessment & Plan (1) Chest pain: Plan: 83-year-old female with past med history significant for type 2 diabetes, diabetic polyneuropathy, hyperlipidemia, diabetic gastroparesis, CKD stage III, history of dyspnea, history of migraine, comes in because of chest pain. Today afternoon she felt nauseous and had couple of episodes of diarrhea then she developed chest pain middle of the chest radiating to the back severe in nature lasted for 20 minutes. This happened few times which prompted her come to the ER. Last time she had chest pain was when she was entering the ambulance. Since then she has no chest pain. Chest pain got relieved by themselves. No nausea no dizziness or headache. No sweating. She had similar kind of chest pain in the past and she has stress test done on July 2022 which was unremarkable. Before today's episode last time she had was in September. She states one time when her was alive she took his nitro and that helped the chest pain. Currently resting comfortably and hemodynamically stable. Afebrile. No runny nose or sore throat or cough. No abdominal pain. Normal bowel and bladder movements. States she ambulated about couple of miles yesterday and she was asymptomatic at that time.. Chest pain --CTA: No acute pulmonary embolism. No focal infiltrate, pleural effusion, or pneumothorax. Small hiatal hernia. --Minimal troponin elevation --Echo showed no wall motion abnormality --HbA1c 7.6 Check lipid panel Continue nitroglycerin, IV heparin Continue aspirin, Lipitor, metoprolol Appreciate cardiology input N.p.o. after midnight for further evaluation tomorrow Nausea, diarrhea Likely gastroenteritis Stool for C. difficile negative Stool PCR pending Imodium as needed DM II HbA1C: 7.6 Hold p.o. medications Continue Sliding scale Monitor BGs CKD stage III Monitor renal function Avoid nephrotoxic agents as able Hypertension Continue Amlodipine, Losartan, metoprolol Monitor BP Hyperlipidemia On statin DVT Px: IV Heparin Code Status Full Code Admission and Anticipated Discharge Date Admission Date: October 31, 2023 Subjective Patient is seen and examined at bedside Nausea improved this morning Diarrhea improving as well per patient Denies any chest pain during my encounter this morning Reports chest pain to RN later today No other complaints Review of Systems Review of Systems: All systems reviewed & are unremarkable except as noted in Subjective Physical Exam Physical Exam: Physical Exam: Vitals signs as noted above General Appearance:Moderately built and nourished, no apparent distress Head: normocephalic, Atraumatic Eyes: normal inspection, EOMI Neck: supple, Trachea midline Respiratory/Chest: Normal breath sounds, CTA, No accessory muscle use Cardiovascular: S1, S2, No murmur Abdomen/GI:Soft, Non tender, Bowel sounds present Extremities/Musculoskeletal:normal inspection, no edema Neurologic/Psych:AAOX3, grossly no focal neurological deficits Skin: normal color, warm Results & Data Results & Data Vital Signs (Past 12 Hours) Vital Signs Temp Pulse Pulse Resp BP Pulse Ox O2 Del Method 10/31/23 11:34 36.9 C 66 18 129/54 L 100 Room Air 10/31/23 08:00 36.8 C 66 18 138/66 97 Room Air 10/31/23 07:34 67 Laboratory Results Short CBC 10/30/23 10/31/23 10/31/23 Range/Units 20:00 04:40 16:33 WBC 14.99 H 10.56 9.08 (4.8-10.8) K/ul Hgb 12.5 10.9 L 10.9 L (12.0-16.0) g/dl Hct 37.3 33.1 L 33.2 L (37.0-47.0) % Plt Count 204 192 189 (130-400) K/uL [facility] 10/30/23 10/31/23 20:00 04:40 Sodium 138 139 Potassium 4.9 4.4 Chloride 106 108 H Carbon Dioxide 22 20 L BUN 32 H 34 H Creatinine 1.05 1.13 Glucose 201 H 154 H Calcium 9.3 8.6 Liver Function 10/30/23 Range/Units 20:00 Total Bilirubin 1.2 H (0.2-1.0) mg/dl AST 33 (13-39) U/L ALT 26 (7-52) U/L Alkaline Phosphatase 75 (34-104) U/L Albumin 4.3 (3.4-5.0) gm/dl
[2023-11-01 00:26] LABS: ANTI-Xa, UFH(UnfractionatedHep 0.89 IU/ml (0.3-0.7)
[2023-11-01] MEDS: INSULIN ASPART PER UNIT CHARGE SC SCH ×5 (00:32→20:09)
[2023-11-01] MEDS: NITROGLYCERIN 2% OINTMENT 30GM TUBE EXT SCH ×3 (04:19→17:55)
[2023-11-01 05:35] LABS: Basophils # (auto) 0.03 K/uL (0.00-0.20); Basophils % (auto) 0.4 %; Eosinophils # (auto) 0.11 K/uL (0.00-0.50); Eosinophils % (auto) 1.6 %; Hematocrit (blood only) 30.3 % (37.0-47.0); Hemoglobin 10.2 g/dl (12.0-16.0); Immature Granulocytes # (auto) 0.02 K/uL (0.01-0.20); Immature Granulocytes % (auto) 0.3 %; Lymphocytes # (auto) 1.58 K/uL (1.20-3.40); Lymphocytes % (auto) 22.7 %; Mean Corpuscular Hemoglobin 31.5 pg (25.0-34.0); Mean Corpuscular Hgb Conc 33.7 g/dL (32.0-36.0); Mean Corpuscular Volume 93.5 fL (80.0-100.0); Mean Platelet Volume 12.4 fL (9.4-12.4); Monocytes # (auto) 0.88 K/uL (0.11-0.59); Monocytes % (auto) 12.7 %; Neutrophils # (auto) 4.33 K/uL (1.40-6.50); Neutrophils % (auto) 62.3 %; Platelet Count 176 K/uL (130-400); RDW Coefficient of Variation 12.7 % (11.5-14.5); RDW Standard Deviation 43.8 fL (36.4-46.3); Red Blood Count 3.24 M/uL (4.20-5.40); White Blood Count 6.95 K/ul (4.8-10.8)
[2023-11-01 05:38] LABS: Calcium 7.9 mg/dl (8.6-10.3); Chol HDL Ratio 1.9 (0-5); Creatinine Clr Calc Pharmacy 36.3 ml/min; Est GFR (African American) 61.2 ml/min; Est GFR (Non-African American) 52.8 ml/min; Magnesium 2.5 mg/dl (1.7-2.4); Potassium 3.7 mmol/L (3.5-5.1)
[2023-11-01 05:46] LABS: Troponin I High Sensitivity 17.4 pg/ml (0-14)
[2023-11-01 06:01] LABS: ANTI-Xa, UFH(UnfractionatedHep 0.74 IU/ml (0.3-0.7)
[2023-11-01] MEDS: amLODIPine BESYLATE 5 MG TAB PO SCH (08:44)
[2023-11-01] MEDS: PANTOprazole 40 MG TAB PO SCH (08:44)
[2023-11-01] MEDS: LOSARTAN POTASSIUM 50 MG TAB PO SCH ×2 (08:44→20:09)
[2023-11-01] MEDS: ASPIRIN 81 MG CHEW PO SCH (08:44)
[2023-11-01] MEDS: METOPROLOL SUCC 25MG EXT REL TAB PO SCH (08:45)
[2023-11-01] MEDS: ATORVASTATIN 20 MG TAB PO SCH (08:45)
--- NOTE | 2023-11-01 11:07 | Electrocardiogram Report ---
Test Reason : Blood Pressure : / mmHG Vent. Rate : 070 BPM Atrial Rate : 070 BPM P-R Int : 142 ms QRS Dur : 080 ms QT Int : 410 ms P-R-T Axes : -04 021 063 degrees QTc Int : 442 ms Normal sinus rhythm Normal ECG When compared with ECG of 30-OCT-2023 21:08, No significant change was found Confirmed by Mp Chandler ([id number]) on 11/01/2023 11:07:20 AM Referred By: Nikia Joyce Confirmed By:Pierce Chandler
--- NOTE | 2023-11-01 11:10 | Electrocardiogram Report ---
Test Reason : Blood Pressure : / mmHG Vent. Rate : 066 BPM Atrial Rate : 066 BPM P-R Int : 144 ms QRS Dur : 076 ms QT Int : 428 ms P-R-T Axes : 016 054 074 degrees QTc Int : 448 ms Normal sinus rhythm Normal ECG When compared with ECG of 31-OCT-2023 15:02, (unconfirmed) No significant change was found Confirmed by Mp Chandler ([id number]) on 11/01/2023 11:10:24 AM Referred By: Nikia Joyce Confirmed By:Pierce Chandler
[2023-11-01 13:03] LABS: ANTI-Xa, UFH(UnfractionatedHep 0.89 IU/ml (0.3-0.7)
--- NOTE | 2023-11-01 14:53 | Cardiology Progress Note ---
Date of Service November 01, 2023 Assessment & Plan (1) Chest pain at rest: (2) Left carotid bruit: (3) Dyslipidemia, goal LDL below 70: (4) Diabetes mellitus, type II: Plan 83-year-old female admitted with recurrent chest discomfort at rest. Discomfort consistently relieved with sublingual nitroglycerin. Currently pain-free with addition of topical nitrates. Prior stress testing unremarkable. Discussed further ischemic evaluation with repeat stress testing versus definitive diagnosis with cardiac catheterization. Risk, benefits, alternatives to procedure discussed at length. Patient agreeable to proceed with coronary angiography and left heart catheterization today. IV heparin will be placed on hold. Continue aspirin, statin, losartan, amlodipine, metoprolol succinate, and topical nitrates. Admission and Anticipated Discharge Date Admission Date: October 31, 2023 Subjective Patient seen and examined at the bedside. Reports episodes of chest discomfort yesterday relieved with sublingual nitroglycerin. Ultimately, topical nitrates were applied and she has been pain-free overnight. Denies palpitations or shortness of breath. Family present at bedside. Review of Systems Review of Systems: All systems reviewed & are unremarkable except as noted in Subjective Physical Exam Constitutional: well nourished; no acute distress Respiratory: no respiratory distress, no labored breathing and no retractions Auscultation: no crackles, no rales, no rhonchi and no wheezes Cardiovascular: Rate/Rhythm: regular rate and regular rhythm Heart Sounds: normal S1, normal S2 and + murmur (1/6 DIMA) Vessels: femoral pulses present and radial pulses present; no JVD and no carotid bruit Extremities: no edema Gastrointestinal (Abdomen): Inspection/Auscultation: abdomen normal to inspection and normal bowel sounds; abdomen not distended Percussion/Palpation: abdomen nontender, no guarding, abdomen not rigid and + abdomen not soft Neurologic: CN's II-XI intact bilaterally and moves all extremities Results & Data Vital Signs (Past 12 Hours) Vital Signs Temp Pulse Pulse Resp BP BP Pulse Ox 11/01/23 11:23 36.6 C 56 L 18 98/55 L 93 11/01/23 08:07 72 11/01/23 08:05 36.5 C 63 18 130/51 L 96 11/01/23 05:07 36.8 C 73 16 103/61 98 11/01/23 04:47 86 14 96 11/01/23 04:36 51 L 19 108/44 L 11/01/23 04:00 54 L 17 101/39 L O2 Del Method 11/01/23 11:23 Room Air 11/01/23 08:07 11/01/23 08:05 Room Air 11/01/23 05:07 Room Air 11/01/23 04:47 Room Air 11/01/23 04:36 11/01/23 04:00 Laboratory Results Cardiac Enzymes 10/31/23 11/01/23 Range/Units 16:33 04:19 Troponin I High Sens 15.3 H 17.4 H (0-14) pg/ml Coagulation 10/31/23 Range/Units 16:33 PT 10.8 (9.0-12.0) Seconds APTT 28 (21-31) Seconds Lipids 11/01/23 Range/Units 04:19 Triglycerides 76 (0-150) mg/dl Cholesterol 98 (0-200) mg/dl HDL Cholesterol 52 mg/dl Cholesterol/HDL Ratio 1.9 (0-5) CBC 10/31/23 11/01/23 Range/Units 16:33 04:19 WBC 9.08 6.95 (4.8-10.8) K/ul RBC 3.52 L 3.24 L (4.20-5.40) M/uL Hgb 10.9 L 10.2 L (12.0-16.0) g/dl Hct 33.2 L 30.3 L (37.0-47.0) % Plt Count 189 176 (130-400) K/uL Neut # (Auto) 6.98 H 4.33 (1.40-6.50) K/uL Lymph # (Auto) 0.97 L 1.58 (1.20-3.40) K/uL [place] # (Auto) 0.96 H 0.88 H (0.11-0.59) K/uL Eos # (Auto) 0.08 0.11 (0.00-0.50) K/uL Baso # (Auto) 0.05 0.03 (0.00-0.20) K/uL Comprehensive Metabolic Panel 11/01/23 Range/Units 04:19 Sodium 139 (136-145) mmol/L Potassium 3.7 (3.5-5.1) mmol/L Chloride 108 H (98-107) mmol/L Carbon Dioxide 23 (21-32) mmol/L BUN 32 H (6-23) mg/dl Creatinine 1.00 (0.6-1.2) mg/dl Glucose 91 (70-99(Fasting)) mg/dl Calcium 7.9 L (8.6-10.3) mg/dl Intake and Output 10/31/23 11/01/23 11/01/23 22:59 06:59 14:59 Intake Total 1000 / 1236.150 236.150 / 1236.150 92.267 / 92.267 Balance 1000 / 1236.150 236.150 / 1236.150 92.267 / 92.267 Intake: IV 1000 / 1236.150 236.150 / 1236.150 92.267 / 92.267 Heparin Sodium/Dextrose 25,000 236.150 / 236.150 92.267 / 92.267 units In 500 ml @ 800 UNITS/HR 16 mls/hr IV .Q24H [place] Rx#: [id number] Sodium Chloride 0.9% 1,000 ml @ 1000 / 1000 75 mls/hr IV .[id number] [place] Rx#: [id number] Other: Other Intake Source npo # Unmeasured Voids 2 Weight 58.5 kg Weight Measurement Method Standing Scale
--- NOTE | 2023-11-01 14:58 | Pre Anesthesia Assessment ---
Date of Service November 01, 2023 Pre Sedation Assessment Vital Signs Temp Pulse Pulse Resp BP BP Pulse Ox 11/01/23 11:23 36.6 C 56 L 18 98/55 L 93 11/01/23 08:07 72 11/01/23 08:05 36.5 C 63 18 130/51 L 96 11/01/23 05:07 36.8 C 73 16 103/61 98 11/01/23 04:47 86 14 96 11/01/23 04:36 51 L 19 108/44 L 11/01/23 04:00 54 L 17 101/39 L 11/01/23 02:25 60 11/01/23 02:05 65 17 11/01/23 02:00 11/01/23 01:44 60 16 11/01/23 01:42 64 15 11/01/23 01:42 125/48 L 11/01/23 00:00 64 18 10/31/23 22:11 66 16 127/49 L 95 Pulse Ox O2 Del Method O2 Del Method 11/01/23 11:23 Room Air 11/01/23 08:07 11/01/23 08:05 Room Air 11/01/23 05:07 Room Air 11/01/23 04:47 Room Air 11/01/23 04:36 11/01/23 04:00 11/01/23 02:25 11/01/23 02:05 11/01/23 02:00 99 Room Air 11/01/23 01:44 11/01/23 01:42 11/01/23 01:42 11/01/23 00:00 10/31/23 22:11 Room Air Cardiovascular + regular rate and + regular rhythm + S1 normal, + S2 normal and + murmur + carotid bruit (+left sided bruit); no JVD no edema Respiratory no respiratory effort normal, no respiratory distress and no labored breathing no crackles, no rales, no rhonchi and no wheezes Pre-Sedation Airway Assessment Smoking Status: Never smoker Hx Sleep Apnea: No Short, Thick Neck: No Thyromental Distance: > or= 3.5 Finger Breadths Oral Cavity: + Dentures Mallampati Class: III ASA: ASA3 NPO Status Date of Last Intake of Fluids: 10/31/23 Date of Last Intake of Solid Food: 10/31/23 Procedure Planning Contraindications for Sedation: none Current Medications Reviewed: Yes Notes The planned sedation has been discussed with the patient. Informed Consent was obtained. I have identified the patient, determined the appropriateness of sedation and have assessed the patient immediately prior to the procedure. All medicine(s) and interventions are by my order.
[2023-11-01] MEDS ORDERED: NITROGLYCERIN/D5W 100MCG/ML 20ML SYR ONE (15:28)
[2023-11-01] MEDS ORDERED: niCARdipine HCL INJ 2.5 MG/ML 10 ML AMP ONE (15:28)
[2023-11-01] MEDS ORDERED: fentaNYL citrate PF 100 MCG/2 ML VIAL ONE (15:28)
[2023-11-01] MEDS ORDERED: MIDAZOLAM HCL 1 MG/ML 2ML VIAL ONE (15:28)
[2023-11-01] MEDS ORDERED: HEPARIN (PORCINE) 1000 UNIT/ML 10 ML (CATH LAB USE ONLY) ONE (15:28)
[2023-11-01] MEDS ORDERED: IODIXANOL (VISIPAQUE) 320 MG/ML 100ML IV ONE (16:00)
--- NOTE | 2023-11-01 16:17 | Post Anesthesia Assessment ---
Date of Service November 01, 2023 Post Sedation Assessment Vital Signs Temp Pulse Pulse Resp BP BP Pulse Ox 11/02/23 07:29 36.7 C 63 19 134/57 L 97 11/02/23 04:04 36.5 C 74 18 134/84 95 11/02/23 00:04 63 11/01/23 21:42 36.7 C 65 20 136/64 97 11/01/23 20:42 36.6 C 86 18 134/72 96 11/01/23 19:15 36.3 C L 74 18 139/67 95 11/01/23 18:17 11/01/23 17:42 81 135/61 11/01/23 17:12 36.7 C 78 20 126/57 L 97 11/01/23 16:42 36.7 C 60 20 123/47 L 99 11/01/23 11:23 36.6 C 56 L 18 98/55 L 93 O2 Del Method 11/02/23 07:29 Room Air 11/02/23 04:04 11/02/23 00:04 11/01/23 21:42 Room Air 11/01/23 20:42 Room Air 11/01/23 19:15 Room Air 11/01/23 18:17 Room Air 11/01/23 17:42 11/01/23 17:12 Room Air 11/01/23 16:42 Room Air 11/01/23 11:23 Room Air Recovery Score Activity: Moves 4 extremities Respiration: Deep Breath/Cough Circulation: +/-20% PreAnes Value Consciousness: Arouseable (by name) Oxygen Saturation: > 92% On Room Air Discharge Sedation Level of Care: Phase I Post Sedation Plan On clinical assessment, the patient appears to have tolerated the sedation without complications. Patient is recovering as anticipated. Patient will continue to be monitored by nursing and may be discharged when sedation discharge criteria are met per below protocol. Upon Completions of procedure up to 15 minutes continue every 5 minute vital signs and the P.A.R. score; then discharge to a Phase I or Fast Track to Phase II per the following guidelines: * Discharge Patient to appropriate Phase II area if PAR is 8 or greater or return to pre- procedure baseline. The post - procedure orders will be as directed. * If PAR score is less than 8 or not return to pre-procedure baseline then patient will follow Phase I monitoring till PAR is reached for Phase II. The Phase I may be done in procedure room or may call to secure a Phase I area. * If naloxone or flumazenil are used for reversal, hold in Phase I for continued monitoring from when last reversal dose was given for a minimum of 60 minutes or longer pending the nurse and/or physician discretion of patient condition before discharge to Phase II. Please call the Sedation Physician to re-evaluate and complete post-note for discharge to Phase II area. Do NOT discharge from procedure sedation or Phase 1 until post- sedation evaluation note is complete by procedure /sedation MD Sedation Discharge Instructions to be given to the patient at discharge to home.
--- NOTE | 2023-11-01 16:21 | Cardiac Catheterization ---
Cardiac Cath Procedure Full Procedure Date November 01, 2023 Pre-Procedure Diagnosis Pre-Procedure Diagnosis: Angina AUC Score AUC Score: 7 Post-Procedure Diagnosis Post-Procedure Diagnosis: Mild CAD and Normal Intracardiac Pressures Procedure(s) Performed Procedure(s) Performed: Coronary Angiography and Left Heart Cath Physician Industrial Aquilino Espitia DO Television Writer(s) RT Gary Estimated Blood Loss Estimated Blood Loss: 5cc Medication(s) Medication(s): Heparin, Lidocaine 1%, Nicardipine, Nitroglycerin and Versed Summary of Findings Mild nonobstructive coronary disease. 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 Hemodynamics Rest Ao:: 107/39/65 Final Ao: 128/42/71 LV: 127/1/7 Recommendations Recommendations: Medical Therapy and/or Counseling Specimens Specimens: None Radiation Exposure (mGy) 4121 Contrast (mls) 60 Fluids (cc crystalloids) Fluids (cc crystalloids): 84 Nss Drains Drains: N/A Anesthesia Moderate sedation. Start 1547. End 1611. Sedation monitor: Alice APONTE Procedural Complication(s) None I attest to the content of the Intraoperative Record and any orders documented therein. Any exceptions are noted below. ACC Data: Resin Remover Cardiac Status Clinical evaluation leading to the procedure 83-year-old female admitted with recurrent substernal chest pain relieved with sublingual nitroglycerin. Cardiac enzymes negative. CAD Presenation: Unstable angina Coronary Anatomy Dominant: Right Left Main (% Stenosis): Normal LAD (% Stenosis): Proximal (20%) and Mid (40% myocardial bridge during systole) D1 (% Stenosis): Normal D2 (% Stenosis): Normal Circumflex (% Stenosis): Normal OM1 (% Stenosis): Normal OM2 (% Stenosis): Normal RCA (% Stenosis): Mid (20%) R PDA (% Stenosis): Normal R PL1 (% Stenosis): Normal R PL2 (% Stenosis): Normal Diagnostic Physicians Name: Aquilino Espitia DO Closure Device Percutaneous Entry Location: Radial Closure Device: Radial Band Recommendations: Medical Therapy and/or Counseling Intraprocedure Events Significant Disection: No Perforation: No
[2023-11-01] MEDS ORDERED: Nursing to Pharmacy Communication SCH (17:00)
--- NOTE | 2023-11-01 17:23 | Hospitalist Progress Note ---
Date of Service November 01, 2023 Assessment & Plan (1) Chest pain: Plan: 83-year-old female with past med history significant for type 2 diabetes, diabetic polyneuropathy, hyperlipidemia, diabetic gastroparesis, CKD stage III, history of dyspnea, history of migraine, comes in because of chest pain. Today afternoon she felt nauseous and had couple of episodes of diarrhea then she developed chest pain middle of the chest radiating to the back severe in nature lasted for 20 minutes. This happened few times which prompted her come to the ER. Last time she had chest pain was when she was entering the ambulance. Since then she has no chest pain. Chest pain got relieved by themselves. No nausea no dizziness or headache. No sweating. She had similar kind of chest pain in the past and she has stress test done on July 2022 which was unremarkable. Before today's episode last time she had was in September. She states one time when her was alive she took his nitro and that helped the chest pain. Currently resting comfortably and hemodynamically stable. Afebrile. No runny nose or sore throat or cough. No abdominal pain. Normal bowel and bladder movements. States she ambulated about couple of miles yesterday and she was asymptomatic at that time.. Chest pain Nonobstructive coronary artery disease --CTA: No acute pulmonary embolism. No focal infiltrate, pleural effusion, or pneumothorax. Small hiatal hernia. 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 --lipid panel: Normal IV heparin, NTG discontinued Continue aspirin, Lipitor, metoprolol Appreciate cardiology input Nausea, diarrhea Likely gastroenteritis Stool for C. difficile negative Stool PCR pending Imodium as needed Diarrhea resolved DM II HbA1C: 7.6 Hold p.o. medications Continue Sliding scale Monitor BGs CKD stage III Monitor renal function Avoid nephrotoxic agents as able Hypertension Continue Amlodipine, Losartan, metoprolol Monitor BP Hyperlipidemia On statin DVT Px: SQ Heparin Code Status Full Code Admission and Anticipated Discharge Date Admission Date: November 01, 2023 Subjective Patient is seen and examined at bedside Offers no new complaints this morning Chest pain resolved Had cardiac catheterization earlier today Diarrhea resolved as well Discussed with patient's family at bedside Review of Systems Review of Systems: All systems reviewed & are unremarkable except as noted in Subjective Physical Exam Physical Exam: Physical Exam: Vitals signs as noted above General Appearance:Moderately built and nourished, no apparent distress Head: normocephalic, Atraumatic Eyes: normal inspection, EOMI Neck: supple, Trachea midline Respiratory/Chest: Normal breath sounds, CTA, No accessory muscle use Cardiovascular: S1, S2, No murmur Abdomen/GI:Soft, Non tender, Bowel sounds present Extremities/Musculoskeletal:normal inspection, no edema Neurologic/Psych:AAOX3, grossly no focal neurological deficits Skin: normal color, warm Results & Data Results & Data Vital Signs (Past 12 Hours) Vital Signs Temp Pulse Pulse Resp BP Pulse Ox O2 Del Method 11/01/23 11:23 36.6 C 56 L 18 98/55 L 93 Room Air 11/01/23 08:07 72 11/01/23 08:05 36.5 C 63 18 130/51 L 96 Room Air Laboratory Results Short CBC 11/01/23 Range/Units 04:19 WBC 6.95 (4.8-10.8) K/ul Hgb 10.2 L (12.0-16.0) g/dl Hct 30.3 L (37.0-47.0) % Plt Count 176 (130-400) K/uL BMP 11/01/23 04:19 Sodium 139 Potassium 3.7 Chloride 108 H Carbon Dioxide 23 BUN 32 H Creatinine 1.00 Glucose 91 Calcium 7.9 L
--- OUTSIDE RECORDS SUMMARY | 2023-11-01 17:27 | External Medical Summary | Summary of Care ---
Author Name Unknown Organization [facility] Address [address] [place] [address] Phone [phone] Care Team Providers Care Kindergarten Aide Name Role Phone MeganNikia allison Primary Care Provider + [phone] Encounter Details Date Type Department Care Team (Late st Contact Info) Description 10/31/2023 Result Scan Unspecified Department Jeremy Alexander PA-C [address] [place] [address] <No scans attached> Allergies No known active allergiesdocumented as of this encounter (statuses as of 10/31/2023) Medications Medication Sig Dispensed Refills Start Date [...] hemoglobin A1c goal of less than 8.0% ([facility]) Check blood sugar once daily. E11.9 100 Strip 3 12/14/2022 Active Vitamin D (Ergocalciferol) 1.25 MG (19918 UT) Oral Capsule (Drisdol)Indication s:Vitamin D deficiency 1 tab every other week 24 Capsule 0 01/22/2023 Active Losartan Potassium 50 MG Oral Tablet (Cozaar)Indications :Type 2 diabetes mellitus with hemoglobin A1c goal of less than 8.0% ([facility]),HTN, goal below 140/90 Take 1 Tablet by [...] as of this encounter (statuses as of 10/31/2023) Active Problems Problem Noted Date Diagnosed Date [...] as of this encounter (statuses as of 10/31/2023) Resolved Problems Problem Noted Date Diagnosed Date [...] as of this encounter (statuses as of 10/31/2023) Immunizations Name Administration Dates Next Due COVID-19 mRNA, LNP-s, No Pre serve, 2-Dose Series (Moderna) 08/15/2021,01/01/2021,11/29/2020 COVID-19, MRNA-LNP, 23-24, P F, 30 MCG/0.3 mL, 12 YRS AND ABOVE, IM ([facility]) 08/22/2023 Covid-19, Mrna, Lnp-s, Pf, B ivalent, [...] Answer Date Recorded PHQ Adult Total Score 2 10/25/2023 Hunger Vital Sign Answer Date Recorded Within the past 12 months, y ou worried that your food would run out before you got the money to buy more. Never true 10/25/20 23 Within the past 12 months, t he food you bought just didn't last and you didn't have money to get more. Never true 10/25/2023 Sex and Gender Information Value Date Recorded [...] 8:00 AM EST Office Visit Family Practice [address] [place] [address] [address] [place] [address] Nikia Joyce DO [address] [place] [address] 12/12/2023 8:30 AM EST Imaging Cardiac Studies, [facility] [address] [facility] [place] [address] 01/16/2024 10:30 AM EDT Office Visit Rheumatology [facility] [address] [place] [address] [place] CRNP [address] [facility] [place] [address] 03/04/2024 8:00 AM EDT Office Visit Nephrology, Kenisha Talbot [address] [place], [place] [address] Oma Hernandez MD [address] [place] [address] Health Maintenance Due Date Last Done Comments Hepatitis B (1 of 3 - Risk 3-dose series) 2002 FOBT ANNUALLY,AGES 18-90 07/04/2023 022, 12/05/2019, 08/19/2018, Additional history exists GFR 10/24/2023 04/24/2023, 10/05, 04/17/2022, Additional history exists HbA1c 10/24/2023 04/24/2023, 10/05, 04/17/2022, Additional history exists Diabetic Eye Exam 03/15/2024 03/15/2023, , 11/16/2022, Additional history exists CKD HGB USE SMARTSET 67679 04/24/202404/24, 10/18/2022, 04/17/2022, Additional history exists CKD PHOS USE SMARTSET [id number] 04/24/202404/06, 04/17/2022, 10/10/2021, Additional history exists Diabetic Foot Exam 04/24/2024 04/24/2023, 0 07/04/2022, 05/13/2021, Additional history exists DXA Scan 06/28/2024 06/28/2022, 05/06, 05/14/2018, Additional history exists Albumin/Creatinine Ratio 08/17/2024 023, 10/18/2022, 04/17/2022, Additional history exists Depression Screening 10/25/2024 10/25/2023 DTaP,Tdap,and Td Vaccines (3 - Td or Tdap) 02/20/2027 02/20/2017, 04/10/2006 Pneumococcal Vaccine: 65+ Years Completed 01/18/2015, 12/03/2007, 01/14/2002 Zoster Vaccines Completed 04/21/2020, 12/06, 08/09/2015 VITAMIN D LEVEL ONCE IN A LIFETIME-USE SMARTSET# [id number] Completed 10/18/2022, 04/17/2022, 10/10/2021, Additional history exists [...] Procedure Name Priority Date/Time Associated Diagnosis Comments RADIOLOGY SCANNED RESULT 10/31/2023 documented in this encounter Results * RADIOLOGY SCANNED RESULT (10/31/2023) 10/31/2023 Jeremy Alexander PA-C DIAGNOSTIC RADIOLOG [facility] documented in this encounter Care Teams Kindergarten Aide Relationship Specialty Start Date End Date Nikia Joyce DO [address] [place] [address] PCP - General Family Medicine 07/04/22 documented as of this encounter
[2023-11-01] MEDS: HEPARIN SOD 5,000 UNIT/0.5 ML VIAL SQ SCH (20:10)
[2023-11-02 06:30] LABS: Hematocrit (blood only) 34.3 % (37.0-47.0); Hemoglobin 11.3 g/dl (12.0-16.0); Mean Corpuscular Hgb Conc 32.9 g/dL (32.0-36.0); Mean Corpuscular Volume 94.2 fL (80.0-100.0); Mean Platelet Volume 11.6 fL (9.4-12.4); Platelet Count 182 K/uL (130-400); RDW Coefficient of Variation 12.3 % (11.5-14.5); RDW Standard Deviation 42.5 fL (36.4-46.3); Red Blood Count 3.64 M/uL (4.20-5.40); White Blood Count 7.71 K/ul (4.8-10.8)
[2023-11-02 06:48] LABS: BUN Creatinine Ratio 27.9 (10-20); Calcium 7.8 mg/dl (8.6-10.3); Creatinine Clr Calc Pharmacy 34.9 ml/min; Est GFR (African American) 58.4 ml/min; Est GFR (Non-African American) 50.3 ml/min; Magnesium 2.5 mg/dl (1.7-2.4); Potassium 3.6 mmol/L (3.5-5.1)
[2023-11-02] MEDS: INSULIN ASPART PER UNIT CHARGE SC SCH ×2 (08:08→13:10)
[2023-11-02] MEDS: HEPARIN SOD 5,000 UNIT/0.5 ML VIAL SQ SCH (08:39)
[2023-11-02] MEDS: METOPROLOL SUCC 25MG EXT REL TAB PO SCH (09:51)
[2023-11-02] MEDS: amLODIPine BESYLATE 5 MG TAB PO SCH (09:52)
[2023-11-02] MEDS: PANTOprazole 40 MG TAB PO SCH (09:52)
[2023-11-02] MEDS: ATORVASTATIN 20 MG TAB PO SCH (09:53)
[2023-11-02] MEDS: LOSARTAN POTASSIUM 50 MG TAB PO SCH (09:53)
[2023-11-02] MEDS: ASPIRIN 81 MG CHEW PO SCH (09:54)
--- NOTE | 2023-11-02 13:13 | Hospitalist Progress Note ---
Date of Service November 02, 2023 Assessment & Plan (1) Chest pain: Plan: 83-year-old female with past med history significant for type 2 diabetes, diabetic polyneuropathy, hyperlipidemia, diabetic gastroparesis, CKD stage III, history of dyspnea, history of migraine, comes in because of chest pain. Today afternoon she felt nauseous and had couple of episodes of diarrhea then she developed chest pain middle of the chest radiating to the back severe in nature lasted for 20 minutes. This happened few times which prompted her come to the ER. Last time she had chest pain was when she was entering the ambulance. Since then she has no chest pain. Chest pain got relieved by themselves. No nausea no dizziness or headache. No sweating. She had similar kind of chest pain in the past and she has stress test done on July 2022 which was unremarkable. Before today's episode last time she had was in September. She states one time when her was alive she took his nitro and that helped the chest pain. Currently resting comfortably and hemodynamically stable. Afebrile. No runny nose or sore throat or cough. No abdominal pain. Normal bowel and bladder movements. States she ambulated about couple of miles yesterday and she was asymptomatic at that time.. Chest pain Nonobstructive coronary artery disease --CTA: No acute pulmonary embolism. No focal infiltrate, pleural effusion, or pneumothorax. Small hiatal hernia. 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 --lipid panel: Normal IV heparin, NTG discontinued Continue aspirin, Lipitor, metoprolol Appreciate cardiology input Chest pain likely due GI issues. Advised to follow-up with GI as outpatient Nausea, diarrhea Likely gastroenteritis Stool for C. difficile negative Imodium as needed Diarrhea resolved DM II HbA1C: 7.6 Hold p.o. medications Continue Sliding scale Monitor BGs CKD stage III Monitor renal function Avoid nephrotoxic agents as able Hypertension Continue Amlodipine, Losartan, metoprolol Monitor BP Hyperlipidemia On statin DVT Px: SQ Heparin Code Status Full Code Disposition Home Admission and Anticipated Discharge Date Admission Date: November 01, 2023 Subjective Patient is seen and examined at bedside States feeling well today No new complaints Discussed with cardiology and patient's family at bedside Chest pain resolved No recurrence of diarrhea Denies any nausea, vomiting, abdominal pain, dysphagia, odynophagia Plan to be discharged home today Review of Systems Review of Systems: All systems reviewed & are unremarkable except as noted in Subjective Physical Exam Physical Exam: Physical Exam: Vitals signs as noted above General Appearance:Moderately built and nourished, no apparent distress Head: normocephalic, Atraumatic Eyes: normal inspection, EOMI Neck: supple, Trachea midline Respiratory/Chest: Normal breath sounds, CTA, No accessory muscle use Cardiovascular: S1, S2, No murmur Abdomen/GI:Soft, Non tender, Bowel sounds present Extremities/Musculoskeletal:normal inspection, no edema Neurologic/Psych:AAOX3, grossly no focal neurological deficits Skin: normal color, warm Results & Data Results & Data Vital Signs (Past 12 Hours) Vital Signs Temp Pulse Pulse Resp BP BP Pulse Ox 11/02/23 11:38 74 11/02/23 11:24 36.7 C 76 18 167/50 H 98 11/02/23 07:29 36.7 C 63 19 134/57 L 97 11/02/23 04:04 36.5 C 74 18 134/84 95 O2 Del Method 11/02/23 11:38 11/02/23 11:24 Room Air 11/02/23 07:29 Room Air 11/02/23 04:04 Laboratory Results Short CBC 11/02/23 Range/Units 06:08 WBC 7.71 (4.8-10.8) K/ul Hgb 11.3 L (12.0-16.0) g/dl Hct 34.3 L (37.0-47.0) % Plt Count 182 (130-400) K/uL BMP 11/02/23 06:08 Sodium 138 Potassium 3.6 Chloride 108 H Carbon Dioxide 22 BUN 29 H Creatinine 1.04 Glucose 107 H Calcium 7.8 L
--- NOTE | 2023-11-02 13:44 | Electrocardiogram Report ---
Test Reason : Blood Pressure : / mmHG Vent. Rate : 063 BPM Atrial Rate : 063 BPM P-R Int : 134 ms QRS Dur : 082 ms QT Int : 456 ms P-R-T Axes : 036 021 033 degrees QTc Int : 466 ms Normal sinus rhythm Normal ECG When compared with ECG of 31-OCT-2023 20:07, Nonspecific T wave abnormality no longer evident in Lateral leads Confirmed by Mp Chandler ([id number]) on 11/02/2023 1:44:25 PM Referred By: Nikia Joyce Confirmed By:Pierce Chandler
--- NOTE | 2023-11-02 14:23 | Cardiology Progress Note ---
Date of Service November 02, 2023 Assessment & Plan (1) Chest pain at rest: (2) Left carotid bruit: (3) Dyslipidemia, goal LDL below 70: (4) Diabetes mellitus, type II: Plan 83-year-old female admitted with recurrent chest discomfort at rest. Cardiac catheterization performed 11/01/2023 demonstrating mild nonobstructive coronary disease. I suspect symptoms may be related to esophageal spasm. Continue aspirin, statin, losartan, amlodipine, and metoprolol succinate. No further cardiac testing indicated at this time. Consider referral to gastroenterology for further evaluation of symptoms. Thank you for allow me to participate in the care of your patient. She may be discharged from a cardiovascular perspective. Postcardiac catheterization activity restrictions listed below. ACTIVITY RECOMMENDATIONS: Excess manipulation of the wrist should be avoided for the next 24-48 hours. * No lifting over 2 pounds (approximately a 1/2 gallon of milk) with the utilized arm for 24 hours. * No strenuous activity such as bowling or tennis for 3 days. * Keep the site of the procedure covered with a bandage for 24 hours. *You may shower the day after the procedure. Do not take a tub bath or submerge the puncture site in water for the next 3 days. *Do not operate any motorized equipment for 3 days. SPECIAL CARE INSTRUCTIONS: The site may be slightly bruised and sore following your procedure. Should any of the following occur, contact the Dr. who performed your procedure. 1. Redness/inflammation, swelling, chills, or fever, or colored drainage at procedure site within 3-7 days after your procedure. 2. Coldness, discoloration, ongoing numbness, severe pain, or swelling. Expect mild tingling of hand and tenderness at the puncture site for up to three days. If this persists beyond three days, or other symptoms develop, notify the Dr. who performed your procedure. BLEEDING: If the procedure site on your wrist begins to bleed, do not panic 1. Place 1 or 2 fingers firmly just slightly above the insertion site to stop the bleeding. You may be able to feel your pulse as you hold pressure. 2. Lift your finger after 5 minutes to see if the bleeding has stopped. 3. Once the bleeding has stopped, gently wipe the wrist area clean with a bandage. * If the bleeding from your wrist does not stop after 10 minutes, or if there is a large amount of bleeding or spurting, call 911 (do not drive yourself to the hospital). SKIN IRRITATION: * You may experience some redness and/or swelling in the area where radiation was administered. If any skin irritation occurs, please contact your family physician. FOLLOW UP VISIT: Keep any scheduled doctor appointments. Admission and Anticipated Discharge Date Admission Date: November 01, 2023 Subjective Patient seen examined the bedside. Topical nitrates removed. No recurrent chest discomfort. Denies any wrist discomfort or hematoma. Telemetry reveals sinus rhythm in the 60s, isolated 10 beat priscila of PSVT at approximately 5 AM. Daughter present at bedside. Offers no additional concerns/complaints. Patient requesting prescription for sublingual nitroglycerin for treatment of symptoms. Review of Systems Review of Systems: All systems reviewed & are unremarkable except as noted in Subjective Physical Exam Constitutional: well nourished; no acute distress Respiratory: + abnormal respiratory effort, no respir atory distress, no labored breathing and no retractions Auscultation: no crackles, no rales, no rhonchi and no wheezes Cardiovascular: Rate/Rhythm: regular rate and regular rhythm Heart Sounds: normal S1, normal S2 and + murmur Vessels: + carotid bruit (+left sided bruit), femoral pulses present and radial pulses present; no JVD Extremities: no edema Gastrointestinal (Abdomen): Inspection/Auscultation: abdomen normal to inspection and normal bowel sounds; abdomen not distended Percussion/Palpation: abdomen nontender, no guarding, abdomen not rigid and + abdomen not soft Neurologic: CN's II-XI intact bilaterally and moves all extremities Results & Data Vital Signs (Past 12 Hours) Vital Signs Temp Pulse Pulse Resp BP BP Pulse Ox 11/02/23 13:29 36.7 C 76 18 167/50 H 134/57 L 98 11/02/23 11:38 74 11/02/23 11:24 36.7 C 76 18 167/50 H 98 11/02/23 07:29 36.7 C 63 19 134/57 L 97 11/02/23 04:04 36.5 C 74 18 134/84 95 O2 Del Method 11/02/23 13:29 11/02/23 11:38 11/02/23 11:24 Room Air 11/02/23 07:29 Room Air 11/02/23 04:04 Laboratory Results CBC 11/02/23 Range/Units 06:08 WBC 7.71 (4.8-10.8) K/ul RBC 3.64 L (4.20-5.40) M/uL Hgb 11.3 L (12.0-16.0) g/dl Hct 34.3 L (37.0-47.0) % Plt Count 182 (130-400) K/uL Comprehensive Metabolic Panel 11/02/23 Range/Units 06:08 Sodium 138 (136-145) mmol/L Potassium 3.6 (3.5-5.1) mmol/L Chloride 108 H (98-107) mmol/L Carbon Dioxide 22 (21-32) mmol/L BUN 29 H (6-23) mg/dl Creatinine 1.04 (0.6-1.2) mg/dl Glucose 107 H (70-99(Fasting)) mg/dl Calcium 7.8 L (8.6-10.3) mg/dl Intake and Output 11/01/23 11/02/23 11/02/23 22:59 06:59 14:59 Intake Total 400 / 692.267 200 / 692.267 Balance 400 / 692.267 200 / 692.267 Intake: IV 0 / 92.267 Heparin Sodium/Dextrose 25,000 0 / 92.267 units In 500 ml @ 0 UNITS/HR IV .Q0M [facility] Rx#:[id number] Oral 400 / 600 200 / 600 Other: # Unmeasured Voids 2 1 Weight 58.6 kg 58.6 kg Weight Measurement Method Built in [facility] Patient Weight 11/03/23 06:59 Weight 58.6 kg
--- NOTE | 2023-11-02 15:51 | Discharge Summary ---
Date of Service November 02, 2023 Admission HPI Per Admitting Provider 83-year-old female with past med history significant for type 2 diabetes, diabetic polyneuropathy, hyperlipidemia, diabetic gastroparesis, CKD stage III, history of dyspnea, history of migraine, comes in because of chest pain. Today afternoon she felt nauseous and had couple of episodes of diarrhea then she developed chest pain middle of the chest radiating to the back severe in nature lasted for 20 minutes. This happened few times which prompted her come to the ER. Last time she had chest pain was when she was entering the ambulance. Since then she has no chest pain. Chest pain got relieved by themselves. No nausea no dizziness or headache. No sweating. She had similar kind of chest pain in the past and she has stress test done on July 2022 which was unremarkable. Before today's episode last time she had was in September. She states one time when her was alive she took his nitro and that helped the chest pain. Currently resting comfortably and hemodynamically stable. Afebrile. No runny nose or sore throat or cough. No abdominal pain. Normal bowel and bladder movements. States she ambulated about couple of miles yesterday and she was asymptomatic at that time.. Past medical history. As mentioned above Past surgical history. Appendectomy. Cataract surgery. Open cholecystectomy. Tonsillectomy/ adenectomy. Total abdominal hysterectomy with removal of tubes. Social history. . No smoking. Alcohol rare. No drug use. Family history. Mother had cancer. Diabetes. Father has AMD and blindness .Daughter has diabetes. Admission Exam Per Admitting Provider General- Not in distress Head- atraumatic Eyes- PERRL, EOMI. ENT- oropharynx clear Neck- supple, no JVD. Lungs- clear to auscultation , no wheezing or crackles. Heart- regular rhythm; no murmur, no gallop. Abdomen- normal bowel sounds, soft, nontender, no distension. Extremities- no pretibial edema, no erythema Neuro- alert, oriented x 3; PERRL,no facial palsy; no dysarthria; moves extremities. Skin- warm & dry Principal Diagnosis Chest pain Gastroenteritis--resolved Discharge Data Allergies Allergy/AdvReac Type Severity Reaction Status Date / Time No Known Allergies Allergy Verified 08/02/22 16:01 Consultations 10/30/23 22:22 ED Decision to Admit Stat 10/31/23 08:00 Consult Cardiology Routine Procedures Performed Operation Date: 11/01/23 13:00 Actual Procedures p Cath, Left with Cors and Vent - Aquilino Espitia DO s Cineradiography w/Routine Exam - Aquilino Espitia DO Laboratory Results WBC 7.71 K/ul (4.8-10.8) 11/02/23 06:08 RBC 3.64 M/uL (4.20-5.40) L 11/02/23 06:08 Hgb 11.3 g/dl (12.0-16.0) L 11/02/23 06:08 Hct 34.3 % (37.0-47.0) L 11/02/23 06:08 MCV 94.2 fL (80.0-100.0) 11/02/23 06:08 MCH 31.0 pg (25.0-34.0) 11/02/23 06:08 MCHC 32.9 g/dL (32.0-36.0) 11/02/23 06:08 RDW Std Deviation 42.5 fL (36.4-46.3) 11/02/23 06:08 RDW Coeff of Victoriano 12.3 % (11.5-14.5) 11/02/23 06:08 Plt Count 182 K/uL (130-400) 11/02/23 06:08 MPV 11.6 fL (9.4-12.4) 11/02/23 06:08 Immature Gran % (Auto) 0.3 % 11/01/23 04:19 Neut % (Auto) 62.3 % 11/01/23 04:19 Lymph % (Auto) 22.7 % 11/01/23 04:19 [place] % (Auto) 12.7 % 11/01/23 04:19 Eos % (Auto) 1.6 % 11/01/23 04:19 Baso % (Auto) 0.4 % 11/01/23 04:19 Neut # (Auto) 4.33 K/uL (1.40-6.50) 11/01/23 04:19 Lymph # (Auto) 1.58 K/uL (1.20-3.40) 11/01/23 04:19 [place] # (Auto) 0.88 K/uL (0.11-0.59) H 11/01/23 04:19 Eos # (Auto) 0.11 K/uL (0.00-0.50) 11/01/23 04:19 Baso # (Auto) 0.03 K/uL (0.00-0.20) 11/01/23 04:19 Immature Gran # (Auto) 0.02 K/uL (0.01-0.20) 11/01/23 04:19 Polychromasia 1+ 10/30/23 20:00 PT 10.8 Seconds (9.0-12.0) 10/31/23 16:33 INR 1.0 (0.9-1.1) 10/31/23 16:33 APTT 28 Seconds (21-31) 10/31/23 16:33 PTT Ratio 1.0 10/31/23 16:33 Heparin Anti-Xa, Unfract 0.89 IU/ml (0.3-0.7) H* 11/01/23 12:09 Sodium 138 mmol/L (136-145) 11/02/23 06:08 Potassium 3.6 mmol/L (3.5-5.1) 11/02/23 06:08 Chloride 108 mmol/L (98-107) H 11/02/23 06:08 Carbon Dioxide 22 mmol/L (21-32) 11/02/23 06:08 Anion Gap 8 (3-11) 11/02/23 06:08 BUN 29 mg/dl (6-23) H 11/02/23 06:08 Creatinine 1.04 mg/dl (0.6-1.2) 11/02/23 06:08 Est Cr Clr Drug Dosing 34.9 ml/min 11/02/23 06:08 Est GFR ( Amer) 58.4 ml/min 11/02/23 06:08 Est GFR (Non-Af Amer) 50.3 ml/min 11/02/23 06:08 BUN/Creatinine Ratio 27.9 (10-20) H 11/02/23 06:08 Glucose 107 mg/dl (70-99(Fasting)) H 11/02/23 06:08 POC Glucose 128 mg/dl (70-99) H 11/02/23 11:50 Estimat Average Glucose 171 mg/dl 10/31/23 04:40 Hemoglobin A1c 7.6 % (4.5-5.6) H 10/31/23 04:40 Calcium 7.8 mg/dl (8.6-10.3) L 11/02/23 06:08 Magnesium 2.5 mg/dl (1.7-2.4) H 11/02/23 06:08 Total Bilirubin 1.2 mg/dl (0.2-1.0) H 10/30/23 20:00 AST 33 U/L (13-39) 10/30/23 20:00 ALT 26 U/L (7-52) 10/30/23 20:00 Alkaline Phosphatase 75 U/L (34-104) 10/30/23 20:00 Troponin I High Sens 17.4 pg/ml (0-14) H 11/01/23 04:19 Total Protein 8.0 gm/dl (6.0-8.3) 10/30/23 20:00 Albumin 4.3 gm/dl (3.4-5.0) 10/30/23 20:00 Globulin 3.7 gm/dl (2.5-4.0) 10/30/23 20:00 Albumin/Globulin Ratio 1.2 (0.9-2) 10/30/23 20:00 Triglycerides 76 mg/dl (0-150) 11/01/23 04:19 Cholesterol 98 mg/dl (0-200) 11/01/23 04:19 LDL Cholesterol, Calc 31 mg/dl 11/01/23 04:19 VLDL Cholesterol, Calc 15 mg/dl (0-30) 11/01/23 04:19 HDL Cholesterol 52 mg/dl 11/01/23 04:19 Cholesterol/HDL Ratio 1.9 (0-5) 11/01/23 04:19 Lipase 33 U/L (11-82) 10/30/23 20:00 Stl C. cayetanensis PCR Cancelled 10/31/23 Unknown Stool Rotavirus A PCR Cancelled 10/31/23 Unknown Stl Adenov F 40/41 PCR Cancelled 10/31/23 Unknown Stool Astrovirus (PCR) Cancelled 10/31/23 Unknown Stool Campylobacter PCR Cancelled 10/31/23 Unknown Stl C. diff Tox B Gene Negative Cdiff Gene (Neg) 10/31/23 Unknown Stool Cryptosporidium PCR Cancelled 10/31/23 Unknown Stl E.coli Shiga Tox PCR Cancelled 10/31/23 Unknown Stool E coli O157 PCR Cancelled 10/31/23 Unknown Stl Enterotoxigenic E PCR Cancelled 10/31/23 Unknown Stool EPEC (PCR) Cancelled 10/31/23 Unknown Stool EAEC (PCR) Cancelled 10/31/23 Unknown Stl E. histolytica PCR Cancelled 10/31/23 Unknown Stool Giardia Lamblia PCR Cancelled 10/31/23 Unknown Stool Salmonella PCR Cancelled 10/31/23 Unknown Stool Sapovirus (PCR) Cancelled 10/31/23 Unknown Stl P. shigelloides PCR Cancelled 10/31/23 Unknown Stl Shigella/EIEC PCR Cancelled 10/31/[address] Y.enterocolitica PCR Cancelled 10/31/23 Unknown Stool Vibrio (PCR) Cancelled 10/31/23 Unknown Stl Vibrio cholerae PCR Cancelled 10/31/23 Unknown Stl Norovirus GI/GII PCR Cancelled 10/31/23 Unknown Impressions Chest X-Ray 10/30/23 20:18 XR chest 1V portable HISTORY: 83 years-old Female Chest pain, nonspecific acute chest pain COMPARISON: CTA chest 10/31/2023 TECHNIQUE: AP view of the chest FINDINGS: Neck the cardiac silhouette is enlarged. There is no pneumothorax, pleural effusion, airspace consolidation or overt pulmonary edema. Minimal subsegmental bibasilar atelectasis. Bones appear grossly intact. Cholecystectomy. IMPRESSION: No acute process. ACT 112: Negative or not required by law. The above report was generated using voice recognition software. It may contain grammatical, syntax or spelling errors. Electronically signed by: Yoav Gonzales M.D. 10/31/2023 6:54 AM Chest CTA 10/31/23 01:15 Exam(s): CTA CHEST IV Amt: 118 ML OPTIRAY 320 EXAM: CT Angiography Chest With Intravenous Contrast CLINICAL HISTORY: Reason for exam: PE. TECHNIQUE: Axial computed tomographic angiography images of the chest with intravenous contrast. CTDI is 14.25 mGy and DLP is 301.72 mGy-cm. Automated exposure control was utilized for the study. A dose lowering technique was utilized adhering to the principles of ALARA. MIP reconstructed images were created and reviewed. COMPARISON: No relevant prior studies available. FINDINGS: Pulmonary arteries: Unremarkable. No acute pulmonary embolism. Aorta: Atherosclerotic changes of the aorta. No thoracic aortic aneurysm. Lungs: Unremarkable. No mass. No consolidation. Pleural space: Unremarkable. No focal infiltrate, pleural effusion, or pneumothorax. Heart: Cardiomegaly. No significant pericardial effusion. No evidence of RV dysfunction. Mediastinum: Small hiatal hernia. Bones/joints: Degenerative changes of the spine. No acute fracture. No dislocation. Soft tissues: Unremarkable. Lymph nodes: Unremarkable. No enlarged lymph nodes. IMPRESSION: 1. No acute pulmonary embolism. 2. No focal infiltrate, pleural effusion, or pneumothorax. 3. Small hiatal hernia. Electronically signed by: Reagan Houser MD 10/31/23 02:28 AM Carotid Doppler Study 10/31/23 10:04 CAROTID ARTERY ULTRASOUND CLINICAL HISTORY: Left carotid bruit. COMPARISON STUDY: None. TECHNIQUE: Real-time, grayscale, and color Doppler sonography of the carotid and vertebral arteries was performed. Images were viewed in the transverse and l ongitudinal planes. FINDINGS: There is mild atherosclerotic plaque. Velocity measurements are listed below. COMMON CAROTID PEAK SYSTOLIC VELOCITY (CM/S): RIGHT 83 LEFT 93 ICA PEAK SYSTOLIC VELOCITY (CM/S): RIGHT 214 LEFT 114 Systolic ratio between the right internal to common carotid artery is elevated at 2.6. However, only mild plaque is noted and the end-diastolic velocity is normal. Antegrade flow is seen in the vertebral arteries. The external carotid arteries are patent. IMPRESSION: 1. Elevated peak systolic velocity within the mid right cervical internal carotid artery. However, only mild plaque on bonner scale imaging. Therefore, this elevated velocity could be due to vessel tortuosity. However, a 50-69% stenosis of the right internal carotid artery could appear similar. No evidence for severe stenosis. 2. No evidence for a hemodynamically significant stenosis within the cervical left internal carotid artery. ACT 112: Negative or not required by law. Electronically signed by: Raymundo Pitt M.D. 10/31/2023 12:12 PM Ordered Studies 10/31/23 01:15 CT angio chest PE protocol Urgent 10/31/23 10:04 Carotid duplex [US carotid doppler BI] Routine 11/01/23 13:05 CL Cath Imgs for PACS use only Routine Hospital Course (1) Chest pain: 83-year-old female with past med history significant for type 2 diabetes, diabetic polyneuropathy, hyperlipidemia, diabetic gastroparesis, CKD stage III, history of dyspnea, history of migraine, comes in because of chest pain. Today afternoon she felt nauseous and had couple of episodes of diarrhea then she developed chest pain middle of the chest radiating to the back severe in nature lasted for 20 minutes. This happened few times which prompted her come to the ER. Last time she had chest pain was when she was entering the ambulance. Since then she has no chest pain. Chest pain got relieved by themselves. No nausea no dizziness or headache. No sweating. She had similar kind of chest pain in the past and she has stress test done on July 2022 which was unre markable. Before today's episode last time she had was in September. She states one time when her was alive she took his nitro and that helped the chest pain. Currently resting comfortably and hemodynamically stable. Afebrile. No runny nose or sore throat or cough. No abdominal pain. Normal bowel and bladder movements. States she ambulated about couple of miles yesterday and she was asymptomatic at that time.. Chest pain Nonobstructive coronary artery disease --CTA: No acute pulmonary embolism. No focal infiltrate, pleural effusion, or pneumothorax. Small hiatal hernia. 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 --lipid panel: Normal IV heparin, NTG discontinued Continue aspirin, Lipitor, metoprolol Appreciate cardiology input Chest pain likely due GI issues. Advised to follow-up with GI as outpatient Nausea, diarrhea Likely gastroenteritis Stool for C. difficile negative Imodium as needed Diarrhea resolved DM II HbA1C: 7.6 Hold p.o. medications Continue Sliding scale Monitor BGs CKD stage III Monitor renal function Avoid nephrotoxic agents as able Hypertension Continue Amlodipine, Losartan, metoprolol Monitor BP Hyperlipidemia On statin DVT Px: SQ Heparin Code Status Full Code Disposition Home Total Time Total Time Spent Total Time Spent (In Minutes): 49 minutes Discharge Plan Discharge Items Patient Disposition: Home - Self-Care Reason For Visit: CHEST PAIN Discharge Diagnosis: Chest pain Gastroenteritis--resolved Activity: Per Instructions section Exercise/Sports: Gradually increase as tolerated Non-emergency contact: Primary Care Provider and Meal Grinder Tender Call non-emergency contact if: you have any medication questions, your symptoms worsen, your pain is concerning for you and you have a fever Follow-up/Referrals: Nikia Joyce, [Primary Care Provider] - (Dr Joyce's office is aware of your discharge and will contact you with an appointment.) Diet: Heart Healthy Addtl Attending Provider Instructions: Follow-up with your primary care physician in 1 week Follow-up with your otolaryngology teacher for further workup as recommended for noncardiac chest pain. Seek immediate medical attention if your symptoms reoccur or worsen Please take all medications as instructed on discharge list below. Please call if you have any questions or problems. You can reach a [facility] hospitalist on duty at [facility] 24 hours a day by calling [phone] Pending Studies at Discharge: No Stand-Alone Forms: [facility] [employer], Smoking Cessation Medications and DC Order Prescriptions: New nitroglycerin [Nitrostat] 0.4 mg Tablet, Sublingual 0.4 mg sublingual DAILY PRN (Reason: chest pain) Qty: 30 0RF pantoprazole 40 mg Tablet,Delayed Release (Dr/Ec) 40 mg PO QAM Qty: 30 0RF Continued losartan 50 mg tablet 50 mg PO BID pioglitazone 15 mg tablet 15 mg PO QAM atorvastatin 20 mg tablet 20 mg PO QAM ergocalciferol (vitamin D2) 1,250 mcg (50,000 unit) capsule 50,000 unit PO .EVERY OTHER WEEK Rx Instructions: Take every other Sunday albuterol sulfate [ProAir HFA] 90 mcg/actuation HFA aerosol inhaler 2 puff INHALATION QID Rx Instructions: Patient states she only uses the inhaler for emergencies amlodipine 10 mg Tablet 10 mg PO DAILY aspirin [Aspirin Childrens] 81 mg Tablet,Chewable 81 mg PO DAILY Rx Instructions: take with food metoprolol succinate 25 mg tablet extended release 24 hr 12.5 mg PO DAILY Qty: 30 0RF glipizide [Glucotrol XL] 2.5 mg tablet extended release 24hr See Rx Instructions .ROUTE .COMPLEX Rx Instructions: Patient states she takes 2.5mg twice a day Jardiance 25 mg tablet 25 mg PO DAILY Discharge Orders: Discharge Order (Routine); Ordered 11/02/23 Ordered By: Dax Khanna Admission Data Admit Date/Time: 11/01/23 14:41 Attending Provider: Dax Khanna Admit Provider: Dax Khanna Primary Care Provider: Nikia Joyce Other Providers: Myles Millan; Katie Armstrong; Shawn Cruz; Daniel Rivera; Aquilino Espitia; Derick House; Jeremy Alexander; Sun Harrell; Keerthi Hinojosa; Katie Lynch; Armani Lai; Adolfo Tran; Mago Tang; Ashly Cordero; Waylon Blount; Ranjan Reddy Other Interventions: Discharge Summary Assessment (RN) Last Done: 11/02/23 13:29
== END 2023-11-02 14:02 | disposition home or self-care (01) | DRG 287 ==
LOC: ED 19:42 → EDINP 19:42 → SUATTDRO 10-31 01:15 → EDINP 11-01 04:47 → 2W 11-01 05:11 → 4W 11-01 16:20